=== PATIENT | male | born 1955 | race Caucasian/White ===

== ENCOUNTER 2017-09-08 13:44 | Inpatient (IN) ==
[2017-09-08 15:19] LABS: Basophils % 0.1 %; Eosinophils # 0.1 K/mcL (0.0-0.6); Eosinophils % 0.7 %; Hematocrit 34.6 % (37.5-50.1); Hemoglobin 11.4 g/dL (12.9-16.9); Immature Granulocytes % 0.6 % (0-4); Lymphocytes # 0.9 K/mcL (0.6-4.6); Lymphocytes % 12.8 %; Mean Corpuscular HGB Conc 32.9 g/dL (31.6-35.5); Mean Platelet Volume 9.3 fL (9.4-12.4); Monocytes # 0.5 K/mcL (0.0-1.3); Monocytes % 7.6 %; Neutrophils # 5.3 K/mcL (1.6-8.9); Platelet Count 265 K/mcL (140-400); Red Blood Count 3.68 M/mcL (4.19-5.50); Red Cell Distribution Width 13.5 % (11.5-14.5); Segmented Neutrophils % 78.2 %
[2017-09-08 16:00] LABS: BUN/Creatinine Ratio 12 (6-26); Blood Urea Nitrogen 15 mg/dL (8-23); C-Reactive Protein 68 mg/L (Less than 10); Calcium 8.3 mg/dL (8.6-10.3); Carbon Dioxide 25 mEq/L (23-29); Chloride 105 mEq/L (98-107); Glucose 103 mg/dL (70-105); Osmolality,Calculated 285 (280-300); Potassium 3.5 mEq/L (3.5-5.1); Sodium 137 mEq/L (136-145); eGFR For African Americans > 60 (> 60); eGFR For Non-African Americans 57 (> 60)
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
[2017-09-08] MEDS ORDERED: Piperacillin/Tazobactam 3.375 GM in 0.9 % Sodium Chloride Mini Bag 100 ML IVPB ONE (17:43)
[2017-09-08] MEDS ORDERED: 0.9 % Sodium Chloride 1,000 ML IVC ONE (17:44)
[2017-09-08] MEDS ORDERED: Clindamycin 900 MG/50 ML 900 MG/50 ML IV.SOLN IVPB ONE (20:02)
--- NOTE | 2017-09-08 20:05 | Emergency Department Note ---
Disposition Clinical Impression: Wound of left lower extremity Qualifiers: Encounter type: initial encounter Qualified Code(s): S81.802A - Unspecified open wound, left lower leg, initial encounter Osteomyelitis Qualifiers: Osteomyelitis type: unspecified type Osteomyelitis location: unspecified site Qualified Code(s): M86.9 - Osteomyelitis, unspecified Disposition: Admitted As Inpatient Condition: Fair [facility]errals: [facility] [Primary Care Provider] - Forms: ED Satisfaction Letter Time of Disposition: 20:05 Wound/Laceration HPI - General Chief Complaint: ED Wound/Laceration Stated Complaint: sent from Wound Care Time Seen by Provider: 09/08/17 14:11 Source: patient Limitations: no limitations - Related Data Home Medications Medication Instructions Recorded Confirmed Carvedilol 12.5 mg PO BID 07/03/17 09/08/17 Gabapentin [Neurontin] 900 mg PO TID 07/03/17 09/08/17 Lisinopril [Zestril] 20 mg PO DAILY 07/03/17 09/08/17 Phenytoin Sodium Extended 200 mg PO TID 07/03/17 09/08/17 [Phenytek] Spironolactone [Aldactone] 25 mg PO DAILY 07/03/17 09/08/17 Tamsulosin HCl [Flomax] 0.4 mg PO DAILY 07/03/17 09/08/17 Allergies Allergy/AdvReac Type Severity Reaction Status Date / Time No Known Allergies Allergy Verified 09/08/17 14:09 Constitutional: Reports: fever (Subjective) Cardiovascular: Denies: chest pain Respiratory: Denies: cough Gastrointestinal: Denies: abdominal pain, nausea, vomiting Musculoskeletal: Reports: other (Left leg pain). Denies: back pain Integumentary: Reports: other (Increased swelling and purulent drainage.) Past Medical History - Past Medical History Medical history: Reports: hypertension, kidney stones, seizures, syncope, other Surgical history: Reports: other Psychiatric history: Reports: anxiety, depression - Social History Smoking Status: Former smoker Smokeless Tobacco Status: No Alcohol use: Reports: none Drug use: Reports: none Physical Exam - General Limitations: no limitations General appearance: alert, in no apparent distress Course - Reevaluation(s) Reevaluation #1: I assumed care of the patient from Dr. Almonte at change of shift. Dr. Almonte had already done a full evaluation of the patient and it spoken with podiatry and had already initiated antibiotics in conjunction with consultation with podiatry. He was waiting for labs to come back and then paging the hospitalist. Labs came back and show an elevation of ESR and CRP but the rest of labs look pretty good. Patient has received vancomycin and Zosyn. I went and spoke with the hospitalist who recommended adding clindamycin as well. He is accepted the patient for admission to the hospital. I saw the patient and he is alert and nontoxic appearing and in no distress. He denies any needs at this time. Time: 20:05 - Consultations Consultation #1: Dr. Rosales, hospitalist - I discussed the case with the hospitalist. He accepted the patient for admission. He recommended I order clindamycin IV as well. I ordered 900 mg of IV clindamycin. Time: 20:05 Vital Signs Temperature 97.8 F 09/08/17 14:02 Pulse Rate 90 09/08/17 14:02 Respiratory Rate 18 09/08/17 14:02 Blood Pressure 96/65 09/08/17 14:02 O2 Sat by Pulse Oximetry 96 09/08/17 14:02 Temperature 97.8 F 09/08/17 17:04 Pulse Rate 67 09/08/17 19:05 Respiratory Rate 15 09/08/17 19:05 Blood Pressure 149/101 09/08/17 19:05 O2 Sat by Pulse Oximetry 98 09/08/17 19:05 Oxygen Delivery Oxygen Delivery Room Air Wound/Laceration - Lab Data Lab results reviewed: Yes I reviewed the patient's lab results. Result diagrams: 09/08/17 14:57 09/08/17 14:57 Lab Results 09/08/17 09/08/17 09/08/17 Range/Units 14:57 14:57 14:57 WBC 6.7 (4.3-11.1) K/mcL RBC 3.68 L (4.19-5.50) M/mcL Hgb 11.4 L (12.9-16.9) g/dL Hct 34.6 L (37.5-50.1) % MCV 94.0 (83.0-100.0) fL MCH 31.0 (28.0-33.3) pg MCHC 32.9 (31.6-35.5) g/dL RDW 13.5 (11.5-14.5) % Plt Count 265 (140-400) K/mcL MPV 9.3 L (9.4-12.4) fL Immature Gran % 0.6 (0-4) % Seg Neutrophils % 78.2 % Lymphocytes % 12.8 % Monocytes % 7.6 % Eosinophils % 0.7 % Basophils % 0.1 % Neutrophils # 5.3 (1.6-8.9) K/mcL Lymphocytes # 0.9 (0.6-4.6) K/mcL Monocytes # 0.5 (0.0-1.3) K/mcL Eosinophils # 0.1 (0.0-0.6) K/mcL Basophils # 0.0 (0.0-0.2) K/mcL ESR 50 H (0-10) mm/hr Sodium 137 (136-145) mEq/L Potassium 3.5 (3.5-5.1) mEq/L Chloride 105 (98-107) mEq/L Carbon Dioxide 25 (23-29) mEq/L BUN 15 (8-23) mg/dL Creatinine 1.27 (0.70-1.30) mg/dL Est GFR ( Amer) > 60 (> 60) Est GFR (Non-Af Amer) 57 L (> 60) BUN/Creatinine Ratio 12 (6-26) Glucose 103 (70-105) mg/dL Calculated Osmolality 285 (280-300) Lactic Acid (0.5-2.2) mmol/L Calcium 8.3 L (8.6-10.3) mg/dL C-Reactive Protein 68 H (Less than 10) mg/L 09/08/17 Range/Units 14:57 WBC (4.3-11.1) K/mcL RBC (4.19-5.50) M/mcL Hgb (12.9-16.9) g/dL Hct (37.5-50.1) % MCV (83.0-100.0) fL MCH (28.0-33.3) pg MCHC (31.6-35.5) g/dL RDW (11.5-14.5) % Plt Count (140-400) K/mcL MPV (9.4-12.4) fL Immature Gran % (0-4) % Seg Neutrophils % % Lymphocytes % % Monocytes % % Eosinophils % % Basophils % % Neutrophils # (1.6-8.9) K/mcL Lymphocytes # (0.6-4.6) K/mcL Monocytes # (0.0-1.3) K/mcL Eosinophils # (0.0-0.6) K/mcL Basophils # (0.0-0.2) K/mcL ESR (0-10) mm/hr Sodium (136-145) mEq/L Potassium (3.5-5.1) mEq/L Chloride (98-107) mEq/L Carbon Dioxide (23-29) mEq/L BUN (8-23) mg/dL Creatinine (0.70-1.30) mg/dL Est GFR ( Amer) (> 60) Est GFR (Non-Af Amer) (> 60) BUN/Creatinine Ratio (6-26) Glucose (70-105) mg/dL Calculated Osmolality (280-300) Lactic Acid 0.8 (0.5-2.2) mmol/L Calcium (8.6-10.3) mg/dL C-Reactive Protein (Less than 10) mg/L - Radiology Data Radiology results reviewed: Yes I reviewed the patient's radiology results.
[2017-09-08] MEDS ORDERED: Naloxone 0.4 MG/ML INJ IVP PRN (21:32)
--- NOTE | 2017-09-08 21:43 | Internal Med History&Physical ---
Date of Encounter: 09/08/17 Time of Encounter: 19:00 Internal Medicine - H&P: HPI Chief complaint: Wound infection Admitted From: Home Plans for Post Hospital Care: Home History of present illness: Mr. Dias is a 61 year old male sent to ER by wound care for wound infection. Past medical history is significant for hypertension, seizure. Patient has chronic left ankle and left heel wound and follow with wound clinic. Patient was sent to emergency room by wound clinic today because signs of wound infection. Patient had debridement on July 03 and placed on wound VAC. The skin turns black on both ankle and heel. Patient has subjective fever and night sweating. In the emergency room, x-ray of left foot shows cellulitis and possible fasciitis. Patient was placed on antibiotics and admitted for further management. Podiatry was counseled by ER. Past Med Surg Social Fam HX - Past Medical History Medical history: hypertension, kidney stones, seizures, syncope, other Additional medical history: Left Foot Drop, Polyp, Lumbar deforming dorsopathies , Psychiatric history: anxiety, depression - Past Surgical History Surgical History: other Additional surgical history: Bone Augmentation with pins and screws to left foot - Social History Smoking Status: Former smoker Smokeless Tobacco Status: No Alcohol use: none Drug use: none - Family History Mother Adopted: No Hx Family Cardiac Disorders: Yes Hx Family Respiratory Disorders: No Hx Family Cancer: No Hx Family GI Disorders: No Hx Family Endocrine Disorder: Yes Hx Family Neuromuscular Disorders: No Hx Family Neurologic Disorders: No Hx Family HEENT Disorders: No Hx Family Autoimmune Disorders: No Father Adopted: No Family Member Ethnicity: Non- Living Status: Hx Family Cardiac Disorders: Yes Hx Family Respiratory Disorders: No Hx Family Cancer: No Hx Family GI Disorders: No Hx Family Endocrine Disorder: No Hx Family Neuromuscular Disorders: No Hx Family Neurologic Disorders: No Hx Family HEENT Disorders: No Hx Family Autoimmune Disorders: No Internal Medicine - H&P: Meds Carvedilol 12.5 mg PO BID 07/03/17 [History] Gabapentin [Neurontin] 900 mg PO TID 07/03/17 [History] Lisinopril [Zestril] 20 mg PO DAILY 07/03/17 [History] Phenytoin Sodium Extended [Phenytek] 200 mg PO TID 07/03/17 [History] Spironolactone [Aldactone] 25 mg PO DAILY 07/03/17 [History] Tamsulosin HCl [Flomax] 0.4 mg PO DAILY 07/03/17 [History] 3 Allergy/AdvReac Type Severity Reaction Status Date / Time No Known Allergies Allergy Verified 09/08/17 14:09 All Systems PM: A 10-system review of systems was performed and is negative for pertinent findings except as documented above in the HPI. - Constitutional Vitals: Temp Pulse Resp BP Pulse Ox 97.8 F 71 16 177/104 98 09/08/17 17:04 09/08/17 20:51 09/08/17 20:51 09/08/17 20:51 09/08/17 20:51 General appearance: Present: A&O X 3, no acute distress, answers questions appropriately - Head Head exam: Present: atraumatic, normocephalic - Eye Eye exam: Present: PERRL, conjuntiva pink, sclera anicteric Pupils: Present: PERRL - Neck Neck exam general surgery: Present: supple, trachea midline. Absent: lymphadenopathy - Respiratory Respiratory exam: Present: CTAB. Absent: accessory muscle use, rales, rhonchi, wheezes - Cardiovascular Cardiovascular exam: Present: RRR, +S1, +S2. Absent: diastolic murmur, gallop, rubs, systolic murmur - GI/Abdominal GI/Abdominal exam: Present: normal bowel sounds, soft, no peritoneal signs. Absent: distended, tenderness - Extremities Exam Extremities exam: Present: warm, radial pulses palpable and symmetrical. Absent : calf tenderness, cyanotic, pedal edema Additional comments: Left ankle and heel wound, well dressed. - Neurological Exam Neurological exam: Present: CN II-XII intact, oriented X3, no focal deficits. Absent: pronater drift, facial droop, speech deficit - Skin Skin exam: Present: dry, intact Internal Med - H&P Results - Labs CBC & Chem 7: 09/08/17 14:57 09/08/17 14:57 Labs: Short CBC 09/08/17 Range/Units 14:57 WBC 6.7 (4.3-11.1) K/mcL Hgb 11.4 L (12.9-16.9) g/dL Hct 34.6 L (37.5-50.1) % Plt Count 265 (140-400) K/mcL Neutrophils # 5.3 (1.6-8.9) K/mcL BMP 09/08/17 14:57 Sodium 137 Potassium 3.5 Chloride 105 Carbon Dioxide 25 BUN 15 Creatinine 1.27 Glucose 103 Calcium 8.3 L - Impressions ITS Impressions Foot X-Ray 09/08/17 17:29 IMPRESSION: Recent postsurgical change of arthrodesis in the foot. Worsening soft tissue swelling and edema with suspected ulceration and perhaps subcutaneous gas over the dorsal and medial aspect of the foot. Pattern may represent cellulitis and ulceration. Underlying fasciitis is not excluded. D/ / Kurt Gaming MD / Kurt Gaming MD Interpreting Provider: Kurt Gaming MD - Assessment and plan (1) Hypertension Current Visit: Yes Status: Acute Assessment and plan: Continue home medications. Closely monitor BP. Qualifiers: Hypertension type: essential hypertension Qualified Code(s): I10 - Essential (primary) hypertension (2) Seizure Current Visit: Yes Status: Acute Assessment and plan: Continue home medication phenytoin. Patient reports has seizure activity 2 weeks ago. Will check blood phenytoin level. (3) DVT prophylaxis Current Visit: Yes Status: Acute Assessment and plan: Heparin subcutaneously (4) Wound of left lower extremity Current Visit: Yes Status: Acute Assessment and plan: With signs of infection. Not meet sepsis criteria. X-ray shows possible subcutaneous gas and fasciitis is not Excluded. - Place patient on Vanco, Zosyn, and clindamycin - Consult podiatry - Keep patient nothing by mouth from midnight in case podiatry procedures Qualifiers: Encounter type: initial encounter Qualified Code(s): S81.802A - Unspecified open wound, left lower leg, initial encounter - Time Spent With Patient Total time spent is greater than 50% in coordination of care (as documented) at patient's floor/unit and/or counseling patient: 40 minutes Greater than 35 minutes
[2017-09-08] MEDS: 0.9 % Sodium Chloride 1,000 ML IVC SCH (22:38)
[2017-09-08] MEDS: Gabapentin 300 MG CAPSULE PO SCH (23:43)
[2017-09-09] MEDS: Clindamycin 600 MG/50 ML 600 MG/50 ML IV.SOLN IVPB SCH ×3 (04:44→15:39)
[2017-09-09] MEDS: Piperacillin/Tazobactam 3.375 GM in 0.9 % Sodium Chloride Mini Bag 100 ML IVPB SCH ×2 (04:45→12:08)
[2017-09-09] MEDS: *HR* Heparin 5,000 UNIT/ML VIAL SQ SCH ×2 (05:35→16:43)
[2017-09-09 06:59] LABS: Basophils % 0.2 %; Eosinophils % 0.6 %; Hematocrit 31.6 % (37.5-50.1); Hemoglobin 10.8 g/dL (12.9-16.9); Immature Granulocytes % 0.6 % (0-4); Lymphocytes # 1.2 K/mcL (0.6-4.6); Lymphocytes % 22.4 %; Mean Corpuscular HGB Conc 34.2 g/dL (31.6-35.5); Mean Corpuscular Hemoglobin 32.1 pg (28.0-33.3); Mean Platelet Volume 9.3 fL (9.4-12.4); Monocytes # 0.6 K/mcL (0.0-1.3); Neutrophils # 3.5 K/mcL (1.6-8.9); Platelet Count 194 K/mcL (140-400); Red Blood Count 3.36 M/mcL (4.19-5.50); Red Cell Distribution Width 13.2 % (11.5-14.5); Segmented Neutrophils % 65.2 %
[2017-09-09 07:05] LABS: INR 1.3; Prothrombin Time 14.7 Seconds (9.4-12.1)
[2017-09-09 07:29] LABS: BUN/Creatinine Ratio 15 (6-26); Blood Urea Nitrogen 14 mg/dL (8-23); Carbon Dioxide 24 mEq/L (23-29); Chloride 108 mEq/L (98-107); Glucose 106 mg/dL (70-105); Magnesium 1.6 mg/dL (1.6-2.6); Osmolality,Calculated 283 (280-300); Phenytoin (Dilantin) 3.5 mcg/mL (10.0-20.0); Potassium 3.3 mEq/L (3.5-5.1); Sodium 136 mEq/L (136-145); eGFR For African Americans > 60 (> 60); eGFR For Non-African Americans > 60 (> 60)
[2017-09-09] MEDS ORDERED: Gabapentin 300 MG CAPSULE PO SCH (09:00)
[2017-09-09] MEDS ORDERED: Lisinopril 20 MG TABLET PO SCH (09:00)
[2017-09-09] MEDS ORDERED: Spironolactone 25 MG TABLET PO SCH (09:00)
[2017-09-09] MEDS ORDERED: Lactobacillus 1 EACH CAP.SPRINK PO SCH (09:00)
[2017-09-09] MEDS: Gabapentin 300 MG CAPSULE PO SCH ×2 (09:11→15:39)
[2017-09-09] MEDS: 0.9 % Sodium Chloride 1,000 ML IVC SCH (09:31)
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
--- NOTE | 2017-09-09 15:21 | Internal Med Progress Note ---
Date of Encounter: 09/09/17 Time of Encounter: 14:00 - Assessment and plan (1) Wound of left lower extremity Current Visit: Yes Status: Acute Assessment and plan: Concern for infected L ankle/heel wound with surrounding cellulitis elevated CRP, ESR no SIRS criteria XR ?fasciitis in addition to cellulitis and ulceration IV abx, ID consult for staged debridements by podiatry Qualifiers: Encounter type: initial encounter Qualified Code(s): S81.802A - Unspecified open wound, left lower leg, initial encounter (2) Hypokalemia Current Visit: Yes Status: Acute Assessment and plan: repleted (3) Hypertension Current Visit: Yes Status: Chronic Assessment and plan: continue coreg, lisinopril, aldactone Qualifiers: Hypertension type: essential hypertension Qualified Code(s): I10 - Essential (primary) hypertension (4) Seizure Current Visit: Yes Status: Chronic Assessment and plan: continue phenytoin, level 3.5 but not having seizures (5) DVT prophylaxis Current Visit: Yes Status: Acute Assessment and plan: SQ heparin - Time Spent With Patient Total time spent is greater than 50% in coordination of care (as documented) at patient's floor/unit and/or counseling patient: - Subjective Interval history: Denies fever/chills, worsening pain over L ankle/heel. States that he has been having low grade temp at home for the past few days. - Constitutional Vitals: Temp Pulse Resp BP Pulse Ox 98.2 F 73 15 142/82 97 09/09/17 14:29 09/09/17 14:29 09/09/17 14:29 09/09/17 14:29 09/09/17 14:29 General appearance: Present: A&O X 3, no acute distress, answers questions appropriately Exam: General: Alert and oriented HEENT:EOM, pupils equal, round, and reactive. Cardiovascular:Normal S1 & S2, no murmurs or gallops. No JVD. Pulse regular. Lungs:Normal breath sounds, no wheezes or crackles. Abdomen:Soft, non-tender, no rigidity. Extremities: L ankle/foot wrapped in dressing, dry and clean dressing Neurological:Normal cognition and motor skills. Skin:Normal color, no rash, no lesions. Pulses:Carotid and radial pulses normal +2. Rest of the physical exam is non-contributory Internal Medicine: Result - Labs CBC & Chem 7: 09/09/17 06:05 09/09/17 06:05 Labs: Short CBC 09/09/17 Range/Units 06:05 WBC 5.4 (4.3-11.1) K/mcL Hgb 10.8 L (12.9-16.9) g/dL Hct 31.6 L (37.5-50.1) % Plt Count 194 (140-400) K/mcL Neutrophils # 3.5 (1.6-8.9) K/mcL BMP 09/09/17 06:05 Sodium 136 Potassium 3.3 L Chloride 108 H Carbon Dioxide 24 BUN 14 Creatinine 0.96 Glucose 106 H Calcium 8.0 L - ABG Interpretation ABG results: PT/INR, D-dimer PT 14.7 Seconds (9.4-12.1) H 09/09/17 06:05 Consult Discharge Plan - Plan [facility]errals: [facility] [Primary Care Provider] -
--- NOTE | 2017-09-09 17:31 | Anesthesia Evaluation PreOp ---
Date of Encounter: 09/09/17 Time of Encounter: 17:28 - Past History Planned Operation: L foot excisional debridement, removal hardware Cardiac History: HTN Pulmonary History: Denies Any Significant HX BPM ARCHITECT History: Seizures (no seizure in 3yrs), Other (L foot drop) Other Medical History: Renal (stones) Anesthesia History: No Prior Anesthetic Complications, Past Anesthesia (Fusion L foot to ankle joint, bone graft) Alcohol Use: none Drug use: none Medications and Allergies Gabapentin [Neurontin] 900 mg PO TID 07/03/17 [History] Phenytoin Sodium Extended [Phenytek] 200 mg PO TID 07/03/17 [History] RX: Carvedilol 12.5 mg PO BID 07/03/17 [History] RX: Lisinopril [Zestril] 20 mg PO DAILY 07/03/17 [History] Spironolactone [Aldactone] 25 mg PO DAILY 07/03/17 [History] Tamsulosin HCl [Flomax] 0.4 mg PO DAILY 07/03/17 [History] 3 Allergy/AdvReac Type Severity Reaction Status Date / Time No Known Allergies Allergy Verified 09/08/17 14:09 - Meds/Allergy Pre-op Review Medications Reviewed: Yes Allergies Reviewed: Yes Beta Blockers on Current Med List: Yes If Beta Blockers taken, Date/Time (Last Dose taken): 09/09/17 1644 Anesthesia Results - Labs 09/09/17 06:05 09/09/17 06:05 - Imaging EKG: report reviewed ( Interpretive Statements SINUS BRADYCARDIA Electronically Signed On 08-11-2017 15:33:49 EDT by [address] Wynne) Anesthesia Exam Vital Signs/O2 Sat, Most Current Temp Pulse Resp BP Pulse Ox 98.2 F 73 15 142/82 97 09/09/17 14:29 09/09/17 14:29 09/09/17 14:29 09/09/17 14:29 09/09/17 14:29 Height: 1.88m Weight: 99kg NPO (# of Hours): >8 Pain Scale: 0 Pain Scale Used: Numeric (1 - 10) - HEENT Pupil (Motor): Pupils equal, EOMI Mallampati: III Teeth: Poor dentition Oral Opening: Greater than 3 - BPM ARCHITECT LOC: Oriented BPM ARCHITECT Motor: Normal RUE, Normal LUE, Normal RLE, Normal Face, Deficit LLE (left foot drop) BPM ARCHITECT Sensory: Normal: RUE, LUE, RLE, LLE, Face - Cardiac Rhythm: Regular - Pulmonary Breath Sounds: bilateral Clear Respiratory Effort: Symmetrical Anesthesia Assess/Plan ASA Score: 3 Modified [place] Scale for Level of Consciousness: Cooperative, oriented, and tranquil Anesthetic Plan: General Monitoring Plan: Standard Monitors Recovery Plan: PACU
[2017-09-09] MEDS ORDERED: Vancomycin 1,000 MG VIAL ONE (18:04)
[2017-09-09] MEDS ORDERED: *HR* Propofol 200 MG/20 ML VIAL IVP ONE ×2 (18:37→22:54)
[2017-09-09] MEDS ORDERED: Lidocaine -MPF 2% 2 ML VIAL ONE (18:37)
[2017-09-09] MEDS ORDERED: *HR* FentaNYL (PF) 100 MCG/2 ML VIAL ONE (18:37)
--- NOTE | 2017-09-09 21:02 | Event Note ---
Date of Encounter: 09/09/17 Time of Encounter: 20:45 I came to see the patient to evaluate his left lower extremity. Unfortunately he was being prepared to be taken into surgery this evening by Dr. Pacheco for debridement. I briefly mentioned to the patient and his that we would recommend angiography and possible endovascular intervention. We are tentatively planning on this procedure for the patient on . All questions were answered. Patient was agreeable to proceed if he is medically stable.
[2017-09-09] MEDS ORDERED: Lidocaine 1% 20 ML MDV ONE (23:08)
--- NOTE | 2017-09-10 00:36 | Operative Note ---
Date of procedure: 09/09/17 Pre-op diagnosis: left foot/ankle wound dehiscence, possible infected hardware Post-op diagnosis: same Procedure: Excisional debridement of left foot wounds Anterior ankle, lateral foot, posterior heel. removal of hardware Implants: none Complications: none Anesthesia: MAC Local Anesthetics: 1% Lidocaine HCL SubQ (cc) Surgeon: Naveed Larkin Was there an nursing assistants teacher present: No Estimated blood loss (cc): 50 Specimen: left wound culture, left talus bone culture, pathology bone left talus Condition: stable Disposition: PACU Procedure in Detail: Indications: 61-year-old male with neuropathy with normal pre-operative non- invasive vascular studies underwent a pantalar arthrodesis and subsequently developed left foot/ankle wound dehiscence with measurements on the anterior aspect of the ankle which developed necrosis and demarcated. It measured [id number] and a left lateral foot wound which measured [id number] and a posterior heel wound which measured approximately [id number] with necrosis/ eschar. The patient developed cellulitis and was admitted to the hospital and received IV antibiotics. Nature of the above procedures as well as the patient' s condition were discussed at length with him preoperatively and he was made aware that he is at high risk for limb loss. It was explained he will require multiple operating room debridements, grafts, possible flaps. No guarantees were made as to the outcome of any procedure or that his limb could be salvaged. Vascular had been consulted and discussed patient with them the debridement today and plan for angiogram on . Infectious disease was also consulted. Will perform debridement today and did Informed consent had been signed patient was taken from preoperative holding area and operating room placed on the operating room table in the supine position. The left lower extremity was scrubbed prepped and draped in the usual sterile fashion. 1% lidocaine plain was injected into the patient's left foot and ankle. The following procedures then began. Excisional debridement of left foot/ankle wounds, removal of hardware, washout, application of wound vac. Attention was directed to the patient's left lower extremity where the Pulsavac with normal sterile saline and 3 g of vancomycin was used to cleanse the wounds and aid in debridement of the wounds. The necrotic area of the anterior ankle wound was then more movable and was gently elevated off the wound bed and excised. Care was taken to avoid underlying vascular structures. Tissue under the wound including the anterior ankle tendons appeared glistening white and healthy without degenerative changes and were not desiccated. No underlying purulence was present. There was serous drainage present, mostly in the lateral aspect of the wound. Cultures were taken and sent to microbiology. The underlying tissue did not have necrosis. Through the lateral aspect of the wound there was hardware able to be visualized. The screws that were visualized were removed. The screws that were in the talus from the anterior ankle plate were not felt to be well secured within the talus bone. The screws were removed. Medially one of the screw heads was able to be visualized just beneath the soft tissue and the decision was made to also remove the screw. At this time the decision was made to leave the plate until the vasculature had been further evaluated as to not make any further incision on the skin at this time which would be needed to remove the plate. There was no purulence seen or expressed in the wound or around the plate or screws. The [employer] debridement wand was utilized to debride the posterior heel wound and lateral foot wound until there was a healthy bleeding granular base. Upon debridement of the eschar on the posterior aspect of the heel. The screw was visualized and the decision was made to remove the screw. Pulse lavage irrigation a low setting was utilized to further cleanse all of the wound sites. There was bleeding present on the anterior ankle wound lateral foot wound and posterior heel. Adequate hemostasis was felt to be present at the conclusion of the procedure. The talus bone which is able to be visualized the lateral aspect of the incision, then had a ronjeur used to take a sample of the bone and it was sent to the pathology lab and microbiology lab. Adaptic was placed over the anterior ankle wound and a wound VAC was applied to the anterior ankle and lateral foot wound using a bridge. The posterior wound had Adaptic applied and a dry sterile bandage. The patient was then placed in an adequately padded posterior splint. Patient tolerated the anesthesia and the procedure well and was escorted to recovery room with vital signs stable and will return to the floor where he will continue antibiotics.
--- NOTE | 2017-09-10 01:00 | Anesthesia Evaluation Post Op ---
Date of Encounter: 09/10/17 Time of Encounter: 01:00 - Vital Signs Vital Signs: Last Vital Signs Temp 97.0 F L 09/10/17 00:51 Pulse 59 09/10/17 00:51 Resp 18 09/10/17 00:51 BP 183/100 09/10/17 00:51 Pulse Ox 97 09/10/17 00:51 - Lungs Lungs: Clear Ascult./Percussion - Airway Airway: Non-obstructed - Cardiovascular Regular Rate - Mental Status Mental Status: Alert & Oriented, Answers Appropriately - Pain Pain Scale: 3 - Nausea Vomiting Nausea Vomiting: Not Present - Hydration Hydration: Ice chips - Discharge PostOp Status: Transfer Patient to floor
[2017-09-10] MEDS ORDERED: Naloxone 0.4 MG/ML INJ IVP PRN (01:11)
[2017-09-10] MEDS: Gabapentin 300 MG CAPSULE PO SCH ×4 (01:14→20:26)
[2017-09-10] MEDS: Clindamycin 600 MG/50 ML 600 MG/50 ML IV.SOLN IVPB SCH (01:14)
[2017-09-10] MEDS: Piperacillin/Tazobactam 3.375 GM in 0.9 % Sodium Chloride Mini Bag 100 ML IVPB SCH ×4 (01:14→22:18)
[2017-09-10 03:59] LABS: Adenovirus F 40/41 PCR Not detected (Not detect); Astrovirus PCR Not detected (Not detect); C.difficile Toxin A/B by PCR Not detected (Not detect); Campylobacter by PCR Not detected (Not detect); Cryptosporidium by PCR Not detected (Not detect); Cyclospora cayetanensis PCR Not detected (Not detect); E. coli O157 by PCR Not detected (Not detect); Entamoeba histolytica PCR Not detected (Not detect); Enteroaggregative E.coli(EAEC) Not detected (Not detect); Enteropathogenic E.coli(EPEC) Not detected (Not detect); Enterotoxigenic E.coli (ETEC) Not detected (Not detect); Giardia lamblia PCR Not detected (Not detect); Norovirus GI/GII PCR Not detected (Not detect); Plesiomonas shigelloides PCR Not detected (Not detect); Rotavirus A PCR Not detected (Not detect); Salmonella PCR Not detected (Not detect); Sapovirus PCR Not detected (Not detect); Shig/EnteroinvasiveE coli EIEC Not detected (Not detect); Shigalike tox-prod E coli STEC Not detected (Not detect); Vibrio PCR Not detected (Not detect); Vibrio cholerae PCR Not detected (Not detect); Yersinia enterocolitica PCR Not detected (Not detect)
[2017-09-10] MEDS ORDERED: Piperacillin/Tazobactam 3.375 GM in 0.9 % Sodium Chloride Mini Bag 100 ML IVPB SCH (04:00)
[2017-09-10 06:36] LABS: Basophils % 0.2 %; Eosinophils # 0.1 K/mcL (0.0-0.6); Eosinophils % 1.3 %; Hematocrit 33.1 % (37.5-50.1); Immature Granulocytes % 0.6 % (0-4); Lymphocytes # 1.1 K/mcL (0.6-4.6); Lymphocytes % 19.7 %; Mean Corpuscular HGB Conc 33.2 g/dL (31.6-35.5); Mean Corpuscular Hemoglobin 31.3 pg (28.0-33.3); Mean Platelet Volume 9.6 fL (9.4-12.4); Monocytes # 0.4 K/mcL (0.0-1.3); Monocytes % 7.2 %; Neutrophils # 3.9 K/mcL (1.6-8.9); Platelet Count 204 K/mcL (140-400); Red Blood Count 3.52 M/mcL (4.19-5.50); Red Cell Distribution Width 13.2 % (11.5-14.5)
[2017-09-10] MEDS: *HR* Heparin 5,000 UNIT/ML VIAL SQ SCH ×2 (06:42→17:30)
[2017-09-10 07:01] LABS: BUN/Creatinine Ratio 12 (6-26); Blood Urea Nitrogen 12 mg/dL (8-23); Carbon Dioxide 21 mEq/L (23-29); Chloride 109 mEq/L (98-107); Potassium 3.7 mEq/L (3.5-5.1); Sodium 137 mEq/L (136-145); eGFR For African Americans > 60 (> 60)
[2017-09-10 07:02] LABS: Calcium 8.2 mg/dL (8.6-10.3); Glucose 87 mg/dL (70-105); Magnesium 1.7 mg/dL (1.6-2.6); Osmolality,Calculated 283 (280-300); eGFR For Non-African Americans > 60 (> 60)
[2017-09-10] MEDS ORDERED: Clindamycin 600 MG/50 ML 600 MG/50 ML IV.SOLN IVPB SCH (08:00)
[2017-09-10] MEDS: Lactobacillus 1 EACH CAP.SPRINK PO SCH (08:05)
[2017-09-10] MEDS: Spironolactone 25 MG TABLET PO SCH (08:06)
[2017-09-10] MEDS: Lisinopril 20 MG TABLET PO SCH (08:06)
[2017-09-10] MEDS: amLODIPine 5 MG TABLET PO SCH (09:22)
--- NOTE | 2017-09-10 13:18 | Podiatry Progress Note ---
Date of Encounter: 09/10/17 Time of Encounter: 12:15 - Assessment and Plan (1) Wound of left lower extremity Current Visit: Yes Status: Acute reviewed with patient and family findings during procedure and current treatment plan as well as his culture and lab results at this time. did discuss with them the severity of he wound and the infection present at that he is high risk for losing his leg. he says he knows that. no guarantees were made that his limb could be salvaged and he was told this. he was also made aware again if his limb were able to be salvaged it is going to take multiple OR procedures and debridements as well as wound care. will await angiogram findings potentially planned for . plan to take patient back to OR Friday for washout, possible debridement and possible further removal of hardware. discussed nutrition and wound healing. discussed patient with infectious disease who is following. c/w posterior splint and non-weight bearing on the left lower extremity. c/w wound vac, next change tomorrow. (2) Nonhealing surgical wound Current Visit: No Status: Acute Qualifiers: Encounter type: subsequent encounter Qualified Code(s): T81.89XD - Other complications of procedures, not elsewhere classified, subsequent encounter Subjective Interval history: s/p excisonal debridement of wounds, washout, removal of some hardware and application of wound vac. says he feels okay, no problems overnight. he says he felt cold last night but is fine currently. does not feel like he had a fever. today for the first time he tells me that he has not had a solid bowel movement in over a year and has seen a GI doctor previously but does not have any answers and says javon is doing a work up on him for it. he also says he has lost a significant amount of weight approximately 55 lbs over the last 3 months and this started before the surgery. he says he is not hungry and does not eat. he has tried some supplements but does not like the way they taste so he does not drink them. he said a conservation science teacher came to see him yesterday. in regards to his left foot/ankle, he says his pain is controlled and no more than normal. he says he likes this wound vac better than the one he was using at home. he says the one at home beeped a lot and frequently had blockages they would have to deal with. Objective - Vital Signs Vital Signs: Vital Signs Temp Pulse Resp BP Pulse Ox 09/10/17 10:33 98.2 F 64 16 158/88 98 09/10/17 08:11 97.4 F L 78 16 175/91 100 09/10/17 06:52 165/88 09/10/17 05:09 98.0 F 69 20 182/103 96 09/10/17 03:37 97.6 F 72 18 182/100 97 09/10/17 02:34 98.3 F 68 20 168/104 98 09/10/17 02:00 97.4 F L 83 20 186/106 99 09/10/17 01:34 96 09/10/17 01:31 97.5 F L 65 20 183/103 96 09/10/17 00:51 97.0 F L 59 18 183/100 97 09/10/17 00:41 63 18 131/90 09/10/17 00:31 97.7 F 71 14 128/96 98 09/09/17 14:29 98.2 F 73 15 142/82 97 Intake and Output 09/09/17 09/10/17 09/10/17 23:59 07:59 15:59 Intake Total 100 / 100 170 / 170 Output Total 50 / 50 0 / 0 Balance 100 / 100 -50 / -50 170 / 170 Intake: IV Fluids 100 / 100 50 / 50 Cleocin Premix 600 MG/50 ML 600 50 / 50 mg In 50 ml @ 50 mls/hr IVPB Q8HR MYLES Rx#:[id number] Zosyn 3.375 GM In 0.9 % Sodium 100 / 100 Chloride (Mini-Bag +) 100 ML @ 25 mls/hr IVPB Q8H MYLES Rx#: [id number] Oral 120 / 120 Output: Urine 0 / 0 Estimated Blood Loss 50 / 50 Other: Meal NPO Stool Size Large Stool Color Brown # Voids 1 1 # Bowel Movements 2 0 0 Blood Glucose* 97 94 - Exam Exam: well developed and nourished male in no acute distress wound vac on left lower extremity functioning with no leak. toes are warm to touch. 50cc of bloody drainage in cannister. - Lab Result Diagrams: 09/10/17 05:38 09/10/17 05:38 Labs: Abnormal lab results RBC 3.52 M/mcL (4.19-5.50) L 09/10/17 05:38 Hgb 11.0 g/dL (12.9-16.9) L 09/10/17 05:38 Hct 33.1 % (37.5-50.1) L 09/10/17 05:38 ESR 50 mm/hr (0-10) H 09/08/17 14:57 PT 14.7 Seconds (9.4-12.1) H 09/09/17 06:05 Chloride 109 mEq/L (98-107) H 09/10/17 05:38 Carbon Dioxide 21 mEq/L (23-29) L 09/10/17 05:38 Calcium 8.2 mg/dL (8.6-10.3) L 09/10/17 05:38 C-Reactive Protein 68 mg/L (Less than 10) H 09/08/17 14:57 Vancomycin Trough 20 mcg/mL (5-10) H 09/10/17 08:03 Phenytoin 3.5 mcg/mL (10.0-20.0) L 09/09/17 06:05 - VTE Documentation of Mechanical Device: Venous foot pump, device Consult Discharge Plan - Plan [facility]errals: [facility] [Primary Care Provider] -
--- NOTE | 2017-09-10 13:45 | Internal Med Progress Note ---
Date of Encounter: 09/10/17 Time of Encounter: 09:50 - Assessment and plan (1) Wound of left lower extremity Current Visit: Yes Status: Acute Assessment and plan: Concern for infected L ankle/heel wound with surrounding cellulitis elevated CRP, ESR no SIRS criteria XR ?fasciitis in addition to cellulitis and ulceration underwent excisional debridement of wounds, washout, removal of some hardware and application of wound vac yesterday c/s from 09/08 shows P. aeruginosa and group C Strep, will a/w final intra-op culture result continue currnet abx, follow with ID and podiatry Qualifiers: Encounter type: initial encounter Qualified Code(s): S81.802A - Unspecified open wound, left lower leg, initial encounter (2) Hypertension Current Visit: Yes Status: Chronic Assessment and plan: continue coreg, lisinopril, aldactone Persistently above 180 yesterday, will add norvasc 5mg Qualifiers: Hypertension type: essential hypertension Qualified Code(s): I10 - Essential (primary) hypertension (3) Hypokalemia Current Visit: Yes Status: Acute Assessment and plan: repleted, normal today (4) Seizure Current Visit: Yes Status: Chronic Assessment and plan: continue phenytoin, level 3.5 but not having seizures (5) DVT prophylaxis Current Visit: Yes Status: Acute Assessment and plan: SQ heparin - Time Spent With Patient Total time spent is greater than 50% in coordination of care (as documented) at patient's floor/unit and/or counseling patient: - Subjective Interval history: Feels ok after operation yesterday, no significant pain. Has been having diarrhea for > 1 year. Worse with food intake ?possibly the worst with fatty food. No fever/chills, GI panel negative - Constitutional Vitals: Temp Pulse Resp BP Pulse Ox 98.2 F 64 16 158/88 98 09/10/17 10:33 09/10/17 10:33 09/10/17 10:33 09/10/17 10:33 09/10/17 10:33 General appearance: Present: A&O X 3, no acute distress, answers questions appropriately Exam: General: Alert and oriented HEENT:EOM, pupils equal, round, and reactive. Cardiovascular:Normal S1 & S2, no murmurs or gallops. No JVD. Pulse regular. Lungs:Normal breath sounds, no wheezes or crackles. Abdomen:Soft, non-tender, no rigidity. Extremities: L ankle/foot wrapped in dressing, dry and clean dressing Neurological:Normal cognition and motor skills. Skin:Normal color, no rash, no lesions. Pulses:Carotid and radial pulses normal +2. Rest of the physical exam is non-contributory Internal Medicine: Result - Labs CBC & Chem 7: 09/10/17 05:38 09/10/17 05:38 Labs: Short CBC 09/10/17 Range/Units 05:38 WBC 5.4 (4.3-11.1) K/mcL Hgb 11.0 L (12.9-16.9) g/dL Hct 33.1 L (37.5-50.1) % Plt Count 204 (140-400) K/mcL Neutrophils # 3.9 (1.6-8.9) K/mcL BMP 09/10/17 05:38 Sodium 137 Potassium 3.7 Chloride 109 H Carbon Dioxide 21 L BUN 12 Creatinine 0.97 Glucose 87 Calcium 8.2 L - ABG Interpretation ABG results: PT/INR, D-dimer PT 14.7 Seconds (9.4-12.1) H 09/09/17 06:05 - VTE Documentation of Mechanical Device: Venous foot pump, device Consult Discharge Plan - Plan [facility]errals: [facility] [Primary Care Provider] -
--- NOTE | 2017-09-10 14:16 | Infectious Disease Progress No ---
Date of Encounter: 09/10/17 Time of Encounter: 10:30 - Subjective Interval history: Patient seen and examined. No acute events noted overnight. Status post excisional debridement of the left foot wound anterior ankle, lateral foot, and posterior heel 09/09/[address] Larkin. Patient states overall he is doing okay. Denies fevers, chills, or rigors. Denies chest pain, shortness of breath. Reports a dry cough. Denies nausea, vomiting, or diarrhea. Reports two loose stools this morning. Denies abdominal pain or urinary complaints. States he did not get a breakfast tray, but is not really hungry anyways. Denies pain at the surgical site. Denies oral thrush or skin lesions. Infect Dis PN-Objective Data - Labs CBC & Chem 7: 09/10/17 05:38 09/10/17 05:38 Labs: Laboratory Results - last 24 hr 09/09/17 09/10/17 09/10/17 17:11 02:25 05:38 WBC 5.4 RBC 3.52 L Hgb 11.0 L Hct 33.1 L MCV 94.0 MCH 31.3 MCHC 33.2 RDW 13.2 Plt Count 204 MPV 9.6 Immature Gran % 0.6 Seg Neutrophils % 71.0 Lymphocytes % 19.7 Monocytes % 7.2 Eosinophils % 1.3 Basophils % 0.2 Neutrophils # 3.9 Lymphocytes # 1.1 Monocytes # 0.4 Eosinophils # 0.1 Basophils # 0.0 Sodium Potassium Chloride Carbon Dioxide BUN Creatinine Est GFR ( Amer) Est GFR (Non-Af Amer) BUN/Creatinine Ratio Glucose POC Glucose 97 Calculated Osmolality Calcium Magnesium Stl C. cayetanensis PCR Not detected Stool Rotavirus A PCR Not detected Stl Adenov F 40/41 PCR Not detected Stool Astrovirus (PCR) Not detected Stool Campylobacter PCR Not detected Stl C. diff Tox A/B PCR Not detected Stool Cryptosporidium PCR Not detected Stl Sh Tox Pr E STEC PCR Not detected Stool E coli O157 PCR Not detected Stl Enterotoxigenic E PCR Not detected Stool EPEC (PCR) Not detected Stool EAEC (PCR) Not detected Stl E. histolytica PCR Not detected Stool Giardia Lamblia PCR Not detected Stool Salmonella PCR Not detected Stool Sapovirus (PCR) Not detected Stl P. shigelloides PCR Not detected Stl Shigella/EIEC PCR Not detected St Y.enterocolitica PCR Not detected Stool Vibrio (PCR) Not detected Stl Vibrio cholerae PCR Not detected Stl Norovirus GI/GII PCR Not detected Stl GI Panel (PCR) Com See below Vancomycin Trough 09/10/17 09/10/17 09/10/17 05:38 06:05 08:03 WBC RBC Hgb Hct MCV MCH MCHC RDW Plt Count MPV Immature Gran % Seg Neutrophils % Lymphocytes % Monocytes % Eosinophils % Basophils % Neutrophils # Lymphocytes # Monocytes # Eosinophils # Basophils # Sodium 137 Potassium 3.7 Chloride 109 H Carbon Dioxide 21 L BUN 12 Creatinine 0.97 Est GFR ( Amer) > 60 Est GFR (Non-Af Amer) > 60 BUN/Creatinine Ratio 12 Glucose 87 POC Glucose 94 Calculated Osmolality 283 Calcium 8.2 L Magnesium 1.7 Stl C. cayetanensis PCR Stool Rotavirus A PCR Stl Adenov F 40/ PCR Stool Astrovirus (PCR) Stool Campylobacter PCR Stl C. diff Tox A/B PCR Stool Cryptosporidium PCR Stl Sh Tox Pr E STEC PCR Stool E coli O157 PCR Stl Enterotoxigenic E PCR Stool EPEC (PCR) Stool EAEC (PCR) Stl E. histolytica PCR Stool Giardia Lamblia PCR Stool Salmonella PCR Stool Sapovirus (PCR) Stl P. shigelloides PCR Stl Shigella/EIEC PCR St Y.enterocolitica PCR Stool Vibrio (PCR) Stl Vibrio cholerae PCR Stl Norovirus GI/GII PCR Stl GI Panel (PCR) Com Vancomycin Trough 20 H Cultures: Serology 09/10/17 Range/Units 02:25 Stl C. cayetanensis PCR Not detected (Not detect) Stool Rotavirus A PCR Not detected (Not detect) Stl Adenov F 40/41 PCR Not detected (Not detect) Stool Astrovirus (PCR) Not detected (Not detect) Stool Campylobacter PCR Not detected (Not detect) Stl C. diff Tox A/B PCR Not detected (Not detect) Stool Cryptosporidium PCR Not detected (Not detect) Stl Sh Tox Pr E STEC PCR Not detected (Not detect) Stool E coli O157 PCR Not detected (Not detect) Stl Enterotoxigenic E PCR Not detected (Not detect) Stool EPEC (PCR) Not detected (Not detect) Stool EAEC (PCR) Not detected (Not detect) Stl E. histolytica PCR Not detected (Not detect) Stool Giardia Lamblia PCR Not detected (Not detect) Stool Salmonella PCR Not detected (Not detect) Stool Sapovirus (PCR) Not detected (Not detect) Stl P. shigelloides PCR Not detected (Not detect) Stl Shigella/EIEC PCR Not detected (Not detect) St Y.enterocolitica PCR Not detected (Not detect) Stool Vibrio (PCR) Not detected (Not detect) Stl Vibrio cholerae PCR Not detected (Not detect) Stl Norovirus GI/GII PCR Not detected (Not detect) Stl GI Panel (PCR) Com See below Exam - Constitutional Vitals: Temp Pulse Resp BP Pulse Ox 98.2 F 64 16 158/88 98 09/10/17 10:33 09/10/17 10:33 09/10/17 10:33 09/10/17 10:33 09/10/17 10:33 General appearance: average body habitus, cooperative, no acute distress - Head Head exam: Present: atraumatic, normal inspection, normocephalic - Eye Eye exam: Present: EOMI, normal appearance, PERRL Pupils: Present: normal accommodation - ENT ENT exam: Present: mucous membranes moist - Neck Neck exam: Present: normal inspection - Respiratory Respiratory exam: Present: CTAB. Absent: rales, respiratory distress, rhonchi, wheezes - Cardiovascular Cardiovascular exam: Present: RRR, +S1, +S2 - GI/Abdominal GI/Abdominal exam: Present: normal bowel sounds, soft. Absent: distended, tenderness - Extremities Exam Extremities exam: Absent: joint swelling, pedal edema, tenderness Additional comments: Left foot/LE post-op splint and dressing C/D/I. Wound VAC noted without leak at 125mm Hg continuous suction. - Neurological Exam Neurological exam: Present: alert, oriented X3, no focal deficits - Psychiatric Psychiatric exam: Present: normal affect, normal mood - Skin Skin exam: Present: dry, intact, normal color, warm - VTE Documentation of Mechanical Device: Venous foot pump, device Consult Discharge Plan - Plan [facility]errals: [facility] [Primary Care Provider] - - Attending Attestation I examined this patient and my medical decision-making was reviewed with the Resident Physician. I agree with the documented findings, disposition and treatment plan as described except to the extent set forth below.
--- NOTE | 2017-09-10 20:49 | Vascular/Endovasc Consult Note ---
Date of Encounter: 09/10/17 Time of Encounter: 20:46 Assessment and Plan (1) Wound of left lower extremity Current Visit: Yes Status: Acute Patient has a significant wound of the left foot and ankle area due to the lack of progress despite aggressive care in angiogram is a reasonable investigation. Also because the ankle-brachial index demonstrated significant elevation of the pressures further evaluation the vascular runoff is appropriate. Qualifiers: Encounter type: initial encounter Qualified Code(s): S81.802A - Unspecified open wound, left lower leg, initial encounter (2) Hypertension Current Visit: Yes Status: Chronic Patient has history of chronic hypertension. Qualifiers: Hypertension type: essential hypertension Qualified Code(s): I10 - Essential (primary) hypertension (3) Seizure Current Visit: Yes Status: Chronic History of seizures - History of Present Illness Consult date: 09/10/17 Requesting physician: Naveed Larkin Consult reason: non healing left leg wound Chief complaint: non healing left leg wound History of present illness: Mr. Dias is a 61 year old male Admitted on September 08 because of deterioration of a left foot wound. The patient had a trauma to the leg sometime ago with nerve damage and a drop foot. He went on to have arthrodesis performed but developed a postprocedural wound problem and he has been managed in the wound clinic. The wound has deteriorated despite active and aggressive wound care. He was admitted for further treatment and antibiotics. Prior to his left foot and ankle surgery he had had noninvasive studies performed on May 28. This showed an ankle-brachial index of 1.26 on the right and 1.25 on the left. However the pressures were elevated and the patient thus demonstrates some degree of unreliability due to the rigidity of the vessels. The patient went to the operating room last night for debridement of the wound with Dr. Larkin. The patient presently has the wound wrapped and there is an wound VAC applied. Past Med Surg Social Fam HX - Past Medical History Medical history: hypertension, kidney stones, seizures, syncope, other Additional medical history: Left Foot Drop, Polyp, Lumbar deforming dorsopathies , Psychiatric history: anxiety, depression - Past Surgical History Surgical History: other Additional surgical history: Bone Augmentation with pins and screws to left foot - Social History Smoking Status: Former smoker Smokeless Tobacco Status: No Alcohol use: none Drug use: none - Family History Mother Adopted: No Hx Family Cardiac Disorders: Yes Hx Family Respiratory Disorders: No Hx Family Cancer: No Hx Family GI Disorders: No Hx Family Endocrine Disorder: Yes Hx Family Neuromuscular Disorders: No Hx Family Neurologic Disorders: No Hx Family HEENT Disorders: No Hx Family Autoimmune Disorders: No Father Adopted: No Family Member Ethnicity: Non- Living Status: Hx Family Cardiac Disorders: Yes Hx Family Respiratory Disorders: No Hx Family Cancer: No Hx Family GI Disorders: No Hx Family Endocrine Disorder: No Hx Family Neuromuscular Disorders: No Hx Family Neurologic Disorders: No Hx Family HEENT Disorders: No Hx Family Autoimmune Disorders: No Medications and Allergies Carvedilol 12.5 mg PO BID 07/03/17 [History] Gabapentin [Neurontin] 900 mg PO TID 07/03/17 [History] Lisinopril [Zestril] 20 mg PO DAILY 07/03/17 [History] Phenytoin Sodium Extended [Phenytek] 200 mg PO TID 07/03/17 [History] Spironolactone [Aldactone] 25 mg PO DAILY 07/03/17 [History] Tamsulosin HCl [Flomax] 0.4 mg PO DAILY 07/03/17 [History] 3 Allergy/AdvReac Type Severity Reaction Status Date / Time No Known Allergies Allergy Verified 09/08/17 14:09 All Systems Review: The remainder of the systems were reviewed and are negative Exam Vital Signs, Last 4 Hours Temp Pulse Resp BP Pulse Ox 09/10/17 19:38 98.3 F 61 14 165/98 96 General: Present: Conversant, No Apparent Distress, Well developed, Well nourished HEENT: Present: Atraumatic, Normocephaly Neck: Absent: JVD, Left Carotid bruit, Right Carotid bruit, Midline deformity, Tracheal deviation Cardiac: Present: Reg Rate and Rhythm, Normal S1 and S2 Lungs: Present: Normal Breath Sounds Neuro: Present: Alert and responsive, No focal deficits noted Abdomen: Present: Soft, Non-tender, Masses Vascular: Present: Pulse, normal (In right lower extremity. The left femoral and popliteal pulses are normal. I cannot assess the pulses in the left ankle region due to the wound. The toes and distal forefoot on the left foot for her are warm and pink with excellent capillary refill.) Skin: Present: No rashes noted on visualized skin Consult Discharge Plan - Plan [facility]errals: [facility] [Primary Care Provider] -
[2017-09-11] MEDS: *HR* Heparin 5,000 UNIT/ML VIAL SQ SCH ×2 (04:37→18:41)
[2017-09-11] MEDS: Piperacillin/Tazobactam 3.375 GM in 0.9 % Sodium Chloride Mini Bag 100 ML IVPB SCH ×3 (06:20→22:43)
[2017-09-11] MEDS: Lisinopril 20 MG TABLET PO SCH (09:11)
[2017-09-11] MEDS: Lactobacillus 1 EACH CAP.SPRINK PO SCH (09:11)
[2017-09-11] MEDS: Gabapentin 300 MG CAPSULE PO SCH ×3 (09:11→20:01)
[2017-09-11] MEDS: Spironolactone 25 MG TABLET PO SCH (09:12)
[2017-09-11] MEDS: amLODIPine 5 MG TABLET PO SCH (09:12)
--- NOTE | 2017-09-11 12:57 | Infectious Disease Progress No ---
Date of Encounter: 09/11/17 Time of Encounter: 12:54 - Assessment and Plan (1) Wound of left lower extremity Current Visit: Yes Status: Acute Location: Left lateral ankle. Causative organism unclear. Swab culture growing PSEA and GCS. Intra-op cultures are positive for PSEA and GCS. Secondary to non-healing surgical wound. X-ray of the left foot/ankle and recent postsurgical change of arthrodesis in the foot with worsening soft tissue swelling and edema with suspected ulceration and perhaps subcutaneous gas over the dorsal and medial aspect of the foot. The pattern may represent cellulitis and ulceration, but underlying fasciitis cannot be excluded. Podaitry consulted and following. Status post excisional debridement of the left foot wounds anterior ankle, lateral foot, and posterior heel. Operative note reviewed and case discussed with Dr. Larkin. Large amount of serous drainage noted intra-op. Cultures as above. Pathology are pending. ESR 50, CRP 68. No SIRS criteria. Wound care and activity restrictions per the podiatry team. Discontinue Vancomycin. Discontinue Zosyn. Start Cefepime 2 grams IV Q12H. Duration of treatment depends on the clinical picture, but likely 6 weeks of IV antibiotics. Monitor renal function and dose-adjust antibiotics. account services associate to assist with discharge planning. Okay to consult VAT for IV line placement. Will need weekly CBC, BUN/Cr, ESR, CRP. Will need weekly IV care per protocol. Follow up with ID two weeks post-discharge. 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 Larkin. (3) Hypertension Current Visit: Yes Status: Chronic Qualifiers: Qualified Code(s): I10 - Essential (primary) hypertension (4) Seizure Current Visit: Yes Status: Chronic (5) Diarrhea Current Visit: Yes Status: Acute Patient reports chronic diarrhea for a year. GI panel negative. Continue probiotics. Qualifiers: Qualified Code(s): R19.7 - Diarrhea, unspecified (6) Nonhealing surgical wound Current Visit: Yes Status: Acute Location: Left foot/ankle. Vascular consulted due to abnormal vascular testing. Planning to perform Angiogram to evaluate for PAD/PVD. Qualifiers: Qualified Code(s): T81.89XD - Other complications of procedures, not elsewhere classified, subsequent encounter - Subjective Interval history: Patient seen and examined. No acute events noted overnight. Status post excisional debridement of the left foot wound anterior ankle, lateral foot, and posterior heel 09/09/[address] Larkin. Patient states overall he is doing okay. Denies fevers, chills, or rigors. Denies chest pain, shortness of breath. Reports a dry cough. Denies nausea, vomiting, or diarrhea. Reports two loose stools this morning. Denies abdominal pain or urinary complaints. States he has not had anything to eat for 2 days because he doesn't like the food here. Denies pain at the surgical site. Denies oral thrush or skin lesions. Infect Dis PN-Objective Data - Labs CBC & Chem 7: 09/12/17 08:25 09/12/17 08:25 Labs: Laboratory Results - last 24 hr 09/10/17 09/10/17 09/10/17 15:40 15:40 15:40 POC Glucose Albumin 2.7 L Prealbumin 5.5 L 25-OH Vitamin D Total 17 L 09/11/17 05:14 POC Glucose 96 Albumin Prealbumin 25-OH Vitamin D Total Cultures: Cultures 09/10/17 00:48 Wound Culture - Preliminary Left Foot Pseudomonas aeruginosa Group C Streptococcus Serology 09/10/17 Range/Units 02:25 Stl C. cayetanensis PCR Not detected (Not detect) Stool Rotavirus A PCR Not detected (Not detect) Stl Adenov F 40/41 PCR Not detected (Not detect) Stool Astrovirus (PCR) Not detected (Not detect) Stool Campylobacter PCR Not detected (Not detect) Stl C. diff Tox A/B PCR Not detected (Not detect) Stool Cryptosporidium PCR Not detected (Not detect) Stl Sh Tox Pr E STEC PCR Not detected (Not detect) Stool E coli O157 PCR Not detected (Not detect) Stl Enterotoxigenic E PCR Not detected (Not detect) Stool EPEC (PCR) Not detected (Not detect) Stool EAEC (PCR) Not detected (Not detect) Stl E. histolytica PCR Not detected (Not detect) Stool Giardia Lamblia PCR Not detected (Not detect) Stool Salmonella PCR Not detected (Not detect) Stool Sapovirus (PCR) Not detected (Not detect) Stl P. shigelloides PCR Not detected (Not detect) Stl Shigella/EIEC PCR Not detected (Not detect) St Y.enterocolitica PCR Not detected (Not detect) Stool Vibrio (PCR) Not detected (Not detect) Stl Vibrio cholerae PCR Not detected (Not detect) Stl Norovirus GI/GII PCR Not detected (Not detect) Stl GI Panel (PCR) Com See below Exam - Constitutional Vitals: Temp Pulse Resp BP Pulse Ox 97.4 F L 62 16 159/85 94 09/11/17 10:59 09/11/17 10:59 09/11/17 10:59 09/11/17 10:59 09/11/17 10:59 General appearance: average body habitus, cooperative, no acute distress - Head Head exam: Present: atraumatic, normal inspection, normocephalic - Eye Eye exam: Present: EOMI, normal appearance, PERRL Pupils: Present: normal accommodation - ENT ENT exam: Present: mucous membranes moist - Neck Neck exam: Present: normal inspection - Respiratory Respiratory exam: Present: CTAB. Absent: rales, respiratory distress, rhonchi, wheezes - Cardiovascular Cardiovascular exam: Present: RRR, +S1, +S2 - GI/Abdominal GI/Abdominal exam: Present: normal bowel sounds, soft. Absent: distended, tenderness - Extremities Exam Extremities exam: Absent: joint swelling, pedal edema, tenderness Additional comments: Left LE dressing/splint intact. Wound VAC noted without leak with 125mm Hg continuous suction. - Neurological Exam Neurological exam: Present: alert, oriented X3, no focal deficits - Psychiatric Psychiatric exam: Present: normal affect, normal mood - Skin Skin exam: Present: dry, intact, normal color, warm - VTE Documentation of Mechanical Device: Venous foot pump, device Consult Discharge Plan - Plan [facility]errals: [facility] [Primary Care Provider] - - Attending Attestation I examined this patient and my medical decision-making was reviewed with the Resident Physician. I agree with the documented findings, disposition and treatment plan as described except to the extent set forth below.
--- NOTE | 2017-09-11 15:47 | Internal Med Progress Note ---
Date of Encounter: 09/11/17 Time of Encounter: 13:10 - Assessment and plan (1) Wound of left lower extremity Current Visit: Yes Status: Acute Assessment and plan: concern for infected L ankle/heel wound with surrounding cellulitis a/w elevated CRP, ESR no SIRS criteria underwent excisional debridement of wounds, washout, removal of some hardware and application of wound vac yesterday c/s from 09/08 shows P. aeruginosa and group C Strep, will a/w final intra-op culture result continue current abx, follow with ID and podiatry would get LE angio at some point per vascular Qualifiers: Encounter type: initial encounter Qualified Code(s): S81.802A - Unspecified open wound, left lower leg, initial encounter (2) Hypertension Current Visit: Yes Status: Chronic Assessment and plan: continue coreg, lisinopril, aldactone. Norvasc added yesterday Will also add chlorthalidone Qualifiers: Hypertension type: essential hypertension Qualified Code(s): I10 - Essential (primary) hypertension (3) Seizure Current Visit: Yes Status: Chronic Assessment and plan: continue phenytoin, level 3.5 but not having seizures (4) DVT prophylaxis Current Visit: Yes Status: Acute Assessment and plan: SQ heparin - Time Spent With Patient Total time spent is greater than 50% in coordination of care (as documented) at patient's floor/unit and/or counseling patient: - Subjective Interval history: No significant pain on left foot. Had an episode of elevated BP at night requiring IV medications. Denies headache, SOB, CP, blurring of vision. - Constitutional Vitals: Temp Pulse Resp BP Pulse Ox 97.4 F L 62 16 159/85 94 09/11/17 10:59 09/11/17 10:59 09/11/17 10:59 09/11/17 10:59 09/11/17 10:59 General appearance: Present: A&O X 3, no acute distress, answers questions appropriately Exam: General: Alert and oriented HEENT:EOM, pupils equal, round, and reactive. Cardiovascular:Normal S1 & S2, no murmurs or gallops. No JVD. Pulse regular. Lungs:Normal breath sounds, no wheezes or crackles. Abdomen:Soft, non-tender, no rigidity. Extremities: L ankle/foot wrapped in dressing, dry and clean dressing Rest of the physical exam is non-contributory Internal Medicine: Result - Labs CBC & Chem 7: 09/10/17 05:38 09/10/17 05:38 Labs: Liver Function 09/10/17 Range/Units 15:40 Albumin 2.7 L (3.5-5.7) g/dL - ABG Interpretation ABG results: PT/INR, D-dimer PT 14.7 Seconds (9.4-12.1) H 09/09/17 06:05 - VTE Documentation of Mechanical Device: Venous foot pump, device Consult Discharge Plan - Plan [facility]errals: [facility] [Primary Care Provider] -
--- NOTE | 2017-09-11 19:56 | Podiatry Progress Note ---
Date of Encounter: 09/11/17 Time of Encounter: 06:30 - Assessment and Plan (1) Wound of left lower extremity Current Visit: Yes Status: Acute reviewed with patient his current conditon, labs and cultures currently available. wound vac was changed with adaptic and black foam set on 150mm Hg. no leak. alginate on heel wound. bandage and adequately padded posterior splint applied. all questions answered. patient going for angiogram tomorrow. (2) Nonhealing surgical wound Current Visit: Yes Status: Acute Qualifiers: Encounter type: subsequent encounter Qualified Code(s): T81.89XD - Other complications of procedures, not elsewhere classified, subsequent encounter Subjective Interval history: patient up in bed, in good spirits. no complaints. Objective - Vital Signs Vital Signs: Vital Signs Temp Pulse Resp BP Pulse Ox 09/11/17 19:53 97.0 F L 65 16 165/101 96 09/11/17 18:36 97.5 F L 64 16 171/94 95 09/11/17 10:59 97.4 F L 62 16 159/85 94 09/11/17 10:30 63 142/86 09/11/17 09:09 97.5 F L 63 16 183/100 98 09/11/17 07:07 98.6 F 63 16 198/102 97 09/11/17 06:12 186/99 09/11/17 05:19 98.8 F 61 14 200/127 98 09/10/17 23:33 164/97 Intake and Output 09/11/17 09/11/17 09/11/17 07:59 15:59 23:59 Intake Total 350 / 350 580 / 580 350 / 350 Output Total 450 / 450 0 / 0 Balance -100 / -100 580 / 580 350 / 350 Intake: IV Fluids 350 / 350 100 / 100 350 / 350 Zosyn 3.375 GM In 0.9 % Sodium 100 / 100 100 / 100 100 / 100 Chloride (Mini-Bag +) 100 ML @ 25 mls/hr IVPB Q8H [facility] Rx#: [id number] Vancocin 1,000 MG In 0.9 % 250 / 250 250 / 250 Sodium Chloride 250 ML @ 167 mls/hr IVPB Q12H [facility] Rx#: [id number] Oral 0 / 0 480 / 480 0 / 0 Output: Urine 400 / 400 0 / 0 Wound Drainage 50 / 50 Left Foot 50 / 50 Other: Meal Lunch Refused Dinner Percent of Meal Consumed 10% Weight 100.1 kg Blood Glucose* 96 Patient Weight 09/11/17 23:59 Weight 100.1 kg - Exam Exam: Patient is in no acute distress Wound VAC was removed and margins of wound show some bleeding with evidence of some granulation tissue formation. There remains fibrotic tissue present. The distal most aspect of the plate is visible in the wound. Tendons are also present traversing the ankle joint. The wound today measures [id number]. some exudate. erythema has decreased around the wound and ankle. About 50cc of drainage in the cannister. - Lab Result Diagrams: 09/10/17 05:38 09/10/17 05:38 Labs: Abnormal lab results RBC 3.52 M/mcL (4.19-5.50) L 09/10/17 05:38 Hgb 11.0 g/dL (12.9-16.9) L 09/10/17 05:38 Hct 33.1 % (37.5-50.1) L 09/10/17 05:38 ESR 50 mm/hr (0-10) H 09/08/17 14:57 PT 14.7 Seconds (9.4-12.1) H 09/09/17 06:05 Chloride 109 mEq/L (98-107) H 09/10/17 05:38 Carbon Dioxide 21 mEq/L (23-29) L 09/10/17 05:38 Calcium 8.2 mg/dL (8.6-10.3) L 09/10/17 05:38 C-Reactive Protein 68 mg/L (Less than 10) H 09/08/17 14:57 Albumin 2.7 g/dL (3.5-5.7) L 09/10/17 15:40 Prealbumin 5.5 mg/dL (17.0-34.0) L 09/10/17 15:40 25-OH Vitamin D Total 17 ng/mL (30-80) L 09/10/17 15:40 Vancomycin Trough 20 mcg/mL (5-10) H 09/10/17 08:03 Phenytoin 3.5 mcg/mL (10.0-20.0) L 09/09/17 06:05 Microbiology, Last 48 Hours 09/10/17 00:48 Surgical Biopsy Culture - Preliminary Left Foot 09/10/17 00:48 Wound Culture - Preliminary Left Foot Pseudomonas aeruginosa Group C Streptococcus - VTE Documentation of Mechanical Device: Venous foot pump, device Consult Discharge Plan - Plan [facility]errals: [facility] [Primary Care Provider] -
--- NOTE | 2017-09-11 21:57 | Anesthesia Evaluation PreOp ---
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), anxiety/depression) Other Medical History: Renal (stones) Anesthesia History: No Prior Anesthetic Complications Alcohol Use: none Drug use: none Medications and Allergies Carvedilol 12.5 mg PO BID 07/03/17 [History] Gabapentin [Neurontin] 900 mg PO TID 07/03/17 [History] Lisinopril [Zestril] 20 mg PO DAILY 07/03/17 [History] Phenytoin Sodium Extended [Phenytek] 200 mg PO TID 07/03/17 [History] Spironolactone [Aldactone] 25 mg PO DAILY 07/03/17 [History] Tamsulosin HCl [Flomax] 0.4 mg PO DAILY 07/03/17 [History] Cefepime HCl [Maxipime] 2,000 mg IVPB Q12H 42 Days #84 vial 09/12/17 [Rx] 3 Allergy/AdvReac Type Severity Reaction Status Date / Time No Known Allergies Allergy Verified 09/08/17 14:09 - Meds/Allergy Pre-op Review Medications Reviewed: Yes Allergies Reviewed: Yes Beta Blockers on Current Med List: Yes (coreg) If Beta Blockers taken, Date/Time (Last Dose taken): 09-11-17 coreg 18:40 Anesthesia Results - Labs 09/10/17 05:38 09/10/17 05:38 - Imaging EKG: report reviewed, image reviewed (sinus bradycardia) Anesthesia Exam Last Vital Signs Temp 97.0 F L 09/11/17 19:53 Pulse 65 09/11/17 19:53 Resp 16 09/11/17 19:53 BP 123/73 09/11/17 20:56 Pulse Ox 96 09/11/17 19:53 Weight: 100 kg NPO (# of Hours): > 8 hrs - HEENT Pupil (Motor): Pupils equal, EOMI Mallampati: III Teeth: Poor dentition Oral Opening: Greater than 3 - PAPER BAG [employer]KER LOC: Oriented - Cardiac Rhythm: Regular Murmur: None - Pulmonary Breath Sounds: bilateral Clear Respiratory Effort: Symmetrical Anesthesia Assess/Plan ASA Score: 3 Modified Vickie Scale for Level of Consciousness: Cooperative, oriented, and tranquil Monitoring Plan: Standard Monitors Recovery Plan: PACU <Viri Faria - Last Filed: 09/13/17 08:31> Date of Encounter: 09/13/17 Time of Encounter: 07:45 - Past History Cardiac History: HTN Pulmonary History: Denies Any Significant HX [employer] History: Seizures, Other Other Medical History: Renal Anesthesia History: No Prior Anesthetic Complications, Past Anesthesia (L ankle) Alcohol Use: none Drug use: none - Meds/Allergy Pre-op Review Medications Reviewed: Yes Allergies Reviewed: Yes Beta Blockers on Current Med List: Yes If Beta Blockers taken, Date/Time (Last Dose taken): 17:23 on 09/12/17 Anesthesia Results - Labs 09/12/17 08:25 09/12/17 08:25 - Imaging EKG: report reviewed, image reviewed Anesthesia Exam Vital Signs/O2 Sat, Most Current Temp Pulse Resp BP Pulse Ox 97.4 F L 101 14 179/107 95 09/13/17 04:12 09/13/17 04:12 09/13/17 04:12 09/13/17 04:12 09/13/17 04:12 - HEENT Pupil (Motor): Pupils equal, EOMI Mallampati: III Teeth: Poor dentition Oral Opening: Greater than 3 - PAPER BAG MAKER PAPER BAG MAKER Motor: Normal RUE, Normal LUE, Normal RLE, Normal Face, Deficit LLE (foot drop) [employer]AG [employer]ER Sensory: Normal: RUE, LUE, RLE, LLE, Face - Pulmonary Breath Sounds: bilateral Clear Respiratory Effort: Symmetrical Anesthesia Assess/Plan ASA Score: 3 Modified [place] Scale for Level of Consciousness: Cooperative, oriented, and tranquil Anesthetic Plan: General (plan B), MAC Monitoring Plan: Standard Monitors Recovery Plan: PACU
[2017-09-12] MEDS: *HR* Heparin 5,000 UNIT/ML VIAL SQ SCH ×2 (04:15→17:24)
[2017-09-12] MEDS ORDERED: Vancomycin 1,000 MG, Sodium Chloride IRRigation 1,000 ML IR ONE (06:00)
[2017-09-12] MEDS: Piperacillin/Tazobactam 3.375 GM in 0.9 % Sodium Chloride Mini Bag 100 ML IVPB SCH (06:00)
[2017-09-12] MEDS: Cholecalciferol (D-3) 1,000 UNIT TABLET PO SCH (07:59)
[2017-09-12] MEDS: Lactobacillus 1 EACH CAP.SPRINK PO SCH (08:00)
[2017-09-12] MEDS: Spironolactone 25 MG TABLET PO SCH (08:00)
[2017-09-12] MEDS: Gabapentin 300 MG CAPSULE PO SCH ×3 (08:01→20:00)
[2017-09-12] MEDS: Lisinopril 20 MG TABLET PO SCH (08:01)
[2017-09-12] MEDS: amLODIPine 5 MG TABLET PO SCH (08:01)
[2017-09-12 08:47] LABS: Basophils % 0.2 %; Eosinophils # 0.1 K/mcL (0.0-0.6); Eosinophils % 2.5 %; Hematocrit 31.9 % (37.5-50.1); Hemoglobin 10.7 g/dL (12.9-16.9); Immature Granulocytes % 0.7 % (0-4); Lymphocytes # 1.1 K/mcL (0.6-4.6); Lymphocytes % 25.1 %; Mean Corpuscular HGB Conc 33.5 g/dL (31.6-35.5); Mean Corpuscular Hemoglobin 31.1 pg (28.0-33.3); Mean Corpuscular Volume 92.7 fL (83.0-100.0); Mean Platelet Volume 9.1 fL (9.4-12.4); Monocytes # 0.4 K/mcL (0.0-1.3); Monocytes % 8.9 %; Neutrophils # 2.8 K/mcL (1.6-8.9); Platelet Count 204 K/mcL (140-400); Red Blood Count 3.44 M/mcL (4.19-5.50); Red Cell Distribution Width 13.1 % (11.5-14.5); Segmented Neutrophils % 62.6 %
[2017-09-12] MEDS ORDERED: Cholecalciferol (D-3) 1,000 UNIT TABLET PO SCH (09:00)
[2017-09-12 09:01] LABS: BUN/Creatinine Ratio 6 (6-26); Blood Urea Nitrogen 5 mg/dL (8-23); Calcium 8.2 mg/dL (8.6-10.3); Carbon Dioxide 24 mEq/L (23-29); Chloride 107 mEq/L (98-107); Glucose 92 mg/dL (70-105); Osmolality,Calculated 283 (280-300); Potassium 3.4 mEq/L (3.5-5.1); Sodium 138 mEq/L (136-145); eGFR For African Americans > 60 (> 60); eGFR For Non-African Americans > 60 (> 60)
[2017-09-12] MEDS ORDERED: Lidocaine -MPF 1% 5 ML AMPUL INFILT ONE (09:33)
--- NOTE | 2017-09-12 09:33 | Infectious Disease Progress No ---
Date of Encounter: 09/12/17 Time of Encounter: 09:30 - Assessment and Plan (1) Wound of left lower extremity Current Visit: Yes Status: Acute Location: Left lateral ankle. Causative organism unclear. Swab culture growing PSEA and GCS. Intra-op cultures are positive for PSEA and GCS. Secondary to non-healing surgical wound. X-ray of the left foot/ankle and recent postsurgical change of arthrodesis in the foot with worsening soft tissue swelling and edema with suspected ulceration and perhaps subcutaneous gas over the dorsal and medial aspect of the foot. The pattern may represent cellulitis and ulceration, but underlying fasciitis cannot be excluded. Podaitry consulted and following. Status post excisional debridement of the left foot wounds anterior ankle, lateral foot, and posterior heel. Operative note reviewed and case discussed with Dr. Larkin. Large amount of serous drainage noted intra-op. Cultures as above. Pathology are pending. ESR 50, CRP 68. No SIRS criteria. Wound care and activity restrictions per the podiatry team. Continue Cefepime 2 grams IV Q12H. Duration of treatment depends on the clinical picture, but likely 6 weeks of IV antibiotics. Monitor renal function and dose-adjust antibiotics. director of outpatient services to assist with discharge planning. Okay to consult VAT for IV line placement. Will need weekly CBC, BUN/Cr, ESR, CRP. Will need weekly IV care per protocol. Follow up with ID two weeks post-discharge. 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 Larkin. (3) Hypertension Current Visit: Yes Status: Chronic Qualifiers: Hypertension type: essential hypertension Qualified Code(s): I10 - Essential (primary) hypertension (4) Seizure Current Visit: Yes Status: Chronic (5) Diarrhea Current Visit: Yes Status: Acute Patient reports chronic diarrhea for a year. GI panel negative. Continue probiotics. Qualifiers: Diarrhea type: unspecified type Qualified Code(s): R19.7 - Diarrhea, unspecified (6) Nonhealing surgical wound Current Visit: Yes Status: Acute Location: Left foot/ankle. Vascular consulted due to abnormal vascular testing. Planning to perform Angiogram to evaluate for PAD/PVD. Qualifiers: Encounter type: subsequent encounter Qualified Code(s): T81.89XD - Other complications of procedures, not elsewhere classified, subsequent encounter - Subjective Interval history: Patient seen and examined. No acute events noted overnight. Status post excisional debridement of the left foot wound anterior ankle, lateral foot, and posterior heel 09/09/[address] Larkin. Scheduled for angiogram later today. Patient states overall he is doing okay. Denies fevers, chills, or rigors. Denies chest pain, shortness of breath. Reports a dry cough. Denies nausea, vomiting, or diarrhea. Reports one loose stool this morning. Denies abdominal pain or urinary complaints. Reports poor PO intake because he doesn't like the food here. Infect Dis PN-Objective Data - Labs CBC & Chem 7: 09/12/17 08:25 09/12/17 08:25 Labs: Laboratory Results - last 24 hr 09/10/17 09/12/17 09/12/17 15:40 08:25 08:25 WBC 4.5 RBC 3.44 L Hgb 10.7 L Hct 31.9 L MCV 92.7 MCH 31.1 MCHC 33.5 RDW 13.1 Plt Count 204 MPV 9.1 L Immature Gran % 0.7 Seg Neutrophils % 62.6 Lymphocytes % 25.1 Monocytes % 8.9 Eosinophils % 2.5 Basophils % 0.2 Neutrophils # 2.8 Lymphocytes # 1.1 Monocytes # 0.4 Eosinophils # 0.1 Basophils # 0.0 Sodium 138 Potassium 3.4 L Chloride 107 Carbon Dioxide 24 BUN 5 L Creatinine 0.90 Est GFR ( Amer) > 60 Est GFR (Non-Af Amer) > 60 BUN/Creatinine Ratio 6 Glucose 92 Calculated Osmolality 283 Calcium 8.2 L 25-OH Vitamin D Total 17 L Cultures: Cultures 09/10/17 00:48 Surgical Biopsy Culture - Final Left Foot Pseudomonas aeruginosa Group C Streptococcus 09/10/17 00:48 Wound Culture - Preliminary Left Foot Pseudomonas aeruginosa Group C Streptococcus Serology 09/10/17 Range/Units 02:25 Stl C. cayetanensis PCR Not detected (Not detect) Stool Rotavirus A PCR Not detected (Not detect) Stl Adenov F 40/41 PCR Not detected (Not detect) Stool Astrovirus (PCR) Not detected (Not detect) Stool Campylobacter PCR Not detected (Not detect) Stl C. diff Tox A/B PCR Not detected (Not detect) Stool Cryptosporidium PCR Not detected (Not detect) Stl Sh Tox Pr E STEC PCR Not detected (Not detect) Stool E coli O157 PCR Not detected (Not detect) Stl Enterotoxigenic E PCR Not detected (Not detect) Stool EPEC (PCR) Not detected (Not detect) Stool EAEC (PCR) Not detected (Not detect) Stl E. histolytica PCR Not detected (Not detect) Stool Giardia Lamblia PCR Not detected (Not detect) Stool Salmonella PCR Not detected (Not detect) Stool Sapovirus (PCR) Not detected (Not detect) Stl P. shigelloides PCR Not detected (Not detect) Stl Shigella/EIEC PCR Not detected (Not detect) St Y.enterocolitica PCR Not detected (Not detect) Stool Vibrio (PCR) Not detected (Not detect) Stl Vibrio cholerae PCR Not detected (Not detect) Stl Norovirus GI/GII PCR Not detected (Not detect) Stl GI Panel (PCR) Com See below Exam - Constitutional Vitals: Temp Pulse Resp BP Pulse Ox 97.9 F 65 16 182/89 95 09/12/17 07:22 09/12/17 07:22 09/12/17 07:22 09/12/17 07:22 09/12/17 07:22 General appearance: average body habitus, cooperative, no acute distress - Head Head exam: Present: atraumatic, normal inspection, normocephalic - Eye Eye exam: Present: EOMI, normal appearance, PERRL Pupils: Present: normal accommodation - ENT ENT exam: Present: mucous membranes moist - Neck Neck exam: Present: normal inspection - Respiratory Respiratory exam: Present: CTAB. Absent: rales, respiratory distress, rhonchi, wheezes - Cardiovascular Cardiovascular exam: Present: RRR, +S1, +S2 - GI/Abdominal GI/Abdominal exam: Present: normal bowel sounds, soft. Absent: distended, tenderness - Extremities Exam Extremities exam: Absent: joint swelling, pedal edema, tenderness Additional comments: Left foot/ankle dressing and splint C/D/I. WOund VAC noted without evidence of leak at 125mm Hg continuous suction. - Neurological Exam Neurological exam: Present: alert, oriented X3, no focal deficits - Psychiatric Psychiatric exam: Present: normal affect, normal mood - Skin Skin exam: Present: dry, intact, normal color, warm - VTE Documentation of Mechanical Device: Intermittent pneumatic compression device Consult Discharge Plan - Plan [facility]errals: [facility] [Primary Care Provider] - Prescriptions: Cefepime HCl [Maxipime] 2,000 mg IVPB Q12H 42 Days #84 vial - Attending Attestation I examined this patient and my medical decision-making was reviewed with the Resident Physician. I agree with the documented findings, disposition and treatment plan as described except to the extent set forth below.
[2017-09-12] MEDS ORDERED: Heparin 1,000 UNITS/500 mL 500 ML ONE (11:59)
[2017-09-12] MEDS ORDERED: 0.9 % Sodium Chloride 1,000 ML ONE ×2 (11:59→12:16)
[2017-09-12] MEDS ORDERED: Isovue-300 200 mL Infus..BTL IV ONE (11:59)
[2017-09-12] MEDS ORDERED: *HR* Heparin 10,000 UNIT/10 ML VIAL ONE (11:59)
[2017-09-12] MEDS ORDERED: *HR* FentaNYL (PF) 100 MCG/2 ML VIAL ONE (12:16)
[2017-09-12] MEDS ORDERED: *HR* Midazolam HCl 2 MG/2 ML VIAL ONE (12:16)
--- NOTE | 2017-09-12 12:43 | Internal Med Progress Note ---
Date of Encounter: 09/12/17 Time of Encounter: 10:20 - Assessment and plan (1) Wound of left lower extremity Current Visit: Yes Status: Acute Assessment and plan: infected L ankle/heel wound with surrounding cellulitis a/w elevated CRP, ESR, no SIRS criteria underwent excisional debridement of wounds, washout, removal of some hardware and application of wound vac on 09/10 intraop c/s grew P. aeruginosa and group C Strep, switched to cefepime today by ID for LE angio today followed by washout tomorrow as per RN's report follow with podiatry and vascular Qualifiers: Encounter type: initial encounter Qualified Code(s): S81.802A - Unspecified open wound, left lower leg, initial encounter (2) Hypertension Current Visit: Yes Status: Chronic Assessment and plan: continue coreg, lisinopril, aldactone. Norvasc and chlorthalidone added during his stay monitor Qualifiers: Hypertension type: essential hypertension Qualified Code(s): I10 - Essential (primary) hypertension (3) Seizure Current Visit: Yes Status: Chronic Assessment and plan: continue phenytoin, level 3.5 but not having seizures (4) Hypokalemia Current Visit: Yes Status: Acute Assessment and plan: likely due to chronic diarrhea daily supplement (5) DVT prophylaxis Current Visit: Yes Status: Acute Assessment and plan: SQ heparin - Time Spent With Patient Total time spent is greater than 50% in coordination of care (as documented) at patient's floor/unit and/or counseling patient: - Subjective Interval history: No significant pain on left foot. Denies headache, SOB, CP, blurring of vision. - Constitutional Vitals: Temp Pulse Resp BP Pulse Ox 98.4 F 86 16 109/69 95 09/12/17 11:00 09/12/17 11:00 09/12/17 11:00 09/12/17 11:09/12/17 11:00 General appearance: Present: A&O X 3, no acute distress, answers questions appropriately Exam: General: Alert and oriented HEENT:EOM, pupils equal, round, and reactive. Cardiovascular:Normal S1 & S2, no murmurs or gallops. No JVD. Pulse regular. Lungs:Normal breath sounds, no wheezes or crackles. Abdomen:Soft, non-tender, no rigidity. Extremities: L ankle/foot wrapped in dressing, dry and clean dressing Rest of the physical exam is non-contributory Internal Medicine: Result - Labs CBC & Chem 7: 09/12/17 08:25 09/12/17 08:25 Labs: Short CBC 09/12/17 Range/Units 08:25 WBC 4.5 (4.3-11.1) K/mcL Hgb 10.7 L (12.9-16.9) g/dL Hct 31.9 L (37.5-50.1) % Plt Count 204 (140-400) K/mcL Neutrophils # 2.8 (1.6-8.9) K/mcL BMP 09/12/17 08:25 Sodium 138 Potassium 3.4 L Chloride 107 Carbon Dioxide 24 BUN 5 L Creatinine 0.90 Glucose 92 Calcium 8.2 L - ABG Interpretation ABG results: PT/INR, D-dimer PT 14.7 Seconds (9.4-12.1) H 09/09/17 06:05 - VTE Documentation of Mechanical Device: Intermittent pneumatic compression device Consult Discharge Plan - Plan [facility]: [facility] Care Provider[facility] -
[2017-09-12] MEDS ORDERED: Acetaminophen 325 MG TABLET PO PRN (13:32)
[2017-09-12] MEDS ORDERED: *HR* HYDROcodone/Acet 5/325 mg TABLET PO PRN (13:32)
[2017-09-12] MEDS ORDERED: Ondansetron 4 MG/2 ML VIAL IVP PRN (13:32)
--- NOTE | 2017-09-12 13:32 | Procedure Note ---
Date of procedure: 09/12/17 Pre-op diagnosis: Nonhealing left ankle wound Post-op diagnosis: same Procedure: Abdominal aortogram Aortogram with bilateral lower extremity runoff Selective left lower extremity angiogram Balloon angioplasty of distal left posterior tibial artery Anesthesia: MAC Surgeon: Diego Johnson Was there an printer's assistant present: No Estimated blood loss (cc): 0 Specimen: 0 Condition: stable Disposition: floor
[2017-09-12] MEDS: Potassium Chloride Elixir 20 MEQ/15 ML UDC PO SCH (17:23)
[2017-09-12] MEDS: Cefepime HCl 2,000 MG in Water for inj. (sterile) 20 ML 20 ML IVP SCH (17:23)
[2017-09-13] MEDS: *HR* Heparin 5,000 UNIT/ML VIAL SQ SCH ×2 (03:35→18:00)
[2017-09-13] MEDS: Cefepime HCl 2,000 MG in Water for inj. (sterile) 20 ML 20 ML IVP SCH ×2 (05:40→18:00)
[2017-09-13] MEDS ORDERED: Vancomycin 1,000 MG, 0.9 % Sodium Chloride 1,000 ML IR ONE (06:00)
[2017-09-13] MEDS ORDERED: Lidocaine -MPF 2% 2 ML VIAL ONE (07:13)
[2017-09-13] MEDS ORDERED: *HR* FentaNYL (PF) 100 MCG/2 ML VIAL ONE (07:13)
[2017-09-13] MEDS ORDERED: *HR* Propofol 200 MG/20 ML VIAL IVP ONE (07:14)
[2017-09-13] MEDS ORDERED: *HR* Midazolam HCl 2 MG/2 ML VIAL ONE (07:14)
[2017-09-13] MEDS ORDERED: Propofol 500 MG/50 ML INFUS..BTL ONE (07:18)
[2017-09-13] MEDS ORDERED: Lidocaine 1% 20 ML MDV ONE (07:37)
[2017-09-13] MEDS ORDERED: Bupivacaine-MPF 0.25% 10 ML VIAL ONE (07:37)
--- NOTE | 2017-09-13 09:35 | Operative Note ---
Date of procedure: 09/13/17 Pre-op diagnosis: left ankle/foot wound Post-op diagnosis: same Procedure: removal of hardware excisional debridement of wounds Implants: none Complications: none Anesthesia: MAC Local Anesthetics: 1% Lidocaine HCL SubQ (cc) Surgeon: Naveed Larkin Was there an assistant football coach present: No Estimated blood loss (cc): 75 Specimen: none Condition: stable Disposition: PACU Procedure in Detail: Indications: 61 year old male with neuropathy and left drop foot s/p traumatic accident. Underwent pantalar arthrodesis with wound dehiscence. Subsequenty developed an infection. s/p angiogram with vascular. Anterior left ankle wound is [id number], posterior heel wound is 5cmx4.5cmx0.3cm and lateral foot wound which now measures 2.8cmx2.7cmx0.4cm. Patient being brought to the operating room for excisional debridement and removal of hardware. Nature of the procedure, risks versus benefits potential complications and consequences of surgery were discussed at length. No guarantees were made as to the outcome the his limb could be salvaged. He understood that he could end up with an amputation of the leg. Pathology did not show osteomyelitis. Cultures did grow group C strept and pseudomonas from the soft tissue and bone. The left lower extremity was scrubbed prepped and draped in the usual sterile fashion no tourniquet was applied. Following procedures then began. Removal of hardware. Remaining hardware exposed and the anterior ankle wound was removed using the ulike hardware removal set without incident. There was a plate and 4 screws from the anterior ankle as well as an independent screw going across the talonavicular joint which was removed. There was no hardware exposed through the lateral foot wound and the decision was made to leave this hardware alone that was located laterally and not exposed. The deicison was also made to leave an independent screw alone and not disrupt soft tissue and potential cause another wound by removal. Excisional debridement of left foot and ankle wounds. Attention was directed to the anterior aspect of the patient's right ankle where the pulse lavage was used to irrigate the wound and had been mixed with vancomycin. The lateral foot wound was also irrigated as was the posterior heel wound. The Misonex debridement tool was utilized to remove fibrotic and devitalized tissue from the anterior ankle wound as well as the lateral foot wound and posterior heel wound. This debridement was performed into the deep fascia and down to the level of the exposed tendon. Fibrotic tissue was removed. Wound margins appeared healthy and did have some granulation tissue. Following debridement application of a wound VAC with white and black foam was utilized over the anterior wound with black foam bridged to the lateral foot wound. Adaptic was applied to the posterior heel wound. The patient tolerated the anesthesia and the procedure well and was escorted to the recovery room with vital signs stable and adequate hemostasis to the left lower extremity.
--- NOTE | 2017-09-13 09:43 | Anesthesia Evaluation Post Op ---
Date of Encounter: 09/13/17 Time of Encounter: 09:41 - Vital Signs Vital Signs: see nursing notes - Lungs Lungs: Clear Ascult./Percussion - Airway Airway: Non-obstructed - Cardiovascular Regular Rate - Mental Status Mental Status: Alert & Oriented, Answers Appropriately - Pain Pain Scale: 0 Pain Scale used: Numeric (1 - 10) - Nausea Vomiting Nausea Vomiting: Present - Hydration Hydration: Tolerates oral liquids, Ice chips - Discharge PostOp Status: Transfer Patient to floor Attestation: I have assessed this patient and find they meet discharge criteria.
[2017-09-13] MEDS ORDERED: *HR* HYDROcodone/Acet 5/325 mg TABLET PO PRN (09:55)
[2017-09-13] MEDS ORDERED: Ondansetron 4 MG/2 ML VIAL IVP PRN (09:55)
[2017-09-13] MEDS ORDERED: Naloxone 0.4 MG/ML INJ IVP PRN (09:55)
[2017-09-13] MEDS ORDERED: Potassium Chloride Elixir 20 MEQ/15 ML UDC PO SCH (10:00)
[2017-09-13] MEDS: Gabapentin 300 MG CAPSULE PO SCH ×4 (10:34→20:57)
[2017-09-13] MEDS: Lactobacillus 1 EACH CAP.SPRINK PO SCH ×2 (10:35→10:39)
[2017-09-13] MEDS: Acetaminophen 325 MG TABLET PO PRN (10:35)
[2017-09-13] MEDS: Lisinopril 20 MG TABLET PO SCH ×2 (10:35→10:40)
[2017-09-13] MEDS: Cholecalciferol (D-3) 1,000 UNIT TABLET PO SCH ×2 (10:35→10:40)
[2017-09-13] MEDS: amLODIPine 5 MG TABLET PO SCH ×2 (10:36→10:40)
[2017-09-13] MEDS: Potassium Chloride Elixir 20 MEQ/15 ML UDC PO SCH (10:40)
--- NOTE | 2017-09-13 12:17 | Event Note ---
Date of Encounter: 09/13/17 Time of Encounter: 10:45 Patient was not in his room as he is having hardware removed from the left ankle by Dr. Larkin today.
--- NOTE | 2017-09-13 12:41 | Internal Med Progress Note ---
Date of Encounter: 09/13/17 Time of Encounter: 11:30 - Assessment and plan (1) Wound of left lower extremity Current Visit: Yes Status: Acute Assessment and plan: infected L ankle/heel wound with surrounding cellulitis a/w elevated CRP, ESR, no SIRS criteria underwent excisional debridement of wounds, washout, removal of some hardware and application of wound vac on 09/10 -> underwent another debridement with removal of hardware today intraop c/s grew P. aeruginosa and group C Strep, switched to cefepime by ID LLE angioplasty to EX ASSISTANT/PROGRAM DIRECTOR yesterday wound care per podiatry, placement on Friday Qualifiers: Encounter type: initial encounter Qualified Code(s): S81.802A - Unspecified open wound, left lower leg, initial encounter (2) Hypertension Current Visit: Yes Status: Chronic Assessment and plan: continue coreg, lisinopril. Norvasc and aldactone switched to chlorthalidone monitor Qualifiers: Hypertension type: essential hypertension Qualified Code(s): I10 - Essential (primary) hypertension (3) Seizure Current Visit: Yes Status: Chronic Assessment and plan: continue phenytoin, level 3.5 but not having seizures (4) Hypokalemia Current Visit: Yes Status: Acute Assessment and plan: likely due to chronic diarrhea daily supplement, check tomorrow (5) DVT prophylaxis Current Visit: Yes Status: Acute Assessment and plan: SQ heparin - Time Spent With Patient Total time spent is greater than 50% in coordination of care (as documented) at patient's floor/unit and/or counseling patient: - Subjective Interval history: No significant pain on left foot. Denies headache, SOB, CP, blurring of vision. - Constitutional Vitals: Temp Pulse Resp BP Pulse Ox 97.7 F 59 16 101/62 98 09/13/17 11:55 09/13/17 11:55 09/13/17 11:55 09/13/17 12:21 09/13/17 11:55 General appearance: Present: A&O X 3, no acute distress, answers questions appropriately Internal Medicine: Result - Labs CBC & Chem 7: 09/12/17 08:25 09/12/17 08:25 - ABG Interpretation ABG results: PT/INR, D-dimer PT 14.7 Seconds (9.4-12.1) H 09/09/17 06:05 - Impressions Impressions Fluoroscopy 09/13/17 00:00 IMPRESSION: Intraprocedural fluoroscopic spot images as above. See separate procedure report for more information. D/ / Kurt Grant MD / Kurt Grant MD Interpreting Provider: Kurt Grant MD - VTE Documentation of Mechanical Device: Venous foot pump, device Consult Discharge Plan - Plan [facility]errals: [facility] [Primary Care Provider[facility] - Prescriptions: Cefepime HCl [Maxipime] 2,000 mg IVPB Q12H 42 Days #84 vial
[2017-09-13] MEDS ORDERED: Ipratropium/Albuterol Neb 3 ML IH PRN (16:20)
[2017-09-14 04:46] LABS: Basophils % 0.2 %; Eosinophils # 0.1 K/mcL (0.0-0.6); Eosinophils % 1.5 %; Hematocrit 29.9 % (37.5-50.1); Immature Granulocytes % 0.6 % (0-4); Lymphocytes # 1.4 K/mcL (0.6-4.6); Lymphocytes % 30.5 %; Mean Corpuscular HGB Conc 33.4 g/dL (31.6-35.5); Mean Corpuscular Hemoglobin 30.5 pg (28.0-33.3); Mean Corpuscular Volume 91.2 fL (83.0-100.0); Mean Platelet Volume 9.2 fL (9.4-12.4); Monocytes # 0.5 K/mcL (0.0-1.3); Monocytes % 10.5 %; Neutrophils # 2.6 K/mcL (1.6-8.9); Platelet Count 196 K/mcL (140-400); Red Blood Count 3.28 M/mcL (4.19-5.50); Red Cell Distribution Width 13.2 % (11.5-14.5); Segmented Neutrophils % 56.7 %
[2017-09-14 05:03] LABS: BUN/Creatinine Ratio 7 (6-26); Blood Urea Nitrogen 7 mg/dL (8-23); Calcium 8.4 mg/dL (8.6-10.3); Carbon Dioxide 24 mEq/L (23-29); Chloride 106 mEq/L (98-107); Glucose 95 mg/dL (70-105); Magnesium 1.9 mg/dL (1.6-2.6); Osmolality,Calculated 284 (280-300); Potassium 3.2 mEq/L (3.5-5.1); Sodium 138 mEq/L (136-145); eGFR For African Americans > 60 (> 60); eGFR For Non-African Americans > 60 (> 60)
[2017-09-14] MEDS: *HR* Heparin 5,000 UNIT/ML VIAL SQ SCH ×2 (05:26→17:28)
[2017-09-14] MEDS: Cefepime HCl 2,000 MG in Water for inj. (sterile) 20 ML 20 ML IVP SCH ×2 (05:26→17:28)
[2017-09-14] MEDS ORDERED: Potassium Chloride Elixir 20 MEQ/15 ML UDC PO ONE (07:58)
[2017-09-14] MEDS: Cholecalciferol (D-3) 1,000 UNIT TABLET PO SCH (09:02)
[2017-09-14] MEDS: Gabapentin 300 MG CAPSULE PO SCH ×3 (09:02→21:50)
[2017-09-14] MEDS: Lactobacillus 1 EACH CAP.SPRINK PO SCH (09:02)
[2017-09-14] MEDS: amLODIPine 5 MG TABLET PO SCH (09:03)
[2017-09-14] MEDS: Lisinopril 20 MG TABLET PO SCH (09:03)
[2017-09-14] MEDS: Potassium Chloride Elixir 20 MEQ/15 ML UDC PO SCH ×2 (09:03→09:11)
--- NOTE | 2017-09-14 13:14 | Internal Med Progress Note ---
Date of Encounter: 09/14/17 Time of Encounter: 12:05 - Assessment and plan (1) Wound of left lower extremity Current Visit: Yes Status: Acute Assessment and plan: infected L ankle/heel wound with surrounding cellulitis a/w elevated CRP, ESR, no SIRS criteria underwent excisional debridement of wounds, washout, removal of some hardware and application of wound vac on 09/10 -> underwent another debridement with removal of hardware yesterday LLE angioplasty to BUMPER AND PAINTER yesterday intraop c/s grew P. aeruginosa and group C Strep, switched to cefepime by ID wound care per podiatry placement on Friday after PT/OT Qualifiers: Encounter type: initial encounter Qualified Code(s): S81.802A - Unspecified open wound, left lower leg, initial encounter (2) Hypertension Current Visit: Yes Status: Chronic Assessment and plan: continue coreg, lisinopril. Norvasc and aldactone switched to chlorthalidone monitor Qualifiers: Hypertension type: essential hypertension Qualified Code(s): I10 - Essential (primary) hypertension (3) Hypokalemia Current Visit: Yes Status: Acute Assessment and plan: likely due to chronic diarrhea didn't like the elixir type, will switch to pill form check tomorrow (4) Seizure Current Visit: Yes Status: Chronic Assessment and plan: continue phenytoin, level 3.5 but not having seizures (5) DVT prophylaxis Current Visit: Yes Status: Acute Assessment and plan: SQ heparin - Time Spent With Patient Total time spent is greater than 50% in coordination of care (as documented) at patient's floor/unit and/or counseling patient: - Subjective Interval history: No significant pain on left foot. Denies headache, CP, blurring of vision. - Constitutional Vitals: Temp Pulse Resp BP Pulse Ox 97.7 F 66 14 148/93 96 09/14/17 11:21 09/14/17 11:21 09/14/17 11:21 09/14/17 11:21 09/14/17 11:21 General appearance: Present: A&O X 3, no acute distress, answers questions appropriately Exam: General: Alert and oriented HEENT:EOM, pupils equal, round, and reactive. Cardiovascular:Normal S1 & S2, no murmurs or gallops. No JVD. Pulse regular. Lungs:Normal breath sounds, no wheezes or crackles. Abdomen:Soft, non-tender, no rigidity. Extremities: L ankle/foot wrapped in dressing, dry and clean dressing Rest of the physical exam is non-contributory Internal Medicine: Result - Labs CBC & Chem 7: 09/14/17 04:14 09/14/17 04:14 Labs: Short CBC 09/14/17 Range/Units 04:14 WBC 4.7 (4.3-11.1) K/mcL Hgb 10.0 L (12.9-16.9) g/dL Hct 29.9 L (37.5-50.1) % Plt Count 196 (140-400) K/mcL Neutrophils # 2.6 (1.6-8.9) K/mcL BMP 09/14/17 04:14 Sodium 138 Potassium 3.2 L Chloride 106 Carbon Dioxide 24 BUN 7 L Creatinine 0.96 Glucose 95 Calcium 8.4 L - ABG Interpretation ABG results: PT/INR, D-dimer PT 14.7 Seconds (9.4-12.1) H 09/09/17 06:05 - VTE Documentation of Mechanical Device: Venous foot pump, device Consult Discharge Plan - Plan [facility]errals: [facility] [Primary Care Provider] - Prescriptions: Cefepime HCl [Maxipime] 2,000 mg IVPB Q12H 42 Days #84 vial
[2017-09-15] MEDS: Cefepime HCl 2,000 MG in Water for inj. (sterile) 20 ML 20 ML IVP SCH ×2 (05:49→17:09)
[2017-09-15] MEDS: *HR* Heparin 5,000 UNIT/ML VIAL SQ SCH ×2 (05:50→17:16)
[2017-09-15] MEDS: Lactobacillus 1 EACH CAP.SPRINK PO SCH (09:34)
[2017-09-15] MEDS: Gabapentin 300 MG CAPSULE PO SCH ×3 (09:35→20:04)
[2017-09-15] MEDS: amLODIPine 5 MG TABLET PO SCH (09:35)
[2017-09-15] MEDS: Lisinopril 20 MG TABLET PO SCH (09:36)
[2017-09-15] MEDS: Cholecalciferol (D-3) 1,000 UNIT TABLET PO SCH (09:36)
--- NOTE | 2017-09-15 09:37 | Infectious Disease Progress No ---
Date of Encounter: 09/15/17 Time of Encounter: 09:35 - Assessment and Plan (1) Wound of left lower extremity Current Visit: Yes Status: Acute Location: Left lateral ankle. Causative organism unclear. Swab culture growing PSEA and GCS. Intra-op cultures are positive for PSEA and GCS. Secondary to non-healing surgical wound. X-ray of the left foot/ankle and recent postsurgical change of arthrodesis in the foot with worsening soft tissue swelling and edema with suspected ulceration and perhaps subcutaneous gas over the dorsal and medial aspect of the foot. The pattern may represent cellulitis and ulceration, but underlying fasciitis cannot be excluded. Podaitry consulted and following. Status post excisional debridement of the left foot wounds anterior ankle, lateral foot, and posterior heel. Operative note reviewed and case discussed with Dr. Larkin. Large amount of serous drainage noted intra-op. Cultures as above. Pathology negative for OM. Status post repeat washout and removal of hardware 09/13/[address] Larkin. No additional cultures were sent. Wound care and activity restrictions per the podiatry team. Continue Cefepime 2 grams IV Q12H. Duration of treatment depends on the clinical picture, but likely 6 weeks of IV antibiotics. Monitor renal function and dose-adjust antibiotics. radiology services manager to assist with discharge planning. Okay to consult VAT for IV line placement. Will need weekly CBC, BUN/Cr, ESR, CRP. Will need weekly IV care per protocol. Follow up with ID 09/30/17 at 0920. 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 Larkin. (3) Hypertension Current Visit: Yes Status: Chronic Qualifiers: Hypertension type: essential hypertension Qualified Code(s): I10 - Essential (primary) hypertension (4) Seizure Current Visit: Yes Status: Chronic (5) Diarrhea Current Visit: Yes Status: Acute Patient reports chronic diarrhea for a year. GI panel negative. Continue probiotics. Qualifiers: Diarrhea type: unspecified type Qualified Code(s): R19.7 - Diarrhea, unspecified (6) Nonhealing surgical wound Current Visit: Yes Status: Acute Location: Left foot/ankle. Vascular consulted due to abnormal vascular testing. Status post angiogram with balloon angioplasty of the left distal GAS PLANT REPAIRER 09/12/[address] Johnson. Qualifiers: Encounter type: subsequent encounter Qualified Code(s): T81.89XD - Other complications of procedures, not elsewhere classified, subsequent encounter (7) Cough Current Visit: Yes Status: Acute Etiology unclear. Patient reports cough with shortness of breath. Lung sounds clear. Get CXR. - Subjective Interval history: Patient seen and examined. No acute events noted overnight. Status post excisional debridement of the left foot wound anterior ankle, lateral foot, and posterior heel 09/09/[address] Larkin. Status post angiogram 09/12/17 with balloon angioplasty GAS PLANT REPAIRER. Status post repeat washout and removal of hardware 09/[address] Larkin. Patient states overall he is doing okay. Denies fevers, chills, or rigors. Denies chest pain. Reports a dry cough and some shortness of breath this morning. Denies nausea, vomiting, or constipation. States chronic diarrhea is at baseline. Denies abdominal pain or urinary complaints. Reports poor PO intake because he doesn't like the food here. Infect Dis PN-Objective Data - Labs CBC & Chem 7: 09/14/17 04:14 09/14/17 04:14 Cultures: Cultures 09/10/17 00:48 Anaerobic Culture - Preliminary Left Foot At this time, no anaerobic growth is present. The culture will be finalized after 5 days of incubation. 09/10/17 00:48 Wound Culture - Final Left Foot Pseudomonas aeruginosa Group C Streptococcus 09/10/17 00:48 Surgical Biopsy Culture - Final Left Foot Pseudomonas aeruginosa Group C Streptococcus Serology 09/10/17 Range/Units 02:25 Stl C. cayetanensis PCR Not detected (Not detect) Stool Rotavirus A PCR Not detected (Not detect) Stl Adenov F 40/41 PCR Not detected (Not detect) Stool Astrovirus (PCR) Not detected (Not detect) Stool Campylobacter PCR Not detected (Not detect) Stl C. diff Tox A/B PCR Not detected (Not detect) Stool Cryptosporidium PCR Not detected (Not detect) Stl Sh Tox Pr E STEC PCR Not detected (Not detect) Stool E coli O157 PCR Not detected (Not detect) Stl Enterotoxigenic E PCR Not detected (Not detect) Stool EPEC (PCR) Not detected (Not detect) Stool EAEC (PCR) Not detected (Not detect) Stl E. histolytica PCR Not detected (Not detect) Stool Giardia Lamblia PCR Not detected (Not detect) Stool Salmonella PCR Not detected (Not detect) Stool Sapovirus (PCR) Not detected (Not detect) Stl P. shigelloides PCR Not detected (Not detect) Stl Shigella/EIEC PCR Not detected (Not detect) St Y.enterocolitica PCR Not detected (Not detect) Stool Vibrio (PCR) Not detected (Not detect) Stl Vibrio cholerae PCR Not detected (Not detect) Stl Norovirus GI/GII PCR Not detected (Not detect) Stl GI Panel (PCR) Com See below Exam - Constitutional Vitals: Temp Pulse Resp BP Pulse Ox 98.2 F 69 16 151/82 95 09/15/17 06:34 09/15/17 06:34 09/15/17 06:34 09/15/17 06:34 09/15/17 06:34 General appearance: average body habitus, cooperative, no acute distress - Head Head exam: Present: atraumatic, normal inspection, normocephalic - Eye Eye exam: Present: EOMI, normal appearance, PERRL Pupils: Present: normal accommodation - ENT ENT exam: Present: mucous membranes moist - Neck Neck exam: Present: normal inspection - Respiratory Respiratory exam: Present: CTAB. Absent: rales, respiratory distress, rhonchi, wheezes - Cardiovascular Cardiovascular exam: Present: RRR, +S1, +S2 - GI/Abdominal GI/Abdominal exam: Present: normal bowel sounds, soft. Absent: distended, tenderness - Extremities Exam Extremities exam: Absent: joint swelling, pedal edema, tenderness Additional comments: LLE dressing and splint C/D/I. Wound VAC in place without leak at 125mm Hg continuous suction. Small amount of serosanguinous drainage noted in the wound VAC canister. - Neurological Exam Neurological exam: Present: alert, oriented X3, no focal deficits - Psychiatric Psychiatric exam: Present: normal affect, normal mood - Skin Skin exam: Present: dry, intact, normal color, warm - VTE Documentation of Mechanical Device: Venous foot pump, device Consult Discharge Plan - Plan [facility]errals: [facility]Primary Care Provider[facility] - Yisel Stevens, COSMETIC DENTIST [Advanced Practice Nurse] - 09/30/17 9:20 am Prescriptions: Cefepime HCl [Maxipime] 2,000 mg IVPB Q12H 42 Days #84 vial - Attending Attestation I examined this patient and my medical decision-making was reviewed with the Resident Physician. I agree with the documented findings, disposition and treatment plan as described except to the extent set forth below. continue cefepime duration of treatment 6 weeks weekly labs including cbc, bmp, esr, crp patient having non productive cough with some dyspnea wihtout chest pain check CXR
--- NOTE | 2017-09-15 12:27 | Podiatry Progress Note ---
Date of Encounter: 09/15/17 Time of Encounter: 08:30 - Assessment and Plan (1) Nonhealing surgical wound Current Visit: Yes Status: Acute s/p removal of hardware and excisional debridement of wounds by Dr. Larkin on . 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 Johnson. WBC: 4.7 Microbiology 09/08/17 17:32 Left Ankle Anaerobic Culture - Final No anaerobes were recovered. 09/08/17 14:57 Peripheral Venipuncture Blood Culture - Final No growth. Final report. 09/08/17 14:57 Peripheral Venipuncture Blood Culture - Final No growth. Final report. 09/10/17 00:48 Left Foot Wound Culture - Final Pseudomonas aeruginosa Group C Streptococcus 09/10/17 00:48 Left Foot Surgical Biopsy Culture - Final Pseudomonas aeruginosa Group C Streptococcus 09/08/17 17:32 Left Ankle Wound Culture - Final Pseudomonas aeruginosa Group C Streptococcus Plan: Remain non weight bearing to the LLE. Will plan to change wound vac of LLE tomorrow 09/16/17, patient has home wound vac at bedside. Antibiotic therapy per Infectious Disease. Follow up with Dr. Larkin in wound care on 09/18/17. 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 Larkin on 09/13/17. 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 Johnson. Patient is lying in bed with dressing dry and intact to the LLE. Wound vac connected to LLE. Patient rates left foot pain at a 3 out of 10 and describes it as a nerve pain. Patient denies any fever, chills, cp, sob or flu like symptoms. Patient states he wants to go home. Objective - Vital Signs Vital Signs: Vital Signs Temp Pulse Resp BP Pulse Ox 09/15/17 10:11 98.4 F 62 16 171/109 96 09/15/17 06:34 98.2 F 69 16 151/82 95 09/15/17 04:19 98.2 F 71 16 143/83 97 09/14/17 19:35 97.5 F L 83 18 119/77 96 09/14/17 15:10 97.5 F L 71 15 151/87 97 Intake and Output 09/14/17 09/15/17 09/15/17 23:59 07:59 15:59 Intake Total 140 / 140 20 / 20 0 / 0 Output Total 0 / 0 0 / 0 Balance 140 / 140 20 / 20 0 / 0 Intake: IV Fluids 20 / 20 Maxipime 2,000 MG In Water for inj. (sterile) 20 ML @ 300 mls/ hr IVP Q12HR [facility] Rx#:[id number] Oral 120 / 120 0 / 0 0 / 0 Output: Urine 0 / 0 0 / 0 Other: Meal Dinner Breakfast Percent of Meal Consumed 0% 0% Stool Size Moderate Stool Consistency loose liquid Stool Color Brown # Voids 1 1 1 # Bowel Movements 0 1 - Exam Exam: General appearance: alert awake oriented X 3. Calm and pleasant, no acute distress.. Vascular: , Skin Tempature warm, No calf pain with manual compression. capillary refill time is immediate to digits. Neurologic: Sensation intact with light touch to digits. Postop Exam: S/P Posterior splint intact to the left lower extremity with a wound VAC connected to 150 mmhg, 10 mls of serosanguineous drainage observed to canister. No erythema, no odor, no strike through drainage. - Lab Result Diagrams: 09/14/17 04:14 09/14/17 04:14 Labs: Abnormal lab results RBC 3.28 M/mcL (4.19-5.50) L 09/14/17 04:14 Hgb 10.0 g/dL (12.9-16.9) L 09/14/17 04:14 Hct 29.9 % (37.5-50.1) L 09/14/17 04:14 MPV 9.2 fL (9.4-12.4) L 09/14/17 04:14 ESR 50 mm/hr (0-10) H 09/08/17 14:57 PT 14.7 Seconds (9.4-12.1) H 09/09/17 06:05 Potassium 3.2 mEq/L (3.5-5.1) L 09/14/17 04:14 BUN 7 mg/dL (8-23) L 09/14/17 04:14 Calcium 8.4 mg/dL (8.6-10.3) L 09/14/17 04:14 C-Reactive Protein 68 mg/L (Less than 10) H 09/08/17 14:57 Albumin 2.7 g/dL (3.5-5.7) L 09/10/17 15:40 Prealbumin 5.5 mg/dL (17.0-34.0) L 09/10/17 15:40 25-OH Vitamin D Total 17 ng/mL (30-80) L 09/10/17 15:40 Vancomycin Trough 20 mcg/mL (5-10) H 09/10/17 08:03 Phenytoin 3.5 mcg/mL (10.0-20.0) L 09/09/17 06:05 Microbiology, Last 48 Hours 09/10/17 00:48 Anaerobic Culture - Preliminary Left Foot At this time, no anaerobic growth is present. The culture will be finalized after 5 days of incubation. - VTE Documentation of Mechanical Device: Venous foot pump, device Consult Discharge Plan - Plan Referrals: Yisel Stevens CNP [Advanced Practice Nurse] - 09/30/17 9:20 am [facility] [Primary Care Provider] - Prescriptions: Cefepime HCl [Maxipime] 2,000 mg IVPB Q12H 42 Days #84 vial
--- NOTE | 2017-09-15 13:51 | Event Note ---
Date of Encounter: 09/15/17 Time of Encounter: 13:50 Spoke with the patient today at his bedside. I asked him to return to my office clinic in 3 weeks for a recheck of his vascular status. From a vascular surgery standpoint he may be discharged at any time.
--- NOTE | 2017-09-15 14:36 | Internal Med Progress Note ---
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 aeruginosa and group C Strep, switched to cefepime by ID wound care per podiatry He declined to proceed with ECF and will now be discharged home with HH. VAC dressing is to be changed tomorrow and he can be discharged afterward. Qualifiers: Encounter type: initial encounter Qualified Code(s): S81.802A - Unspecified open wound, left lower leg, initial encounter (2) Hypertension Current Visit: Yes Status: Chronic Assessment and plan: continue coreg, lisinopril. Norvasc and aldactone switched to chlorthalidone monitor Qualifiers: Hypertension type: essential hypertension Qualified Code(s): I10 - Essential (primary) hypertension (3) Hypokalemia Current Visit: Yes Status: Acute Assessment and plan: likely due to chronic diarrhea, on PO supplements (4) Seizure Current Visit: Yes Status: Chronic Assessment and plan: continue phenytoin, level 3.5 but not having seizures (5) DVT prophylaxis Current Visit: Yes Status: Acute Assessment and plan: SQ heparin - Time Spent With Patient Total time spent is greater than 50% in coordination of care (as documented) at patient's floor/unit and/or counseling patient: - Subjective Interval history: No significant pain on left foot. Remains NWB on that limb. Denies headache, CP , blurring of vision. - Constitutional Vitals: Temp Pulse Resp BP Pulse Ox 98.4 F 62 16 171/109 96 09/15/17 10:11 09/15/17 10:11 09/15/17 10:11 09/15/17 10:11 09/15/17 10:11 General appearance: Present: A&O X 3, no acute distress, answers questions appropriately Exam: General: Alert and oriented HEENT:EOM, pupils equal, round, and reactive. Cardiovascular:Normal S1 & S2, no murmurs or gallops. No JVD. Pulse regular. Lungs:Normal breath sounds, no wheezes or crackles. Abdomen:Soft, non-tender, no rigidity. Extremities: L ankle/foot wrapped in dressing, dry and clean dressing Rest of the physical exam is non-contributory Internal Medicine: Result - Labs CBC & Chem 7: 09/14/17 04:14 09/14/17 04:14 - ABG Interpretation ABG results: PT/INR, D-dimer PT 14.7 Seconds (9.4-12.1) H 09/09/17 06:05 - VTE Documentation of Mechanical Device: Venous foot pump, device Consult Discharge Plan - Plan Referrals: Yisel Stevens CNP [Advanced Practice Nurse] - 09/30/17 9:20 am [facility] [Primary Care Provider] - Prescriptions: Cefepime HCl [Maxipime] 2,000 mg IVPB Q12H 42 Days #84 vial
[2017-09-16] MEDS: *HR* Heparin 5,000 UNIT/ML VIAL SQ SCH ×2 (05:39→17:21)
[2017-09-16] MEDS: Cefepime HCl 2,000 MG in Water for inj. (sterile) 20 ML 20 ML IVP SCH ×2 (05:39→17:21)
[2017-09-16] MEDS: Acetaminophen 325 MG TABLET PO PRN (06:15)
[2017-09-16 06:28] LABS: Basophils % 0.4 %; Eosinophils # 0.2 K/mcL (0.0-0.6); Hematocrit 33.3 % (37.5-50.1); Hemoglobin 11.3 g/dL (12.9-16.9); Immature Granulocytes % 1.2 % (0-4); Lymphocytes # 1.2 K/mcL (0.6-4.6); Lymphocytes % 23.1 %; Mean Corpuscular HGB Conc 33.9 g/dL (31.6-35.5); Mean Corpuscular Hemoglobin 31.3 pg (28.0-33.3); Mean Corpuscular Volume 92.2 fL (83.0-100.0); Mean Platelet Volume 9.7 fL (9.4-12.4); Monocytes # 0.5 K/mcL (0.0-1.3); Monocytes % 9.9 %; Neutrophils # 3.1 K/mcL (1.6-8.9); Platelet Count 217 K/mcL (140-400); Red Blood Count 3.61 M/mcL (4.19-5.50); Red Cell Distribution Width 13.2 % (11.5-14.5); Segmented Neutrophils % 61.4 %
[2017-09-16 06:43] LABS: BUN/Creatinine Ratio 9 (6-26); Blood Urea Nitrogen 9 mg/dL (8-23); Calcium 8.9 mg/dL (8.6-10.3); Carbon Dioxide 26 mEq/L (23-29); Chloride 104 mEq/L (98-107); Glucose 105 mg/dL (70-105); Osmolality,Calculated 283 (280-300); Potassium 3.3 mEq/L (3.5-5.1); Sodium 137 mEq/L (136-145); eGFR For African Americans > 60 (> 60); eGFR For Non-African Americans > 60 (> 60)
[2017-09-16] MEDS: Lactobacillus 1 EACH CAP.SPRINK PO SCH (08:45)
[2017-09-16] MEDS: amLODIPine 5 MG TABLET PO SCH (08:47)
[2017-09-16] MEDS: Cholecalciferol (D-3) 1,000 UNIT TABLET PO SCH (08:47)
[2017-09-16] MEDS: Lisinopril 20 MG TABLET PO SCH (08:47)
[2017-09-16] MEDS: Gabapentin 300 MG CAPSULE PO SCH ×3 (08:48→21:55)
--- NOTE | 2017-09-16 12:05 | Infectious Disease Progress No ---
Date of Encounter: 09/16/17 Time of Encounter: 09:40 - Assessment and Plan (1) Wound of left lower extremity Current Visit: Yes Status: Acute Location: Left lateral ankle. Causative organism unclear. Swab culture growing PSEA and GCS. Intra-op cultures are positive for PSEA and GCS. Secondary to non-healing surgical wound. X-ray of the left foot/ankle and recent postsurgical change of arthrodesis in the foot with worsening soft tissue swelling and edema with suspected ulceration and perhaps subcutaneous gas over the dorsal and medial aspect of the foot. The pattern may represent cellulitis and ulceration, but underlying fasciitis cannot be excluded. Podaitry consulted and following. Status post excisional debridement of the left foot wounds anterior ankle, lateral foot, and posterior heel. Operative note reviewed and case discussed with Dr. Larkin. Large amount of serous drainage noted intra-op. Cultures as above. Pathology negative for OM. Status post repeat washout and removal of hardware 09/13/[address] Larkin. No additional cultures were sent. Wound care and activity restrictions per the podiatry team. Continue Cefepime 2 grams IV Q12H. Duration of treatment depends on the clinical picture, but likely 6 weeks of IV antibiotics. Monitor renal function and dose-adjust antibiotics. vice president consulting services to assist with discharge planning. Okay to consult VAT for IV line placement. Will need weekly CBC, BUN/Cr, ESR, CRP. Will need weekly IV care per protocol. Follow up with ID 09/30/17 at 0920. 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 Larkin. (3) Hypertension Current Visit: Yes Status: Chronic Qualifiers: Hypertension type: essential hypertension Qualified Code(s): I10 - Essential (primary) hypertension (4) Seizure Current Visit: Yes Status: Chronic (5) Diarrhea Current Visit: Yes Status: Acute Patient reports chronic diarrhea for a year. GI panel negative. Continue probiotics. Qualifiers: Diarrhea type: unspecified type Qualified Code(s): R19.7 - Diarrhea, unspecified (6) Nonhealing surgical wound Current Visit: Yes Status: Acute Location: Left foot/ankle. Vascular consulted due to abnormal vascular testing. 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 Johnson. Qualifiers: Encounter type: subsequent encounter Qualified Code(s): T81.89XD - Other complications of procedures, not elsewhere classified, subsequent encounter (7) Cough Current Visit: Yes Status: Acute Etiology unclear. Patient reports cough with shortness of breath. Lung sounds clear. CXR showed a 1cm pulmonary nodule in the right lower posterior lobe, but pneumonia. Recommend referral to pulmonology as an outpatient.. - Subjective Interval history: Patient seen and examined. No acute events noted overnight. Status post excisional debridement of the left foot wound anterior ankle, lateral foot, and posterior heel 09/09/[address] Larkin. 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 Status post repeat washout and removal of hardware 09/[address] Larkin. Patient states overall he is doing okay. Denies fevers, chills, or rigors. Denies chest pain. Reports a dry cough and some shortness of breath this morning. Denies nausea, vomiting, or constipation. States chronic diarrhea is at baseline. Denies abdominal pain or urinary complaints. Reports poor PO intake because he doesn't like the food here. Infect Dis PN-Objective Data - Labs CBC & Chem 7: 09/16/17 04:00 09/16/17 04:00 Labs: Laboratory Results - last 24 hr 09/16/17 09/16/17 04:00 04:00 WBC 5.0 RBC 3.61 L Hgb 11.3 L Hct 33.3 L MCV 92.2 MCH 31.3 MCHC 33.9 RDW 13.2 Plt Count 217 MPV 9.7 Immature Gran % 1.2 Seg Neutrophils % 61.4 Lymphocytes % 23.1 Monocytes % 9.9 Eosinophils % 4.0 Basophils % 0.4 Neutrophils # 3.1 Lymphocytes # 1.2 Monocytes # 0.5 Eosinophils # 0.2 Basophils # 0.0 Sodium 137 Potassium 3.3 L Chloride 104 Carbon Dioxide 26 BUN 9 Creatinine 0.99 Est GFR ( Amer) > 60 Est GFR (Non-Af Amer) > 60 BUN/Creatinine Ratio 9 Glucose 105 Calculated Osmolality 283 Calcium 8.9 Cultures: Cultures 09/10/17 00:48 Anaerobic Culture - Final Left Foot No anaerobes were recovered. 09/10/17 00:48 Wound Culture - Final Left Foot Pseudomonas aeruginosa Group C Streptococcus 09/10/17 00:48 Surgical Biopsy Culture - Final Left Foot Pseudomonas aeruginosa Group C Streptococcus Serology 09/10/17 Range/Units 02:25 Stl C. cayetanensis PCR Not detected (Not detect) Stool Rotavirus A PCR Not detected (Not detect) Stl Adenov F 40/41 PCR Not detected (Not detect) Stool Astrovirus (PCR) Not detected (Not detect) Stool Campylobacter PCR Not detected (Not detect) Stl C. diff Tox A/B PCR Not detected (Not detect) Stool Cryptosporidium PCR Not detected (Not detect) Stl Sh Tox Pr E STEC PCR Not detected (Not detect) Stool E coli O157 PCR Not detected (Not detect) Stl Enterotoxigenic E PCR Not detected (Not detect) Stool EPEC (PCR) Not detected (Not detect) Stool EAEC (PCR) Not detected (Not detect) Stl E. histolytica PCR Not detected (Not detect) Stool Giardia Lamblia PCR Not detected (Not detect) Stool Salmonella PCR Not detected (Not detect) Stool Sapovirus (PCR) Not detected (Not detect) Stl P. shigelloides PCR Not detected (Not detect) Stl Shigella/EIEC PCR Not detected (Not detect) St Y.enterocolitica PCR Not detected (Not detect) Stool Vibrio (PCR) Not detected (Not detect) Stl Vibrio cholerae PCR Not detected (Not detect) Stl Norovirus GI/GII PCR Not detected (Not detect) Stl GI Panel (PCR) Com See below - Impressions Impressions Chest X-Ray 09/15/17 11:52 IMPRESSION: 1.0 cm nodule in the posterior right lower lobe, for which dedicated cross-sectional imaging is recommended on a nonemergent basis. D/ / Rishi Crowe MD / Rishi Crowe MD Interpreting Provider: Rishi Crowe MD Exam - Constitutional Vitals: Temp Pulse Resp BP Pulse Ox 97.7 F 63 16 156/93 98 09/16/17 07:12 09/16/17 07:12 09/16/17 07:12 09/16/17 07:12 09/16/17 07:12 General appearance: average body habitus, cooperative, no acute distress - Head Head exam: Present: atraumatic, normal inspection, normocephalic - Eye Eye exam: Present: EOMI, normal appearance, PERRL Pupils: Present: normal accommodation - ENT ENT exam: Present: mucous membranes moist - Neck Neck exam: Present: normal inspection - Respiratory Respiratory exam: Present: CTAB. Absent: rales, respiratory distress, rhonchi, wheezes - Cardiovascular Cardiovascular exam: Present: RRR, +S1, +S2 - GI/Abdominal GI/Abdominal exam: Present: normal bowel sounds, soft. Absent: distended, tenderness - Extremities Exam Extremities exam: Present: normal inspection. Absent: joint swelling, pedal edema, tenderness Additional comments: Left foot/ankle dressing and splint C/D/I with wound VAC noted. Scant serosanguinous drainage noted in the canister. No leak. Continuous suction at 125mg Hg. - Neurological Exam Neurological exam: Present: alert, oriented X3, no focal deficits - Psychiatric Psychiatric exam: Present: normal affect, normal mood - Skin Skin exam: Present: dry, intact, normal color, warm - VTE Documentation of Mechanical Device: Venous foot pump, device Consult Discharge Plan - Plan Referrals: Yisel Stevens FACTORY ENGINEER [Advanced Practice Nurse] - 09/30/17 9:20 am [facility] [Primary Care Provider] - Prescriptions: Cefepime HCl [Maxipime] 2,000 mg IVPB Q12H 42 Days #84 vial - Attending Attestation I examined this patient and my medical decision-making was reviewed with the Resident Physician. I agree with the documented findings, disposition and treatment plan as described except to the extent set forth below.
[2017-09-16] MEDS: Cholestyramine 4 GM POWD.PACK PO SCH (17:19)
--- NOTE | 2017-09-16 17:26 | Podiatry Progress Note ---
Date of Encounter: 09/16/17 Time of Encounter: 17:00 - Assessment and Plan (1) Nonhealing surgical wound Status: Acute s/p removal of hardware and excisional debridement of wounds by Dr. Larkin on . Status post angiogram with balloon angioplasty of the left distal BAG BUNDLER by Dr. Johnson. WBC: 4.7 Microbiology 09/08/17 17:32 Left Ankle Anaerobic Culture - Final No anaerobes were recovered. 09/08/17 14:57 Peripheral Venipuncture Blood Culture - Final No growth. Final report. 09/08/17 14:57 Peripheral Venipuncture Blood Culture - Final No growth. Final report. 09/10/17 00:48 Left Foot Wound Culture - Final Pseudomonas aeruginosa Group C Streptococcus 09/10/17 00:48 Left Foot Surgical Biopsy Culture - Final Pseudomonas aeruginosa Group C Streptococcus 09/08/17 17:32 Left Ankle Wound Culture - Final Pseudomonas aeruginosa Group C Streptococcus Plan: Wound vac removed and changed at bedside- Cleansed wound and foot with saline, pat dry White sponge placed to wound to dorsal aspect of foot- large black simplace sponge cut thin (0.5 thickness) and placed on top of white, bridged to wound to lateral aspect of heel. Circular black sponge placed to heel and bridged to dorsal foot. Disk applied to medial ankle area away from all wounds. Suction applied. Seal good. Placed on home wound vac. Functioning well. Cast padding, posterior splint and BIJAL applied Patient may be discharged at any time Antibiotics per ID Remain non weight bearing to the LLE. Follow up with Dr. Larkin in wound care on 09/18/17. Nurse to make appointment Qualifiers: Encounter type: subsequent encounter Qualified Code(s): T81.89XD - Other complications of procedures, not elsewhere classified, subsequent encounter (2) Wound of left lower extremity Status: Acute Qualifiers: Encounter type: initial encounter Qualified Code(s): S81.802A - Unspecified open wound, left lower leg, initial encounter Subjective Interval history: Patient is s/p removal of hardware and excisional debridement of wounds by Dr. Larkin on 09/13/17. Status post angiogram with balloon angioplasty of the left distal BAG BUNDLER 09/12/[address] Johnson. Patient is lying in bed with dressing dry and intact to the LLE. Wound vac connected to LLE. Patient rates left foot pain at a 3 out of 10 and describes it as a nerve pain. Patient denies any fever, chills, cp, sob or flu like symptoms. Patient states he wants to go home. Resting comfortably with wound vac and dressing intact. Running without issue. Objective - Vital Signs Vital Signs: Vital Signs Temp Pulse Resp BP Pulse Ox 09/16/17 15:48 97.5 F L 66 18 153/96 98 09/16/17 12:29 97.5 F L 78 18 101/60 99 09/16/17 07:12 97.7 F 63 16 156/93 98 09/16/17 03:10 97.8 F 67 15 135/62 96 09/15/17 20:00 96 09/15/17 19:26 98.1 F 63 15 131/77 96 Intake and Output 09/16/17 09/16/17 09/16/17 07:59 15:59 23:59 Intake Total 300 / 300 Output Total 0 / 0 Balance 285 / 285 0 / 0 Intake: Oral 300 / 300 Output: Urine 0 / 0 0 / 0 Wound Drainage Left Foot Other: # Voids 1 Weight 98.4 kg Patient Weight 09/16/17 23:59 Weight 98.4 kg - Exam Exam: General Examination: CONSTITUTIONAL: Alert, oriented, in no acute distress, non-toxic. EXTREMITIES: CFT 3 seconds all toes. Edema +1 and pedal pulses faint SKIN: Skin with decreased turgor, decreased subcutaneous tissue, skin thin and shiny with trophic changes associated with comorbidities as described in history.. NEUROLOGIC:Minimal sensation to light/moderate touch Post Op: Open surgical wound to dorsal left ankle/foot, entire surface area of dorsal ankle extending to mid foot- healthy granulation tissue noted 80%, 20% yellow fibrous tissue noted- tendons exposed however connected and in good condition. minimal drainage. open surgical wound of the lateral ankle, [id number], serous drainage noted. 50 % healthy granulation/50 % healthy fibrous tissue noted Wound to posterior heel - 3cmx2.5cmx0.3cm- no healthy granulation tissue noted- 100% yellow fibrous tissue- moderate amount of serosang drainage noted. No surrounding erythema or warmth noted to wounds- no appearance of infection- no purulent drainage- no ascending cellulitis - Lab Result Diagrams: 09/17/17 06:22 09/17/17 06:22 Labs: Abnormal lab results RBC 3.61 M/mcL (4.19-5.50) L 09/16/17 04:00 Hgb 11.3 g/dL (12.9-16.9) L 09/16/17 04:00 Hct 33.3 % (37.5-50.1) L 09/16/17 04:00 ESR 50 mm/hr (0-10) H 09/08/17 14:57 PT 14.7 Seconds (9.4-12.1) H 09/09/17 06:05 Potassium 3.3 mEq/L (3.5-5.1) L 09/16/17 04:00 C-Reactive Protein 68 mg/L (Less than 10) H 09/08/17 14:57 Albumin 2.7 g/dL (3.5-5.7) L 09/10/17 15:40 Prealbumin 5.5 mg/dL (17.0-34.0) L 09/10/17 15:40 25-OH Vitamin D Total 17 ng/mL (30-80) L 09/10/17 15:40 Vancomycin Trough 20 mcg/mL (5-10) H 09/10/17 08:03 Phenytoin 3.5 mcg/mL (10.0-20.0) L 09/09/17 06:05 Microbiology, Last 48 Hours 09/10/17 00:48 Anaerobic Culture - Final Left Foot No anaerobes were recovered. - VTE Documentation of Mechanical Device: Venous foot pump, device Consult Discharge Plan - Plan Additional Instructions: Follow up with Dr. Larkin in wound care on 09/18/17. Referrals: WoundCare,Clinic [Other] - 09/18/17 8:30 am Yisel Stevens CNP [Advanced Practice Nurse] - 09/30/17 9:20 am [facility] [Primary Care Provider] - (Office to call us back with appt. Patient is seen at the [facility]. Thank you) Diego Johnson MD [Partnered Physician] - 10/08/17 9:45 am Prescriptions: amLODIPine [Norvasc] 5 mg PO DAILY #30 tablet Cefepime HCl [Maxipime] 2,000 mg IVPB Q12H 42 Days #84 vial Chlorthalidone 25 mg PO DAILY #30 tablet Cholestyramine 4 gm PO BIDAC #60 powd.pack Clopidogrel [Plavix] 75 mg PO DAILY #30 tablet HYDROcodone/Acet 5/325 mg [Jackson 5-325 mg] 1 tab PO Q4HR PRN 5 Days #20 tablet PRN Reason: Moderate Pain Potassium Chloride 20 meq PO BID #60 tab.er.prt
--- NOTE | 2017-09-16 20:50 | Internal Med Progress Note ---
Date of Encounter: 09/16/17 Time of Encounter: 20:50 - Assessment and plan (1) Wound of left lower extremity Current Visit: Yes Status: Acute Qualifiers: Encounter type: initial encounter Qualified Code(s): S81.802A - Unspecified open wound, left lower leg, initial encounter (2) Osteomyelitis Current Visit: Yes Status: Acute Qualifiers: Osteomyelitis type: unspecified type Osteomyelitis location: unspecified site Qualified Code(s): M86.9 - Osteomyelitis, unspecified (3) Acute hypokalemia Current Visit: Yes Status: Acute (4) Hypertension Current Visit: Yes Status: Chronic Qualifiers: Hypertension type: essential hypertension Qualified Code(s): I10 - Essential (primary) hypertension (5) Seizure Current Visit: Yes Status: Chronic - Time Spent With Patient Total time spent is greater than 50% in coordination of care (as documented) at patient's floor/unit and/or counseling patient: 25 - 35 minutes - Subjective Interval history: .. The patient was admitted with chronic left ankle and left heel wound; resulting from an injury he sustained in the past. Podiatry did surgery. They removed the hardware. He did debridement. Osteomyelitis has been found. Infectious diseases is consulted. His wound VAC was changed today. The left foot/ankle pain is under control. Denies chest pain. Denies difficulty breathing, coughing and wheezing. OBJECTIVE: .. Skin: Free of rash and discoloration. ENMT: Oral/pharyngeal mucosa is normal in appearance. Eyes: Sclera is white. There is no discharge from eyes. Respiratory: Normal breath sounds; no crackles or wheezes. CV: Heart is regular; no gallop or murmur. GI: Abdomen is soft and not tender. There is no palpable mass or visceromegaly. Neuro: There is no focal deficits. ASSESSMENT AND PLAN: .. Chronic wound of left lower extremity with osteomyelitis. Her abdomen was removed by podiatry. They did debridement. He is on IV cefepime, as recommended by infectious diseases. [facility] as soon as a bed is available. Acute hypokalemia. We will treat him with supplemental oral potassium chloride. Hypertension. Under control. Will continue Coreg, Zestril and Norvasc. Seizure. Under control. We will continue Dilantin ER. Disposition: I anticipate his discharge [facility] tomorrow morning. - Constitutional Vitals: Temp Pulse Resp BP Pulse Ox 98.2 F 70 15 127/86 98 09/16/17 19:35 09/16/17 19:35 09/16/17 19:35 09/16/17 19:35 09/16/17 19:35 General appearance: Present: A&O X 3, no acute distress, answers questions appropriately Internal Medicine: Result - Labs CBC & Chem 7: 09/16/17 04:00 09/16/17 04:00 Labs: Short CBC 09/16/17 Range/Units 04:00 WBC 5.0 (4.3-11.1) K/mcL Hgb 11.3 L (12.9-16.9) g/dL Hct 33.3 L (37.5-50.1) % Plt Count 217 (140-400) K/mcL Neutrophils # 3.1 (1.6-8.9) K/mcL BMP 09/16/17 04:00 Sodium 137 Potassium 3.3 L Chloride 104 Carbon Dioxide 26 BUN 9 Creatinine 0.99 Glucose 105 Calcium 8.9 - ABG Interpretation ABG results: PT/INR, D-dimer PT 14.7 Seconds (9.4-12.1) H 09/09/17 06:05 - VTE Documentation of Mechanical Device: Venous foot pump, device Consult Discharge Plan - Plan Referrals: WoundCare,Clinic [Other] - 09/18/17 8:30 am Yisel Stevens CNP [Advanced Practice Nurse] - 09/30/17 9:20 am [facility] [Primary Care Provider] - (Office to call us back with appt. Patient is seen at the [facility]. Thank you) Diego Johnson MD [Partnered Physician] - 10/08/17 9:45 am Prescriptions: Cefepime HCl [Maxipime] 2,000 mg IVPB Q12H 42 Days #84 vial
[2017-09-17] MEDS: Acetaminophen 325 MG TABLET PO PRN (06:10)
[2017-09-17] MEDS: Cefepime HCl 2,000 MG in Water for inj. (sterile) 20 ML 20 ML IVP SCH (06:11)
[2017-09-17] MEDS: *HR* Heparin 5,000 UNIT/ML VIAL SQ SCH (06:12)
[2017-09-17 06:42] LABS: Basophils % 0.4 %; Eosinophils # 0.2 K/mcL (0.0-0.6); Hematocrit 33.5 % (37.5-50.1); Hemoglobin 11.3 g/dL (12.9-16.9); Immature Granulocytes % 1.2 % (0-4); Lymphocytes # 1.1 K/mcL (0.6-4.6); Lymphocytes % 20.1 %; Mean Corpuscular HGB Conc 33.7 g/dL (31.6-35.5); Mean Corpuscular Hemoglobin 31.6 pg (28.0-33.3); Mean Corpuscular Volume 93.6 fL (83.0-100.0); Mean Platelet Volume 9.6 fL (9.4-12.4); Monocytes # 0.4 K/mcL (0.0-1.3); Monocytes % 6.8 %; Neutrophils # 3.8 K/mcL (1.6-8.9); Platelet Count 212 K/mcL (140-400); Red Blood Count 3.58 M/mcL (4.19-5.50); Red Cell Distribution Width 13.2 % (11.5-14.5); Segmented Neutrophils % 68.5 %
[2017-09-17 06:55] LABS: BUN/Creatinine Ratio 12 (6-26); Blood Urea Nitrogen 12 mg/dL (8-23); Calcium 8.9 mg/dL (8.6-10.3); Carbon Dioxide 24 mEq/L (23-29); Chloride 104 mEq/L (98-107); Glucose 97 mg/dL (70-105); Osmolality,Calculated 278 (280-300); Potassium 3.7 mEq/L (3.5-5.1); Sodium 134 mEq/L (136-145); eGFR For African Americans > 60 (> 60); eGFR For Non-African Americans > 60 (> 60)
[2017-09-17] MEDS: amLODIPine 5 MG TABLET PO SCH (08:15)
[2017-09-17] MEDS: Gabapentin 300 MG CAPSULE PO SCH (08:15)
[2017-09-17] MEDS: Lactobacillus 1 EACH CAP.SPRINK PO SCH (08:15)
[2017-09-17] MEDS: Cholestyramine 4 GM POWD.PACK PO SCH (08:15)
[2017-09-17] MEDS: Cholecalciferol (D-3) 1,000 UNIT TABLET PO SCH (08:16)
[2017-09-17] MEDS: Lisinopril 20 MG TABLET PO SCH (08:16)
--- NOTE | 2017-09-17 11:33 | Discharge Summary ---
Orders not resulted at time of discharge: Pending orders 09/13/17 XR foot 2V LT [XR] Routine Date of Encounter: 09/17/17 Time of Encounter: 11:31 - Discharge Diagnosis (1) Wound of left lower extremity Priority: Primary Status: Acute Qualifiers: Encounter type: initial encounter Qualified Code(s): S81.802A - Unspecified open wound, left lower leg, initial encounter (2) Osteomyelitis Priority: Primary Status: Acute Qualifiers: Osteomyelitis type: unspecified type Osteomyelitis location: unspecified site Qualified Code(s): M86.9 - Osteomyelitis, unspecified (3) Acute hypokalemia Status: Acute (4) Hypertension Status: Chronic Qualifiers: Hypertension type: essential hypertension Qualified Code(s): I10 - Essential (primary) hypertension (5) Seizure Status: Chronic Hospital course: Mr. Dias is a 61 year old male. Discharge discussed with: patient, family, nurse, social work - Time Spent with Patient Total time spent providing and/or coordinating discharge services: Greater than 30 minutes (45 minutes) - Discharge Medications Prescriptions: HYDROcodone/Acet 5/325 mg [[place] 5-325 mg] 1 tab PO Q4HR PRN 5 Days #20 tablet PRN Reason: Moderate Pain amLODIPine [Norvasc] 5 mg PO DAILY #30 tablet Cefepime HCl [Maxipime] 2,000 mg IVPB Q12H 42 Days #84 vial Chlorthalidone 25 mg PO DAILY #30 tablet Cholestyramine 4 gm PO BIDAC #60 powd.pack Clopidogrel [Plavix] 75 mg PO DAILY #30 tablet Potassium Chloride 20 meq PO BID #60 tab.er.prt Home Medications: Carvedilol 12.5 mg PO BID 07/03/17 [History] Gabapentin [Neurontin] 900 mg PO TID 07/03/17 [History] Lisinopril [Zestril] 20 mg PO DAILY 07/03/17 [History] Phenytoin Sodium Extended [Phenytek] 200 mg PO TID 07/03/17 [History] Spironolactone [Aldactone] 25 mg PO DAILY 07/03/17 [History] Tamsulosin HCl [Flomax] 0.4 mg PO DAILY 07/03/17 [History] Cefepime HCl [Maxipime] 2,000 mg IVPB Q12H 42 Days #84 vial 09/12/17 [Rx] Acetaminophen [Tylenol] 650 mg PO Q6HR PRN tablet 09/17/17 [Rx] Chlorthalidone 25 mg PO DAILY #30 tablet 09/17/17 [Rx] Cholestyramine 4 gm PO BIDAC #60 powd.pack 09/17/17 [Rx] Clopidogrel [Plavix] 75 mg PO DAILY #30 tablet 09/17/17 [Rx] HYDROcodone/Acet 5/325 mg [[place] 5-325 mg] 1 tab PO Q4HR PRN 5 Days #20 tablet 09/17/17 [Rx] Potassium Chloride 20 meq PO BID #60 tab.er.prt 09/17/17 [Rx] amLODIPine [Norvasc] 5 mg PO DAILY #30 tablet 09/17/17 [Rx] Allergies/Adverse Reactions: 3 Allergy/AdvReac Type Severity Reaction Status Date / Time No Known Allergies Allergy Verified 09/08/17 14:09 Date of admission: 09/09/17 00:35 Primary care physician: [facility]CP [facility] Consults: 09/09/17 02:27 Consult to Nutrition [CONS] Routine Comment: Consulting Provider: NUTRITION Reason for Dietary Consult: MST Score 09/09/17 13:25 Consult to Infectious Diseases [CONS] Routine Consulting Provider: Infectious Disease Donna Reason for Consult: left ankle wound. Time Notified: 13:00 Call Completed: Yes 09/12/17 09:33 Consult to Invasive Line Access Team [CONS] Routine Reason for Consult: IV Cefepime x 6 weeks. Line Type: Midline PICC line indications: shelter Med/Antibiotic Time Notified: 09:33 Call Completed: Yes 09/12/17 10:15 Consult to Stopper Setter [CONS] Routine Reason for SW Consult: discharge planning 09/15/17 07:11 Consult to Occupational Therapy [CONS] Routine Comment: Evaluate, develop and implement POC Reason for Consult: prolonged hospital stay for infected left ankle wound, need for rehab placement Does patient have active BEDREST order?: No Is patient medically & hemodynamically stable?: Yes Consult to Physical Therapy [CONS] Routine Comment: Evaluate, develop and implement POC Reason for Consult: prolonged hospital stay for infected left ankle wound, need for rehab placement Does patient have active BEDREST order?: No Is patient medically & hemodynamically stable?: Yes PODIATRY. Discharging clinician: Bharat Lopez date of discharge: 09/17/17 - Constitutional Vitals: Temp Pulse Resp BP Pulse Ox 98.4 F 81 16 116/84 100 09/17/17 08:13 09/17/17 08:13 09/17/17 08:13 09/17/17 08:13 09/17/17 08:13 General appearance: Present: A&O X 3, no acute distress, answers questions appropriately - Respiratory Respiratory exam: Present: CTAB. Absent: accessory muscle use, rales, rhonchi, wheezes - Cardiovascular Cardiovascular exam: Present: RRR, +S1, +S2. Absent: diastolic murmur, gallop, rubs, systolic murmur - GI/Abdominal GI/Abdominal exam: Present: normal bowel sounds, soft, no peritoneal signs. Absent: distended, tenderness - Other Additional findings: For the status of the left foot wound see podiatry notes. - Patient Status Disposition: Home Health Service Condition: Fair Functional capacity at discharge: uses cane/walker - Discharge Instructions Follow Up With: WoundCare,Clinic [Other] - 09/18/17 8:30 am Yisel Stevens BODY SHOP ESTIMATOR [Advanced Practice Nurse] - 09/30/17 9:20 am [facility] [Primary Care Provider] - (Office to call us back with appt. Patient is seen at the [facility]. Thank you) Diego Johnson MD [Partnered Physician] - 10/08/17 9:45 am Additional Instructions: Follow up with Dr. Larkin in wound care on 09/18/17. - Diet and Activity Activity: resume usual activities as tolerated - VTE Documentation of Mechanical Device: Venous foot pump, device Deep Vein Thrombosis/Pulmonary Embolism Present on Admission: No
--- NOTE | 2017-09-17 11:54 | Physician Discharge Referral ---
Home Health/Hosp Referral Info Transfer to: Home Health Attending Provider: [facility] Provider in Charge Post Discharge: PCP - Diagnosis (1) Wound of left lower extremity Priority: Primary Status: Acute (2) Osteomyelitis Priority: Primary Status: Acute (3) Acute hypokalemia Priority: Secondary Status: Acute (4) Hypertension Status: Chronic (5) Seizure Status: Chronic - Respiratory Orders None Smoking Cessation: Smoking cessation has been advised. For more information, call the [employer] Quit Line at 6-042-RCJO-NOW. - Dressing/Wound Care Site: Left foot wound - as per podiatry. - Diet/Nutrition Diet/Nutrition Orders: Regular - Activity Activity Orders: Up ad kiersten - Services Needed Following services are medically necessary services: Nursing, Physical Therapy - Transfer Medications Prescriptions: HYDROcodone/Acet 5/325 mg [[place] 5-325 mg] 1 tab PO Q4HR PRN 5 Days #20 tablet PRN Reason: Moderate Pain amLODIPine [Norvasc] 5 mg PO DAILY #30 tablet Cefepime HCl [Maxipime] 2,000 mg IVPB Q12H 42 Days #84 vial Chlorthalidone 25 mg PO DAILY #30 tablet Cholestyramine 4 gm PO BIDAC #60 powd.pack Clopidogrel [Plavix] 75 mg PO DAILY #30 tablet Potassium Chloride 20 meq PO BID #60 tab.er.prt Home Medications: Carvedilol 12.5 mg PO BID 07/03/17 [History] Gabapentin [Neurontin] 900 mg PO TID 07/03/17 [History] Lisinopril [Zestril] 20 mg PO DAILY 07/03/17 [History] Phenytoin Sodium Extended [Phenytek] 200 mg PO TID 07/03/17 [History] Spironolactone [Aldactone] 25 mg PO DAILY 07/03/17 [History] Tamsulosin HCl [Flomax] 0.4 mg PO DAILY 07/03/17 [History] Cefepime HCl [Maxipime] 2,000 mg IVPB Q12H 42 Days #84 vial 09/12/17 [Rx] Acetaminophen [Tylenol] 650 mg PO Q6HR PRN tablet 09/17/17 [Rx] Chlorthalidone 25 mg PO DAILY #30 tablet 09/17/17 [Rx] Cholestyramine 4 gm PO BIDAC #60 powd.pack 09/17/17 [Rx] Clopidogrel [Plavix] 75 mg PO DAILY #30 tablet 09/17/17 [Rx] HYDROcodone/Acet 5/325 mg [[place] 5-325 mg] 1 tab PO Q4HR PRN 5 Days #20 tablet 09/17/17 [Rx] Potassium Chloride 20 meq PO BID #60 tab.er.prt 09/17/17 [Rx] amLODIPine [Norvasc] 5 mg PO DAILY #30 tablet 09/17/17 [Rx] Allergies/Adverse Reactions: 3 Allergy/AdvReac Type Severity Reaction Status Date / Time No Known Allergies Allergy Verified 09/08/17 14:09 Certification: Further, I certify that my clinical findings support that this patient is homebound (i.e. absences from home require considerable and taxing effort and are for medical reasons or religion services or infrequently or short duration when for other reasons) because: Homebound Reason: Patient requires assistance of a person or device to safely leave home Attestation: My signature below is to certify that this patient is under my care and that I, or nurse practitioner, or a physician's assistant professor of radiology working with me, has a face-to -face encounter with this patient.
[2017-09-17 12:02] VITALS: BP 132/84
== END 2017-09-17 12:46 | disposition home health service (06) | DRG 902 ==
LOC: 3ANU 13:44 → EMEROO 13:44 → SUATTDRO 09-09 00:35 → 3ANU 09-09 01:23
PROVIDERS: ADMIT Internal Medicine; ATTEND Internal Medicine

== ENCOUNTER 2017-10-02 11:45 | Inpatient (IN) ==
[2017-10-02] MEDS ORDERED: 0.9 % Sodium Chloride 1,000 ML IVC ONE ×2 (12:03→13:14)
[2017-10-02 12:23] LABS: Basophils % 0.4 %; Eosinophils # 0.2 K/mcL (0.0-0.6); Eosinophils % 2.4 %; Hemoglobin 10.9 g/dL (12.9-16.9); Immature Granulocytes % 0.6 % (0-4); Lymphocytes # 1.2 K/mcL (0.6-4.6); Lymphocytes % 14.4 %; Mean Corpuscular Hemoglobin 31.2 pg (28.0-33.3); Mean Corpuscular Volume 94.6 fL (83.0-100.0); Mean Platelet Volume 10.5 fL (9.4-12.4); Monocytes # 0.6 K/mcL (0.0-1.3); Monocytes % 7.2 %; Neutrophils # 6.3 K/mcL (1.6-8.9); Platelet Count 157 K/mcL (140-400); Red Blood Count 3.49 M/mcL (4.19-5.50); Red Cell Distribution Width 15.1 % (11.5-14.5)
[2017-10-02 12:29] LABS: INR 1.4; Prothrombin Time 15.9 Seconds (9.4-12.1)
[2017-10-02 12:31] LABS: Activated Partial Thrombo Time 27.7 Seconds (26.0-36.0)
[2017-10-02 12:47] LABS: Troponin I 0.03 ng/mL (< 0.04)
--- NOTE | 2017-10-02 13:01 | Emergency Department Note ---
Disposition Clinical Impression: Acute kidney injury, Dehydration Syncope Qualifiers: Syncope type: unspecified Qualified Code(s): R55 - Syncope and collapse Disposition: Admitted As Inpatient Condition: Good [facility]errals: [facility] [Primary Care Provider] - Forms: ED Satisfaction Letter General Adult HPI - General Chief complaint: ED Syncope Stated complaint: syncopal episode Time Seen by Provider: 10/02/17 11:47 Source: patient Limitations: physical limitation Nursing Notes Reviewed: Yes Vital Signs Reviewed: Yes - History of Present Illness HPI Narrative: Patient presents today as a medical alert from the wound center. Patient became altered and diaphoretic. Patient had syncopal episode. Was brought to us in a wheelchair and was slumped over. He was moved to the [facility] where a blood glucose was found to be 127. Heart rate was mildly bradycardic at 55. Blood pressure was within normal limits. At this time the patient did significantly improve her symptoms and is now able to talk and answer most questions. He is irritable and not significantly pleasant. He states that his left leg had surgery and is in a wound VAC. He is unsure exactly what surgery or Y. He has bleeding to the second and third toes and is unsure why. He has no other complaints at this time. He has no chest pain or shortness of breath or abdominal pain. With his syncopal events he does have vomiting. He states that he has had these in the past. Unsure about previous workup we will investigate his medical records. Pain Scale: 0 - Related Data Home Medications Medication Instructions Recorded Confirmed Carvedilol 12.5 mg PO BID 07/03/17 09/25/17 Gabapentin [Neurontin] 900 mg PO TID 07/03/17 09/25/17 Phenytoin Sodium Extended 200 mg PO TID 07/03/17 09/25/17 [Phenytek] Tamsulosin HCl [Flomax] 0.4 mg PO DAILY 07/03/17 09/25/17 Cefepime HCl/Dextrose, Iso-Osm 2 gm IV Q12H 10/02/17 10/02/17 [Cefepime 2 gm Injection] Chlorthalidone 25 mg PO DAILY 10/02/17 10/02/17 Clopidogrel [Plavix] 75 mg PO DAILY 10/02/17 10/02/17 Lisinopril [Zestril] 10 mg PO DAILY 10/02/17 10/02/17 Potassium Chloride [K-Tab ER] 20 meq PO BID 10/02/17 10/02/17 amLODIPine [Norvasc] 5 mg PO DAILY 10/02/17 10/02/17 Previous Rx's Medication Instructions Recorded Cholestyramine 4 gm PO BIDAC #60 powd.pack 09/17/17 Allergies Allergy/AdvReac Type Severity Reaction Status Date / Time No Known Allergies Allergy Verified 09/08/17 14:09 Review of Systems: As Per HPI Constitutional: Reports: weakness (Generalized). Denies: fever, chills Cardiovascular: Denies: chest pain, palpitations Respiratory: Denies: cough, dyspnea Gastrointestinal: Reports: nausea. Denies: abdominal pain, vomiting Genitourinary: Denies: urgency, dysuria Musculoskeletal: Denies: back pain Integumentary: Reports: abrasion (Left toes), other (Wound VAC in place left foot) Neurological: Denies: headache Endocrine: Reports: fatigue Past Medical History - Past Medical History Medical history: Reports: hypertension, kidney stones, seizures, syncope, other Surgical history: Reports: other Psychiatric history: Reports: anxiety, depression - Social History Smoking Status: Former smoker Smokeless Tobacco Status: No Alcohol use: Reports: none Drug use: Reports: none Physical Exam General: Well appearing, nontoxic, no acute distress Head: Normocephalic Atraumatic Eyes: PERRL, EOMI ENT: Airway patent, no stridor Neck: supple Chest: Lungs clear to auscultation bilateral Cardiac: Regular rhythm Abdomen: soft, nontender, nondistended; no guarding, rebound, or tenderness to percussion Musculoskeletal: Calves symmetric, nontender, no palpable cord Skin: Left second and third toes with abrasions and unknown injury. Wound VAC is intact without any surrounding erythema. Denies worsening drainage. Neuro: Alert and Oriented to person, place, and time; No focal deficit, - General Limitations: physical limitation General appearance: alert, in no apparent distress Course - Reevaluation(s) Reevaluation #1: Patient with acute kidney injury. Does not like to drink fluids. Patient's symptoms recurred when he was went from lying to sitting so possibly secondary to dehydration. Patient will be brought in for further evaluation. - Consultations Consultation #1: Discussed with hospitalist. Patient except for admission. Vital Signs Temperature 97.6 F 08/02/18 11:47 Pulse Rate 57 10/02/17 11:47 Respiratory Rate 16 10/02/17 11:47 Blood Pressure 142/91 10/02/17 11:47 O2 Sat by Pulse Oximetry 97 10/02/17 11:47 Temperature 97.7 F 10/02/17 18:46 Pulse Rate 96 10/02/17 18:46 Respiratory Rate 15 10/02/17 18:46 Blood Pressure 139/86 10/02/17 18:46 O2 Sat by Pulse Oximetry 90 10/02/17 18:46 Oxygen Delivery Oxygen Delivery Room Air Medical Decision Making - Medical Records Medical records reviewed: Yes I reviewed the patient's medical records. - Lab Data Lab results reviewed: Yes I reviewed the patient's lab results. Result diagrams: 10/02/17 12:12 10/02/17 12:12 Lab Results 10/02/17 10/02/17 10/02/17 Range/Units 12:12 12:12 12:12 WBC 8.4 (4.3-11.1) K/mcL RBC 3.49 L (4.19-5.50) M/mcL Hgb 10.9 L (12.9-16.9) g/dL Hct 33.0 L (37.5-50.1) % MCV 94.6 (83.0-100.0) fL MCH 31.2 (28.0-33.3) pg MCHC 33.0 (31.6-35.5) g/dL RDW 15.1 H (11.5-14.5) % Plt Count 157 (140-400) K/mcL MPV 10.5 (9.4-12.4) fL Immature Gran % 0.6 (0-4) % Seg Neutrophils % 75.0 % Lymphocytes % 14.4 % Monocytes % 7.2 % Eosinophils % 2.4 % Basophils % 0.4 % Neutrophils # 6.3 (1.6-8.9) K/mcL Lymphocytes # 1.2 (0.6-4.6) K/mcL Monocytes # 0.6 (0.0-1.3) K/mcL Eosinophils # 0.2 (0.0-0.6) K/mcL Basophils # 0.0 (0.0-0.2) K/mcL ESR (0-10) mm/hr PT 15.9 H (9.4-12.1) Seconds INR 1.4 APTT 27.7 (26.0-36.0) Seconds Sodium 141 (136-145) mEq/L Potassium 4.0 (3.5-5.1) mEq/L Chloride 116 H (98-107) mEq/L Carbon Dioxide 15 L (23-29) mEq/L BUN 69 H (8-23) mg/dL Creatinine 4.17 H (0.70-1.30) mg/dL Est GFR ( Amer) 18 L (> 60) Est GFR (Non-Af Amer) 15 L (> 60) BUN/Creatinine Ratio 17 (6-26) Glucose 173 H (70-105) mg/dL Calculated Osmolality 316 H (280-300) Calcium 9.0 (8.6-10.3) mg/dL Troponin I 0.03 (< 0.04) ng/mL C-Reactive Protein (Less than 10) mg/L 10/02/17 10/02/17 Range/Units 12:12 12:12 WBC (4.3-11.1) K/mcL RBC (4.19-5.50) M/mcL Hgb (12.9-16.9) g/dL Hct (37.5-50.1) % MCV (83.0-100.0) fL MCH (28.0-33.3) pg MCHC (31.6-35.5) g/dL RDW (11.5-14.5) % Plt Count (140-400) K/mcL MPV (9.4-12.4) fL Immature Gran % (0-4) % Seg Neutrophils % % Lymphocytes % % Monocytes % % Eosinophils % % Basophils % % Neutrophils # (1.6-8.9) K/mcL Lymphocytes # (0.6-4.6) K/mcL Monocytes # (0.0-1.3) K/mcL Eosinophils # (0.0-0.6) K/mcL Basophils # (0.0-0.2) K/mcL ESR 57 H (0-10) mm/hr PT (9.4-12.1) Seconds INR APTT (26.0-36.0) Seconds Sodium (136-145) mEq/L Potassium (3.5-5.1) mEq/L Chloride (98-107) mEq/L Carbon Dioxide (23-29) mEq/L BUN (8-23) mg/dL Creatinine (0.70-1.30) mg/dL Est GFR ( Amer) (> 60) Est GFR (Non-Af Amer) (> 60) BUN/Creatinine Ratio (6-26) Glucose (70-105) mg/dL Calculated Osmolality (280-300) Calcium (8.6-10.3) mg/dL Troponin I (< 0.04) ng/mL C-Reactive Protein < 5 (Less than 10) mg/L - Radiology Data Radiology results reviewed: Yes I reviewed the patient's radiology results. - EKG Data EKG #1 EKG attestation: Yes I reviewed and interpreted this EKG. EKG results narrative: EKG shows sinus bradycardia with ventricular rate 58. NC interval 156. QRS 109. QTC 474. Patient has no significant ST elevations or depressions.
[2017-10-02] MEDS ORDERED: 0.9 % Sodium Chloride 1,000 ML ONE (18:31)
[2017-10-02] MEDS: 0.9 % Sodium Chloride 1,000 ML IVC SCH (18:47)
--- NOTE | 2017-10-02 19:41 | Internal Med History&Physical ---
Date of Encounter: 10/02/17 Time of Encounter: 15:00 Internal Medicine - H&P: HPI Chief complaint: Syncopal episode Admitted From: Home Plans for Post Hospital Care: Home History of present illness: Patient is a 61-year-old male with past medical history significant for hypertension, seizures and mood disorder who presents to the ER on 10/02/17 due to near syncopal episode. Per family who is at bedside patient on 2 occasion slumped down and was consult due to patient having a syncopal episodes. She reports of having prior episodes in the past and was told he had syncope but no etiology was found. She was brought to the ER for further evaluation. In the ER, patient was found to have a creatinine of 4.17 with a GFR of 15. Patient also found to have elevated BUN of 69. CT of the head was ordered which showed no acute abnormalities. Patient will be admitted to the medical surgical floor for syncopal episode with dehydration and acute renal failure. Past Med Surg Social Fam HX - Past Medical History Medical history: hypertension, kidney stones, seizures, syncope, other Additional medical history: Left Foot Drop, Polyp, Lumbar deforming dorsopathies , Psychiatric history: anxiety, depression - Past Surgical History Surgical History: other Additional surgical history: left foot surgery - Social History Smoking Status: Former smoker Smokeless Tobacco Status: No Alcohol use: none Drug use: none - Family History Mother Adopted: No Hx Family Cardiac Disorders: Yes (Enlarged heart) Hx Family Respiratory Disorders: No Hx Family Cancer: No Hx Family GI Disorders: No Hx Family Endocrine Disorder: Yes (Dm) Hx Family Neuromuscular Disorders: No Hx Family Neurologic Disorders: No Hx Family HEENT Disorders: No Hx Family Autoimmune Disorders: No Father Adopted: No Family Member Ethnicity: Non- Living Status: Hx Family Cardiac Disorders: Yes Hx Family Respiratory Disorders: No Hx Family Cancer: No Hx Family GI Disorders: No Hx Family Endocrine Disorder: No Hx Family Neuromuscular Disorders: No Hx Family Neurologic Disorders: No Hx Family HEENT Disorders: No Hx Family Autoimmune Disorders: No Internal Medicine - H&P: Meds Carvedilol 12.5 mg PO BID 07/03/17 [History] Gabapentin [Neurontin] 900 mg PO QID 07/03/17 [History] Phenytoin Sodium Extended [Phenytek] 200 mg PO TID 07/03/17 [History] Tamsulosin HCl [Flomax] 0.4 mg PO DAILY 07/03/17 [History] Cholestyramine 4 gm PO BIDAC #60 powd.pack 09/17/17 [Rx] Cefepime HCl/Dextrose, Iso-Osm [Cefepime 2 gm Injection] 2 gm IV Q12H 10/02/17 [ History] Chlorthalidone 25 mg PO DAILY 10/02/17 [History] Clopidogrel [Plavix] 75 mg PO DAILY 10/02/17 [History] Lisinopril [Zestril] 10 mg PO DAILY 10/02/17 [History] Potassium Chloride [K-Tab ER] 20 meq PO BID 10/02/17 [History] amLODIPine [Norvasc] 5 mg PO DAILY 10/02/17 [History] 3 Allergy/AdvReac Type Severity Reaction Status Date / Time No Known Allergies Allergy Verified 09/08/17 14:09 All Systems PM: A 10-system review of systems was performed and is negative for pertinent findings except as documented above in the HPI. - Constitutional Vitals: Temp Pulse Resp BP Pulse Ox 97.7 F 96 15 139/86 90 10/02/17 18:46 10/02/17 18:46 10/02/17 18:46 10/02/17 18:46 10/02/17 18:46 General appearance: Present: A&O X 3, no acute distress - Eye Eye exam: Present: normal appearance - ENT ENT exam: Present: mucous membranes dry - Respiratory Respiratory exam: Present: CTAB. Absent: accessory muscle use, rales, rhonchi, wheezes - Cardiovascular Cardiovascular exam: Present: RRR, +S1, +S2. Absent: diastolic murmur, gallop, rubs, systolic murmur - GI/Abdominal GI/Abdominal exam: Present: normal bowel sounds, soft, no peritoneal signs. Absent: distended, tenderness - Extremities Exam Extremities exam: Absent: pedal edema - Neurological Exam Neurological exam: Present: CN II-XII intact, oriented X3, no focal deficits - Psychiatric Psychiatric exam: Present: normal mood Internal Med - H&P Results - Labs CBC & Chem 7: 10/02/17 12:12 10/02/17 12:12 - Impressions ITS Impressions Head CT 10/02/17 16:03 IMPRESSION: No acute intracranial abnormality. D/ / Juan Carlos Holly MD / Juan Carlos Holly MD Interpreting Provider: Juan Carlos Holly MD - Assessment and plan (1) Acute renal failure Current Visit: Yes Status: Acute Assessment and plan: In the ER, patient was found to have a creatinine of 4.17 with a GFR of 15. Patient also found to have elevated BUN of 69. Suspect secondary to dehydration and patient had been on oral diuretic Will start patient on IV fluids Consult nephrology and appreciate recommendations Qualifiers: Acute renal failure type: unspecified Qualified Code(s): N17.9 - Acute kidney failure, unspecified (2) Dehydration Current Visit: Yes Status: Acute Assessment and plan: Patient admits to decreased by mouth intake and evidence dehydration on labs with elevated BUN to creatinine ratio. Patient has been started on IV fluids. (3) Syncope Current Visit: Yes Status: Acute Assessment and plan: Suspect secondary to orthostatic hypotension due to dehydration above IV fluids started as above Qualifiers: Syncope type: unspecified Qualified Code(s): R55 - Syncope and collapse (4) Wound of left lower extremity Current Visit: No Status: Acute Assessment and plan: Wound care consulted Qualifiers: Encounter type: initial encounter Qualified Code(s): S81.802A - Unspecified open wound, left lower leg, initial encounter (5) Hypertension Current Visit: No Status: Chronic Assessment and plan: Continue home medications Qualifiers: Hypertension type: unspecified Qualified Code(s): I10 - Essential (primary ) hypertension (6) Seizure Current Visit: No Status: Chronic Assessment and plan: Continued home medications (7) DVT prophylaxis Current Visit: No Status: Acute Assessment and plan: Subcutaneous heparin - Time Spent With Patient Total time spent is greater than 50% in coordination of care (as documented) at patient's floor/unit and/or counseling patient:
[2017-10-02] MEDS ORDERED: Naloxone 0.4 MG/ML INJ IVP PRN (19:48)
[2017-10-02] MEDS ORDERED: NON-FORMULARY MEDICATION 1 EACH EACH (Cefepime Hcl/Dextrose, Iso-Osm [Cefepime 2 Gm Inject IV SCH (20:00)
--- NOTE | 2017-10-02 20:47 | Podiatry Consult Note ---
Date of Encounter: 10/02/17 Time of Encounter: 18:30 Assessment and Plan (1) Osteomyelitis Current visit: No Status: Acute on IV antibiotics managed by ID. wound vac changed today and donated graft placed on the patients left foot/ankle under the wound vac after having the nature of the produced, risks vs benefits of graft placement discussed. no guarantees made that this graft would help his wound heal. next wound vac change Friday. Patient has own home wound vac. Qualifiers: Osteomyelitis type: unspecified type Osteomyelitis location: unspecified site Qualified Code(s): M86.9 - Osteomyelitis, unspecified History of Present Illness HPI: Mr. Dias is a 61 year old male admitted today on his way to wound care when he says he lost consciousness. He says he does not remember anything except being in the ER. He says he felt weird about 5am this morning and has not been himself for a day or two prior to that. He says he does not know how he cut his left 2nd toe but says it was bleeding. Podiatry consulted for wound management. Past Med Surg Social Fam HX - Past Medical History Medical history: hypertension, kidney stones, seizures, syncope, other Additional medical history: Left Foot Drop, Polyp, Lumbar deforming dorsopathies , Psychiatric history: anxiety, depression - Past Surgical History Surgical History: other Additional surgical history: left foot surgery - Social History Smoking Status: Former smoker Smokeless Tobacco Status: No Alcohol use: none Drug use: none - Family History Mother Adopted: No Hx Family Cardiac Disorders: Yes (Enlarged heart) Hx Family Respiratory Disorders: No Hx Family Cancer: No Hx Family GI Disorders: No Hx Family Endocrine Disorder: Yes (Dm) Hx Family Neuromuscular Disorders: No Hx Family Neurologic Disorders: No Hx Family HEENT Disorders: No Hx Family Autoimmune Disorders: No Father Adopted: No Family Member Ethnicity: Non- Living Status: Hx Family Cardiac Disorders: Yes Hx Family Respiratory Disorders: No Hx Family Cancer: No Hx Family GI Disorders: No Hx Family Endocrine Disorder: No Hx Family Neuromuscular Disorders: No Hx Family Neurologic Disorders: No Hx Family HEENT Disorders: No Hx Family Autoimmune Disorders: No Medications and Allergies Carvedilol 12.5 mg PO BID 07/03/17 [History] Gabapentin [Neurontin] 900 mg PO QID 07/03/17 [History] Phenytoin Sodium Extended [Phenytek] 200 mg PO TID 07/03/17 [History] Tamsulosin HCl [Flomax] 0.4 mg PO DAILY 07/03/17 [History] Cholestyramine 4 gm PO BIDAC #60 powd.pack 09/17/17 [Rx] Cefepime HCl/Dextrose, Iso-Osm [Cefepime 2 gm Injection] 2 gm IV Q12H 10/02/17 [ History] Chlorthalidone 25 mg PO DAILY 10/02/17 [History] Clopidogrel [Plavix] 75 mg PO DAILY 10/02/17 [History] Lisinopril [Zestril] 10 mg PO DAILY 10/02/17 [History] Potassium Chloride [K-Tab ER] 20 meq PO BID 10/02/17 [History] amLODIPine [Norvasc] 5 mg PO DAILY 10/02/17 [History] 3 Allergy/AdvReac Type Severity Reaction Status Date / Time No Known Allergies Allergy Verified 09/08/17 14:09 All Systems Reviewed: The remainder of the systems were reviewed and are negative - Constitutional Constitutional: no fever(s) - Cardiovascular Cardiovascular: no chest pain, no dyspnea - Respiratory Respiratory: no dyspnea - Musculoskeletal Musculoskeletal: numbness Physical Exam - Constitutional Vitals: Temp Pulse Resp BP Pulse Ox 97.7 F 96 15 139/86 90 10/02/17 18:46 10/02/17 18:46 10/02/17 18:46 10/02/17 18:46 10/02/17 18:46 Exam: well developed male in no acute distress wound is granular around the wound margins. there is no purulence. there is no erythema of the surrounding skin. wound measures 8.7cmx8.6cmx0.4cm. lateral foot wound 3gtn5lvc3.9cm, posterior heel wound 2wlo8qrp2.3cm. absent sensation to touch. Results - Labs Result Diagrams: 10/02/17 12:12 10/02/17 12:12 Labs: Abnormal lab results RBC 3.49 M/mcL (4.19-5.50) L 10/02/17 12:12 Hgb 10.9 g/dL (12.9-16.9) L 10/02/17 12:12 Hct 33.0 % (37.5-50.1) L 08/02/18 12:12 RDW 15.1 % (11.5-14.5) H 10/02/17 12:12 ESR 57 mm/hr (0-10) H 10/02/17 12:12 PT 15.9 Seconds (9.4-12.1) H 10/02/17 12:12 Chloride 116 mEq/L (98-107) H 10/02/17 12:12 Carbon Dioxide 15 mEq/L (23-29) L 10/02/17 12:12 BUN 69 mg/dL (8-23) H 10/02/17 12:12 Creatinine 4.17 mg/dL (0.70-1.30) H 10/02/17 12:12 Est GFR ( Amer) 18 (> 60) L 10/02/17 12:12 Est GFR (Non-Af Amer) 15 (> 60) L 10/02/17 12:12 Glucose 173 mg/dL (70-105) H 10/02/17 12:12 Calculated Osmolality 316 (280-300) H 10/02/17 12:12 All other labs normal. Consult Discharge Plan - Plan [facility] Care Provider[facility] -
--- NOTE | 2017-10-02 21:17 | Event Note ---
Date of Encounter: 10/02/17 Time of Encounter: 20:24 Alerted by patient's nurse GAL Flores that patient was beginning to have jerky movements of the left upper and left lower extremity as well as having hard time finding words. Went to assess patient who said symptoms have been present for several months before becoming progressively worse. Patient admitted for syncope today. CT of the head ordered earlier showed no intracranial abnormality. MRI ordered and discussed with electrocardiogram technician due to patient's stimulator in left buttock. Patient's to bring card in a.m. prior to MRI being performed. Neurology consult ordered and discussed with Dr. Copeland and I appreciate the consult and recommendations as always. Recommendation for MRI after clearance due to stimulator as well as EEG. Patient to be monitored overnight.
[2017-10-03] MEDS: *HR* Heparin 5,000 UNIT/ML VIAL SQ SCH ×2 (05:31→18:39)
--- NOTE | 2017-10-03 06:00 | Electrocardiograph Report ---
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
[2017-10-03 07:13] LABS: Basophils % 0.4 %; Eosinophils # 0.2 K/mcL (0.0-0.6); Eosinophils % 2.4 %; Hematocrit 32.7 % (37.5-50.1); Hemoglobin 10.8 g/dL (12.9-16.9); Immature Granulocytes % 0.4 % (0-4); Lymphocytes # 1.3 K/mcL (0.6-4.6); Lymphocytes % 14.3 %; Mean Corpuscular Hemoglobin 31.6 pg (28.0-33.3); Mean Corpuscular Volume 95.6 fL (83.0-100.0); Mean Platelet Volume 11.6 fL (9.4-12.4); Monocytes # 0.8 K/mcL (0.0-1.3); Monocytes % 8.4 %; Neutrophils # 6.7 K/mcL (1.6-8.9); Platelet Count 113 K/mcL (140-400); Red Blood Count 3.42 M/mcL (4.19-5.50); Red Cell Distribution Width 15.2 % (11.5-14.5); Segmented Neutrophils % 74.1 %
[2017-10-03 07:27] LABS: Calcium 8.4 mg/dL (8.6-10.3); Potassium 3.4 mEq/L (3.5-5.1)
[2017-10-03] MEDS: Cholestyramine 4 GM POWD.PACK PO SCH ×2 (07:45→18:39)
[2017-10-03 09:10] LABS: Phenytoin (Dilantin) 1.9 mcg/mL (10.0-20.0)
--- NOTE | 2017-10-03 10:15 | Neurology - Consult Note ---
<Perry Murphy Stacey - Last Filed: 10/03/17 10:18> Date of Encounter: 10/03/17 Time of Encounter: 09:55 History of Present Illness Chief complaint: Syncope and L arm jerking HPI: Mr. Dias is a 61 year old male with a PMH significant for HTN, remote questionable seizure hx, and mood disorder he denies, neurology consulted for jerking movements and syncope. He says he has been "blacking out" for ~8-9 years but getting more frequent the last few weeks. The events occur every 3-4 days and they last for a few min before coming back to baseline. No memory of event after. He denies any preceding symptoms of blurry vision, diplopia, loss of peripheral vision, dizziness, chest pain, palpitations, paresthesias, or muscle weakness. He did indicate he does get lightheaded sometimes that is worst when going from sitting to standing. He admits to barely eating or drinking any fluids. He has a remote hx of questionable seizure activity that started around the same time as the syncopal events. He says he had a workup at the [facility] that returned all normal and was placed on dilantin and never reevaluated again. He has been having what he calls jerking movements for many years but the last few months they have been getting progressively more frequent. He says they occur in both upper and lower extremities with his L arm being most severe. He indicates it happens suddenly will drop his arm for a second at times with normal muscle tone after and at other times it is more tremor like. He is unable to hold plates and glasses at home and frequently drops them. He says it is worse if he tries to reach for something and sometimes knows it is going to occur. Past Med Surg Social Fam HX - Past Medical History Medical history: hypertension, kidney stones, seizures, syncope, other Additional medical history: Left Foot Drop, Polyp, Lumbar deforming dorsopathies , Psychiatric history: anxiety, depression - Past Surgical History Surgical History: other Additional surgical history: left foot surgery - Social History Smoking Status: Former smoker Smokeless Tobacco Status: No Alcohol use: none Drug use: none - Family History Mother Adopted: No Hx Family Cardiac Disorders: Yes (Enlarged heart) Hx Family Respiratory Disorders: No Hx Family Cancer: No Hx Family GI Disorders: No Hx Family Endocrine Disorder: Yes (Dm) Hx Family Neuromuscular Disorders: No Hx Family Neurologic Disorders: No Hx Family HEENT Disorders: No Hx Family Autoimmune Disorders: No Father Adopted: No Family Member Ethnicity: Non- Living Status: Hx Family Cardiac Disorders: Yes Hx Family Respiratory Disorders: No Hx Family Cancer: No Hx Family GI Disorders: No Hx Family Endocrine Disorder: No Hx Family Neuromuscular Disorders: No Hx Family Neurologic Disorders: No Hx Family HEENT Disorders: No Hx Family Autoimmune Disorders: No Medications and Allergies Carvedilol 12.5 mg PO BID 07/03/17 [History] Gabapentin [Neurontin] 900 mg PO QID 07/03/17 [History] Phenytoin Sodium Extended [Phenytek] 200 mg PO TID 07/03/17 [History] Tamsulosin HCl [Flomax] 0.4 mg PO DAILY 07/03/17 [History] Cholestyramine 4 gm PO BIDAC #60 powd.pack 09/17/17 [Rx] Cefepime HCl/Dextrose, Iso-Osm [Cefepime 2 gm Injection] 2 gm IV Q12H 10/02/17 [ History] Chlorthalidone 25 mg PO DAILY 10/02/17 [History] Clopidogrel [Plavix] 75 mg PO DAILY 10/02/17 [History] Lisinopril [Zestril] 10 mg PO DAILY 10/02/17 [History] Potassium Chloride [K-Tab ER] 20 meq PO BID 10/02/17 [History] amLODIPine [Norvasc] 5 mg PO DAILY 10/02/17 [History] 3 Allergy/AdvReac Type Severity Reaction Status Date / Time No Known Allergies Allergy Verified 09/08/17 14:09 All Systems: The remainder of the systems were reviewed and are negative Physical Examination - Vital Signs Vital Signs: Initial Vital Signs Temp Pulse Resp BP Pulse Ox 97.6 F 57 16 142/91 97 10/02/17 11:47 10/02/17 11:47 10/02/17 11:47 10/02/17 11:47 10/02/17 11:47 - Constitutional General appearance: comfortable - Neurologic Sensorimotor examination: intact, other (During exam when asked to hold arms straight out in front of him he said "oh it's about to happen" started shaking arms and dropped them to his side with immeadiate ability to raise his arms back out in front of him. ) Motor examination - right side: 5/5: deltoids, biceps, triceps, wrist flexion, wrist extension, weeder, hip flexors, tibialis Anterior, quadriceps, toe extension (EHL), plantarflexion Motor examination - left side: 07/05: deltoids, biceps, triceps, wrist flexion, wrist extension, hip flexors, weeder, quadriceps, tibialis Anterior, toe extension (EHL), plantarflexion Detailed sensory examination: intact Mental Status Examination: awake, alert, oriented to person, oriented to place, oriented to time, follows simple commands, inattentive, rambling, impaired cognition, not reliable historian ( at bedside helps him answer ) Cranial nerve examination: PERRL, EOMI, visual simpson intact, sensory to face intact, no facial asymmetry is present, no dysarthria, hearing is intact symmetrically, soft palate elevates bilaterally upon phonation, flexes SCM and trapezius muscles symmetrically with full power, tongue protrudes midline, no atrophy or facial fasiculations present Cerebellar examination: no dysmetria Ataxia: left upper extremity (During extension) Results - Laboratory Findings CBC and BMP: 10/03/17 06:07 10/03/17 06:07 Abnormal lab findings: Abnormal lab results RBC 3.42 M/mcL (4.19-5.50) L 10/03/17 06:07 Hgb 10.8 g/dL (12.9-16.9) L 10/03/17 06:07 Hct 32.7 % (37.5-50.1) L 10/03/17 06:07 RDW 15.2 % (11.5-14.5) H 10/03/17 06:07 Plt Count 113 K/mcL (140-400) L 10/03/17 06:07 ESR 57 mm/hr (0-10) H 10/02/17 12:12 PT 15.9 Seconds (9.4-12.1) H 10/02/17 12:12 Potassium 3.4 mEq/L (3.5-5.1) L 10/03/17 06:07 Chloride 119 mEq/L (98-107) H 10/03/17 06:07 Carbon Dioxide 15 mEq/L (23-29) L 10/03/17 06:07 BUN 70 mg/dL (8-23) H 08/03/18 06:07 Creatinine 4.32 mg/dL (0.70-1.30) H 10/03/17 06:07 Est GFR ( Amer) 17 (> 60) L 10/03/17 06:07 Est GFR (Non-Af Amer) 14 (> 60) L 10/03/17 06:07 Glucose 128 mg/dL (70-105) H 10/03/17 06:07 Calculated Osmolality 316 (280-300) H 10/03/17 06:07 Calcium 8.4 mg/dL (8.6-10.3) L 10/03/17 06:07 Phenytoin 1.9 mcg/mL (10.0-20.0) L 10/03/17 06:07 Consult Discharge Plan - Plan Referrals: [facility] [Outside] <Rm Chin - Last Filed: 10/03/17 17:50> Date of Encounter: 10/03/17 Time of Encounter: 17:37 Assessment and Plan (1) Syncope Current Visit: Yes Status: Acute I suspect that the syncopal episodes associated with this admission are likely due to orthostasis. However with regard to the jerking tremors of believe this is consistent with asterixis. However I find no evidence of a central nervous system process at this time. I believe the acute confusion is due to the ARSH. I would question whether not he truly has epilepsy. He was started on phenytoin some time ago and never had a follow-up assessment. I did repeat an EEG today which was normal. It did reveal an increase in beta frequencies would sometimes go along with various medication effects as well as anxiety. I did not see any evidence of epileptiform activity. CT brain reveals mild atrophy. I would like to see him in my office after discharge at which time I might consider tapering him off the phenytoin. I will reevaluate your request. Qualifiers: Syncope type: unspecified Qualified Code(s): R55 - Syncope and collapse History of Present Illness HPI: The chart was reviewed, the patient was seen and examined independently and along with Dr. Murphy. I agree with his assessment as stated above. Patient does have significant variability in blood pressure readings from time to time. He also had a significant drop in systolic blood pressure with orthostatic blood pressure readings. All Systems: The remainder of the systems were reviewed and are negative Review of Systems: The balance of the systems review is negative. Physical Examination - Vital Signs Vital Signs: Initial Vital Signs Temp Pulse Resp BP Pulse Ox 97.6 F 57 16 142/91 97 10/02/17 11:47 10/02/17 11:47 10/02/17 11:47 10/02/17 11:47 10/02/17 11:47 - Neurologic Detailed motor examination: other (Patient has a flapping type tremor with prolonged dorsiflexion of the wrists with his arms outstretched, a similar phenomenon is reproduced with dorsiflexion of the foot at the ankle. Consistent with asterixis.) Results - Laboratory Findings CBC and BMP: 10/03/17 06:07 10/03/17 06:07 Abnormal lab findings: Abnormal lab results RBC 3.42 M/mcL (4.19-5.50) L 10/03/17 06:07 Hgb 10.8 g/dL (12.9-16.9) L 10/03/17 06:07 Hct 32.7 % (37.5-50.1) L 10/03/17 06:07 RDW 15.2 % (11.5-14.5) H 10/03/17 06:07 Plt Count 113 K/mcL (140-400) L 10/03/17 06:07 ESR 57 mm/hr (0-10) H 10/02/17 12:12 PT 15.9 Seconds (9.4-12.1) H 10/02/17 12:12 Potassium 3.4 mEq/L (3.5-5.1) L 10/03/17 06:07 Chloride 119 mEq/L (98-107) H 10/03/17 06:07 Carbon Dioxide 15 mEq/L (23-29) L 10/03/17 06:07 BUN 70 mg/dL (8-23) H 10/03/17 06:07 Creatinine 4.32 mg/dL (0.70-1.30) H 10/03/17 06:07 Est GFR ( Amer) 17 (> 60) L 10/03/17 06:07 Est GFR (Non-Af Amer) 14 (> 60) L 10/03/17 06:07 Glucose 128 mg/dL (70-105) H 10/03/17 06:07 Calculated Osmolality 316 (280-300) H 10/03/17 06:07 Calcium 8.4 mg/dL (8.6-10.3) L 10/03/17 06:07 Phenytoin 1.9 mcg/mL (10.0-20.0) L 10/03/17 06:07
[2017-10-03] MEDS: Cefepime HCl 2,000 MG in Water for inj. (sterile) 20 ML 20 ML IVP SCH (11:27)
[2017-10-03] MEDS: amLODIPine 5 MG TABLET PO SCH (11:30)
[2017-10-03] MEDS: 0.9 % Sodium Chloride 1,000 ML IVC SCH (11:31)
--- NOTE | 2017-10-03 14:05 | Nephrology Consult Note ---
Date of Encounter: 10/03/17 Time of Encounter: 14:02 Assessment and Plan (1) Acute kidney injury Current Visit: Yes Status: Acute Patient with acute kidney injury that seems to be secondary to volume depletion. I agree with the intravenous fluids. We will check a renal ultrasound and urine sodium. I recommend avoiding nephrotoxic agents and adjusting medications for renal function. At this point I do not think he needs dialysis nor do I think he needs a renal biopsy. We will continue to monitor his renal function. (2) Syncope Current Visit: Yes Status: Acute This seems to be secondary to volume. His blood pressure is better now. Hold any antihypertensive medications. Agree with ruling out cardiac causes. Qualifiers: Syncope type: unspecified Qualified Code(s): R55 - Syncope and collapse (3) Acute hypokalemia Current Visit: No Status: Acute Caution with replacement until his renal function stabilizes. (4) Diarrhea Current Visit: No Status: Acute Per primary team. Qualifiers: Diarrhea type: unspecified type Qualified Code(s): R19.7 - Diarrhea, unspecified (5) Hypertension Current Visit: No Status: Chronic Patient had high voltage and upon admission, but blood pressure is increasing. May be able to slowly add back his antihypertensive regimen. Qualifiers: Hypertension type: unspecified Qualified Code(s): I10 - Essential (primary ) hypertension History of Present Illness - Reason for Consult Consult date: 10/03/17 Acute Kidney Injury - Chief Complaint ARSH - History of Present Illness Mr. Dias is a 61 yo man with a history of diabetes who presents after a syncopal episode. He was found to have acute kidney injury. [place] [facility] was consulted for evaluation of his acute kidney injury. Obtaining a history from the patient was very difficult as he did not focus on the questions presented to him. Per review of the admission H&P it appears the patient had a syncopal episode patient reports that he has had decreased oral intake for several weeks and that he recalls being slightly lightheaded the day that he passed out. When he was brought to the emergency room and found to have a greatly elevated creatinine that was twice what it was about 2 weeks ago. He denies chest pain, shortness of breath, nausea or vomiting. He reports chronic diarrhea for about a year that he thinks may have been slightly worse. Past Med Surg Social Fam HX - Past Medical History Medical history: hypertension, kidney stones, seizures, syncope, other Additional medical history: Left Foot Drop, Polyp, Lumbar deforming dorsopathies , Psychiatric history: anxiety, depression - Past Surgical History Surgical History: other Additional surgical history: left foot surgery - Social History Smoking Status: Former smoker Smokeless Tobacco Status: No Alcohol use: none Drug use: none - Family History Mother Adopted: No Hx Family Cardiac Disorders: Yes (Enlarged heart) Hx Family Respiratory Disorders: No Hx Family Cancer: No Hx Family GI Disorders: No Hx Family Endocrine Disorder: Yes (Dm) Hx Family Neuromuscular Disorders: No Hx Family Neurologic Disorders: No Hx Family HEENT Disorders: No Hx Family Autoimmune Disorders: No Father Adopted: No Family Member Ethnicity: Non- Living Status: Hx Family Cardiac Disorders: Yes Hx Family Respiratory Disorders: No Hx Family Cancer: No Hx Family GI Disorders: No Hx Family Endocrine Disorder: No Hx Family Neuromuscular Disorders: No Hx Family Neurologic Disorders: No Hx Family HEENT Disorders: No Hx Family Autoimmune Disorders: No Medications and Allergies Carvedilol 12.5 mg PO BID 07/03/17 [History] Gabapentin [Neurontin] 900 mg PO QID 07/03/17 [History] Phenytoin Sodium Extended [Phenytek] 200 mg PO TID 07/03/17 [History] Tamsulosin HCl [Flomax] 0.4 mg PO DAILY 07/03/17 [History] Cholestyramine 4 gm PO BIDAC #60 powd.pack 09/17/17 [Rx] Cefepime HCl/Dextrose, Iso-Osm [Cefepime 2 gm Injection] 2 gm IV Q12H 10/02/17 [ History] Chlorthalidone 25 mg PO DAILY 10/02/17 [History] Clopidogrel [Plavix] 75 mg PO DAILY 10/02/17 [History] Lisinopril [Zestril] 10 mg PO DAILY 10/02/17 [History] Potassium Chloride [K-Tab ER] 20 meq PO BID 10/02/17 [History] amLODIPine [Norvasc] 5 mg PO DAILY 10/02/17 [History] 3 Allergy/AdvReac Type Severity Reaction Status Date / Time No Known Allergies Allergy Verified 09/08/17 14:09 Review of Systems All Systems: reviewed and no additional remarkable complaints except as stated ( As documented in history of present illness.) Exam - Vital Signs Vital signs: Initial Vital Signs Temp Pulse Resp BP Pulse Ox 97.6 F 57 16 142/91 97 10/02/17 11:47 10/02/17 11:47 10/02/17 11:47 10/02/17 11:47 10/02/17 11:47 Vital Signs - Last 8 Hours Temp Pulse Resp BP Pulse Ox 10/03/17 10:41 98.0 F 96 16 182/105 94 10/03/17 06:28 98.3 F 59 16 172/90 98 Intake and Output 10/02/17 10/03/17 10/03/17 23:59 07:59 15:59 Intake Total 300 / 1300 0 / 0 1095 / 1095 Output Total 100 / 100 0 / 0 Balance 300 / 1300 -100 / -100 1095 / 1095 Intake: IV Fluids 1020 / 1020 0.9 % Sodium Chloride 1,000 ML 1000 / 1000 @ 75 mls/hr IVC .[id number] [facility] Rx #:[id number] Maxipime 2,000 MG In Water for 20 / 20 inj. (sterile) 20 ML @ 300 mls/ hr IVP Q24H [facility] Rx#:[id number] Oral 300 / 300 0 / 0 75 / 75 Output: Urine 100 / 100 0 / 0 Other: Meal Lunch Percent of Meal Consumed 0% # Bowel Movements 0 0 - General Appearance General appearance: well-developed, well-nourished EENT: ATNC Neck: supple Respiratory: clear Cardiology: no edema, regular rate, regular rhythm Gastrointestinal: no tenderness Integumentary: warm and dry Neurologic: alert and oriented x3 Musculoskeletal: no cyanosis Psychiatric: mood/affect appropriate Results - Lab Results 10/03/17 06:07 10/03/17 06:07 Most recent lab results Calcium 8.4 mg/dL (8.6-10.3) L 10/03/17 06:07 Consult Discharge Plan - Plan Referrals: [facility] [Outside]
[2017-10-03] MEDS ORDERED: Sodium Bicarbonate 75 MEQ in 0.45 % Sodium Chloride 1,000 ML IVC SCH (14:15)
--- NOTE | 2017-10-03 14:52 | EEG/EMG/Oth Biometrics Report ---
EEG Procedure Report Date of procedure: 10/03/17 EEG Procedure: Routine EEG Procedure Note: This is a report of a 21 channel bipolar and referential montage EEG. The posterior dominant rhythm consists primarily of beta frequencies in the occipital region bilaterally. This rhythm is not reactive to eye opening. Superimposed myogenic artifact is identified bifrontally throughout much of the recording. Hyperventilation is not performed in recording. Periods of drowsiness and stage II sleep identified as reference by dropout of posterior dominant rhythm and emergence of vertex activity K complexes and sleep spindles. Photic stimulation is performed and does not produce a driving response. The EKG rhythm strip reveals normal sinus rhythm at 60 bpm. Impressions: This EEG recording is within normal limits. There is no evidence of epileptiform activity identified during the study. Please correlate clinically. Comment: A normal EEG does not preclude a diagnosis of seizure or epilepsy. If the clinical suspicion for seizure activity is high, serial EEGs or perhaps a prolonged recording may increase the yield. His correlate clinically.
[2017-10-03] MEDS: Sodium Bicarbonate 75 MEQ in 0.45 % Sodium Chloride 1,000 ML IVC SCH (15:46)
--- NOTE | 2017-10-03 15:46 | Internal Med Progress Note ---
Hospitalist Progress Note - Encounter Date of Encounter: 10/03/17 Time of Encounter: 11:00 - Subjective Interval History: Mr. Dias is a 61 year old male with a PMH significant for HTN, remote questionable seizure hx, and mood disorder was admitted for a near syncopal episode. while in the ED it was found that his Cr has increased to 4.17. Ct head was ordered which showed no acute abnormalities. nephrology, Neurology were consulted. today he reports that he is feeling better, he has lost his appetite and reports significant weight loss 40lbs. as per chart review his weighht was 115 Kg in july 2017 but it is documented as 92.76 on this admission. he reports that in addition to his appetite loss he has lost taste for food. which is why he does not want to eat or drink anything. he also reports jerking movements for many years but the last few months they have been getting progressively more frequent. He says they occur in both upper and lower extremities with his L arm being most severe. He indicates it happens suddenly will drop his arm for a second at times with normal muscle tone after and at other times it is more tremor like. He is unable to hold plates and glasses at home and frequently drops them. He says it is worse if he tries to reach for something and sometimes knows it is going to occur. - Exam Vitals: Temp Pulse Resp BP Pulse Ox 98.0 F 96 16 182/105 94 10/03/17 10:41 10/03/17 10:41 10/03/17 10:41 10/03/17 10:41 10/03/17 10:41 Exam: General: Patient is alert, oriented, no acute distress, Head: atraumatic, normocephalic, Eye: normal appearance, PERRL, no scleral icterus, no conjunctival injection ENT: mucous membranes moist, normal external ear exam Neck: normal inspection, trachea midline, full ROM, no carotid bruits Chest: normal inspection, symmetric chest rise Respiratory: Good respiratory effort. Bilateral breath sounds are clear without wheezing, crackles, or rhonchi. Cardiovascular: Regular rate and rhythm. s1 and s2 No clicks, rubs, gallops, or murmors. Abdomen: Bowel sounds present normoactive x-4 quadrants. Abdomen is soft, nondistended. Epigastric tenderness. No guarding or rebound. No organomegaly noted, obese musculoskeletal: Spontaneously moving all extremities. no edema, no calf tenderness Skin: warm, dry, intact. Neuro: Alert and oriented x4. Sensation light touch intact in all extremities . finger to nose intact, 5/5 strength in all extremities Psych: Patient's affect is normal - Assessment and Plan (1) Syncope Current Visit: Yes Status: Acute Assessment and Plan: most likely secondary to dehydration ( vasovagal) will rule out arrhythmia will continue IVF TTE done 10/03/17- LVEF 55-60%. Mild left ventricular diastolic dysfunction. Normal right ventricular structure and function. Mild aortic regurgitation. Mild tricuspid regurgitation. Mild pulmonary hypertension by TR gradient. IVC not well visualized. EKG SINUS BRADYCARDIA PROLONGED QT INTERVAL 474 TSH, Utox (2) Dehydration Current Visit: Yes Status: Acute Assessment and Plan: Patient admits to decreased by mouth intake and evidence dehydration on labs with elevated BUN to creatinine ratio. Patient has been started on IV fluids. (3) Wound of left lower extremity Current Visit: No Status: Acute Assessment and Plan: podiatry on board wound care consult on IV cefepime as of last admission (4) Hypertension Current Visit: No Status: Chronic Assessment and Plan: Continue home medications (5) Seizure Current Visit: No Status: Chronic Assessment and Plan: neurology consulted dilantin level is sub therapeutic EEG on 10/03 impressions: This EEG recording is within normal limits. There is no evidence of epileptiform activity identified during the study. Please correlate clinically ct head 10/02/17- no acute intracraial abnormalities. (6) Acute renal failure Current Visit: Yes Status: Acute Assessment and Plan: elevated BUn: CR - strict I/O continue IVF nephrology was consulted will follow recommendations hold nephrotoxic drugs renal US ordered will follow (7) DVT prophylaxis Current Visit: No Status: Acute Assessment and Plan: Subcutaneous heparin DVT Prophylaxis: as per above - Time Spent with Patient Total time spent is greater than 50% in coordination of care (as documented) at patient's floor/unit and/or counseling patient: Plan of Care Discussed with: patient Internal Medicine: Result - Labs CBC & Chem 7: 10/03/17 06:07 10/03/17 06:07 Labs: Short CBC 10/03/17 Range/Units 06:07 WBC 9.0 (4.3-11.1) K/mcL Hgb 10.8 L (12.9-16.9) g/dL Hct 32.7 L (37.5-50.1) % Plt Count 113 L (140-400) K/mcL Neutrophils # 6.7 (1.6-8.9) K/mcL BMP 10/03/17 06:07 Sodium 142 Potassium 3.4 L Chloride 119 H Carbon Dioxide 15 L BUN 70 H Creatinine 4.32 H Glucose 128 H Calcium 8.4 L - ABG Interpretation ABG results: PT/INR, D-dimer PT 15.9 Seconds (9.4-12.1) H 10/02/17 12:12 - Impressions Impressions Echocardiogram 10/03/17 08:00 Impressions: LVEF 55-60%. Mild left ventricular diastolic dysfunction. Normal right ventricular structure and function. Mild aortic regurgitation. Mild tricuspid regurgitation. Mild pulmonary hypertension by TR gradient. IVC not well visualized. Left Ventricular Wall Motion: Rest Echo Findings All wall segments showed normal motion. Findings: Study Quality * Technically adequate exam. ECG Findings * Normal sinus rhythm. Left Ventricle * LVEF 55-60%. * Normal LV chamber size, wall thickness and function. * Mild left ventricular diastolic dysfunction. * No LVOTO. Right Ventricle * Normal right ventricular structure and function. Left Atrium * Normal left atrial size. Right Atrium * Normal right atrial size. Aortic Valve * Aortic valve not well visualized. * No aortic stenosis. * Mild aortic regurgitation. Mitral Valve * No mitral regurgitation. * Normal mitral valve structure. * No mitral stenosis. Tricuspid Valve * Normal tricuspid valve structure. * Mild tricuspid regurgitation. Pulmonic Valve * Pulmonic valve is not well visualized. * No pulmonic stenosis. * No pulmonic regurgitation. Pulmonary Artery * Pulmonary artery not well visualized. Aorta * Normally sized aortic root. Pericardium * There is no pericardial effusion present. Interatrial Septum * No evidence of PFO by color Doppler. IVC * The IVC is not well evaluated. Consult Discharge Plan - Plan Referrals: [facility] [Outside] (1) Syncope Qualifiers: Syncope type: unspecified Qualified Code(s): R55 - Syncope and collapse (3) Wound of left lower extremity Qualifiers: Encounter type: initial encounter Qualified Code(s): S81.802A - Unspecified open wound, left lower leg, initial encounter (4) Hypertension Qualifiers: Hypertension type: unspecified Qualified Code(s): I10 - Essential (primary) hypertension (6) Acute renal failure Qualifiers: Acute renal failure type: unspecified Qualified Code(s): N17.9 - Acute kidney failure, unspecified
[2017-10-04] MEDS: Sodium Bicarbonate 75 MEQ in 0.45 % Sodium Chloride 1,000 ML IVC SCH ×3 (05:10→19:01)
[2017-10-04] MEDS: *HR* Heparin 5,000 UNIT/ML VIAL SQ SCH (05:11)
[2017-10-04 05:49] LABS: Hematocrit 28.8 % (37.5-50.1)
[2017-10-04 05:50] LABS: Basophils % 0.3 %; Eosinophils # 0.3 K/mcL (0.0-0.6); Eosinophils % 4.9 %; Hemoglobin 9.5 g/dL (12.9-16.9); Immature Granulocytes % 0.5 % (0-4); Immature Platelets 3.9 % (1.1-6.1); Lymphocytes # 1.2 K/mcL (0.6-4.6); Lymphocytes % 18.3 %; Mean Corpuscular Hemoglobin 30.9 pg (28.0-33.3); Mean Corpuscular Volume 93.8 fL (83.0-100.0); Mean Platelet Volume 11.4 fL (9.4-12.4); Monocytes # 0.5 K/mcL (0.0-1.3); Monocytes % 7.1 %; Neutrophils # 4.4 K/mcL (1.6-8.9); Red Blood Count 3.07 M/mcL (4.19-5.50); Red Cell Distribution Width 14.9 % (11.5-14.5); Segmented Neutrophils % 68.9 %
[2017-10-04 06:03] LABS: Potassium 3.5 mEq/L (3.5-5.1)
[2017-10-04 06:29] LABS: Platelet Count 87 K/mcL (140-400)
[2017-10-04 06:31] LABS: Platelet Estimate Decreased (Normal)
--- NOTE | 2017-10-04 08:48 | Nephrology Progress Note ---
Date of Encounter: 10/04/17 Time of Encounter: 08:47 - Assessment and Plan (1) Acute kidney injury Current Visit: Yes Status: Acute Patient with multifactorial acute kidney injury. His urine output is increasing , however his creatinine continues to rise slightly. I will increase his maintenance IV for another 3 L. Continue to monitor for renal improvement. Avoid nephrotoxic agents and adjust medications for renal function. (2) Syncope Current Visit: Yes Status: Acute Qualifiers: Syncope type: unspecified Qualified Code(s): R55 - Syncope and collapse (3) Acute hypokalemia Current Visit: No Status: Acute Replace potassium as needed. (4) Diarrhea Current Visit: No Status: Acute Qualifiers: Diarrhea type: unspecified type Qualified Code(s): R19.7 - Diarrhea, unspecified (5) Hypertension Current Visit: No Status: Chronic Titrate medications as needed. Qualifiers: Hypertension type: unspecified Qualified Code(s): I10 - Essential (primary ) hypertension Subjective Principal diagnosis: ARSH Objective - Vital Signs Vital signs: Vital Signs Temp Pulse Resp BP Pulse Ox 10/04/17 06:45 98.3 F 75 15 146/88 91 10/04/17 03:51 98.2 F 61 15 129/79 98 10/03/17 23:37 97.7 F 77 16 167/81 93 10/03/17 18:57 98.1 F 59 16 164/93 99 10/03/17 14:51 97.9 F 63 16 129/85 95 10/03/17 10:41 98.0 F 96 16 182/105 94 Intake and Output 10/03/17 10/04/17 10/04/17 23:59 07:59 15:59 Intake Total 1000 / 1000 Output Total 750 / 750 400 / 400 250 / 250 Balance -750 / -750 600 / 600 -250 / -250 Intake: IV Fluids 1000 / 1000 Sodium Bicarbonate 75 MEQ In 0. 1000 / 1000 45% Sodium Chloride 1000 Ml 1000 Ml 1,000 ML @ 100 mls/hr IVC .[id number] [facility] Rx#:[id number] Oral 0 / 0 Output: Urine 750 / 750 400 / 400 250 / 250 - General Appearance General appearance: Present: well-developed, well-nourished EENT: Present: ATNC Neck: Present: supple Cardiology: Present: regular rate Integumentary: Present: warm and dry Neurologic: Present: alert and oriented x3 Psychiatric: Present: mood/affect appropriate - Lab 10/04/17 05:09 10/04/17 05:09 Most recent lab results Calcium 8.0 mg/dL (8.6-10.3) L 10/04/17 05:09 Consult Discharge Plan - Plan Referrals: [facility] [Outside]
[2017-10-04 09:05] LABS: Bilirubin,Urine Negative (Negative); Blood,Urine Large (Negative); Color,Urine Yellow (Yellow); Hyaline Casts,Urine None Seen per lpf (None-Few); Leukocyte Esterase,Urine Small (Negative); Nitrite,Urine Negative (Negative); PH,Urine 5.5 pH Units (5.0-8.0); Protein,Urine 100 mg/dL (Neg-Trace); Urobilinogen,Urine Normal (Normal)
[2017-10-04 09:06] LABS: Clarity,Urine Clear (Clear); Glucose,Urine (UA) Normal (Normal); Ketones,Urine Trace mg/dL (Negative)
[2017-10-04 09:20] LABS: Bacteria,Urine Moderate per hpf (None-Few); RBC,Urine 0-3 per hpf (0-3); Squamous Epithelial Cell,Urine Few per lpf (None-Few)
[2017-10-04] MEDS: amLODIPine 5 MG TABLET PO SCH (09:21)
[2017-10-04] MEDS: Cefepime HCl 2,000 MG in Water for inj. (sterile) 20 ML 20 ML IVP SCH (09:22)
[2017-10-04] MEDS: Cholestyramine 4 GM POWD.PACK PO SCH ×2 (11:39→15:56)
--- NOTE | 2017-10-04 14:13 | Internal Med Progress Note ---
Hospitalist Progress Note - Encounter Date of Encounter: 10/04/17 Time of Encounter: 09:00 - Subjective Interval History: this morning he has no complaints. denies N/v/D denies hematuria, melena, hematochezia, fever, chills has no headache or vision loss. he still reports poor appetite. has not ate much of the food that was brought to him because it has no taste and " i hate hospital food" - Exam Vitals: Temp Pulse Resp BP Pulse Ox 98.6 F 66 15 139/82 100 10/04/17 10:41 10/04/17 10:41 10/04/17 10:41 10/04/17 10:41 10/04/17 10:41 Exam: General: Patient is alert, oriented, no acute distress, Head: atraumatic, normocephalic, Eye: normal appearance, PERRL, no scleral icterus, no conjunctival injection ENT: mucous membranes moist, normal external ear exam Neck: normal inspection, trachea midline, full ROM, no carotid bruits Chest: normal inspection, symmetric chest rise Respiratory: Good respiratory effort. Bilateral breath sounds are clear without wheezing, crackles, or rhonchi. Cardiovascular: Regular rate and rhythm. s1 and s2 No clicks, rubs, gallops, or murmors. Abdomen: Bowel sounds present normoactive x-4 quadrants. Abdomen is soft, nondistended. Epigastric tenderness. No guarding or rebound. No organomegaly noted, obese musculoskeletal: Spontaneously moving all extremities. no edema, no calf tenderness Skin: warm, dry, intact. Neuro: Alert and oriented x4. Sensation light touch intact in all extremities . finger to nose intact, 5/5 strength in all extremities Psych: Patient's affect is normal - Assessment and Plan (1) Syncope Current Visit: Yes Status: Acute Assessment and Plan: most likely secondary to dehydration ( vasovagal) will rule out arrhythmia will continue IVF TTE done 10/03/17- LVEF 55-60%. Mild left ventricular diastolic dysfunction. Normal right ventricular structure and function. Mild aortic regurgitation. Mild tricuspid regurgitation. Mild pulmonary hypertension by TR gradient. IVC not well visualized. 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 will follow up levels and discuss with hematology again will hold plavix ( is on PVD) for now (3) Dehydration Current Visit: Yes Status: Acute Assessment and Plan: Patient admits to decreased by mouth intake and evidence dehydration on labs with elevated BUN to creatinine ratio. Patient has been started on IV fluids. (4) Wound of left lower extremity Current Visit: No Status: Acute Assessment and Plan: podiatry on board wound care consult on IV cefepime as of last admission (5) Hypertension Current Visit: No Status: Chronic Assessment and Plan: Continue home medications (6) Seizure Current Visit: No Status: Chronic Assessment and Plan: neurology consulted dilantin level is sub therapeutic EEG on 10/03 impressions: This EEG recording is within normal limits. There is no evidence of epileptiform activity identified during the study. Please correlate clinically ct head 10/02/17- no acute intracraial abnormalities. to follow up with neurology as OP and taper dilantin as per neurology recs (7) Acute renal failure Current Visit: Yes Status: Acute Assessment and Plan: elevated BUn: CR - strict I/O continue IVF nephrology was consulted will follow recommendations hold nephrotoxic drugs renal US ordered will follow UA shows hematuria but no RBC, CPK is WNL most likely hemoglobinuria in setting of anemia (8) DVT prophylaxis Current Visit: No Status: Acute Assessment and Plan: Scds DVT Prophylaxis: as per above - Time Spent with Patient Total time spent is greater than 50% in coordination of care (as documented) at patient's floor/unit and/or counseling patient: Internal Medicine: Result - Labs CBC & Chem 7: 10/04/17 05:09 10/04/17 05:09 Labs: Short CBC 10/04/17 Range/Units 05:09 WBC 6.4 (4.3-11.1) K/mcL Hgb 9.5 L (12.9-16.9) g/dL Hct 28.8 L (37.5-50.1) % Plt Count 87 L (140-400) K/mcL Neutrophils # 4.4 (1.6-8.9) K/mcL BMP 10/04/17 05:09 Sodium 138 Potassium 3.5 Chloride 115 H Carbon Dioxide 14 L BUN 72 H Creatinine 4.63 H Glucose 94 Calcium 8.0 L Urine 10/04/17 Range/Units 08:21 Urine Color Yellow (Yellow) Urine Clarity Clear (Clear) Urine pH 5.5 (5.0-8.0) pH Units Ur Specific Delta 1.020 (1.010-1.025) Urine Protein 100 H (Neg-Trace) mg/dL Urine Glucose (UA) Normal (Normal) mg/dL - ABG Interpretation ABG results: PT/INR, D-dimer PT 15.9 Seconds (9.4-12.1) H 10/02/17 12:12 - Impressions Impressions Retroperitoneum Ultrasound 10/03/17 17:30 IMPRESSION: Suspected nonobstructing bilateral renal calculi. D/ / 10/03/2017 22:02:43 Armando Johnson MD / alexa Interpreting Provider: Armando Johnson MD Consult Discharge Plan - Plan Referrals: [facility] [Outside] (1) Syncope Qualifiers: Syncope type: unspecified Qualified Code(s): R55 - Syncope and collapse (4) Wound of left lower extremity Qualifiers: Encounter type: initial encounter Qualified Code(s): S81.802A - Unspecified open wound, left lower leg, initial encounter (5) Hypertension Qualifiers: Hypertension type: unspecified Qualified Code(s): I10 - Essential (primary) hypertension (7) Acute renal failure Qualifiers: Acute renal failure type: unspecified Qualified Code(s): N17.9 - Acute kidney failure, unspecified
[2017-10-04 15:24] LABS: Albumin 2.7 g/dL (3.5-5.7); Albumin/Globulin Ratio 0.8 (1.1-2.2); Bilirubin,Direct 0.1 mg/dL (0.0-0.2); Bilirubin,Indirect 0.2 mg/dL (0.0-1.2); Bilirubin,Total 0.3 mg/dL (0.3-1.0); Calcium 8.2 mg/dL (8.6-10.3); Globulin 3.5 g/dL (2.4-3.5); Potassium 3.6 mEq/L (3.5-5.1); Total Protein 6.2 g/dL (6.4-8.9)
[2017-10-04] MEDS ORDERED: Levofloxacin 750 MG/150 ML 750 MG/150 ML BAG IVPB SCH (17:00)
[2017-10-04] MEDS: *HR* Promethazine 25 MG/ML VIAL IVP PRN (22:04)
[2017-10-05] MEDS: Sodium Bicarbonate 75 MEQ in 0.45 % Sodium Chloride 1,000 ML IVC SCH ×2 (00:13→07:46)
[2017-10-05 04:41] LABS: Red Cell Distribution Width 14.9 % (11.5-14.5)
[2017-10-05 04:43] LABS: Basophils % 0.2 %; Eosinophils # 0.2 K/mcL (0.0-0.6); Eosinophils % 4.5 %; Hematocrit 23.6 % (37.5-50.1); Immature Granulocytes % 0.4 % (0-4); Immature Platelets 4.6 % (1.1-6.1); Lymphocytes # 1.1 K/mcL (0.6-4.6); Lymphocytes % 21.7 %; Mean Corpuscular HGB Conc 33.9 g/dL (31.6-35.5); Mean Corpuscular Hemoglobin 30.8 pg (28.0-33.3); Mean Corpuscular Volume 90.8 fL (83.0-100.0); Monocytes # 0.4 K/mcL (0.0-1.3); Monocytes % 7.9 %; Neutrophils # 3.4 K/mcL (1.6-8.9); Segmented Neutrophils % 65.3 %
[2017-10-05 04:44] LABS: Platelet Count 85 K/mcL (140-400)
[2017-10-05 04:57] LABS: Calcium 7.7 mg/dL (8.6-10.3); Potassium 3.3 mEq/L (3.5-5.1)
[2017-10-05] MEDS: amLODIPine 5 MG TABLET PO SCH (07:42)
[2017-10-05] MEDS: Cholestyramine 4 GM POWD.PACK PO SCH ×2 (07:48→16:39)
--- NOTE | 2017-10-05 10:28 | Internal Med Progress Note ---
Hospitalist Progress Note - Encounter Date of Encounter: 10/05/17 Time of Encounter: 10:39 - Subjective Interval History: this morning he has no complaints. denies N/v/D denies hematuria, melena, hematochezia, fever, chills has no headache or vision loss. he still reports poor appetite. has not ate much of the food that was delicia to him however he did have half aof a cup cake and peanut butter cracker yesterday. - Exam Vitals: Temp Pulse Resp BP Pulse Ox 97.6 F 103 14 92/60 98 10/05/17 07:04 10/05/17 07:04 10/05/17 07:04 10/05/17 07:04 10/05/17 07:04 Exam: General: Patient is alert, oriented, no acute distress, Head: atraumatic, normocephalic, Eye: normal appearance, PERRL, no scleral icterus, no conjunctival injection ENT: mucous membranes moist, normal external ear exam Neck: normal inspection, trachea midline, full ROM, no carotid bruits Chest: normal inspection, symmetric chest rise Respiratory: Good respiratory effort. Bilateral breath sounds are clear without wheezing, crackles, or rhonchi. Cardiovascular: Regular rate and rhythm. s1 and s2 No clicks, rubs, gallops, or murmors. Abdomen: Bowel sounds present normoactive x-4 quadrants. Abdomen is soft, nondistended. Epigastric tenderness. No guarding or rebound. No organomegaly noted, obese musculoskeletal: Spontaneously moving all extremities. no edema, no calf tenderness Skin: warm, dry, intact. Neuro: Alert and oriented x4. Sensation light touch intact in all extremities . finger to nose intact, 5/5 strength in all extremities Psych: Patient's affect is normal - Assessment and Plan (1) Syncope Current Visit: Yes Status: Acute Assessment and Plan: most likely secondary to dehydration ( vasovagal) will rule out arrhythmia will continue IVF TTE done 10/03/17- LVEF 55-60%. Mild left ventricular diastolic dysfunction. Normal right ventricular structure and function. Mild aortic regurgitation. Mild tricuspid regurgitation. Mild pulmonary hypertension by TR gradient. IVC not well visualized. EKG SINUS BRADYCARDIA PROLONGED QT INTERVAL 474 TSH, Utox cardiology consulted (2) Bicytopenia Current Visit: Yes Status: Acute Assessment and Plan: H/H trending down platelets trending down - ? secondary to cefepime has weight loss has ARSH and hemoglobinuria TTP adn HUS ruled out as LDH is WNL, bilirubin WNL hematology on board will hold plavix ( has PVD) for now SCds avoid NSAIDS, antiplatelets and anticoagulation for now Abx changed as per ID guaiac and iron studies, b12 sent (3) Wound of left lower extremity Current Visit: No Status: Acute Assessment and Plan: podiatry on board wound care consult ID on board Abx switched to levaquin Q48Hrs as per ID recommendations (4) Weight loss, non-intentional Current Visit: Yes Status: Acute Assessment and Plan: will send lead level as renal studies shows possible RTA also has peripheral neuropathy and loss of appetitie and sensation to taste zinc and copper was sent will follow results (5) Acute renal failure Current Visit: Yes Status: Acute Assessment and Plan: elevated BUn: CR - strict I/O continue IVF nephrology was consulted will follow recommendations ?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 secondary to RTA ( hypokalemic, NAGMA and hyperchloremia) lead level, vitamin D urine sodium, Cl-, k and osmolality on half ns and bicarb as per nephrology will follow labs (7) Seizure Current Visit: No Status: Chronic Assessment and Plan: neurology consulted dilantin level is sub therapeutic EEG on 10/03 impressions: This EEG recording is within normal limits. There is no evidence of epileptiform activity identified during the study. Please correlate clinically ct head 10/02/17- no acute intracraial abnormalities. to follow up with neurology as OP and taper dilantin as per neurology recs (8) Dehydration Current Visit: Yes Status: Acute Assessment and Plan: improving on IV fluids (9) Hypertension Current Visit: No Status: Chronic (10) DVT prophylaxis Current Visit: No Status: Acute - Time Spent with Patient Total time spent is greater than 50% in coordination of care (as documented) at patient's floor/unit and/or counseling patient: Internal Medicine: Result - Labs CBC & Chem 7: 10/05/17 03:56 10/05/17 03:56 Labs: Short CBC 10/05/17 Range/Units 03:56 WBC 5.2 (4.3-11.1) K/mcL Hgb 8.0 L D (12.9-16.9) g/dL Hct 23.6 L (37.5-50.1) % Plt Count 85 L (140-400) K/mcL Neutrophils # 3.4 (1.6-8.9) K/mcL BMP 10/04/17 10/05/17 14:54 03:56 Sodium 137 138 Potassium 3.6 3.3 L Chloride 113 H 112 H Carbon Dioxide 16 L 17 L BUN 71 H 72 H Creatinine 4.67 H 4.48 H Glucose 103 87 Calcium 8.2 L 7.7 L Liver Function 10/04/17 Range/Units 14:54 Total Bilirubin 0.3 (0.3-1.0) mg/dL Direct Bilirubin 0.1 (0.0-0.2) mg/dL AST 20 (13-39) Units/L ALT 10 (7-52) Units/L Alkaline Phosphatase 70 (34-104) Units/L Albumin 2.7 L (3.5-5.7) g/dL - ABG Interpretation ABG results: PT/INR, D-dimer PT 15.9 Seconds (9.4-12.1) H 10/02/17 12:12 - Impressions Impressions Abdomen CT 10/04/17 20:38 IMPRESSION: 1. No acute abnormality identified in the visualized GI tract. 2. Cholelithiasis without scan evidence for acute cholecystitis. 3. Bilateral nonobstructing renal calculi. D/ / Palmer Lomeli MD / Palmer Lomeli MD Interpreting Provider: Palmer Lomeli MD Consult Discharge Plan - Plan Referrals: [facility] [Outside] (1) Syncope Qualifiers: Syncope type: unspecified Qualified Code(s): R55 - Syncope and collapse (3) Wound of left lower extremity Qualifiers: Encounter type: initial encounter Qualified Code(s): S81.802A - Unspecified open wound, left lower leg, initial encounter (5) Acute renal failure Qualifiers: Acute renal failure type: unspecified Qualified Code(s): N17.9 - Acute kidney failure, unspecified (9) Hypertension Qualifiers: Hypertension type: unspecified Qualified Code(s): I10 - Essential (primary) hypertension
[2017-10-05 11:21] LABS: Thyroid Stimulating Hormone 0.631 mcIU/mL (0.340-5.600)
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
[2017-10-05 14:19] LABS: Potassium,Urine 13.7 mEq/L; Sodium, Urine 76.4 mEq/L
[2017-10-06 04:12] LABS: Hemoglobin 8.9 g/dL (12.9-16.9)
[2017-10-06 04:14] LABS: Basophils % 0.2 %; Eosinophils # 0.3 K/mcL (0.0-0.6); Eosinophils % 5.6 %; Hematocrit 25.9 % (37.5-50.1); Immature Granulocytes % 0.6 % (0-4); Immature Platelets 4.5 % (1.1-6.1); Lymphocytes % 17.9 %; Mean Corpuscular HGB Conc 34.4 g/dL (31.6-35.5); Mean Corpuscular Hemoglobin 31.7 pg (28.0-33.3); Mean Corpuscular Volume 92.2 fL (83.0-100.0); Mean Platelet Volume 11.7 fL (9.4-12.4); Monocytes # 0.4 K/mcL (0.0-1.3); Monocytes % 7.5 %; Neutrophils # 3.7 K/mcL (1.6-8.9); Nucleated Red Blood Cells 0.6 /100 WBC (0); Red Blood Count 2.81 M/mcL (4.19-5.50); Red Cell Distribution Width 14.7 % (11.5-14.5); Segmented Neutrophils % 68.2 %
[2017-10-06 04:19] LABS: Platelet Count 83 K/mcL (140-400)
[2017-10-06 04:36] LABS: Calcium 7.9 mg/dL (8.6-10.3); Potassium 3.6 mEq/L (3.5-5.1)
[2017-10-06] MEDS: amLODIPine 5 MG TABLET PO SCH (08:15)
[2017-10-06] MEDS: Cyanocobalamin (B-12) 1,000 MCG TABLET PO SCH (08:15)
[2017-10-06] MEDS: Cholestyramine 4 GM POWD.PACK PO SCH ×2 (08:15→16:33)
--- NOTE | 2017-10-06 08:36 | Internal Med Progress Note ---
Hospitalist Progress Note - Encounter Date of Encounter: 10/06/17 Time of Encounter: 08:00 - Subjective Interval History: this morning he has no complaints. denies v/D denies hematuria, melena, hematochezia, fever, chills has no headache or vision loss. reports that since he has not ate much food during the weekend he could provide only a small stool sample for analysis. he did have an episode of nausea when he woke up but it was self resolved. all questions answered - Exam Vitals: Temp Pulse Resp BP Pulse Ox 97.5 F L 69 14 151/84 99 10/06/17 07:27 10/06/17 07:27 10/06/17 07:27 10/06/17 07:27 10/06/17 07:27 Exam: General: Patient is alert, oriented, no acute distress, Head: atraumatic, normocephalic, Eye: normal appearance, PERRL, no scleral icterus, no conjunctival injection ENT: mucous membranes moist, normal external ear exam Neck: normal inspection, trachea midline, full ROM, no carotid bruits Chest: normal inspection, symmetric chest rise Respiratory: Good respiratory effort. Bilateral breath sounds are clear without wheezing, crackles, or rhonchi. Cardiovascular: Regular rate and rhythm. s1 and s2 No clicks, rubs, gallops, or murmors. Abdomen: Bowel sounds present normoactive x-4 quadrants. Abdomen is soft, nondistended. Epigastric tenderness. No guarding or rebound. No organomegaly noted, obese musculoskeletal: Spontaneously moving all extremities. no edema, no calf tenderness, left leg is wrapped in clean dressing Skin: warm, dry, intact. Neuro: Alert and oriented x4. Sensation light touch intact in all extremities . finger to nose intact, 5/5 strength in all extremities Psych: Patient's affect is normal - Assessment and Plan (1) Syncope Current Visit: Yes Status: Acute Assessment and Plan: most likely secondary to dehydration ( vasovagal) ruled out arrhythmia will continue IVF - vitals stable no significant events noted on tele cardiology recommendations appreciated TTE done 10/03/17- LVEF 55-60%. Mild left ventricular diastolic dysfunction. Normal right ventricular structure and function. Mild aortic regurgitation. Mild tricuspid regurgitation. Mild pulmonary hypertension by TR gradient. IVC not well visualized. EKG SINUS BRADYCARDIA PROLONGED QT INTERVAL 474 (2) Bicytopenia Current Visit: Yes Status: Acute Assessment and Plan: H/H trending down since admission but 8.9 on 10/06/17 platelets trending down - ? secondary to cefepime has weight loss has ARSH and hemoglobinuria TTP and HUS ruled out as LDH is WNL, bilirubin WNL hematology on board will hold plavix ( has PVD) for now SCds avoid NSAIDS, antiplatelets and anticoagulation for now Abx changed as per ID guaiac oordered Iron studies noted B12 is in the 200s will replace (3) Wound of left lower extremity Current Visit: No Status: Acute Assessment and Plan: podiatry on board wound care consult ID on board Abx switched to levaquin Q48Hrs as per ID recommendations (4) Weight loss, non-intentional Current Visit: Yes Status: Acute Assessment and Plan: will send lead level as renal studies shows possible RTA also has peripheral neuropathy and loss of appetite and sensation to taste zinc and copper was sent will follow results nutrition on board (5) Acute renal failure Current Visit: Yes Status: Acute Assessment and Plan: elevated BUn: CR - ?AIN Vs glomerulonephritis vs RTA in addition non- anion gap metabolic acidosis, hypokalemia, urine PH 5.5 ?RTA strict I/O continue IVF as per nephrology nephrology on board ?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 secondary to RTA ( hypokalemic, NAGMA and hyperchloremia) lead level, vitamin D urine anion gap is >2 on half ns and bicarb as per nephrology will follow labs (7) Seizure Current Visit: No Status: Chronic Assessment and Plan: neurology consulted dilantin level is sub therapeutic EEG on 10/03 impressions: This EEG recording is within normal limits. There is no evidence of epileptiform activity identified during the study. Please correlate clinically ct head 10/02/17- no acute intracraial abnormalities. to follow up with neurology as OP and taper dilantin as per neurology recs (8) Dehydration Current Visit: Yes Status: Acute Assessment and Plan: improving on IV fluids (9) Hypertension Current Visit: No Status: Chronic Assessment and Plan: Continue home medications (10) DVT prophylaxis Current Visit: No Status: Acute Assessment and Plan: Scds DVT Prophylaxis: as per above - Time Spent with Patient Total time spent is greater than 50% in coordination of care (as documented) at patient's floor/unit and/or counseling patient: Greater than 35 minutes Plan of Care Discussed with: patient Internal Medicine: Result - Labs CBC & Chem 7: 10/06/17 03:57 10/06/17 03:57 Labs: Short CBC 10/06/17 Range/Units 03:57 WBC 5.4 (4.3-11.1) K/mcL Hgb 8.9 L (12.9-16.9) g/dL Hct 25.9 L (37.5-50.1) % Plt Count 83 L (140-400) K/mcL Neutrophils # 3.7 (1.6-8.9) K/mcL BMP 10/05/17 10/06/17 03:56 03:57 Sodium 138 139 Potassium 3.3 L 3.6 Chloride 112 H 111 H Carbon Dioxide 17 L 18 L BUN 72 H 69 H Creatinine 4.48 H 4.55 H Glucose 87 91 Calcium 7.7 L 7.9 L - ABG Interpretation ABG results: PT/INR, D-dimer PT 15.9 Seconds (9.4-12.1) H 10/02/17 12:12 - VTE Documentation of Mechanical Device: Intermittent pneumatic compression device Consult Discharge Plan - Plan Referrals: [facility] [Outside] (1) Syncope Qualifiers: Syncope type: unspecified Qualified Code(s): R55 - Syncope and collapse (3) Wound of left lower extremity Qualifiers: Encounter type: initial encounter Qualified Code(s): S81.802A - Unspecified open wound, left lower leg, initial encounter (5) Acute renal failure Qualifiers: Acute renal failure type: unspecified Qualified Code(s): N17.9 - Acute kidney failure, unspecified (9) Hypertension Qualifiers: Hypertension type: unspecified Qualified Code(s): I10 - Essential (primary) hypertension
--- NOTE | 2017-10-06 09:09 | Electrocardiograph Report ---
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
[2017-10-06] MEDS: Sodium Bicarbonate 50 MEQ in 0.45 % Sodium Chloride 1,000 ML IVC SCH ×2 (10:25→21:33)
--- NOTE | 2017-10-06 11:12 | Oncology Inp Consult Note ---
<Bob Drake - Last Filed: 10/06/17 17:06> Date of Encounter: 10/06/17 Time of Encounter: 11:06 Assessment and Plan (1) Thrombocytopenia Status: Acute Assessment and plan: Patient's normal platelets are around 200 presented with platelet of 157K which has decreased to 83K, platelet count stable for last 72 hours. He denies bleeding gums, easy bruising, on exam there is no sign of DVT. Patients INR is 1.4, AST ALT WNL, LDH WNL peripheral smear pending results hgb stable with decrease since admission likely dilution CT scan of abdomen without contrast is negative for liver chirrosis, spleonmegaly, ascites he also presented with acute ARSH that has not improved with nephrology considering dialysis as an option of treatment patient is on phenytoin for seizures previous admission on 09/09-09/17 this year for left foot osteomyelitis where he was given heparin SQ for DVT prophylaxsis no heparin given druing this admission since admission he is + [id number] TTP less likely with normal LDH and no evidence of hemolytic anemia. 4Tscore is 3: low probability of HIT. unlikely DIC Likey 2nd to his on going medical conditions will repeat pt/inr and order fibrinogen - Data of Consult Patient: new to practice Consult date: 10/06/17 Requesting Physician: Joyce Whitley MD [facility] Care Provider[facility] - Consult Narrative Reason for consult: thrombocytopenia History of present illness: Mr. Dias is a 62 year old male presented with chief complaint of syncopal episodes 2. Interval episode of occurred when he was getting out of his vehicle onto his wheelchair and he passed out this was witnessed by his spouse. Another episode occurred while he was standing up and walking towards his front porch. Patient denied any head injuries, open wounds. He was found to have orthostatic hypotension is likely causing his syncopal episodes by the primary team and cardiology. Oncology was consulted for thrombocytopenia with concern of TTP. Patient denies any bleeding gums, blood in bowel movements, easy bruising, rash. He denies any history of hematological disorders. He denies any family history of hematological disorders. Patient was recently admitted to [place] for left foot osteomyelitis 2 weeks ago and treated with IV antibiotics were he did receive subcutaneous heparin. He denies any lower extremity and upper extremity swelling, new aching pain. Patient denies headache, blurry vision, sore throat, neck pain, ear pain, cough, sputum production, shortness of breath, chest pain, palpitations, abdominal pain, nausea, vomiting, diarrhea, weight loss, hematochezia, melena, intolerance to hot or cold, confusion, weakness, numbness, tingling. Past Med Surg Social Fam HX - Past Medical History Medical history: hypertension, kidney stones, seizures, syncope, other Additional medical history: Left Foot Drop, Polyp, Lumbar deforming dorsopathies , Psychiatric history: anxiety, depression - Past Surgical History Surgical History: other Additional surgical history: left foot surgery - Social History Smoking Status: Former smoker Smokeless Tobacco Status: No Alcohol use: none Drug use: none - Family History Mother Adopted: No Hx Family Cardiac Disorders: Yes (Enlarged heart) Hx Family Respiratory Disorders: No Hx Family Cancer: No Hx Family GI Disorders: No Hx Family Endocrine Disorder: Yes (Dm) Hx Family Neuromuscular Disorders: No Hx Family Neurologic Disorders: No Hx Family HEENT Disorders: No Hx Family Autoimmune Disorders: No Father Adopted: No Family Member Ethnicity: Non- Living Status: Hx Family Cardiac Disorders: Yes Hx Family Respiratory Disorders: No Hx Family Cancer: No Hx Family GI Disorders: No Hx Family Endocrine Disorder: No Hx Family Neuromuscular Disorders: No Hx Family Neurologic Disorders: No Hx Family HEENT Disorders: No Hx Family Autoimmune Disorders: No Medications and Allergies Carvedilol 12.5 mg PO BID 07/03/17 [History] Gabapentin [Neurontin] 900 mg PO QID 07/03/17 [History] Phenytoin Sodium Extended [Phenytek] 200 mg PO TID 07/03/17 [History] Tamsulosin HCl [Flomax] 0.4 mg PO DAILY 07/03/17 [History] Cholestyramine 4 gm PO BIDAC #60 powd.pack 09/17/17 [Rx] Cefepime HCl/Dextrose, Iso-Osm [Cefepime 2 gm Injection] 2 gm IV Q12H 10/02/17 [ History] Chlorthalidone 25 mg PO DAILY 10/02/17 [History] Clopidogrel [Plavix] 75 mg PO DAILY 10/02/17 [History] Lisinopril [Zestril] 10 mg PO DAILY 10/02/17 [History] Potassium Chloride [K-Tab ER] 20 meq PO BID 10/02/17 [History] amLODIPine [Norvasc] 5 mg PO DAILY 10/02/17 [History] 3 Allergy/AdvReac Type Severity Reaction Status Date / Time No Known Allergies Allergy Verified 09/08/17 14:09 Oncology - Exam - Constitutional Vitals: Temp Pulse Resp BP Pulse Ox 97.9 F 68 15 124/81 99 10/06/17 10:32 10/06/17 10:32 10/06/17 10:32 10/06/17 10:32 10/06/17 10:32 - Additional findings Additional findings: General: Pleasant without distress HEENT: Head atraumatic, normocephalic, EOMI, PERRL, neck nontender to palpation , absent lymphadenopathy, Moist Mucous Membranes, no evidence of bleeding gums poor dental hygiene Heart: Regular rate and rhythm with no murmur Lungs: Clear to auscultation bilaterally Abdomen: Soft nontender, nondistended positive bowel sounds Skin: warm and dry, absent rash Extremities: Absent pedal edema, Neuro: Alert oriented 3 Vascular: Pedal and radial pulses 2 out of 4 Oncology - Results Labs: 3 10/06/17 10/06/17 10/05/17 03:57 03:57 12:57 WBC 5.4 RBC 2.81 L Hgb 8.9 L Hct 25.9 L MCV 92.2 MCH 31.7 MCHC 34.4 RDW 14.7 H Plt Count 83 L MPV 11.7 Immature Gran % 0.6 Seg Neutrophils % 68.2 Lymphocytes % 17.9 Monocytes % 7.5 Eosinophils % 5.6 Basophils % 0.2 Neutrophils # 3.7 Lymphocytes # 1.0 Monocytes # 0.4 Eosinophils # 0.3 Basophils # 0.0 Nucleated RBCs/100 WBC 0.6 H Platelet Estimate Immature Plt Fraction 4.5 Smear [address] Review Sodium 139 Potassium 3.6 Chloride 111 H Carbon Dioxide 18 L BUN 69 H Creatinine 4.55 H Est GFR ( Amer) 16 L Est GFR (Non-Af Amer) 13 L BUN/Creatinine Ratio 15 Glucose 91 Calculated Osmolality 308 H Calcium 7.9 L Iron % Saturation Transferrin Ferritin 204 Total Bilirubin Direct Bilirubin Indirect Bilirubin AST ALT Alkaline Phosphatase Lactate Dehydrogenase Creatine Kinase Serum Total Protein Albumin Globulin Albumin/Globulin Ratio Vitamin B12 TSH Urine Color Urine Clarity Urine pH Ur Specific Mcf[place] Urine Protein Urine Glucose (UA) Urine Ketones Urine Blood Urine Nitrite Urine Bilirubin Urine Urobilinogen Ur Leukocyte Esterase Urine Microscopic RBC Urine Microscopic WBC Ur Eosinophil Smear Ur Squamous Epith Cells Urine Bacteria Hyaline Casts Urine Osmolality 300 Urine Sodium Urine Potassium Urine Chloride Urine Opiates Screen Ur Barbiturates Screen Phenytoin Ur Phencyclidine Scrn Ur Amphetamines Screen U Benzodiazepines Scrn Urine Cocaine Screen U Marijuana (THC) Screen Ur Drug Screen Interp Specimen Rejected 3 10/05/17 10/05/17 10/05/17 12:57 11:15 06:30 WBC RBC Hgb Hct MCV MCH MCHC RDW Plt Count MPV Immature Gran % Seg Neutrophils % Lymphocytes % Monocytes % Eosinophils % Basophils % Neutrophils # Lymphocytes # Monocytes # Eosinophils # Basophils # Nucleated RBCs/100 WBC Platelet Estimate Immature Plt Fraction Smear Path Review Sodium Potassium Chloride Carbon Dioxide BUN Creatinine Est GFR ( Amer) Est GFR (Non-Af Amer) BUN/Creatinine Ratio Glucose Calculated Osmolality Calcium Iron % Saturation Transferrin Ferritin Total Bilirubin Direct Bilirubin Indirect Bilirubin AST ALT Alkaline Phosphatase Lactate Dehydrogenase Creatine Kinase Serum Total Protein Albumin Globulin Albumin/Globulin Ratio Vitamin B12 243 L TSH Urine Color Urine Clarity Urine pH Ur Specific Mc[place] Urine Protein Urine Glucose (UA) Urine Ketones Urine Blood Urine Nitrite Urine Bilirubin Urine Urobilinogen Ur Leukocyte Esterase Urine Microscopic RBC Urine Microscopic WBC Ur Eosinophil Smear 0 Ur Squamous Epith Cells Urine Bacteria Hyaline Casts Urine Osmolality Urine Sodium 76.4 Urine Potassium 13.7 Urine Chloride 88 Urine Opiates Screen Ur Barbiturates Screen Phenytoin Ur Phencyclidine Scrn Ur Amphetamines Screen U Benzodiazepines Scrn Urine Cocaine Screen U Marijuana (THC) Screen Ur Drug Screen Interp Specimen Rejected 3 10/05/17 10/05/17 10/04/17 03:56 03:56 14:54 WBC 5.2 RBC 2.60 L Hgb 8.0 L D Hct 23.6 L MCV 90.8 MCH 30.8 MCHC 33.9 RDW 14.9 H Plt Count 85 L MPV 12.0 Immature Gran % 0.4 Seg Neutrophils % 65.3 Lymphocytes % 21.7 Monocytes % 7.9 Eosinophils % 4.5 Basophils % 0.2 Neutrophils # 3.4 Lymphocytes # 1.1 Monocytes # 0.4 Eosinophils # 0.2 Basophils # 0.0 Nucleated RBCs/100 WBC Platelet Estimate Immature Plt Fraction 4.6 Smear Path Review Sodium 138 137 Potassium 3.3 L 3.6 Chloride 112 H 113 H Carbon Dioxide 17 L 16 L BUN 72 H 71 H Creatinine 4.48 H 4.67 H Est GFR ( Amer) 16 L 15 L Est GFR (Non-Af Amer) 13 L 13 L BUN/Creatinine Ratio 16 15 Glucose 87 103 Calculated Osmolality 307 H 305 H Calcium 7.7 L 8.2 L Iron 99 % Saturation 63 H Transferrin 113 L Ferritin Total Bilirubin 0.3 Direct Bilirubin 0.1 Indirect Bilirubin 0.2 AST 20 ALT 10 Alkaline Phosphatase 70 Lactate Dehydrogenase 145 Creatine Kinase Serum Total Protein 6.2 L Albumin 2.7 L Globulin 3.5 Albumin/Globulin Ratio 0.8 L Vitamin B12 TSH 0.631 Urine Color Urine Clarity Urine pH Ur Specific [place] Urine Protein Urine Glucose (UA) Urine Ketones Urine Blood Urine Nitrite Urine Bilirubin Urine Urobilinogen Ur Leukocyte Esterase Urine Microscopic RBC Urine Microscopic WBC Ur Eosinophil Smear Ur Squamous Epith Cells Urine Bacteria Hyaline Casts Urine Osmolality Urine Sodium Urine Potassium Urine Chloride Urine Opiates Screen Ur Barbiturates Screen Phenytoin Ur Phencyclidine Scrn Ur Amphetamines Screen U Benzodiazepines Scrn Urine Cocaine Screen U Marijuana (THC) Screen Ur Drug Screen Interp Specimen Rejected 3 10/04/17 10/04/17 10/04/17 14:54 08:21 05:09 WBC RBC Hgb Hct MCV MCH MCHC RDW Plt Count MPV Immature Gran % Seg Neutrophils % Lymphocytes % Monocytes % Eosinophils % Basophils % Neutrophils # Lymphocytes # Monocytes # Eosinophils # Basophils # Nucleated RBCs/100 WBC Platelet Estimate Immature Plt Fraction Smear Path Review See Below Sodium 138 Potassium 3.5 Chloride 115 H Carbon Dioxide 14 L BUN 72 H Creatinine 4.63 H Est GFR ( Amer) 16 L Est GFR (Non-Af Amer) 13 L BUN/Creatinine Ratio 16 Glucose 94 Calculated Osmolality 307 H Calcium 8.0 L Iron % Saturation Transferrin Ferritin Total Bilirubin Direct Bilirubin Indirect Bilirubin AST ALT Alkaline Phosphatase Lactate Dehydrogenase Creatine Kinase 120 Serum Total Protein Albumin Globulin Albumin/Globulin Ratio Vitamin B12 TSH Urine Color Yellow Urine Clarity Clear Urine pH 5.5 Ur Specific [place] 1.020 Urine Protein 100 H Urine Glucose (UA) Normal Urine Ketones Trace H Urine Blood Large H Urine Nitrite Negative Urine Bilirubin Negative Urine Urobilinogen Normal Ur Leukocyte Esterase Small H Urine Microscopic RBC 0-3 Urine Microscopic WBC 5-15 H Ur Eosinophil Smear Ur Squamous Epith Cells Few Urine Bacteria Moderate H Hyaline Casts None Seen Urine Osmolality Urine Sodium Urine Potassium Urine Chloride Urine Opiates Screen Ur Barbiturates Screen Phenytoin Ur Phencyclidine Scrn Ur Amphetamines Screen U Benzodiazepines Scrn Urine Cocaine Screen U Marijuana (THC) Screen Ur Drug Screen Interp Specimen Rejected 3 10/04/17 10/03/17 10/03/17 05:09 16:32 16:32 WBC 6.4 RBC 3.07 L Hgb 9.5 L Hct 28.8 L MCV 93.8 MCH 30.9 MCHC 33.0 RDW 14.9 H Plt Count 87 L MPV 11.4 Immature Gran % 0.5 Seg Neutrophils % 68.9 Lymphocytes % 18.3 Monocytes % 7.1 Eosinophils % 4.9 Basophils % 0.3 Neutrophils # 4.4 Lymphocytes # 1.2 Monocytes # 0.5 Eosinophils # 0.3 Basophils # 0.0 Nucleated RBCs/100 WBC Platelet Estimate Decreased L Immature Plt Fraction 3.[address] Review Sodium Potassium Chloride Carbon Dioxide BUN Creatinine Est GFR ( Amer) Est GFR (Non-Af Amer) BUN/Creatinine Ratio Glucose Calculated Osmolality Calcium Iron % Saturation Transferrin Ferritin Total Bilirubin Direct Bilirubin Indirect Bilirubin AST ALT Alkaline Phosphatase Lactate Dehydrogenase Creatine Kinase Serum Total Protein Albumin Globulin Albumin/Globulin Ratio Vitamin B12 TSH Urine Color Urine Clarity Urine pH Ur Specific [place] Urine Protein Urine Glucose (UA) Urine Ketones Urine Blood Urine Nitrite Urine Bilirubin Urine Urobilinogen Ur Leukocyte Esterase Urine Microscopic RBC Urine Microscopic WBC Ur Eosinophil Smear Ur Squamous Epith Cells Urine Bacteria Hyaline Casts Urine Osmolality Urine Sodium Urine Potassium Urine Chloride Urine Opiates Screen TNP Ur Barbiturates Screen TNP Phenytoin Ur Phencyclidine Scrn TNP Ur Amphetamines Screen TNP U Benzodiazepines Scrn TNP Urine Cocaine Screen TNP U Marijuana (THC) Screen TNP Ur Drug Screen Interp TNP Specimen Rejected Container 3 10/03/17 10/03/17 06:07 06:07 WBC 9.0 RBC 3.42 L Hgb 10.8 L Hct 32.7 L MCV 95.6 MCH 31.6 MCHC 33.0 RDW 15.2 H Plt Count 113 L MPV 11.6 Immature Gran % 0.4 Seg Neutrophils % 74.1 Lymphocytes % 14.3 Monocytes % 8.4 Eosinophils % 2.4 Basophils % 0.4 Neutrophils # 6.7 Lymphocytes # 1.3 Monocytes # 0.8 Eosinophils # 0.2 Basophils # 0.0 Nucleated RBCs/100 WBC Platelet Estimate Immature Plt Fraction Smear Path Review Sodium 142 Potassium 3.4 L Chloride 119 H Carbon Dioxide 15 L BUN 70 H Creatinine 4.32 H Est GFR ( Amer) 17 L Est GFR (Non-Af Amer) 14 L BUN/Creatinine Ratio 16 Glucose 128 H Calculated Osmolality 316 H Calcium 8.4 L Iron % Saturation Transferrin Ferritin Total Bilirubin Direct Bilirubin Indirect Bilirubin AST ALT Alkaline Phosphatase Lactate Dehydrogenase Creatine Kinase 107 Serum Total Protein Albumin Globulin Albumin/Globulin Ratio Vitamin B12 TSH Urine Color Urine Clarity Urine pH Ur Specific [place] Urine Protein Urine Glucose (UA) Urine Ketones Urine Blood Urine Nitrite Urine Bilirubin Urine Urobilinogen Ur Leukocyte Esterase Urine Microscopic RBC Urine Microscopic WBC Ur Eosinophil Smear Ur Squamous Epith Cells Urine Bacteria Hyaline Casts Urine Osmolality Urine Sodium Urine Potassium Urine Chloride Urine Opiates Screen Ur Barbiturates Screen Phenytoin 1.9 L Ur Phencyclidine Scrn Ur Amphetamines Screen U Benzodiazepines Scrn Urine Cocaine Screen U Marijuana (THC) Screen Ur Drug Screen Interp Specimen Rejected Consult Discharge Plan - Plan Referrals: [facility] [Outside] <Tyler Pride S - Last Filed: 10/06/17 21:31> Date of Encounter: 10/06/17 - Data of Consult Requesting Physician: Joyce Whitley MD [facility] Care Provider[facility] - Consult Narrative History of present illness: Mr. Dias is a 62 year old male Oncology - Exam - Constitutional Vitals: Temp Pulse Resp BP Pulse Ox 97.9 F 75 15 135/94 99 10/06/17 18:00 10/06/17 18:00 10/06/17 18:00 10/06/17 18:00 10/06/17 18:00 Oncology - Results Labs: 3 10/06/17 10/06/17 10/06/17 16:00 16:00 16:00 WBC RBC Hgb Hct MCV MCH MCHC RDW Plt Count MPV Immature Gran % Seg Neutrophils % Lymphocytes % Monocytes % Eosinophils % Basophils % Neutrophils # Lymphocytes # Monocytes # Eosinophils # Basophils # Nucleated RBCs/100 WBC Platelet Estimate Immature Plt Fraction Smear Path Review Sodium Potassium Chloride Carbon Dioxide BUN Creatinine Est GFR ( Amer) Est GFR (Non-Af Amer) BUN/Creatinine Ratio Glucose Calculated Osmolality Calcium Iron % Saturation Transferrin Ferritin Total Bilirubin Direct Bilirubin Indirect Bilirubin AST ALT Alkaline Phosphatase Lactate Dehydrogenase Creatine Kinase Serum Total Protein Albumin Globulin Albumin/Globulin Ratio Vitamin B12 TSH Random Cortisol Urine Color Yellow Urine Clarity Cloudy A Urine pH 6.0 Ur Specific [place] 1.023 Urine Protein 100 H Urine Glucose (UA) Normal Urine Ketones 15 H Urine Blood Large H Urine Nitrite Negative Urine Bilirubin Negative Urine Urobilinogen Normal Ur Leukocyte Esterase Trace H Urine Microscopic RBC TNTC H Urine Microscopic WBC 5-15 H Ur Eosinophil Smear 1 H Ur Squamous Epith Cells Many H Urine Bacteria None Seen Hyaline Casts None Seen Ur Culture Indicated? NO. A Urine Osmolality Urine Creatinine 80 Protein/Creatinin Ratio 2.00 H Urine Sodium Urine Potassium Urine Chloride Urine Total Protein 160 H Stool Occult Blood Urine Opiates Screen Ur Barbiturates Screen Phenytoin Ur Phencyclidine Scrn Ur Amphetamines Screen U Benzodiazepines Scrn Urine Cocaine Screen U Marijuana (THC) Screen Ur Drug Screen Interp Hepatitis A IgM Ab Hep Bs Antigen Hep B Core IgM Ab Hepatitis C Ab Screen Specimen Rejected 3 10/06/17 10/06/17 10/06/17 13:42 13:42 08:10 WBC RBC Hgb Hct MCV MCH MCHC RDW Plt Count MPV Immature Gran % Seg Neutrophils % Lymphocytes % Monocytes % Eosinophils % Basophils % Neutrophils # Lymphocytes # Monocytes # Eosinophils # Basophils # Nucleated RBCs/100 WBC Platelet Estimate Immature Plt Fraction Smear Path Review Sodium Potassium Chloride Carbon Dioxide BUN Creatinine Est GFR ( Amer) Est GFR (Non-Af Amer) BUN/Creatinine Ratio Glucose Calculated Osmolality Calcium Iron % Saturation Transferrin Ferritin Total Bilirubin Direct Bilirubin Indirect Bilirubin AST ALT Alkaline Phosphatase Lactate Dehydrogenase Creatine Kinase Serum Total Protein Albumin Globulin Albumin/Globulin Ratio Vitamin B12 TSH Random Cortisol 15.2 Urine Color Urine Clarity Urine pH Ur Specific [place] Urine Protein Urine Glucose (UA) Urine Ketones Urine Blood Urine Nitrite Urine Bilirubin Urine Urobilinogen Ur Leukocyte Esterase Urine Microscopic RBC Urine Microscopic WBC Ur Eosinophil Smear Ur Squamous Epith Cells Urine Bacteria Hyaline Casts Ur Culture Indicated? Urine Osmolality Urine Creatinine Protein/Creatinin Ratio Urine Sodium Urine Potassium Urine Chloride Urine Total Protein Stool Occult Blood Negative Urine Opiates Screen Ur Barbiturates Screen Phenytoin Ur Phencyclidine Scrn Ur Amphetamines Screen U Benzodiazepines Scrn Urine Cocaine Screen U Marijuana (THC) Screen Ur Drug Screen Interp Hepatitis A IgM Ab Nonreactive Hep Bs Antigen Nonreactive Hep B Core IgM Ab Nonreactive Hepatitis C Ab Screen Nonreactive Specimen Rejected 3 10/06/17 10/06/17 10/05/17 03:57 03:57 12:57 WBC 5.4 RBC 2.81 L Hgb 8.9 L Hct 25.9 L MCV 92.2 MCH 31.7 MCHC 34.4 RDW 14.7 H Plt Count 83 L MPV 11.7 Immature Gran % 0.6 Seg Neutrophils % 68.2 Lymphocytes % 17.9 Monocytes % 7.5 Eosinophils % 5.6 Basophils % 0.2 Neutrophils # 3.7 Lymphocytes # 1.0 Monocytes # 0.4 Eosinophils # 0.3 Basophils # 0.0 Nucleated RBCs/100 WBC 0.6 H Platelet Estimate Immature Plt Fraction 4.[address] Smear [address] Review Sodium 139 Potassium 3.6 Chloride 111 H Carbon Dioxide 18 L BUN 69 H Creatinine 4.55 H Est GFR ( Amer) 16 L Est GFR (Non-Af Amer) 13 L BUN/Creatinine Ratio 15 Glucose 91 Calculated Osmolality 308 H Calcium 7.9 L Iron % Saturation Transferrin Ferritin 204 Total Bilirubin Direct Bilirubin Indirect Bilirubin AST ALT Alkaline Phosphatase Lactate Dehydrogenase Creatine Kinase Serum Total Protein Albumin Globulin Albumin/Globulin Ratio Vitamin B12 TSH Random Cortisol Urine Color Urine Clarity Urine pH Ur Specific [place] Urine Protein Urine Glucose (UA) Urine Ketones Urine Blood Urine Nitrite Urine Bilirubin Urine Urobilinogen Ur Leukocyte Esterase Urine Microscopic RBC Urine Microscopic WBC Ur Eosinophil Smear Ur Squamous Epith Cells Urine Bacteria Hyaline Casts Ur Culture Indicated? Urine Osmolality 300 Urine Creatinine Protein/Creatinin Ratio Urine Sodium Urine Potassium Urine Chloride Urine Total Protein Stool Occult Blood Urine Opiates Screen Ur Barbiturates Screen Phenytoin Ur Phencyclidine Scrn Ur Amphetamines Screen U Benzodiazepines Scrn Urine Cocaine Screen U Marijuana (THC) Screen Ur Drug Screen Interp Hepatitis A IgM Ab Hep Bs Antigen Hep B Core IgM Ab Hepatitis C Ab Screen Specimen Rejected 3 10/05/17 10/05/17 10/05/17 12:57 11:15 06:30 WBC RBC Hgb Hct MCV MCH MCHC RDW Plt Count MPV Immature Gran % Seg Neutrophils % Lymphocytes % Monocytes % Eosinophils % Basophils % Neutrophils # Lymphocytes # Monocytes # Eosinophils # Basophils # Nucleated RBCs/100 WBC Platelet Estimate Immature Plt Fraction Smear Path Review Sodium Potassium Chloride Carbon Dioxide BUN Creatinine Est GFR ( Amer) Est GFR (Non-Af Amer) BUN/Creatinine Ratio Glucose Calculated Osmolality Calcium Iron % Saturation Transferrin Ferritin Total Bilirubin Direct Bilirubin Indirect Bilirubin AST ALT Alkaline Phosphatase Lactate Dehydrogenase Creatine Kinase Serum Total Protein Albumin Globulin Albumin/Globulin Ratio Vitamin B12 243 L TSH Random Cortisol Urine Color Urine Clarity Urine pH Ur Specific [place] Urine Protein Urine Glucose (UA) Urine Ketones Urine Blood Urine Nitrite Urine Bilirubin Urine Urobilinogen Ur Leukocyte Esterase Urine Microscopic RBC Urine Microscopic WBC Ur Eosinophil Smear 0 Ur Squamous Epith Cells Urine Bacteria Hyaline Casts Ur Culture Indicated? Urine Osmolality Urine Creatinine Protein/Creatinin Ratio Urine Sodium 76.4 Urine Potassium 13.7 Urine Chloride 88 Urine Total Protein Stool Occult Blood Urine Opiates Screen Ur Barbiturates Screen Phenytoin Ur Phencyclidine Scrn Ur Amphetamines Screen U Benzodiazepines Scrn Urine Cocaine Screen U Marijuana (THC) Screen Ur Drug Screen Interp Hepatitis A IgM Ab Hep Bs Antigen Hep B Core IgM Ab Hepatitis C Ab Screen Specimen Rejected 3 10/05/17 10/05/17 10/04/17 03:56 03:56 14:54 WBC 5.2 RBC 2.60 L Hgb 8.0 L D Hct 23.6 L MCV 90.8 MCH 30.8 MCHC 33.9 RDW 14.9 H Plt Count 85 L MPV 12.0 Immature Gran % 0.4 Seg Neutrophils % 65.3 Lymphocytes % 21.7 Monocytes % 7.9 Eosinophils % 4.5 Basophils % 0.2 Neutrophils # 3.4 Lymphocytes # 1.1 Monocytes # 0.4 Eosinophils # 0.2 Basophils # 0.0 Nucleated RBCs/100 WBC Platelet Estimate Immature Plt Fraction 4.6 Smear Path Review Sodium 138 137 Potassium 3.3 L 3.6 Chloride 112 H 113 H Carbon Dioxide 17 L 16 L BUN 72 H 71 H Creatinine 4.48 H 4.67 H Est GFR ( Amer) 16 L 15 L Est GFR (Non-Af Amer) 13 L 13 L BUN/Creatinine Ratio 16 15 Glucose 87 103 Calculated Osmolality 307 H 305 H Calcium 7.7 L 8.2 L Iron 99 % Saturation 63 H Transferrin 113 L Ferritin Total Bilirubin 0.3 Direct Bilirubin 0.1 Indirect Bilirubin 0.2 AST 20 ALT 10 Alkaline Phosphatase 70 Lactate Dehydrogenase 145 Creatine Kinase Serum Total Protein 6.2 L Albumin 2.7 L Globulin 3.5 Albumin/Globulin Ratio 0.8 L Vitamin B12 TSH 0.631 Random Cortisol Urine Color Urine Clarity Urine pH Ur Specific [place] Urine Protein Urine Glucose (UA) Urine Ketones Urine Blood Urine Nitrite Urine Bilirubin Urine Urobilinogen Ur Leukocyte Esterase Urine Microscopic RBC Urine Microscopic WBC Ur Eosinophil Smear Ur Squamous Epith Cells Urine Bacteria Hyaline Casts Ur Culture Indicated? Urine Osmolality Urine Creatinine Protein/Creatinin Ratio Urine Sodium Urine Potassium Urine Chloride Urine Total Protein Stool Occult Blood Urine Opiates Screen Ur Barbiturates Screen Phenytoin Ur Phencyclidine Scrn Ur Amphetamines Screen U Benzodiazepines Scrn Urine Cocaine Screen U Marijuana (THC) Screen Ur Drug Screen Interp Hepatitis A IgM Ab Hep Bs Antigen Hep B Core IgM Ab Hepatitis C Ab Screen Specimen Rejected 3 10/04/17 10/04/17 10/04/17 14:54 08:21 05:09 WBC RBC Hgb Hct MCV MCH MCHC RDW Plt Count MPV Immature Gran % Seg Neutrophils % Lymphocytes % Monocytes % Eosinophils % Basophils % Neutrophils # Lymphocytes # Monocytes # Eosinophils # Basophils # Nucleated RBCs/100 WBC Platelet Estimate Immature Plt Fraction Smear Path Review See Below Sodium 138 Potassium 3.5 Chloride 115 H Carbon Dioxide 14 L BUN 72 H Creatinine 4.63 H Est GFR ( Amer) 16 L Est GFR (Non-Af Amer) 13 L BUN/Creatinine Ratio 16 Glucose 94 Calculated Osmolality 307 H Calcium 8.0 L Iron % Saturation Transferrin Ferritin Total Bilirubin Direct Bilirubin Indirect Bilirubin AST ALT Alkaline Phosphatase Lactate Dehydrogenase Creatine Kinase 120 Serum Total Protein Albumin Globulin Albumin/Globulin Ratio Vitamin B12 TSH Random Cortisol Urine Color Yellow Urine Clarity Clear Urine pH 5.5 Ur Specific [place] 1.020 Urine Protein 100 H Urine Glucose (UA) Normal Urine Ketones Trace H Urine Blood Large H Urine Nitrite Negative Urine Bilirubin Negative Urine Urobilinogen Normal Ur Leukocyte Esterase Small H Urine Microscopic RBC 0-3 Urine Microscopic WBC 5-15 H Ur Eosinophil Smear Ur Squamous Epith Cells Few Urine Bacteria Moderate H Hyaline Casts None Seen Ur Culture Indicated? Urine Osmolality Urine Creatinine Protein/Creatinin Ratio Urine Sodium Urine Potassium Urine Chloride Urine Total Protein Stool Occult Blood Urine Opiates Screen Ur Barbiturates Screen Phenytoin Ur Phencyclidine Scrn Ur Amphetamines Screen U Benzodiazepines Scrn Urine Cocaine Screen U Marijuana (THC) Screen Ur Drug Screen Interp Hepatitis A IgM Ab Hep Bs Antigen Hep B Core IgM Ab Hepatitis C Ab Screen Specimen Rejected 3 10/04/17 10/03/17 10/03/17 05:09 16:32 16:32 WBC 6.4 RBC 3.07 L Hgb 9.5 L Hct 28.8 L MCV 93.8 MCH 30.9 MCHC 33.0 RDW 14.9 H Plt Count 87 L MPV 11.4 Immature Gran % 0.5 Seg Neutrophils % 68.9 Lymphocytes % 18.3 Monocytes % 7.1 Eosinophils % 4.9 Basophils % 0.3 Neutrophils # 4.4 Lymphocytes # 1.2 Monocytes # 0.5 Eosinophils # 0.3 Basophils # 0.0 Nucleated RBCs/100 WBC Platelet Estimate Decreased L Immature Plt Fraction 3.9 Smear Path Review Sodium Potassium Chloride Carbon Dioxide BUN Creatinine Est GFR ( Amer) Est GFR (Non-Af Amer) BUN/Creatinine Ratio Glucose Calculated Osmolality Calcium Iron % Saturation Transferrin Ferritin Total Bilirubin Direct Bilirubin Indirect Bilirubin AST ALT Alkaline Phosphatase Lactate Dehydrogenase Creatine Kinase Serum Total Protein Albumin Globulin Albumin/Globulin Ratio Vitamin B12 TSH Random Cortisol Urine Color Urine Clarity Urine pH Ur Specific [place] Urine Protein Urine Glucose (UA) Urine Ketones Urine Blood Urine Nitrite Urine Bilirubin Urine Urobilinogen Ur Leukocyte Esterase Urine Microscopic RBC Urine Microscopic WBC Ur Eosinophil Smear Ur Squamous Epith Cells Urine Bacteria Hyaline Casts Ur Culture Indicated? Urine Osmolality Urine Creatinine Protein/Creatinin Ratio Urine Sodium Urine Potassium Urine Chloride Urine Total Protein Stool Occult Blood Urine Opiates Screen TNP Ur Barbiturates Screen TNP Phenytoin Ur Phencyclidine Scrn TNP Ur Amphetamines Screen TNP U Benzodiazepines Scrn TNP Urine Cocaine Screen TNP U Marijuana (THC) Screen TNP Ur Drug Screen Interp TNP Hepatitis A IgM Ab Hep Bs Antigen Hep B Core IgM Ab Hepatitis C Ab Screen Specimen Rejected Container 3 10/03/17 10/03/17 06:07 06:07 WBC 9.0 RBC 3.42 L Hgb 10.8 L Hct 32.7 L MCV 95.6 MCH 31.6 MCHC 33.0 RDW 15.2 H Plt Count 113 L MPV 11.6 Immature Gran % 0.4 Seg Neutrophils % 74.1 Lymphocytes % 14.3 Monocytes % 8.4 Eosinophils % 2.4 Basophils % 0.4 Neutrophils # 6.7 Lymphocytes # 1.3 Monocytes # 0.8 Eosinophils # 0.2 Basophils # 0.0 Nucleated RBCs/100 WBC Platelet Estimate Immature Plt Fraction Smear Path Review Sodium 142 Potassium 3.4 L Chloride 119 H Carbon Dioxide 15 L BUN 70 H Creatinine 4.32 H Est GFR ( Amer) 17 L Est GFR (Non-Af Amer) 14 L BUN/Creatinine Ratio 16 Glucose 128 H Calculated Osmolality 316 H Calcium 8.4 L Iron % Saturation Transferrin Ferritin Total Bilirubin Direct Bilirubin Indirect Bilirubin AST ALT Alkaline Phosphatase Lactate Dehydrogenase Creatine Kinase 107 Serum Total Protein Albumin Globulin Albumin/Globulin Ratio Vitamin B12 TSH Random Cortisol Urine Color Urine Clarity Urine pH Ur Specific [place] Urine Protein Urine Glucose (UA) Urine Ketones Urine Blood Urine Nitrite Urine Bilirubin Urine Urobilinogen Ur Leukocyte Esterase Urine Microscopic RBC Urine Microscopic WBC Ur Eosinophil Smear Ur Squamous Epith Cells Urine Bacteria Hyaline Casts Ur Culture Indicated? Urine Osmolality Urine Creatinine Protein/Creatinin Ratio Urine Sodium Urine Potassium Urine Chloride Urine Total Protein Stool Occult Blood Urine Opiates Screen Ur Barbiturates Screen Phenytoin 1.9 L Ur Phencyclidine Scrn Ur Amphetamines Screen U Benzodiazepines Scrn Urine Cocaine Screen U Marijuana (THC) Screen Ur Drug Screen Interp Hepatitis A IgM Ab Hep Bs Antigen Hep B Core IgM Ab Hepatitis C Ab Screen Specimen Rejected - Attending Attestation I have seen and examined Mr. Dias and agree with the resident's assessment. Patient has acute onset mild thrombocytopenia. This occurred in the setting of acute kidney injury. Peripheral smear is bland without schistocytes or immature cellular forms. Although I cannot be certain of the cause of the thrombocytopenia, it is likely related to underlying infection or medication. This is clinically not consistent with a microangiopathic hemolytic anemia such as TTP. In addition, this is not consistent with heparin-induced thrombocytopenia. His 4T score calculates to 3, low. We would continued observation herespecific intervention is warranted at this juncture for thromboytopenia. No evidence of DIC> He is B-12 deficient. I will start B12 injections daily 5. This can be transitioned to monthly as outpatient.
--- NOTE | 2017-10-06 11:22 | Nephrology Progress Note ---
Date of Encounter: 10/06/17 Time of Encounter: 10:00 - Assessment and Plan (1) Metabolic acidosis, normal anion gap (NAG) Current Visit: Yes Status: Acute Anion gap = 10, with chloride 111. Likely hyperchlorimic normal anion gap metabolic acidosis secondary to diarrhea vs hypoalimentation vs uremia. Patient kidney function continues to worsen despite IVFs. Will consider temporary HD for 4-5 weeks if kidney function does not improve tomorrow. Screen for adrenal insufficiency with fasting cortisol levels as AI can present with hyperchlorimic acidosis with hyponatremia and hyperkalemia (2) Acute renal failure Current Visit: Yes Status: Acute ARSH secondary to ATN, unresponsive to IVFs. We will continue IVFs due to labile blood pressure. Will consider temporary HD for 4-5 weeks if kidney function does not improve tomorrow. UA demonstrates protenuria, trace ketones, large amount of blood. Will repeat UA today, spot urine for protein/creatine ratio. Check urine eosinophils as patient has chronic left foot wound and required antibiotics; cephalosporins and PPIs can cause increase urine eosinophils. Abdominal CT without contrast demonstrated nonobstructing renal calculi, but renal cysts cannot be ruled out due to lack of contrast. Bladder scan to r/o urine retention. We will also obtain glomerulonephritis work-up: -Pending C3/C4, ANCA, FLORINDA, serum light chain analysis, hepatitis screen, UPEP/ SPEP, spot urine for protein/creatinine ratio, urine eosinophils Qualifiers: Acute renal failure type: unspecified Qualified Code(s): N17.9 - Acute kidney failure, unspecified (3) Wound of left lower extremity Current Visit: No Status: Acute Continue with wound care. Treat per primary team. Currently on levaquin per ID. Patient follows with Dr. Rosen. Pending urine eosinophils for possible AIN. Qualifiers: Encounter type: initial encounter Qualified Code(s): S81.802A - Unspecified open wound, left lower leg, initial encounter (4) Seizure Current Visit: No Status: Chronic Continue with home medication phenytoin. Treat per primary team (5) Bicytopenia Current Visit: Yes Status: Acute (6) Hypokalemia Current Visit: Yes Status: Acute Check Mg in the morning secondary to history of hypoKalemia, currently at 3.6 (7) DVT prophylaxis Current Visit: No Status: Acute SCDs (8) Weight loss, non-intentional Current Visit: Yes Status: Acute Subjective Principal diagnosis: ARSH Interval history: Patient continues to have decrease in appetite and nausea. Denies vomiting, admits to chronic diarrhea. Refused dinner last night due to worsening appetite. Denies previous renal issues. Does admit to history of nephrolithiasis , non-obstructing. Has been on spinorolactone in the past, d/c for 5 weeks due to electrolyte abnormalities. +BM today. Denies difficulty voiding today. No further complaints. Objective - Vital Signs Vital signs: Vital Signs Temp Pulse Resp BP Pulse Ox 10/06/17 10:32 97.9 F 68 15 124/81 99 10/06/17 07:27 97.5 F L 69 14 151/84 99 10/06/17 04:30 97.5 F L 74 16 140/88 98 10/06/17 00:11 98.0 F 65 16 175/98 98 10/05/17 14:22 142/90 10/05/17 14:21 97.7 F 75 15 168/102 92 Intake and Output 10/05/17 10/06/17 10/06/17 23:59 07:59 15:59 Intake Total 240 / 240 0 / 0 Output Total 500 / 500 0 / 0 Balance -260 / -260 0 / 0 Intake: Oral 240 / 240 0 / 0 Output: Urine 500 / 500 0 / 0 Other: Meal Breakfast Percent of Meal Consumed 0% Stool Size Small Stool Consistency liquid Stool Color Black # Bowel Movements 1 - General Appearance General appearance: Present: well-developed, well-nourished, appears started age Exam: Poor historian due to chronic tracheostomy/ nonverbal EENT: Present: PERRL Additional Comments: chronic tracheostomy. Non-verbal. Able to nod and shake head to answer. Neck: Present: no JVD, no thyromegaly, no carotid bruit, supple Respiratory: Present: clear Cardiology: Present: no murmurs, no rub, no gallops, no edema, regular rate, regular rhythm, normal S1, normal S2 Additional Comments: Left AV fistula noted. Not in use, unknown reason. Gastrointestinal: Present: normoactive bowel sounds, no tenderness, no guarding , no organomegaly, no masses Integumentary: Present: no rash, warm and dry, ecchymotic (bilateral upper extremities) Neurologic: Present: no focal deficit, no asterixis, alert and oriented x3, reflexes 2+ and symmetric, strength 5/5, CN 3-12 intact Musculoskeletal: Present: no deformities, no erythema, no cyanosis, no clubbing Psychiatric: Present: mood/affect appropriate, cooperative - Lab 10/06/17 03:57 10/06/17 03:57 Most recent lab results Calcium 7.9 mg/dL (8.6-10.3) L 10/06/17 03:57 Urine Sodium 76.4 mEq/L 10/05/17 12:57 - Imaging Kidney/bladder ultrasound: report reviewed - VTE Documentation of Mechanical Device: Intermittent pneumatic compression device Consult Discharge Plan - Plan Referrals: [facility] [Outside]
[2017-10-06 14:45] LABS: Hepatitis A Antibody IgM Nonreactive (Nonreactive); Hepatitis B Core IgM Nonreactive (Nonreactive); Hepatitis B Surface Antigen Nonreactive (Nonreactive); Hepatitis C Virus Antibody Nonreactive (Nonreactive)
--- NOTE | 2017-10-06 15:48 | Podiatry Progress Note ---
Date of Encounter: 10/06/17 Time of Encounter: 12:45 - Assessment and Plan (1) Nonhealing surgical wound Current Visit: No Status: Acute s/p excisional debridement of wounds through deep fascia/tendon, application of PRP, left lower extremity by Dr. Larkin on 09/25/17. S/p application of graft on 10/02/[address] Larkin. WBC: 5.4 Platelets: 85 Surgical biopsy from left foot on 09/10/17 isolated Pseudomonas Aeruginosa, Group C Strep. Plan: Wound vac changed today. Next wound vac changed due on Friday. Patient has own home wound vac. IV antibiotic management per Infectious Disease. Patient was last seen by ID on 09/16/17 and recommended Cefepime 2gm IV Q12 hours, most likely 6 weeks based on clinical picture. Will continue to follow patient closely. 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 Larkin on 09/25/17. S/p placement of graft by Dr. Larkin on 10/02/17. Patient has a wound vac intact to the left ankle and foot. Patient is sitting up in bed with spouse at bedside. Patient just completed PT and states he had nausea when he stood up. Patient was evaluated by Oncology for thrombocytopenia. Patient denies any pain, fever, chills, cp, sob. Objective - Vital Signs Vital Signs: Vital Signs Temp Pulse Resp BP Pulse Ox 10/06/17 15:12 97.8 F 77 15 154/88 99 10/06/17 10:32 97.9 F 68 15 124/81 99 10/06/17 07:27 97.5 F L 69 14 151/84 99 10/06/17 04:30 97.5 F L 74 16 140/88 98 10/06/17 00:11 98.0 F 65 16 175/98 98 Intake and Output 10/05/17 10/06/17 10/06/17 23:59 07:59 15:59 Intake Total 240 / 240 0 / 0 Output Total 500 / 500 0 / 0 Balance -260 / -260 0 / 0 Intake: Oral 240 / 240 0 / 0 Output: Urine 500 / 500 0 / 0 Other: Meal Breakfast Percent of Meal Consumed 0% Stool Size Small Stool Consistency liquid Stool Color Black # Bowel Movements 1 - Exam Exam: General appearance: alert awake oriented X 3. Calm and pleasant, no acute distress.. Vascular: No evidence of cyanosis, pallor or rubor, Edema graded at 1+/4, Skin Tempature warm, No calf pain with manual compression. capillary refill time is immediate to digits. Neurologic: Sensation intact with light touch to foot. . Postop Exam: S/P Surgical wound #1: anterior left ankle measuring 9 cm in length x 10 cm in width x 1 cm in depth, base of wound with fascia and tendon exposed, yellow brown fibrous tissue with red granulation tissue to wound bed, no pus, no odor, light periwound, no streaking, no fluctuance. Surgical wound #2: lateral aspect of left foot measuring 2 cm in length x 2 cm in width x 1 cm in depth, base of wound 90% red granulation tissue and 10 % yellow fibrous tissue, no pus, no odor, no periwound erythema, no streaking, no cellulitis, no flucutuance. Surgical wound #3: left posterior heel measuring 4.5 cm in length x 3.5 cm in width x 0.2 cm in depth, base of wound 80 % red granulation tissue and 20% yellow slough. no periwound erythema, no odor, no pus, fluctuance. - Lab Result Diagrams: 10/06/17 03:57 10/06/17 03:57 Labs: Abnormal lab results RBC 2.81 M/mcL (4.19-5.50) L 10/06/17 03:57 Hgb 8.9 g/dL (12.9-16.9) L 10/06/17 03:57 Hct 25.9 % (37.5-50.1) L 10/06/17 03:57 RDW 14.7 % (11.5-14.5) H 10/06/17 03:57 Plt Count 83 K/mcL (140-400) L 10/06/17 03:57 Nucleated RBCs/100 WBC 0.6 /100 WBC (0) H 10/06/17 03:57 Platelet Estimate Decreased (Normal) L 10/04/17 05:09 ESR 57 mm/hr (0-10) H 10/02/17 12:12 PT 15.9 Seconds (9.4-12.1) H 10/02/17 12:12 Chloride 111 mEq/L (98-107) H 10/06/17 03:57 Carbon Dioxide 18 mEq/L (23-29) L 10/06/17 03:57 BUN 69 mg/dL (8-23) H 10/06/17 03:57 Creatinine 4.55 mg/dL (0.70-1.30) H 10/06/17 03:57 Est GFR ( Amer) 16 (> 60) L 10/06/17 03:57 Est GFR (Non-Af Amer) 13 (> 60) L 10/06/17 03:57 Calculated Osmolality 308 (280-300) H 10/06/17 03:57 Calcium 7.9 mg/dL (8.6-10.3) L 10/06/17 03:57 % Saturation 63 % (20-55) H 10/05/17 03:56 Transferrin 113 mg/dL (203-362) L 10/05/17 03:56 Serum Total Protein 6.2 g/dL (6.4-8.9) L 10/04/17 14:54 Albumin 2.7 g/dL (3.5-5.7) L 10/04/17 14:54 Albumin/Globulin Ratio 0.8 (1.1-2.2) L 10/04/17 14:54 Vitamin B12 243 pg/mL (250-1100) L 10/05/17 11:15 Urine Protein 100 mg/dL (Neg-Trace) H 10/04/17 08:21 Urine Ketones Trace mg/dL (Negative) H 10/04/17 08:21 Urine Blood Large (Negative) H 10/04/17 08:21 Ur Leukocyte Esterase Small (Negative) H 10/04/17 08:21 Urine Microscopic WBC 5-15 per hpf (0-3) H 10/04/17 08:21 Urine Bacteria Moderate per hpf (None-Few) H 10/04/17 08:21 Phenytoin 1.9 mcg/mL (10.0-20.0) L 10/03/17 06:07 - VTE Documentation of Mechanical Device: Intermittent pneumatic compression device Consult Discharge Plan - Plan Referrals: [facility] [Outside]
[2017-10-06] MEDS: Levofloxacin 500 MG/100 ML 500 MG/100 ML BAG IVPB SCH (16:33)
[2017-10-06 16:53] LABS: Bilirubin,Urine Negative (Negative); Blood,Urine Large (Negative); Clarity,Urine Cloudy (Clear); Color,Urine Yellow (Yellow); Glucose,Urine (UA) Normal (Normal); Ketones,Urine 15 mg/dL (Negative); Leukocyte Esterase,Urine Trace (Negative); Nitrite,Urine Negative (Negative); Protein,Urine 100 mg/dL (Neg-Trace); Specific Gravity,Urine 1.023 (1.010-1.025); Urobilinogen,Urine Normal (Normal)
[2017-10-06 16:57] LABS: Bacteria,Urine None Seen per hpf (None-Few); Hyaline Casts,Urine None Seen per lpf (None-Few); RBC,Urine TNTC per hpf (0-3); Squamous Epithelial Cell,Urine Many per lpf (None-Few)
[2017-10-07 08:13] LABS: Basophils % 0.3 %; Eosinophils # 0.3 K/mcL (0.0-0.6); Eosinophils % 3.7 %; Hematocrit 27.6 % (37.5-50.1); Hemoglobin 9.4 g/dL (12.9-16.9); Immature Granulocytes % 0.7 % (0-4); Lymphocytes % 15.2 %; Mean Corpuscular HGB Conc 34.1 g/dL (31.6-35.5); Mean Corpuscular Hemoglobin 31.8 pg (28.0-33.3); Mean Corpuscular Volume 93.2 fL (83.0-100.0); Mean Platelet Volume 11.4 fL (9.4-12.4); Monocytes # 0.4 K/mcL (0.0-1.3); Monocytes % 6.2 %; Platelet Count 100 K/mcL (140-400); Red Blood Count 2.96 M/mcL (4.19-5.50); Segmented Neutrophils % 73.9 %
--- NOTE | 2017-10-07 08:24 | Oncology Inp Progress Note ---
<Bob Drake - Last Filed: 10/07/17 13:01> Date of Encounter: 10/07/17 Time of Encounter: 08:54 (1) Thrombocytopenia Current Visit: Yes Status: Acute Assessment and plan: improved now 100K normal fibrinogen INR 1.6 peripheral blood smear normocytic normochromic anemia with thrombocytopenia without platelet clumping. unlikely TTP, DIC, HIT as stated previously Likey 2nd to his on going medical conditions Oncology: Subj Interval history: no acute events overnight. Patient reports this morning he had episode of vomiting "black stuff." He denies headache, cp, sob, abdominal pain. - Constitutional Vitals: Vital Signs Temp Pulse Resp BP Pulse Ox 10/07/17 06:39 98.0 F 73 15 160/91 98 10/07/17 03:30 98.3 F 74 15 134/71 97 10/06/17 18:00 97.9 F 75 15 135/94 99 10/06/17 15:12 97.8 F 77 15 154/88 99 10/06/17 10:32 97.9 F 68 15 124/81 99 Intake and Output 10/06/17 10/07/17 10/07/17 23:59 07:59 15:59 Intake Total 1150 / 1150 0 / 0 Output Total 1125 / 1125 400 / 400 Balance 25 / 25 -400 / -400 Intake: IV Fluids 1150 / 1150 Sodium Bicarbonate 50 MEQ In 0. 1050 / 1050 45% Sodium Chloride 1000 Ml 1000 Ml 1,000 ML @ 100 mls/hr IVC .[id number] [facility] Rx#:[id number] Levaquin Premix 500mg/100mL 500 100 / 100 mg In 100 ml @ 100 mls/hr IVPB Q48H [facility] Rx#:[id number] Oral 0 / 0 0 / 0 Output: Urine 1125 / 1125 400 / 400 Other: Meal Patient refused Dinner Weight 93.4 kg - Additional findings Additional findings: General: Pleasant without distress Heart: Regular rate and rhythm with no murmur Lungs: Clear to auscultation bilaterally Abdomen: Soft nontender, nondistended positive bowel sounds Skin: warm and dry, absent rash Extremities: Absent pedal edema, left foot bandaged Neuro: Alert oriented 3 Vascular: Pedal and radial pulses 2 out of 4 Oncology: Obj Data - Labs CBC & Chem 7: 10/07/17 07:51 10/07/17 07:51 Labs: Laboratory Results - last 24 hr 10/06/17 10/06/17 10/06/17 08:10 13:42 13:42 WBC RBC Hgb Hct MCV MCH MCHC RDW Plt Count MPV Immature Gran % Seg Neutrophils % Lymphocytes % Monocytes % Eosinophils % Basophils % Neutrophils # Lymphocytes # Monocytes # Eosinophils # Basophils # Random Cortisol 15.2 Urine Color Urine Clarity Urine pH Ur Specific [place] Urine Protein Urine Glucose (UA) Urine Ketones Urine Blood Urine Nitrite Urine Bilirubin Urine Urobilinogen Ur Leukocyte Esterase Urine Microscopic RBC Urine Microscopic WBC Ur Eosinophil Smear Ur Squamous Epith Cells Urine Bacteria Hyaline Casts Ur Culture Indicated? Urine Creatinine Protein/Creatinin Ratio Urine Total Protein Stool Occult Blood Negative Hepatitis A IgM Ab Nonreactive Hep Bs Antigen Nonreactive Hep B Core IgM Ab Nonreactive Hepatitis C Ab Screen Nonreactive 10/06/17 10/06/17 10/06/17 16:00 16:00 16:00 WBC RBC Hgb Hct MCV MCH MCHC RDW Plt Count MPV Immature Gran % Seg Neutrophils % Lymphocytes % Monocytes % Eosinophils % Basophils % Neutrophils # Lymphocytes # Monocytes # Eosinophils # Basophils # Random Cortisol Urine Color Yellow Urine Clarity Cloudy A Urine pH 6.0 Ur Specific [place] 1.023 Urine Protein 100 H Urine Glucose (UA) Normal Urine Ketones 15 H Urine Blood Large H Urine Nitrite Negative Urine Bilirubin Negative Urine Urobilinogen Normal Ur Leukocyte Esterase Trace H Urine Microscopic RBC TNTC H Urine Microscopic WBC 5-15 H Ur Eosinophil Smear 1 H Ur Squamous Epith Cells Many H Urine Bacteria None Seen Hyaline Casts None Seen Ur Culture Indicated? NO. A Urine Creatinine 80 Protein/Creatinin Ratio 2.00 H Urine Total Protein 160 H Stool Occult Blood Hepatitis A IgM Ab Hep Bs Antigen Hep B Core IgM Ab Hepatitis C Ab Screen 10/07/17 07:51 WBC 6.8 RBC 2.96 L Hgb 9.4 L Hct 27.6 L MCV 93.2 MCH 31.8 MCHC 34.1 RDW 15.0 H Plt Count 100 L MPV 11.4 Immature Gran % 0.7 Seg Neutrophils % 73.9 Lymphocytes % 15.2 Monocytes % 6.2 Eosinophils % 3.7 Basophils % 0.3 Neutrophils # 5.0 Lymphocytes # 1.0 Monocytes # 0.4 Eosinophils # 0.3 Basophils # 0.0 Random Cortisol Urine Color Urine Clarity Urine pH Ur Specific [place] Urine Protein Urine Glucose (UA) Urine Ketones Urine Blood Urine Nitrite Urine Bilirubin Urine Urobilinogen Ur Leukocyte Esterase Urine Microscopic RBC Urine Microscopic WBC Ur Eosinophil Smear Ur Squamous Epith Cells Urine Bacteria Hyaline Casts Ur Culture Indicated? Urine Creatinine Protein/Creatinin Ratio Urine Total Protein Stool Occult Blood Hepatitis A IgM Ab Hep Bs Antigen Hep B Core IgM Ab Hepatitis C Ab Screen - ABG Interpretation ABG results: PT/INR, D-dimer PT 15.9 Seconds (9.4-12.1) H 10/02/17 12:12 Consult Discharge Plan - Plan Referrals: [facility] [Outside] <Tyler Pride S - Last Filed: 10/08/17 07:57> Date of Encounter: 10/07/17 - Constitutional Vitals: Vital Signs Temp Pulse Resp BP Pulse Ox 10/08/17 07:03 98.7 F 67 16 159/85 97 10/08/17 04:25 98.1 F 64 18 150/85 94 10/07/17 23:30 98.0 F 73 16 152/76 97 10/07/17 19:17 98.0 F 68 16 149/93 98 10/07/17 15:01 97.6 F 68 14 170/97 99 10/07/17 10:55 98.2 F 68 18 138/75 94 Intake and Output 10/07/17 10/08/17 10/08/17 16:59 00:59 08:59 Intake Total 0 / 0 1050 / 1050 1200 / 1200 Output Total 50 / 50 400 / 400 100 / 100 Balance -50 / -50 650 / 650 1100 / 1100 Intake: IV Fluids 1050 / 1050 1000 / 1000 Sodium Bicarbonate 50 MEQ In 0. 1050 / 1050 1000 / 1000 45% Sodium Chloride 1000 Ml 1000 Ml 1,000 ML @ 100 mls/hr IVC .[id number] [facility] Rx#:[id number] Oral 0 / 0 0 / 0 200 / 200 Output: Urine 0 / 0 400 / 400 100 / 100 Emesis 50 / 50 Other: Meal Lunch Dinner Percent of Meal Consumed 0% 0% Stool Size Small Stool Consistency liquid Stool Color Black # Voids 1 # Bowel Movements 1 Weight 93 kg Patient Weight 10/09/17 00:59 Weight 93 kg Oncology: Obj Data - Labs CBC & Chem 7: 10/08/17 06:26 10/08/17 06:26 Labs: Laboratory Results - last 24 hr 10/06/17 10/06/17 10/07/17 13:42 13:42 07:51 WBC RBC Hgb Hct MCV MCH MCHC RDW Plt Count MPV Immature Gran % Seg Neutrophils % Lymphocytes % Monocytes % Eosinophils % Basophils % Neutrophils # Lymphocytes # Monocytes # Eosinophils # Basophils # Immature Plt Fraction PT INR Fibrinogen Sodium Potassium Chloride Carbon Dioxide BUN Creatinine Est GFR ( Amer) Est GFR (Non-Af Amer) BUN/Creatinine Ratio Glucose Calculated Osmolality Calcium Phosphorus Magnesium 1.9 Random Cortisol Complement C3 80 L Complement C4 14 Hep Bs Antibody 2.37 10/07/17 10/07/17 10/07/17 07:51 07:51 07:51 WBC 6.8 RBC 2.96 L Hgb 9.4 L Hct 27.6 L MCV 93.2 MCH 31.8 MCHC 34.1 RDW 15.0 H Plt Count 100 L MPV 11.4 Immature Gran % 0.7 Seg Neutrophils % 73.9 Lymphocytes % 15.2 Monocytes % 6.2 Eosinophils % 3.7 Basophils % 0.3 Neutrophils # 5.0 Lymphocytes # 1.0 Monocytes # 0.4 Eosinophils # 0.3 Basophils # 0.0 Immature Plt Fraction PT 17.6 H INR 1.6 Fibrinogen 222 Sodium 140 Potassium 3.6 Chloride 109 H Carbon Dioxide 16 L BUN 68 H Creatinine 4.68 H Est GFR ( Amer) 15 L Est GFR (Non-Af Amer) 13 L BUN/Creatinine Ratio 15 Glucose 96 Calculated Osmolality 310 H Calcium 8.1 L Phosphorus Magnesium Random Cortisol Complement C3 Complement C4 Hep Bs Antibody 10/07/17 10/07/17 10/08/17 07:51 07:51 06:26 WBC 5.7 RBC 2.66 L Hgb 8.3 L Hct 24.5 L MCV 92.1 MCH 31.2 MCHC 33.9 RDW 14.8 H Plt Count 86 L MPV 11.8 Immature Gran % 0.4 Seg Neutrophils % 74.2 Lymphocytes % 13.8 Monocytes % 7.2 Eosinophils % 4.0 Basophils % 0.4 Neutrophils # 4.2 Lymphocytes # 0.8 Monocytes # 0.4 Eosinophils # 0.2 Basophils # 0.0 Immature Plt Fraction 5.5 PT INR Fibrinogen Sodium Potassium Chloride Carbon Dioxide BUN Creatinine Est GFR ( Amer) Est GFR (Non-Af Amer) BUN/Creatinine Ratio Glucose Calculated Osmolality Calcium Phosphorus 3.4 Magnesium Random Cortisol 27.8 Complement C3 Complement C4 Hep Bs Antibody 10/08/17 06:26 WBC RBC Hgb Hct MCV MCH MCHC RDW Plt Count MPV Immature Gran % Seg Neutrophils % Lymphocytes % Monocytes % Eosinophils % Basophils % Neutrophils # Lymphocytes # Monocytes # Eosinophils # Basophils # Immature Plt Fraction PT INR Fibrinogen Sodium 140 Potassium 3.3 L Chloride 108 H Carbon Dioxide 20 L BUN 67 H Creatinine 4.40 H Est GFR ( Amer) 17 L Est GFR (Non-Af Amer) 14 L BUN/Creatinine Ratio 15 Glucose 97 Calculated Osmolality 309 H Calcium 7.7 L Phosphorus Magnesium Random Cortisol Complement C3 Complement C4 Hep Bs Antibody - ABG Interpretation ABG results: PT/INR, D-dimer PT 17.6 Seconds (9.4-12.1) H 10/07/17 07:51 - Attending Attestation I examined this patient and my medical decision-making was reviewed with the resident. I agree with the documented findings, disposition and treatment plan as described except to the extent set forth below. His platelet count remains stable. There appears to be no microangiopathic hemolytic process. There is no evidence of DIC. This is likely related to either medication or infection. He is without bleeding. Dialysis is currently being planned. He also was noted to have anemia. This is again likely related to underlying kidney dysfunction and infection. There is no need for transfusion. As he remains stable and there is no evidence of underlying bone marrow disorder, we will sign off. Please do not hesitate to call with concerns or questions
[2017-10-07 08:29] LABS: INR 1.6; Prothrombin Time 17.6 Seconds (9.4-12.1)
[2017-10-07 08:39] LABS: Potassium 3.6 mEq/L (3.5-5.1)
[2017-10-07] MEDS: Cyanocobalamin (B-12) 1,000 MCG TABLET PO SCH (08:39)
[2017-10-07 08:40] LABS: Calcium 8.1 mg/dL (8.6-10.3)
[2017-10-07] MEDS: Cholestyramine 4 GM POWD.PACK PO SCH ×2 (08:45→16:14)
[2017-10-07] MEDS: Sodium Bicarbonate 50 MEQ in 0.45 % Sodium Chloride 1,000 ML IVC SCH ×2 (08:48→20:17)
[2017-10-07] MEDS: *HR* Promethazine 25 MG/ML VIAL IVP PRN ×2 (08:50→16:15)
[2017-10-07] MEDS: amLODIPine 5 MG TABLET PO SCH (08:50)
[2017-10-07] MEDS: Cyanocobalamin (B-12) 1,000 MCG/ML VIAL IM SCH (08:50)
[2017-10-07] MEDS ORDERED: 0.9 % Sodium Chloride 250 ML IVC PRN (10:56)
--- NOTE | 2017-10-07 10:56 | Nephrology Progress Note ---
Date of Encounter: 10/07/17 Time of Encounter: 10:40 - Assessment and Plan (1) Acute kidney injury Current Visit: Yes Status: Acute His BMP was pending all morning, and I called the floor RN to help process the BMP. I see that his labs have posted and given his ongoing N/V (which may be uremic induced), I recommend initiation of HD. Will consult IR to request a temporary HD catheter. I had reviewed the R/B/I and SE profiles for HD and dialysis catheter. (2) Hypertension Current Visit: Yes Status: Chronic Qualifiers: Hypertension type: unspecified Qualified Code(s): I10 - Essential (primary ) hypertension (3) Diarrhea Current Visit: No Status: Acute Recent N/V/D and these may be part of uremia. He reported abd pain, though nontender and nondistended on exam. Passing Gas: suspect constipation while laying in bed. Rec starting with a KUB and then would defer further w/u and mgt as per primary. Qualifiers: Diarrhea type: unspecified type Qualified Code(s): R19.7 - Diarrhea, unspecified (4) Acute hypokalemia Current Visit: No Status: Acute Corrected. Likely from the outpt thizide diuretic and diarrhea. Subjective Principal diagnosis: ARSH Interval history: Pt was s/e earlier today, and he along with his reported that he's developing more and more fatigue with difficulty concentrating along with persistent N/V. Some mild mid abd pain. No recent BMP and overall not eating d/ t diminished appetite. Objective - Vital Signs Vital signs: Vital Signs Temp Pulse Resp BP Pulse Ox 10/07/17 06:39 98.0 F 73 15 160/91 98 10/07/17 03:30 98.3 F 74 15 134/71 97 10/06/17 18:00 97.9 F 75 15 135/94 99 10/06/17 15:12 97.8 F 77 15 154/88 99 Intake and Output 10/06/17 10/07/17 10/07/17 23:59 07:59 15:59 Intake Total 1150 / 1150 0 / 0 1050 / 1050 Output Total 1125 / 1125 400 / 400 50 / 50 Balance 25 / 25 -400 / -400 1000 / 1000 Intake: IV Fluids 1150 / 1150 1050 / 1050 Sodium Bicarbonate 50 MEQ In 0. 1050 / 1050 1050 / 1050 45% Sodium Chloride 1000 Ml 1000 Ml 1,000 ML @ 100 mls/hr IVC .[id number] [facility] Rx#:[id number] Levaquin Premix 500mg/100mL 500 100 / 100 mg In 100 ml @ 100 mls/hr IVPB Q48H [facility] Rx#:[id number] Oral 0 / 0 0 / 0 Output: Urine 1125 / 1125 400 / 400 Emesis 50 / 50 Other: Meal Patient refused Dinner Weight 93.4 kg - General Appearance General appearance: Present: cachectic, fatigue, frail EENT: Present: ATNC, PERRL, mucous membranes dry Neck: Present: supple Respiratory: Present: clear Cardiology: Present: no murmurs, no edema, regular rate, regular rhythm, normal S1, normal S2 Gastrointestinal: Present: normoactive bowel sounds, no tenderness, no guarding Integumentary: Present: warm and dry Neurologic: Present: no focal deficit, no asterixis, alert and oriented x3 Musculoskeletal: Present: no erythema, no cyanosis Psychiatric: Present: mood/affect appropriate, cooperative - Lab 10/07/17 07:51 10/07/17 07:51 Most recent lab results Calcium 8.1 mg/dL (8.6-10.3) L 10/07/17 07:51 Phosphorus 3.4 mg/dL (2.7-4.5) 10/07/17 07:51 Magnesium 1.9 mg/dL (1.6-2.6) 10/07/17 07:51 Urine Creatinine 80 mg/dL 10/06/17 16:00 Urine Sodium 76.4 mEq/L 10/05/17 12:57 Urine Total Protein 160 mg/dL (1-14) H 10/06/17 16:00 - Imaging Kidney/bladder ultrasound: report reviewed (no hydronephrosis) - VTE Documentation of Mechanical Device: Intermittent pneumatic compression device Consult Discharge Plan - Plan Referrals: [facility] [Outside]
--- NOTE | 2017-10-07 14:02 | Internal Med Progress Note ---
Hospitalist Progress Note - Encounter Date of Encounter: 10/07/17 Time of Encounter: 09:20 - Subjective Interval History: Patient is lying in bed. Comfortable. Complains of nausea. He does continue to have poor appetite. He gets nauseated immediately when he smells food. Does have good urine output. Denies any hematuria or dysuria - Exam Vitals: Temp Pulse Resp BP Pulse Ox 98.2 F 68 18 138/75 94 10/07/17 10:55 10/07/17 10:55 10/07/17 10:55 10/07/17 10:55 10/07/17 10:55 - Assessment and Plan (1) Acute renal failure Current Visit: Yes Status: Acute Assessment and Plan: Persistent renal failure. All the patient is having urine output, BUN and creatinine remain elevated. I agree with nephrology plan to initiate hemodialysis. IR to place temporary dialysis catheter and patient will be dialyzed after. This should help with his persistent nausea and lack of appetite. (2) Syncope Current Visit: Yes Status: Acute Assessment and Plan: Likely due to dehydration. No new episodes of syncope. Other workup has been negative so far. (3) Wound of left lower extremity Current Visit: Yes Status: Acute Assessment and Plan: Continue Levaquin. We will monitor daily intervals closely. Infectious disease following. (4) Hypertension Current Visit: Yes Status: Chronic Assessment and Plan: Blood pressure remains uncontrolled. Continue amlodipine and carvedilol (5) Seizure Current Visit: No Status: Chronic Assessment and Plan: Continue Dilantin. Follow-up outpatient with neurology for further management (6) Dehydration Current Visit: Yes Status: Acute Assessment and Plan: With acute kidney injury. Treated with IV hydration. (7) Bicytopenia Current Visit: Yes Status: Acute Assessment and Plan: Stable. Hemoglobin is 9.4 and platelets 100 (8) Metabolic acidosis Current Visit: Yes Status: Acute Assessment and Plan: Due to acute renal failure. Nephrology following. On sodium bicarbonate. (9) Weight loss, non-intentional Current Visit: Yes Status: Acute Assessment and Plan: Due to chronic diarrhea, poor appetite and uremia. Nutrition following. Recommended appetite stimulant. Placed patient on Megace. Poor appetite also likely related to uremia. Once patient is started on dialysis and uremia improves, expect at least slight improvement in appetite. (10) Severe protein-calorie malnutrition Current Visit: Yes Status: Acute Assessment and Plan: Patient has had an intentional weight loss and poor nutrition related to chronic diarrhea and persistent nausea and lack of appetite. GI followup as outpatient. - Time Spent with Patient Total time spent is greater than 50% in coordination of care (as documented) at patient's floor/unit and/or counseling patient: Plan of Care Discussed with: patient Internal Medicine: Result - Labs CBC & Chem 7: 10/07/17 07:51 10/07/17 07:51 Labs: Short CBC 10/07/17 Range/Units 07:51 WBC 6.8 (4.3-11.1) K/mcL Hgb 9.4 L (12.9-16.9) g/dL Hct 27.6 L (37.5-50.1) % Plt Count 100 L (140-400) K/mcL Neutrophils # 5.0 (1.6-8.9) K/mcL BMP 10/07/17 07:51 Sodium 140 Potassium 3.6 Chloride 109 H Carbon Dioxide 16 L BUN 68 H Creatinine 4.68 H Glucose 96 Calcium 8.1 L Urine 10/06/17 Range/Units 16:00 Urine Color Yellow (Yellow) Urine Clarity Cloudy A (Clear) Urine pH 6.0 (5.0-8.0) pH Units Ur Specific [place] 1.023 (1.010-1.025) Urine Protein 100 H (Neg-Trace) mg/dL Urine Glucose (UA) Normal (Normal) mg/dL - ABG Interpretation ABG results: PT/INR, D-dimer PT 17.6 Seconds (9.4-12.1) H 10/07/17 07:51 - VTE Documentation of Mechanical Device: Intermittent pneumatic compression device Consult Discharge Plan - Plan Referrals: [facility] [Outside] (1) Acute renal failure Qualifiers: Acute renal failure type: unspecified Qualified Code(s): N17.9 - Acute kidney failure, unspecified (2) Syncope Qualifiers: Syncope type: unspecified Qualified Code(s): R55 - Syncope and collapse (3) Wound of left lower extremity Qualifiers: Encounter type: initial encounter Qualified Code(s): S81.802A - Unspecified open wound, left lower leg, initial encounter (4) Hypertension Qualifiers: Hypertension type: unspecified Qualified Code(s): I10 - Essential (primary) hypertension
[2017-10-07 14:57] LABS: Complement Component 3 80 mg/dL (88-201); Complement Component 4 14 mg/dL (10-40)
--- NOTE | 2017-10-07 17:43 | Event Note ---
Date of Encounter: 10/07/17 Time of Encounter: 17:39 Nephrology Update This afternoon his BMP resulted late but demonstrated ongoing decline of renal function plus his persistent N/V reported still yet again today suggests uremic symptoms; so this afternoon I recommended HD. However the pt decline HD catheter placement when IR came to see him. So this evening I returned to his room and spoke with him, his and his adult daughter for a family meeting. I thoroughly and politely answered questions, talked about the typical natural history of ATN, timelines, possible renal recovery in weeks or if not then would need a Permacath and outpt HD. He may need a renal biopsy as well if the pending serologies return worrisome for definitive diagnosis. Currently I suspect ATN, I told them. After about 25 min the pt voiced that he does agree to proceed in the AM with placement of a temporary HD catheter and with dialysis. He and his family thanked me for the extra time
[2017-10-07] MEDS: Gabapentin 300 MG CAPSULE PO SCH (20:18)
[2017-10-07] MEDS: Acetaminophen 325 MG TABLET PO PRN (20:18)
[2017-10-08] MEDS: Sodium Bicarbonate 50 MEQ in 0.45 % Sodium Chloride 1,000 ML IVC SCH ×2 (06:39→16:49)
[2017-10-08] MEDS ORDERED: 0.9 % Sodium Chloride 250 ML IVC PRN (07:23)
[2017-10-08 07:24] LABS: Calcium 7.7 mg/dL (8.6-10.3); Hemoglobin 8.3 g/dL (12.9-16.9); Potassium 3.3 mEq/L (3.5-5.1)
[2017-10-08 07:26] LABS: Basophils % 0.4 %; Eosinophils # 0.2 K/mcL (0.0-0.6); Hematocrit 24.5 % (37.5-50.1); Immature Granulocytes % 0.4 % (0-4); Immature Platelets 5.5 % (1.1-6.1); Lymphocytes # 0.8 K/mcL (0.6-4.6); Lymphocytes % 13.8 %; Mean Corpuscular HGB Conc 33.9 g/dL (31.6-35.5); Mean Corpuscular Hemoglobin 31.2 pg (28.0-33.3); Mean Corpuscular Volume 92.1 fL (83.0-100.0); Mean Platelet Volume 11.8 fL (9.4-12.4); Monocytes # 0.4 K/mcL (0.0-1.3); Monocytes % 7.2 %; Neutrophils # 4.2 K/mcL (1.6-8.9); Red Blood Count 2.66 M/mcL (4.19-5.50); Red Cell Distribution Width 14.8 % (11.5-14.5); Segmented Neutrophils % 74.2 %
[2017-10-08 07:27] LABS: Platelet Count 86 K/mcL (140-400)
[2017-10-08] MEDS ORDERED: 0.9 % Sodium Chloride 1,000 ML ONE (07:45)
[2017-10-08] MEDS: Cholestyramine 4 GM POWD.PACK PO SCH ×2 (07:53→16:09)
[2017-10-08] MEDS: Gabapentin 300 MG CAPSULE PO SCH ×2 (07:56→19:29)
[2017-10-08 08:26] LABS: Myeloperoxidase Ab 0 AU/mL (0-19); Serine Protease-3 Antibody 3 AU/mL (0-19)
[2017-10-08] MEDS: Cyanocobalamin (B-12) 1,000 MCG/ML VIAL IM SCH (08:30)
[2017-10-08] MEDS: amLODIPine 5 MG TABLET PO SCH (08:30)
[2017-10-08] MEDS ORDERED: Megestrol Acetate 400 MG/10 ML UDC PO SCH (09:00)
[2017-10-08] MEDS: *HR* Promethazine 25 MG/ML VIAL IVP PRN ×2 (09:08→16:58)
[2017-10-08] MEDS ORDERED: Heparin 1,000 UNITS/500 mL 500 ML ONE (10:57)
--- NOTE | 2017-10-08 10:57 | Internal Med Progress Note ---
Hospitalist Progress Note - Encounter Date of Encounter: 10/08/17 Time of Encounter: 10:57 - Subjective Interval History: Evaluated patient earlier this morning. Continues to have nausea and had an episode of clear emesis this morning. Awaiting placement of temporary dialysis catheter. Continues to have poor appetite. No fever or chills reported overnight. Had only 850 mL urine output yesterday - Exam Vitals: Temp Pulse Resp BP Pulse Ox 98.7 F 67 16 159/85 97 10/08/17 07:03 10/08/17 07:03 10/08/17 07:03 10/08/17 07:03 10/08/17 08:31 Exam: General: Patient is alert, mild distress, oriented x 3 Head: atraumatic, normocephalic, Eye: normal appearance, PERRL, no scleral icterus, no conjunctival injection ENT: mucous membranes moist, normal external ear exam Neck: normal inspection, trachea midline, full ROM, no carotid bruits Chest: normal inspection, symmetric chest rise Respiratory: Good respiratory effort. Normal breath sounds. No wheezing or crackles.. Cardiovascular: Regular rate and rhythm. s1 and s2 No clicks, rubs, gallops, or murmurs. No pedal edema Abdomen: Abdomen is soft, nontender. Bowel sounds are present Musculoskeletal: Spontaneously moving all extremities. Left foot bandaged and wound VAC in place Skin: warm, dry, intact. Neuro: Alert oriented x 3 normal cranial nerves, no focal deficits Psych: Patient's affect is flat - Assessment and Plan (1) Acute renal failure Current Visit: Yes Status: Acute Assessment and Plan: Most likely due to ATN. No significant improvement in renal function. Continues to have decreased urine output. Plan for placement of temporary dialysis catheter and initiation of hemodialysis today. Nephrology following. (2) Syncope Current Visit: Yes Status: Acute Assessment and Plan: Likely due to dehydration. No new episodes (3) Wound of left lower extremity Current Visit: Yes Status: Acute Assessment and Plan: With infection being treated with IV antibiotics long-term. With wound VAC in place. Continue Levaquin. Will monitor QT interval (4) Hypertension Current Visit: Yes Status: Chronic Assessment and Plan: Blood pressure is elevated today. We will continue to monitor. Expect decrease in blood pressure once patient is started on hemodialysis. We will monitor closely and add antihypertensive regimen accordingly. (5) Seizure Current Visit: No Status: Chronic Assessment and Plan: Chronic. Follow up outpatient with neurology. Continue Dilantin for now. (6) Dehydration Current Visit: Yes Status: Acute Assessment and Plan: Patient has been receiving IV fluids per nephrology recommendations. (7) Bicytopenia Current Visit: Yes Status: Chronic Assessment and Plan: Hemoglobin 8.3 today.. Platelets 86. We will continue to monitor. Avoid medical anticoagulation for DVT prophylaxis. (8) Metabolic acidosis Current Visit: Yes Status: Acute Assessment and Plan: On sodium bicarbonate per nephrology recommendations (9) Weight loss, non-intentional Current Visit: Yes Status: Acute Assessment and Plan: Nutrition following. Poor appetite most likely related to uremia. If symptoms do not improve even after patient was started on hemodialysis) patient continues to lose weight, will consider placement of NG tube/PEG tube. (10) Severe protein-calorie malnutrition Current Visit: Yes Status: Acute Assessment and Plan: Nutrition following. Encourage supplemental diet. DVT Prophylaxis: With SCDs. Avoid medical anticoagulation due to anemia and thrombocytopenia. - Time Spent with Patient Total time spent is greater than 50% in coordination of care (as documented) at patient's floor/unit and/or counseling patient: Plan of Care Discussed with: patient Internal Medicine: Result - Labs CBC & Chem 7: 10/08/17 06:26 10/08/17 06:26 Labs: Short CBC 10/08/17 Range/Units 06:26 WBC 5.7 (4.3-11.1) K/mcL Hgb 8.3 L (12.9-16.9) g/dL Hct 24.5 L (37.5-50.1) % Plt Count 86 L (140-400) K/mcL Neutrophils # 4.2 (1.6-8.9) K/mcL BMP 10/08/17 06:26 Sodium 140 Potassium 3.3 L Chloride 108 H Carbon Dioxide 20 L BUN 67 H Creatinine 4.40 H Glucose 97 Calcium 7.7 L - ABG Interpretation ABG results: PT/INR, D-dimer PT 17.6 Seconds (9.4-12.1) H 10/07/17 07:51 - Impressions Impressions KUB X-Ray 10/08/17 07:23 IMPRESSION: 1. Left lower pole calculi as described. The smaller bilateral renal stones are not well seen radiographically. 2. Unremarkable bowel gas pattern. D/ / 10/08/2017 08:45:19 Sneha Coombs MD / dash Interpreting Provider: Sneha Coombs MD - VTE Documentation of Mechanical Device: Intermittent pneumatic compression device Consult Discharge Plan - Plan Referrals: [facility] [Outside] (1) Acute renal failure Qualifiers: Acute renal failure type: with acute tubular necrosis Qualified Code(s): N17.0 - Acute kidney failure with tubular necrosis (2) Syncope Qualifiers: Syncope type: unspecified Qualified Code(s): R55 - Syncope and collapse (3) Wound of left lower extremity Qualifiers: Encounter type: initial encounter Qualified Code(s): S81.802A - Unspecified open wound, left lower leg, initial encounter (4) Hypertension Qualifiers: Hypertension type: unspecified Qualified Code(s): I10 - Essential (primary) hypertension
[2017-10-08] MEDS ORDERED: *HR* Heparin 5,000 UNIT/ML VIAL ONE (11:19)
--- NOTE | 2017-10-08 11:25 | IR Procedure Note ---
Date of procedure: 10/08/17 Consent Obtained: Verbal consent, Written consent Timeout: Correct patient and procedure verified, Correct site verified, Time out performed, Skin prep completed Local anesthetic: Lidocaine 1% Indications: ARSH Procedure Performed: right IJ temp HD cath Was there an bacteriology research assistant present: Yes Electric Screw Driver Operator: Verona Heath Site/Technique: right IJ Results/Findings: as above Estimated blood loss (cc): 0 Complications: None; Tolerated procedure well Post Procedure Treatment Plan: catheter ok to use Specimen: NA
--- NOTE | 2017-10-08 15:10 | Nephrology Progress Note ---
Date of Encounter: 10/08/17 Time of Encounter: 09:20 - Assessment and Plan (1) Acute kidney injury Current Visit: Yes Status: Acute Current Visit: Yes Status: Acute BMP continues to demonstrates signs of acute kidney injury, etiology still unknown, suspected ATN. All work-up so far has been unremarkable. His ongoing N/ V likely uremic induced and patient will be starting temporary HD today. IR has been consulted. Will follow-up kidney function with AM Labs. (2) Hypertension Current Visit: Yes Status: Chronic Blood pressure continues to be above baseline. This could be due to numerous etiologies, kidney pathology being one of them. Patient is to continue his home medications and he is treated for his left foot wound, dehydration, and calorie malnutrition. Expect BP to return to baseline when patient recovers from current medication conditions. Renal biopsy outpatient is still a possibility in the future. Qualifiers: Hypertension type: unspecified Qualified Code(s): I10 - Essential (primary ) hypertension (3) Diarrhea Current Visit: No Status: Acute Recent N/V/D and these may be part of uremia. He reported abd pain, though nontender and nondistended on exam. Passing Gas: suspect constipation while laying in bed. KUB is unremarkable. Primary team aware. Qualifiers: Diarrhea type: unspecified type Qualified Code(s): R19.7 - Diarrhea, unspecified Subjective Principal diagnosis: ARSH Interval history: Patient continues to have decrease in appetite and nausea. He is constantly coughing and has had several episodes of vomiting. Has no difficulty voiding. He denies fever, chills, chest pain, shortness of breath, diarrhea. We spoke again in regards to temporary hemodialysis and patient is agreeable to plan. Objective - Vital Signs Vital signs: Vital Signs Temp Pulse Resp BP Pulse Ox 10/08/17 11:54 97.7 F 65 16 156/83 98 10/08/17 08:31 97 10/08/17 07:03 98.7 F 67 16 159/85 97 10/08/17 04:25 98.1 F 64 18 150/85 94 10/07/17 23:30 98.0 F 73 16 152/76 97 10/07/17 19:17 98.0 F 68 16 149/93 98 Intake and Output 10/07/17 10/08/17 10/08/17 23:59 07:59 15:59 Intake Total 1050 / 1050 1200 / 1200 140 / 140 Output Total 400 / 400 100 / 100 10 / 10 Balance 650 / 650 1100 / 1100 130 / 130 Intake: IV Fluids 1050 / 1050 1000 / 1000 140 / 140 Sodium Bicarbonate 50 MEQ In 0. 1050 / 1050 1000 / 1000 140 / 140 45% Sodium Chloride 1000 Ml 1000 Ml 1,000 ML @ 100 mls/hr IVC .[id number] [facility] Rx#:[id number] Oral 0 / 0 200 / 200 Output: Urine 400 / 400 100 / 100 Wound Drainage Left Foot Other: Meal Dinner Percent of Meal Consumed 0% Weight 93 kg Patient Weight 10/08/17 23:59 Weight 93 kg - General Appearance General appearance: Present: well-developed, well-nourished, appears started age Neck: Present: no JVD, no thyromegaly, no carotid bruit, supple Respiratory: Present: no kyphosis, no scoliosis Cardiology: Present: no rub, no gallops, no edema, regular rate, regular rhythm , normal S1, normal S2 Gastrointestinal: Present: normoactive bowel sounds, no tenderness Integumentary: Present: no rash, warm and dry Neurologic: Present: no focal deficit, no asterixis, alert and oriented x3, reflexes 2+ and symmetric, gait normal, strength 5/5 Musculoskeletal: Present: no deformities, no erythema, no cyanosis, no clubbing Psychiatric: Present: mood/affect appropriate, cooperative - Lab 10/08/17 06:26 10/08/17 06:26 Most recent lab results Calcium 7.7 mg/dL (8.6-10.3) L 10/08/17 06:26 Phosphorus 3.4 mg/dL (2.7-4.5) 10/07/17 07:51 Magnesium 1.9 mg/dL (1.6-2.6) 10/07/17 07:51 Urine Creatinine 80 mg/dL 10/06/17 16:00 Urine Sodium 76.4 mEq/L 10/05/17 12:57 Urine Total Protein 160 mg/dL (1-14) H 10/06/17 16:00 - VTE Documentation of Mechanical Device: Intermittent pneumatic compression device Consult Discharge Plan - Plan Referrals: [facility] [Outside]
[2017-10-08 15:18] LABS: Zinc 87 ug/dL (60-120)
[2017-10-08] MEDS: Levofloxacin 500 MG/100 ML 500 MG/100 ML BAG IVPB SCH (16:04)
--- NOTE | 2017-10-08 16:46 | Electrocardiograph Report ---
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
[2017-10-08] MEDS: Mirtazapine 15 MG TABLET PO SCH (19:29)
[2017-10-08] MEDS: Acetaminophen 325 MG TABLET PO PRN (19:29)
[2017-10-08 21:18] LABS: Kappa Qnt Free Light Chains 20.9 mg/dL (0.33-1.94); Lambda Qnt Free Light Chains 13.9 mg/dL (0.57-2.63)
[2017-10-09] MEDS: Sodium Bicarbonate 50 MEQ in 0.45 % Sodium Chloride 1,000 ML IVC SCH (01:51)
[2017-10-09 03:27] LABS: Alpha 2 Globulin (PEP) 0.57 g/dL (0.48-1.05)
[2017-10-09 06:30] LABS: Basophils % 0.4 %; Immature Granulocytes % 0.6 % (0-4); Segmented Neutrophils % 72.1 %
[2017-10-09 06:32] LABS: Eosinophils # 0.2 K/mcL (0.0-0.6); Eosinophils % 3.8 %; Hematocrit 24.9 % (37.5-50.1); Hemoglobin 8.5 g/dL (12.9-16.9); Immature Platelets 3.7 % (1.1-6.1); Lymphocytes # 0.7 K/mcL (0.6-4.6); Lymphocytes % 13.3 %; Mean Corpuscular HGB Conc 34.1 g/dL (31.6-35.5); Mean Corpuscular Hemoglobin 31.7 pg (28.0-33.3); Mean Corpuscular Volume 92.9 fL (83.0-100.0); Mean Platelet Volume 10.7 fL (9.4-12.4); Monocytes # 0.5 K/mcL (0.0-1.3); Monocytes % 9.8 %; Neutrophils # 3.8 K/mcL (1.6-8.9); Red Blood Count 2.68 M/mcL (4.19-5.50); Red Cell Distribution Width 14.9 % (11.5-14.5)
[2017-10-09 06:45] LABS: Platelet Count 86 K/mcL (140-400)
[2017-10-09 06:52] LABS: Calcium 7.6 mg/dL (8.6-10.3)
[2017-10-09] MEDS: Cholestyramine 4 GM POWD.PACK PO SCH ×2 (07:30→16:30)
[2017-10-09] MEDS: *HR* Promethazine 25 MG/ML VIAL IVP PRN ×2 (07:34→16:50)
[2017-10-09] MEDS: Gabapentin 300 MG CAPSULE PO SCH ×2 (07:36→19:40)
[2017-10-09] MEDS: amLODIPine 5 MG TABLET PO SCH (07:36)
[2017-10-09] MEDS: Cyanocobalamin (B-12) 1,000 MCG/ML VIAL IM SCH (07:37)
[2017-10-09] MEDS ORDERED: 0.9 % Sodium Chloride 250 ML IVC PRN (07:37)
[2017-10-09] MEDS ORDERED: 0.9 % Sodium Chloride 1,000 ML ONE (07:58)
[2017-10-09 07:59] LABS: IFE Reflexed IFE Done; Immunoglobulin A 314 mg/dL (68-408); Immunoglobulin G 1720 mg/dL (768-1632); Immunoglobulin M 167 mg/dL (35-263)
--- NOTE | 2017-10-09 12:43 | Nephrology Progress Note ---
<Dante Richmond - Last Filed: 10/09/17 12:39> Date of Encounter: 10/09/17 Time of Encounter: 09:35 - Assessment and Plan (1) Acute kidney injury Current Visit: Yes Status: Acute kidney function has improved in the setting of temporary HD. BUN = 40, creatinine = 3.03. etiology still unknown, suspected ATN. All work-up so far has been unremarkable. His ongoing N/V likely uremic induced and patient will continue temporary HD today. Will follow-up kidney function with AM Labs. (2) Hypertension Current Visit: Yes Status: Chronic Blood pressure improved but continues to be above baseline. This could be due to numerous etiologies, kidney pathology being one of them. Patient is to continue his home medications and he is treated for his left foot wound, dehydration, and calorie malnutrition. Expect BP to return to baseline when patient recovers from current medication conditions. Renal biopsy outpatient is still a possibility in the future. Qualifiers: Hypertension type: unspecified Qualified Code(s): I10 - Essential (primary ) hypertension (3) Diarrhea Current Visit: No Status: Acute Recent N/V/D and these may be part of uremia. He reported abd pain, though nontender and nondistended on exam. Passing Gas: suspect constipation while laying in bed. KUB is unremarkable. Primary team aware. Qualifiers: Diarrhea type: unspecified type Qualified Code(s): R19.7 - Diarrhea, unspecified Subjective Principal diagnosis: ARSH Interval history: Patient is not at bedside, currently receiving hemodialysis. Per nurse, no acute overnight events. Objective - Vital Signs Vital signs: Vital Signs Temp Pulse Resp BP Pulse Ox 10/09/17 11:22 97.2 F L 18 153/85 10/09/17 11:00 155/84 10/09/17 10:45 150/81 10/09/17 10:30 143/87 10/09/17 10:15 149/91 10/09/17 10:00 136/86 10/09/17 09:45 145/84 10/09/17 09:30 140/88 10/09/17 09:15 140/81 10/09/17 09:00 130/87 10/09/17 08:45 144/88 10/09/17 08:30 97.7 F 18 155/91 10/09/17 06:37 98.5 F 64 14 166/83 97 10/09/17 03:48 98.2 F 68 14 167/92 98 10/08/17 23:22 97.9 F 71 16 157/98 95 10/08/17 19:14 98.4 F 69 14 177/98 97 10/08/17 16:14 97.6 F 18 162/88 10/08/17 15:50 167/95 10/08/17 15:35 172/95 10/08/17 15:20 169/94 10/08/17 15:05 163/91 10/08/17 14:50 154/99 10/08/17 14:35 164/96 10/08/17 14:20 169/92 10/08/17 14:05 164/93 10/08/17 13:50 97.7 F 18 163/96 Intake and Output 10/08/17 10/09/17 10/09/17 23:59 07:59 15:59 Intake Total 200 / 200 1360 / 1360 600 / 600 Output Total 720 / 720 500 / 500 610 / 610 Balance -520 / -520 860 / 860 -10 / -10 Intake: IV Fluids 200 / 200 1360 / 1360 Sodium Bicarbonate 50 MEQ In 0. 100 / 100 1360 / 1360 45% Sodium Chloride 1000 Ml 1000 Ml 1,000 ML @ 100 mls/hr IVC .[id number] [facility] Rx#:[id number] Levaquin Premix 500mg/100mL 500 100 / 100 mg In 100 ml @ 100 mls/hr IVPB Q48H [facility] Rx#:[id number] Oral 0 / 0 0 / 0 Intake, Rinseback and Flushes 600 / 600 Output: Urine 0 / 0 500 / 500 0 / 0 Total Dialysis (HD) Output 600 / 600 600 / 600 Wound Drainage 120 / 120 10 / 10 Left Foot 120 / 120 10 / 10 Other: Meal REFUSED BREAKFAST Weight 91.1 kg Hemodialysis Net Fluid Removed 0 0 (mL) Patient Weight 10/09/17 23:59 Weight 91.1 kg - General Appearance Exam: Unable to perform due to patient not at bedside. - Lab 10/09/17 06:13 10/09/17 06:13 Most recent lab results Calcium 7.6 mg/dL (8.6-10.3) L 10/09/17 06:13 Phosphorus 3.4 mg/dL (2.7-4.5) 10/07/17 07:51 Magnesium 1.9 mg/dL (1.6-2.6) 10/07/17 07:51 Urine Creatinine 80 mg/dL 10/06/17 16:00 Urine Sodium 76.4 mEq/L 10/05/17 12:57 Urine Total Protein 160 mg/dL (1-14) H 10/06/17 16:00 - VTE Documentation of Mechanical Device: Intermittent pneumatic compression device Consult Discharge Plan - Plan Referrals: [facility] [Outside] - 10/22/17 8:30 am <Brandon Mathews - Last Filed: 10/09/17 16:45> Date of Encounter: 10/09/17 - Assessment and Plan (1) Acute kidney injury Current Visit: Yes Status: Acute (2) Hypertension Current Visit: Yes Status: Chronic Qualifiers: Hypertension type: unspecified Qualified Code(s): I10 - Essential (primary ) hypertension (3) Diarrhea Current Visit: No Status: Acute Qualifiers: Diarrhea type: unspecified type Qualified Code(s): R19.7 - Diarrhea, unspecified (4) Acute hypokalemia Current Visit: No Status: Acute Objective - Vital Signs Vital signs: Vital Signs Temp Pulse Resp BP Pulse Ox 10/09/17 14:21 98.6 F 70 14 168/102 95 10/09/17 11:22 97.2 F L 18 153/85 10/09/17 11:00 155/84 10/09/17 10:45 150/81 10/09/17 10:30 143/87 10/09/17 10:15 149/91 10/09/17 10:00 136/86 10/09/17 09:45 145/84 10/09/17 09:30 140/88 10/09/17 09:15 140/81 10/09/17 09:00 130/87 10/09/17 08:45 144/88 10/09/17 08:30 97.7 F 18 155/91 10/09/17 06:37 98.5 F 64 14 166/83 97 10/09/17 03:48 98.2 F 68 14 167/92 98 10/08/17 23:22 97.9 F 71 16 157/98 95 10/08/17 19:14 98.4 F 69 14 177/98 97 Intake and Output 10/09/17 10/09/17 10/09/17 07:59 15:59 23:59 Intake Total 1360 / 1360 600 / 600 Output Total 500 / 500 615 / 615 0 / 0 Balance 860 / 860 -15 / -15 0 / 0 Intake: IV Fluids 1360 / 1360 Sodium Bicarbonate 50 MEQ In 0. 1360 / 1360 45% Sodium Chloride 1000 Ml 1000 Ml 1,000 ML @ 100 mls/hr IVC .[id number] [facility] Rx#:[id number] Oral 0 / 0 0 / 0 Intake, Rinseback and Flushes 600 / 600 Output: Urine 500 / 500 0 / 0 Total Dialysis (HD) Output 600 / 600 Wound Drainage 15 0 / 0 Left Foot 15 0 / 0 Other: Meal REFUSED BREAKFAST Weight 91.1 kg Hemodialysis Net Fluid Removed 0 (mL) Patient Weight 10/09/17 23:59 Weight 91.1 kg - General Appearance General appearance: Present: well-developed, fatigue, frail EENT: Present: ATNC, mucous membranes dry Neck: Present: supple Respiratory: Present: clear Cardiology: Present: no edema, regular rate, regular rhythm, normal S1, normal S2 Dialysis Vascular Access: Venous Catheter (RIJ temporary HD catheter with mild ozzing noted at the exit site, no erythema, no exudates, no TTP) Integumentary: Present: warm and dry Neurologic: Present: no focal deficit, no asterixis, alert and oriented x3 Musculoskeletal: Present: no erythema, no cyanosis Psychiatric: Present: mood/affect appropriate, cooperative - Lab 10/09/17 06:13 10/09/17 06:13 Most recent lab results Calcium 7.6 mg/dL (8.6-10.3) L 10/09/17 06:13 Phosphorus 3.4 mg/dL (2.7-4.5) 10/07/17 07:51 Magnesium 1.9 mg/dL (1.6-2.6) 10/07/17 07:51 Urine Creatinine 80 mg/dL 10/06/17 16:00 Urine Sodium 76.4 mEq/L 10/05/17 12:57 Urine Total Protein 160 mg/dL (1-14) H 10/06/17 16:00
--- NOTE | 2017-10-09 12:46 | Internal Med Progress Note ---
Hospitalist Progress Note - Encounter Date of Encounter: 10/09/17 Time of Encounter: 11:00 - Subjective Interval History: Patient seen during dialysis today. He feels less nauseated today. Did not have any episodes of emesis this morning. Still lacks appetite. However he is willing to try and eat more today. No fever reported overnight. No chest pain , palpitations or shortness of breath - Exam Vitals: Temp Pulse Resp BP Pulse Ox 97.2 F L 64 18 153/85 97 10/09/17 11:22 10/09/17 06:37 10/09/17 11:22 10/09/17 11:22 10/09/17 06:37 - Assessment and Plan (1) Acute renal failure Current Visit: Yes Status: Acute Assessment and Plan: BUN and creatinine have improved after patient was started on hemodialysis. Continue dialysis per nephrology recommendations. Replace electrolytes with dialysis. (2) Syncope Current Visit: Yes Status: Acute Assessment and Plan: From dehydration and EKG I. Now resolved (3) Wound of left lower extremity Current Visit: Yes Status: Acute Assessment and Plan: Continue Levaquin. Monitoring QT interval with EKG. (4) Hypertension Current Visit: Yes Status: Chronic Assessment and Plan: Blood pressure remains elevated. We will increase amlodipine dosage to 10 mg daily (5) Seizure Current Visit: No Status: Chronic Assessment and Plan: Continue Dilantin. Follow-up outpatient with neurology (6) Dehydration Current Visit: Yes Status: Acute (7) Bicytopenia Current Visit: Yes Status: Chronic Assessment and Plan: Remains stable. Hemoglobin 8.5, platelets 86. Avoiding medical anticoagulants (8) Metabolic acidosis Current Visit: Yes Status: Acute Assessment and Plan: Managed through hemodialysis (9) Weight loss, non-intentional Current Visit: Yes Status: Acute (10) Severe protein-calorie malnutrition Current Visit: Yes Status: Acute Assessment and Plan: Encouraged oral diet. Patient on Remeron to stimulate appetite. Nutrition following. We will remove any dietary restrictions at this time DVT Prophylaxis: EPCD - Time Spent with Patient Total time spent is greater than 50% in coordination of care (as documented) at patient's floor/unit and/or counseling patient: Plan of Care Discussed with: patient Internal Medicine: Result - Labs CBC & Chem 7: 10/09/17 06:13 10/09/17 06:13 Labs: Short CBC 10/09/17 Range/Units 06:13 WBC 5.3 (4.3-11.1) K/mcL Hgb 8.5 L (12.9-16.9) g/dL Hct 24.9 L (37.5-50.1) % Plt Count 86 L (140-400) K/mcL Neutrophils # 3.8 (1.6-8.9) K/mcL BMP 10/09/17 06:13 Sodium 140 Potassium 3.0 L Chloride 106 Carbon Dioxide 22 L BUN 40 H Creatinine 3.03 H Glucose 95 Calcium 7.6 L - ABG Interpretation ABG results: PT/INR, D-dimer PT 17.6 Seconds (9.4-12.1) H 10/07/17 07:51 - Impressions Impressions Guidance Ultrasound 10/08/17 07:00 IMPRESSION: Successful ultrasound and fluoroscopy guided non-tunneled 20 cm long 15.5 F hemodialysis catheter placement. D/ / Randy Kulkarni / Randy Kulkarni Interpreting Provider: Randy Kulkarni Insertion Non-Tunneled Catheter 10/08/17 07:00 IMPRESSION: Successful ultrasound and fluoroscopy guided non-tunneled 20 cm long 15.5 F hemodialysis catheter placement. D/ / Randy Kulkarni / Randy Kulkarni Interpreting Provider: Randy Kulkarni X-Ray 10/08/17 07:23 IMPRESSION: 1. Left lower pole calculi as described. The smaller bilateral renal stones are not well seen radiographically. 2. Unremarkable bowel gas pattern. D/ / 10/08/2017 08:45:19 Sneha Coombs MD / dash Interpreting Provider: Sneha Coombs MD - VTE Documentation of Mechanical Device: Intermittent pneumatic compression device Consult Discharge Plan - Plan Referrals: [facility] [Outside] (1) Acute renal failure Qualifiers: Qualified Code(s): N17.0 - Acute kidney failure with tubular necrosis (2) Syncope Qualifiers: Qualified Code(s): R55 - Syncope and collapse (3) Wound of left lower extremity Qualifiers: Qualified Code(s): S81.802A - Unspecified open wound, left lower leg, initial encounter (4) Hypertension Qualifiers: Qualified Code(s): I10 - Essential (primary) hypertension
[2017-10-09] MEDS: Multivit/Ca/Min/Fe/FA 1 TAB TABLET PO SCH (13:28)
[2017-10-09] MEDS ORDERED: amLODIPine 5 MG TABLET PO STA (14:49)
[2017-10-09] MEDS: Acetaminophen 325 MG TABLET PO PRN (19:37)
[2017-10-09] MEDS: Mirtazapine 15 MG TABLET PO SCH (19:40)
[2017-10-09] MEDS ORDERED: *HR* HYDROcodone/Acet 5/325 mg TABLET PO ONE (19:59)
--- NOTE | 2017-10-09 21:45 | Podiatry Progress Note ---
Date of Encounter: 10/12/17 Time of Encounter: 15:30 - Assessment and Plan (1) Osteomyelitis Current Visit: No Status: Acute admitted after syncopal episode, was being treated for left ankle wound consult infectious disease for abx recommendations. wound vac changed today, next change would be Friday non-wb left lower extremity discussed condition of his left foot/ankle, understands he is still at risk for limb loss all questions answered Qualifiers: Osteomyelitis type: unspecified type Osteomyelitis location: unspecified site Qualified Code(s): M86.9 - Osteomyelitis, unspecified Subjective Principal diagnosis: ARSH Interval history: patient says he is feeling better than he was a few days ago. says he had dialysis twice. says his upper body is not jerking like it was when he was admitted. Objective - Vital Signs Vital Signs: Vital Signs Temp Pulse Resp BP Pulse Ox 10/09/17 19:36 99.9 F H 74 18 130/73 96 10/09/17 14:21 98.6 F 70 14 168/102 95 10/09/17 11:22 97.2 F L 18 153/85 10/09/17 11:00 155/84 10/09/17 10:45 150/81 10/09/17 10:30 143/87 10/09/17 10:15 149/91 10/09/17 10:00 136/86 10/09/17 09:45 145/84 10/09/17 09:30 140/88 10/09/17 09:15 140/81 10/09/17 09:00 130/87 10/09/17 08:45 144/88 10/09/17 08:30 97.7 F 18 155/91 10/09/17 06:37 98.5 F 64 14 166/83 97 10/09/17 03:48 98.2 F 68 14 167/92 98 10/08/17 23:22 97.9 F 71 16 157/98 95 Intake and Output 10/09/17 10/09/17 10/09/17 07:59 15:59 23:59 Intake Total 1360 / 1360 600 / 600 0 / 0 Output Total 500 / 500 615 / 615 300 / 300 Balance 860 / 860 -15 / -15 -300 / -300 Intake: IV Fluids 1360 / 1360 Sodium Bicarbonate 50 MEQ In 0. 1360 / 1360 45% Sodium Chloride 1000 Ml 1000 Ml 1,000 ML @ 100 mls/hr IVC .[id number] [facility] Rx#:[id number] Oral 0 / 0 0 / 0 0 / 0 Intake, Rinseback and Flushes 600 / 600 Output: Urine 500 / 500 0 / 0 300 / 300 Total Dialysis (HD) Output 600 / 600 Wound Drainage 15 / 15 0 / 0 Left Foot 15 / 15 0 / 0 Other: Meal REFUSED BREAKFAST Dinner Percent of Meal Consumed 0% Stool Size Moderate Stool Consistency loose liquid Stool Color Green # Voids 2 # Bowel Movements 1 Weight 91.1 kg Hemodialysis Net Fluid Removed 0 (mL) Patient Weight 10/09/17 23:59 Weight 91.1 kg - Exam Exam: left ankle posterior heel wound 3.4ztu9je-e.3cm fibrogranular base, lateral foot wound 1.2siv3lvm8.4cm, anterior ankle8.7cmx8.3cmx0.3cm tendon exposed anterior ankle, no purulence. no drainage expressed, increased granulation tissue in the margins, margins appear viable not necrotic. foot is warm to touch. - Lab Result Diagrams: 10/12/17 00:29 10/12/17 00:29 Labs: Abnormal lab results RBC 2.68 M/mcL (4.19-5.50) L 10/09/17 06:13 Hgb 8.5 g/dL (12.9-16.9) L 10/09/17 06:13 Hct 24.9 % (37.5-50.1) L 10/09/17 06:13 RDW 14.9 % (11.5-14.5) H 10/09/17 06:13 Plt Count 86 K/mcL (140-400) L 10/09/17 06:13 Nucleated RBCs/100 WBC 0.6 /100 WBC (0) H 10/06/17 03:57 Platelet Estimate Decreased (Normal) L 10/04/17 05:09 ESR 57 mm/hr (0-10) H 10/02/17 12:12 PT 17.6 Seconds (9.4-12.1) H 10/07/17 07:51 Potassium 3.0 mEq/L (3.5-5.1) L 10/09/17 06:13 Carbon Dioxide 22 mEq/L (23-29) L 10/09/17 06:13 BUN 40 mg/dL (8-23) H 10/09/17 06:13 Creatinine 3.03 mg/dL (0.70-1.30) H 10/09/17 06:13 Est GFR ( Amer) 25 (> 60) L 10/09/17 06:13 Est GFR (Non-Af Amer) 21 (> 60) L 10/09/17 06:13 Calcium 7.6 mg/dL (8.6-10.3) L 10/09/17 06:13 % Saturation 63 % (20-55) H 10/05/17 03:56 Transferrin 113 mg/dL (203-362) L 10/05/17 03:56 Serum Total Protein 6.2 g/dL (6.4-8.9) L 10/04/17 14:54 Albumin 2.7 g/dL (3.5-5.7) L 10/04/17 14:54 Albumin (PEP) 2.77 g/dL (3.75-5.01) L 10/06/17 13:42 Albumin/Globulin Ratio 0.8 (1.1-2.2) L 10/04/17 14:54 Gamma Globulins 1.76 g/dL (0.62-1.51) H 10/06/17 13:42 Vitamin B12 243 pg/mL (250-1100) L 10/05/17 11:15 Urine Clarity Cloudy (Clear) A 10/06/17 16:00 Urine Protein 100 mg/dL (Neg-Trace) H 10/06/17 16:00 Urine Ketones 15 mg/dL (Negative) H 10/06/17 16:00 Urine Blood Large (Negative) H 10/06/17 16:00 Ur Leukocyte Esterase Trace (Negative) H 10/06/17 16:00 Urine Microscopic RBC TNTC per hpf (0-3) H 10/06/17 16:00 Urine Microscopic WBC 5-15 per hpf (0-3) H 10/06/17 16:00 Ur Eosinophil Smear 1 % (None Seen) H 10/06/17 16:00 Ur Squamous Epith Cells Many per lpf (None-Few) H 10/06/17 16:00 Ur Culture Indicated? NO. (NO) A 10/06/17 16:00 Protein/Creatinin Ratio 2.00 mg/mg (0.00-0.20) H 10/06/17 16:00 Urine Total Protein 160 mg/dL (1-14) H 10/06/17 16:00 Phenytoin 1.9 mcg/mL (10.0-20.0) L 10/03/17 06:07 Copper 65 ug/dL (70-140) L 10/05/17 11:15 IgG 1720 mg/dL (768-1632) H 10/06/17 13:42 Complement C3 80 mg/dL (88-201) L 10/06/17 13:42 Free [place] LC, Quant 20.90 mg/dL (0.33-1.94) H 10/06/17 13:42 Free Lambda LC, Quant 13.90 mg/dL (0.57-2.63) H 10/06/17 13:42 - VTE Documentation of Mechanical Device: Intermittent pneumatic compression device Consult Discharge Plan - Plan Referrals: [facility] [Outside] - 10/22/17 8:30 am
[2017-10-10 06:46] LABS: Basophils % 0.5 %; Eosinophils # 0.2 K/mcL (0.0-0.6); Eosinophils % 3.7 %; Hematocrit 24.9 % (37.5-50.1); Hemoglobin 8.5 g/dL (12.9-16.9); Immature Granulocytes % 0.2 % (0-4); Immature Platelets 4.2 % (1.1-6.1); Lymphocytes % 22.1 %; Mean Corpuscular HGB Conc 34.1 g/dL (31.6-35.5); Mean Corpuscular Hemoglobin 32.1 pg (28.0-33.3); Mean Platelet Volume 10.9 fL (9.4-12.4); Monocytes # 0.5 K/mcL (0.0-1.3); Neutrophils # 2.8 K/mcL (1.6-8.9); Red Blood Count 2.65 M/mcL (4.19-5.50); Segmented Neutrophils % 62.5 %
[2017-10-10 06:47] LABS: Platelet Count 94 K/mcL (140-400)
[2017-10-10 06:57] LABS: Albumin 2.6 g/dL (3.5-5.7); Albumin/Globulin Ratio 0.8 (1.1-2.2); Bilirubin,Total 0.3 mg/dL (0.3-1.0); Calcium 7.8 mg/dL (8.6-10.3); Globulin 3.2 g/dL (2.4-3.5); Potassium 3.3 mEq/L (3.5-5.1); Total Protein 5.8 g/dL (6.4-8.9)
[2017-10-10] MEDS ORDERED: 0.9 % Sodium Chloride 1,000 ML ONE (07:09)
[2017-10-10] MEDS: Cholestyramine 4 GM POWD.PACK PO SCH ×2 (08:11→16:01)
[2017-10-10] MEDS: Cyanocobalamin (B-12) 1,000 MCG/ML VIAL IM SCH (08:12)
[2017-10-10] MEDS: Gabapentin 300 MG CAPSULE PO SCH ×2 (08:12→22:08)
[2017-10-10] MEDS: Multivit/Ca/Min/Fe/FA 1 TAB TABLET PO SCH (08:12)
[2017-10-10] MEDS: amLODIPine 5 MG TABLET PO SCH (08:12)
[2017-10-10 08:38] LABS: Urine Collection Duration RANDOM hr; Urine Collection Volume RANDOM mL
--- NOTE | 2017-10-10 10:02 | Electrocardiograph Report ---
[place] [address] Test Date: 2017-10-09 Pat Name: Ryan Dias Department: 115 Room: 3A25 Gender: Office Helper: : [id number] Requested By: Nella Pino Order Number: [id number] Reading MD: Av Wynne Measurements Intervals [place] Rate: 73 P: -39 MI: 296 QRS: 18 QRSD: 105 T: 50 QT: 409 QTc: 435 Interpretive Statements SINUS RHYTHM W PACS BASELINE ARTIFACT Electronically Signed On 10-10-2017 10:01:37 EDT by Av Wynne
--- NOTE | 2017-10-10 15:19 | Internal Med Progress Note ---
Hospitalist Progress Note - Encounter Date of Encounter: 10/10/17 Time of Encounter: 09:45 - Subjective Interval History: Patient is awake and alert. Overall he feels much better. No longer has nausea. He feels less tired. No longer having cramps or shakes. He however continues to have poor appetite. He says that nothing tastes good. Underwent dialysis yesterday without any issues. - Exam Vitals: Temp Pulse Resp BP Pulse Ox 98.0 F 79 18 119/76 96 10/10/17 10:38 10/10/17 10:38 10/10/17 10:38 10/10/17 10:38 10/10/17 10:38 Exam: General: Patient is alert, no acute distress, oriented x 3 Head: atraumatic, normocephalic, Eye: normal appearance, PERRL, no scleral icterus, no conjunctival injection Neck: normal inspection, trachea midline, full ROM, no carotid bruits Chest: normal inspection, symmetric chest rise Respiratory: Good respiratory effort. Normal breath sounds. No wheezing or crackles.. Cardiovascular: Regular rate and rhythm. s1 and s2 No clicks, rubs, gallops, or murmurs. No pedal edema Abdomen: Abdomen is soft, nontender. Bowel sounds are present Musculoskeletal: Left foot wound VAC in place Skin: warm, dry, intact. Neuro: Alert oriented x 3 normal cranial nerves, no focal deficits Psych: Patient's affect is normal - Assessment and Plan (1) Acute renal failure Current Visit: Yes Status: Acute Assessment and Plan: Suspected ATN. Nephrology following. Patient receiving hemodialysis per nephrology recommendations. Nephrology considering renal biopsy. We will await recommendations. He did have good urine output so far today. Creatinine is improving. (2) Syncope Current Visit: Yes Status: Resolved Assessment and Plan: From dehydration along with ATN. No new episodes. (3) Wound of left lower extremity Current Visit: Yes Status: Acute Assessment and Plan: With wound VAC in place. Continue Levaquin. QT interval being monitored. Was 435 yesterday. Per discussion with infectious disease, antibiotics switched from cefepime to Levaquin per the previous attending. (4) Hypertension Current Visit: Yes Status: Chronic Assessment and Plan: Blood pressure remains intermittently elevated. Started on amlodipine. (5) Seizure Current Visit: Yes Status: Chronic Assessment and Plan: No longer having any cramping or muscle jerks. Recommend outpatient follow-up with neurology after discharge. For now continue Dilantin (6) Dehydration Current Visit: Yes Status: Resolved (7) Bicytopenia Current Visit: Yes Status: Chronic Assessment and Plan: Hemoglobin stable at 8.5. Platelets 94. (8) Metabolic acidosis Current Visit: Yes Status: Acute Assessment and Plan: Improved with hemodialysis (9) Weight loss, non-intentional Current Visit: Yes Status: Acute Assessment and Plan: Weight decreased over the past couple of days due to hemodialysis. (10) Severe protein-calorie malnutrition Current Visit: Yes Status: Acute Assessment and Plan: Continues to have poor appetite. Does have Her deficiency. Placed on multivitamins. Albumin levels remained stable. Nutrition following. Continue to encourage diet. On Remeron to stimulate appetite. Will add Marinol. DVT Prophylaxis: SCDs only due to anemia and thrombocytopenia. - Time Spent with Patient Total time spent is greater than 50% in coordination of care (as documented) at patient's floor/unit and/or counseling patient: Plan of Care Discussed with: patient Internal Medicine: Result - Labs CBC & Chem 7: 10/10/17 06:12 10/10/17 06:12 Labs: Short CBC 10/10/17 Range/Units 06:12 WBC 4.4 (4.3-11.1) K/mcL Hgb 8.5 L (12.9-16.9) g/dL Hct 24.9 L (37.5-50.1) % Plt Count 94 L (140-400) K/mcL Neutrophils # 2.8 (1.6-8.9) K/mcL BMP 10/10/17 06:12 Sodium 142 Potassium 3.3 L Chloride 108 H Carbon Dioxide 24 BUN 24 H Creatinine 2.87 H Glucose 87 Calcium 7.8 L Liver Function 10/10/17 Range/Units 06:12 Total Bilirubin 0.3 (0.3-1.0) mg/dL AST 53 H (13-39) Units/L ALT 19 (7-52) Units/L Alkaline Phosphatase 63 (34-104) Units/L Albumin 2.6 L (3.5-5.7) g/dL - ABG Interpretation ABG results: PT/INR, D-dimer PT 17.6 Seconds (9.4-12.1) H 10/07/17 07:51 - VTE Documentation of Mechanical Device: Intermittent pneumatic compression device Consult Discharge Plan - Plan Referrals: [facility] [Outside] - 10/22/17 8:30 am (1) Acute renal failure Qualifiers: Acute renal failure type: with acute tubular necrosis Qualified Code(s): N17.0 - Acute kidney failure with tubular necrosis (2) Syncope Qualifiers: Syncope type: unspecified Qualified Code(s): R55 - Syncope and collapse (3) Wound of left lower extremity Qualifiers: Encounter type: initial encounter Qualified Code(s): S81.802A - Unspecified open wound, left lower leg, initial encounter (4) Hypertension Qualifiers: Hypertension type: unspecified Qualified Code(s): I10 - Essential (primary) hypertension
[2017-10-10] MEDS: Levofloxacin 750 MG/150 ML 750 MG/150 ML BAG IVPB SCH (16:02)
--- NOTE | 2017-10-10 16:15 | Nephrology Progress Note ---
Date of Encounter: 10/10/17 Time of Encounter: 09:30 - Assessment and Plan (1) Acute kidney injury Current Visit: Yes Status: Acute kidney function continues to improve with Day #2 of temporary HD. BUN = 24, creatinine = 2.87. He is still not back to baseline creatinine of 1.0. However, we will hold HD today and recheck his kidney function tomorrow morning. Expected worsening creatinine tomorrow morning. Will consider HD again and renal biopsy on Friday if kidney function continues to worsen. Patient also has low complement 3 levels. I still suspect ARSH is most likely 2/ 2 ATN from recent vancomycin use for his osteomyelitis but SLE, Antiphospholipid syndrome, Vasculitis, autoimmune etiology all remain in differential. Renal biopsy would be the next step. Will follow-up kidney function with AM Labs. (2) Hypertension Current Visit: Yes Status: Chronic Blood pressure improved but continues to be above baseline. This could be due to numerous etiologies, kidney pathology being one of them. Patient is to continue his home medications and he is treated for his left foot wound, dehydration, and calorie malnutrition. Expect BP to return to baseline when patient recovers from current medication conditions. Renal biopsy outpatient is still a possibility in the future. Qualifiers: Hypertension type: unspecified Qualified Code(s): I10 - Essential (primary ) hypertension (3) Diarrhea Current Visit: No Status: Acute Recent N/V/D and these may be part of uremia. He reported abd pain, though nontender and nondistended on exam. Passing Gas: suspect constipation while laying in bed. KUB is unremarkable. Primary team aware. Qualifiers: Diarrhea type: unspecified type Qualified Code(s): R19.7 - Diarrhea, unspecified Subjective Principal diagnosis: ARSH Interval history: Patient is day #2 of temporary HD. He reports improvement of n/v. Denies CP, SOB. He is able to tolerate some PO intake and voiding without difficulty. Does not have any acute concerns at this time. Objective - Vital Signs Vital signs: Vital Signs Temp Pulse Resp BP Pulse Ox 10/10/17 15:21 98.8 F 75 16 149/84 98 10/10/17 10:38 98.0 F 79 18 119/76 96 10/10/17 05:32 98.0 F 74 16 148/84 97 10/09/17 23:02 97.9 F 71 16 168/100 95 10/09/17 19:36 99.9 F H 74 18 130/73 96 Intake and Output 10/10/17 10/10/17 10/10/17 07:59 15:59 23:59 Intake Total 0 / 0 200 / 200 Output Total 425 / 425 0 / 0 Balance -425 / -425 200 / 200 Intake: Oral 0 / 0 0 / 0 Free Water 200 / 200 Output: Urine 425 / 425 0 / 0 Other: Meal Lunch Percent of Meal Consumed 0% # Bowel Movements 0 0 Weight 91 kg Patient Weight 10/10/17 23:59 Weight 91 kg - General Appearance Exam: General appearance: Present: well-developed, fatigue, frail EENT: Present: ATNC, mucous membranes dry Neck: Present: supple Respiratory: Present: clear Cardiology: Present: no edema, regular rate, regular rhythm, normal S1, normal S2 Dialysis Vascular Access: Venous Catheter (RIJ temporary HD catheter with mild ozzing noted at the exit site, no erythema, no exudates, no TTP) Integumentary: Present: warm and dry Neurologic: Present: no focal deficit, no asterixis, alert and oriented x3 Musculoskeletal: Present: no erythema, no cyanosis Psychiatric: Present: mood/affect appropriate, cooperative - Lab 10/10/17 06:12 10/10/17 06:12 Most recent lab results Calcium 7.8 mg/dL (8.6-10.3) L 10/10/17 06:12 Phosphorus 3.4 mg/dL (2.7-4.5) 10/07/17 07:51 Magnesium 1.9 mg/dL (1.6-2.6) 10/07/17 07:51 Urine Creatinine 80 mg/dL 10/06/17 16:00 Urine Sodium 76.4 mEq/L 10/05/17 12:57 Urine Total Protein SEE NOTE mg/d (10-140) 10/07/17 19:24 - VTE Documentation of Mechanical Device: Intermittent pneumatic compression device Consult Discharge Plan - Plan Referrals: [facility] [Outside] - 10/22/17 8:30 am
[2017-10-10] MEDS: Mirtazapine 15 MG TABLET PO SCH (22:08)
[2017-10-11 06:29] LABS: Basophils % 0.2 %; Lymphocytes % 20.7 %
[2017-10-11 06:31] LABS: Eosinophils # 0.2 K/mcL (0.0-0.6); Hematocrit 26.6 % (37.5-50.1); Hemoglobin 8.9 g/dL (12.9-16.9); Immature Granulocytes % 0.5 % (0-4); Immature Platelets 4.6 % (1.1-6.1); Lymphocytes # 0.9 K/mcL (0.6-4.6); Mean Corpuscular HGB Conc 33.5 g/dL (31.6-35.5); Mean Corpuscular Hemoglobin 31.2 pg (28.0-33.3); Mean Corpuscular Volume 93.3 fL (83.0-100.0); Monocytes # 0.5 K/mcL (0.0-1.3); Monocytes % 10.2 %; Neutrophils # 2.8 K/mcL (1.6-8.9); Red Blood Count 2.85 M/mcL (4.19-5.50); Segmented Neutrophils % 63.4 %
[2017-10-11 06:34] LABS: Platelet Count 90 K/mcL (140-400)
[2017-10-11 06:48] LABS: Calcium 7.9 mg/dL (8.6-10.3); Potassium 3.4 mEq/L (3.5-5.1)
[2017-10-11] MEDS ORDERED: 0.9 % Sodium Chloride 250 ML IVC PRN (08:43)
[2017-10-11] MEDS: Cyanocobalamin (B-12) 1,000 MCG/ML VIAL IM SCH (08:49)
[2017-10-11] MEDS: amLODIPine 5 MG TABLET PO SCH (08:49)
[2017-10-11] MEDS: Gabapentin 300 MG CAPSULE PO SCH ×2 (08:50→20:54)
[2017-10-11] MEDS: Multivit/Ca/Min/Fe/FA 1 TAB TABLET PO SCH (08:50)
[2017-10-11] MEDS: Cholestyramine 4 GM POWD.PACK PO SCH ×2 (08:51→17:21)
[2017-10-11] MEDS ORDERED: 0.9 % Sodium Chloride 1,000 ML ONE (09:01)
[2017-10-11] MEDS ORDERED: *HR* Heparin 10,000 UNIT/10 ML VIAL IV PRN (09:57)
--- NOTE | 2017-10-11 10:11 | Nephrology Progress Note ---
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 His SCr immediately started rising again after hold HD yesterday). With the hypocomplementemia and ARSH, I recommend renal biopsy on Friday. INR goal is <1.3, Hgb goal is 9 or higher and SBP goal is <150-160 for renal biopsy. NPO at [place] on Friday night. (2) Hypertension Current Visit: Yes Status: Chronic Titrate medications as needed. Qualifiers: Hypertension type: essential hypertension Qualified Code(s): I10 - Essential (primary) hypertension (3) Hypocomplementemia Current Visit: Yes Status: Acute See above (4) FLORINDA positive Current Visit: Yes Status: Acute The FLORINDA results have finally returned and is very elevated. Hypocomplementemia is often seen with lupus nephritis, but sometimes false positive can be seen. See above regarding renal biopsy, which I recommend for Friday. I would not start immunosuppresion therapy until renal biopsy results return. (5) Acute hypokalemia Current Visit: No Status: Acute I've added KCl 20mEq po bid plus with the iHD will use a higher K+ bath. Subjective Principal diagnosis: ARSH Interval history: Pt was s/e earlier today, and he affirmed that he's not eating well but that his nausea is not quite so severe. He did not affirm F/C, CP. Objective - Vital Signs Vital signs: Vital Signs Temp Pulse Resp BP Pulse Ox 10/11/17 06:28 98.3 F 72 16 153/97 97 10/11/17 04:32 98.2 F 77 16 146/96 96 10/10/17 22:09 169/94 10/10/17 19:37 98.3 F 73 16 134/97 95 10/10/17 15:21 98.8 F 75 16 149/84 98 10/10/17 10:38 98.0 F 79 18 119/76 96 Intake and Output 10/10/17 10/11/17 10/11/17 23:59 07:59 15:59 Intake Total 250 / 250 100 / 100 0 / 0 Output Total 750 / 750 75 / 75 Balance -500 / -500 25 / 25 0 / 0 Intake: IV Fluids 150 / 150 Levaquin Premix 750mg/150 mL 150 / 150 750 mg In 150 ml @ 100 mls/hr IVPB Q48H [facility] Rx#:[id number] Oral 100 / 100 100 / 100 0 / 0 Output: Urine 500 / 500 0 / 0 Wound Drainage 250 / 250 75 / 75 Left Foot 125 / 125 75 / 75 Left Lower Foot 125 / 125 Other: Meal Dinner Breakfast Percent of Meal Consumed 0% 0% # Bowel Movements 0 Weight 91.3 kg Patient Weight 10/11/17 23:59 Weight 91.3 kg - General Appearance Exam: General appearance: Present: well-developed, fatigue, frail EENT: Present: ATNC, mucous membranes dry Neck: Present: supple Respiratory: Present: clear Cardiology: Present: no edema, regular rate, regular rhythm, normal S1, normal S2 Dialysis Vascular Access: Venous Catheter (RIJ temporary HD catheter dressing C/ D/I) Integumentary: Present: warm and dry Neurologic: Present: no focal deficit, no asterixis, alert and oriented x3 Musculoskeletal: Present: no erythema, no cyanosis Psychiatric: Present: mood/affect appropriate, cooperative - Lab 10/11/17 05:43 10/11/17 05:43 Most recent lab results Calcium 7.9 mg/dL (8.6-10.3) L 10/11/17 05:43 Phosphorus 3.4 mg/dL (2.7-4.5) 10/07/17 07:51 Magnesium 1.7 mg/dL (1.6-2.6) 10/11/17 05:43 Urine Creatinine 80 mg/dL 10/06/17 16:00 Urine Sodium 76.4 mEq/L 10/05/17 12:57 Urine Total Protein SEE NOTE mg/d (10-140) 10/07/17 19:24 - VTE Documentation of Mechanical Device: Intermittent pneumatic compression device Consult Discharge Plan - Plan Referrals: [facility] [Outside] - 10/22/17 8:30 am
--- NOTE | 2017-10-11 11:02 | Internal Med Progress Note ---
Hospitalist Progress Note - Encounter Date of Encounter: 10/11/17 Time of Encounter: 11:00 - Subjective Interval History: Patient seen and reviewed today. Was just waking up from sleep. Continues to have poor appetite and taste. Not having nausea and pneumonia episodes of emesis. No abdominal pain. - Exam Vitals: Temp Pulse Resp BP Pulse Ox 98.3 F 72 16 153/97 97 10/11/17 06:28 10/11/17 06:28 10/11/17 06:28 10/11/17 06:28 10/11/17 06:28 Exam: General: Patient is alert, no acute distress, oriented x 3 Head: atraumatic, normocephalic, Eye: normal appearance, PERRL, no scleral icterus, no conjunctival injection Neck: normal inspection, trachea midline, full ROM, no carotid bruits Chest: normal inspection, symmetric chest rise Respiratory: Good respiratory effort. Normal breath sounds. No wheezing or crackles. Cardiovascular: Regular rate and rhythm. s1 and s2 No clicks, rubs, gallops, or murmurs. No pedal edema Abdomen: Abdomen is soft, nontender. Bowel sounds are present Musculoskeletal: Left foot wound VAC in place Skin: warm, dry, intact. Neuro: Alert oriented x 3 normal cranial nerves, no focal deficits Psych: Patient's affect is flat - Assessment and Plan (1) Acute renal failure Current Visit: Yes Status: Acute Assessment and Plan: Renal function worsened today after patient did not receive dialysis yesterday. Nephrology recommends hemodialysis again today. They also recommend renal biopsy on Friday for further evaluation. Moderate risk for complications. (2) Wound of left lower extremity Current Visit: Yes Status: Acute Assessment and Plan: Continue local wound care. Podiatry change wound VAC 2 days back. On Levaquin. Monitoring QT interval. (3) Syncope Current Visit: Yes Status: Resolved (4) Hypertension Current Visit: Yes Status: Chronic Assessment and Plan: Blood pressure remains persistently elevated despite adding amlodipine. We will increase carvedilol dose. (5) Seizure Current Visit: Yes Status: Chronic Assessment and Plan: On Dilantin. No longer having jerking movements. Outpatient follow-up with neurology (6) Dehydration Current Visit: Yes Status: Resolved (7) Bicytopenia Current Visit: Yes Status: Chronic Assessment and Plan: Remains stable. (8) Metabolic acidosis Current Visit: Yes Status: Acute (9) Weight loss, non-intentional Current Visit: Yes Status: Acute (10) Severe protein-calorie malnutrition Current Visit: Yes Status: Acute Assessment and Plan: Continue to encourage diet. Started Marinol yesterday. Patient continues to have poor appetite. Likely due to multi-vitamin/mineral deficiency/ Uremia. Started on supplemental multivitamins. DVT Prophylaxis: SCDs - Time Spent with Patient Total time spent is greater than 50% in coordination of care (as documented) at patient's floor/unit and/or counseling patient: Internal Medicine: Result - Labs CBC & Chem 7: 10/11/17 05:43 10/11/17 05:43 Labs: Short CBC 10/11/17 Range/Units 05:43 WBC 4.4 (4.3-11.1) K/mcL Hgb 8.9 L (12.9-16.9) g/dL Hct 26.6 L (37.5-50.1) % Plt Count 90 L (140-400) K/mcL Neutrophils # 2.8 (1.6-8.9) K/mcL BMP 10/11/17 05:43 Sodium 143 Potassium 3.4 L Chloride 105 Carbon Dioxide 24 BUN 28 H Creatinine 3.14 H Glucose 83 Calcium 7.9 L - ABG Interpretation ABG results: PT/INR, D-dimer PT 17.6 Seconds (9.4-12.1) H 10/07/17 07:51 - VTE Documentation of Mechanical Device: Intermittent pneumatic compression device Consult Discharge Plan - Plan Referrals: [facility] [Outside] - 10/22/17 8:30 am (1) Acute renal failure Qualifiers: Acute renal failure type: with acute tubular necrosis Qualified Code(s): N17.0 - Acute kidney failure with tubular necrosis (2) Wound of left lower extremity Qualifiers: Encounter type: initial encounter Qualified Code(s): S81.802A - Unspecified open wound, left lower leg, initial encounter (3) Syncope Qualifiers: Syncope type: unspecified Qualified Code(s): R55 - Syncope and collapse (4) Hypertension Qualifiers: Hypertension type: essential hypertension Qualified Code(s): I10 - Essential (primary) hypertension
[2017-10-11] MEDS: Mirtazapine 15 MG TABLET PO SCH (20:54)
[2017-10-12 00:57] LABS: Mean Corpuscular HGB Conc 33.3 g/dL (31.6-35.5); Mean Corpuscular Hemoglobin 31.6 pg (28.0-33.3); Mean Corpuscular Volume 94.7 fL (83.0-100.0); Mean Platelet Volume 10.8 fL (9.4-12.4); Platelet Count 101 K/mcL (140-400); Red Blood Count 2.85 M/mcL (4.19-5.50); Red Cell Distribution Width 14.7 % (11.5-14.5)
[2017-10-12 01:03] LABS: INR 1.6; Prothrombin Time 17.5 Seconds (9.4-12.1)
[2017-10-12 01:17] LABS: Potassium 3.9 mEq/L (3.5-5.1)
[2017-10-12] MEDS: Cholestyramine 4 GM POWD.PACK PO SCH ×2 (07:33→16:06)
[2017-10-12] MEDS: Acetaminophen 325 MG TABLET PO PRN (08:40)
[2017-10-12] MEDS: Multivit/Ca/Min/Fe/FA 1 TAB TABLET PO SCH (08:41)
[2017-10-12] MEDS: amLODIPine 5 MG TABLET PO SCH (08:41)
[2017-10-12] MEDS: Gabapentin 300 MG CAPSULE PO SCH ×2 (08:41→20:40)
[2017-10-12] MEDS: Cyanocobalamin (B-12) 1,000 MCG TABLET PO SCH (08:41)
[2017-10-12] MEDS ORDERED: *HR* Phytonadione 5 MG TABLET PO ONE (09:03)
--- NOTE | 2017-10-12 09:03 | Nephrology Progress Note ---
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 I still recommend renal biopsy on Friday, and if time the HD but since he did have HD on Friday , it may be an easier today for the pt to have the renal biopsy on Friday and HD on Friday. If he does not show renal recovery soon, then I'd need an outpt HD chair arranged plus a Permacath. With the hypocomplementemia and ARSH, I recommend renal biopsy on Friday. INR goal is <1.3, Hgb goal is 9 or higher and SBP goal is <150-160 for renal biopsy. NPO at [place] on Friday night. Though his home Rx includes Plavix, he has not been receiving for the last several days while hospitalized. Of note, I see that his INR today was intrinsically elevated. I suspect that since he has had such a prolonged dec'd appetite, that he may be vitamin K deficient, and so I have added a one-time dose of vitamin K today (Friday) and will need to repeat an INR for Friday AM. My colleague Dr. Carter will be on-call for the [facility] and rounding starting tomorrow. Thank you. (2) Hypertension Current Visit: Yes Status: Chronic Titrate medications as needed. Qualifiers: Hypertension type: essential hypertension Qualified Code(s): I10 - Essential (primary) hypertension (3) Hypocomplementemia Current Visit: Yes Status: Acute See above (4) FLORINDA positive Current Visit: Yes Status: Acute The FLORINDA results have finally returned and is very elevated. Hypocomplementemia is often seen with lupus nephritis, but sometimes false positive can be seen. See above regarding renal biopsy, which I recommend for Friday. I would not start immunosuppresion therapy until renal biopsy results return. (5) Acute hypokalemia Current Visit: No Status: Acute Continue KCl 20mEq po bid plus with the iHD will use a higher K+ bath for HD on Friday Subjective Principal diagnosis: ARSH Interval history: Pt was s/e with his at bedside. His hospitalist was also in the room at the time. The pt provided verbal consent to proceed with renal biopsy. He voiced that he continues to feel tired, fatigued, diminished appetite, but that his N/V has started to improve. He did not affirm flank or abd pain. Objective - Vital Signs Vital signs: Vital Signs Temp Pulse Resp BP Pulse Ox 10/12/17 07:35 97.8 F 72 15 123/77 95 10/12/17 05:56 98.3 F 70 16 150/91 98 10/11/17 20:42 97 10/11/17 19:18 98.2 F 73 16 147/86 97 10/11/17 13:55 98.4 F 77 15 151/89 96 10/11/17 13:40 98.0 F 15 146/76 10/11/17 13:30 128/78 10/11/17 13:15 147/76 10/11/17 13:00 138/77 10/11/17 12:45 127/89 10/11/17 12:30 138/91 10/11/17 12:15 128/85 10/11/17 12:00 118/75 10/11/17 11:45 120/87 10/11/17 11:30 126/88 10/11/17 11:15 135/92 10/11/17 11:00 133/86 10/11/17 10:45 136/92 10/11/17 10:30 98.0 F 15 143/93 Intake and Output 10/11/17 10/12/17 10/12/17 23:59 07:59 15:59 Intake Total 200 / 200 Output Total 20 / 20 470 / 470 Balance 180 / 180 -470 / -470 Intake: Oral 200 / 200 Output: Urine 0 / 0 450 / 450 Wound Drainage 20 / 20 20 / 20 Left Foot 20 / 20 20 / 20 Other: Meal Dinner Percent of Meal Consumed 0% Stool Size Moderate Stool Consistency loose Stool Characteristics Tarry Stool Color Black # Bowel Movements 0 1 Weight 92.4 kg - General Appearance Exam: General appearance: Present: well-developed, fatigue, frail EENT: Present: ATNC, mucous membranes dry Neck: Present: supple Respiratory: Present: clear Cardiology: Present: no edema, regular rate, regular rhythm, normal S1, normal S2 Dialysis Vascular Access: Venous Catheter (RI temporary HD catheter dressing C/ D/I) Integumentary: Present: warm and dry with the left foot wound dressing C/D/I. Neurologic: Present: no focal deficit, no asterixis, alert and oriented x3 Musculoskeletal: Present: no erythema, no cyanosis Psychiatric: Present: mood/affect appropriate, cooperative - Lab 10/12/17 00:29 10/12/17 00:29 Most recent lab results Calcium 8.0 mg/dL (8.6-10.3) L 10/12/17 00:29 Phosphorus 3.4 mg/dL (2.7-4.5) 10/07/17 07:51 Magnesium 1.7 mg/dL (1.6-2.6) 10/11/17 05:43 Urine Creatinine 80 mg/dL 10/06/17 16:00 Urine Sodium 76.4 mEq/L 10/05/17 12:57 Urine Total Protein SEE NOTE mg/d (10-140) 10/07/17 19:24 - VTE Documentation of Mechanical Device: Intermittent pneumatic compression device Consult Discharge Plan - Plan Referrals: [facility] [Outside] - 10/22/17 8:30 am
--- NOTE | 2017-10-12 10:57 | Internal Med Progress Note ---
Hospitalist Progress Note - Encounter Date of Encounter: 10/12/17 Time of Encounter: 10:53 - Subjective Interval History: Patient is currently asleep but easily awakes. He reports increasing pain and burning in his toes. Still not feeling like eating anything. He is scheduled for a renal biopsy tomorrow - Exam Vitals: Temp Pulse Resp BP Pulse Ox 97.8 F 72 15 123/77 95 10/12/17 07:35 10/12/17 07:35 10/12/17 07:35 10/12/17 07:35 10/12/17 07:35 Exam: General: Patient is alert, no acute distress, oriented x 3 Head: atraumatic, normocephalic, Eye: normal appearance, PERRL, no scleral icterus, no conjunctival injection Neck: normal inspection, trachea midline, full ROM, no carotid bruits Chest: normal inspection, symmetric chest rise Respiratory: Good respiratory effort. Normal breath sounds. No wheezing or crackles. Cardiovascular: Regular rate and rhythm. s1 and s2 No clicks, rubs, gallops, or murmurs. No pedal edema Abdomen: Abdomen is soft, nontender. Bowel sounds are present Musculoskeletal: Left foot bandaged, wound VAC in place Skin: warm, dry, intact. Neuro: Alert oriented x 3 normal cranial nerves, no focal deficits Psych: Patient's affect is normal - Assessment and Plan (1) Acute renal failure Current Visit: Yes Status: Acute Assessment and Plan: Possibly ATN. He does have positive FLORINDA and features suggestive of autoimmune causes. Nephrology following. Recommend renal biopsy tomorrow. INR is 1.6. Vitamin K ordered. Moderate risk for complications (2) Wound of left lower extremity Current Visit: Yes Status: Acute Assessment and Plan: On Levaquin. Continue local wound care with wound VAC. Podiatry following. (3) Hypertension Current Visit: Yes Status: Chronic Assessment and Plan: Blood pressure elevated earlier today likely related due to pain. It has improved since then. Continue carvedilol at 25 mg twice daily, amlodipine. (4) Syncope Current Visit: Yes Status: Resolved (5) Seizure Current Visit: Yes Status: Chronic Assessment and Plan: No longer having any jerking movements. Continue Dilantin. Follow up with neurology as outpatient (6) Dehydration Current Visit: Yes Status: Resolved (7) Bicytopenia Current Visit: Yes Status: Chronic Assessment and Plan: Hemoglobin 9 and platelets 101 today. (8) Metabolic acidosis Current Visit: Yes Status: Acute (9) Weight loss, non-intentional Current Visit: Yes Status: Acute (10) Severe protein-calorie malnutrition Current Visit: Yes Status: Acute Assessment and Plan: Continues to have poor appetite. Started on Marinol 2 days back. Encouraged to eat. No dietary restrictions at this time. - Time Spent with Patient Total time spent is greater than 50% in coordination of care (as documented) at patient's floor/unit and/or counseling patient: Plan of Care Discussed with: patient Internal Medicine: Result - Labs CBC & Chem 7: 10/12/17 00:29 10/12/17 00:29 Labs: Short CBC 10/12/17 Range/Units 00:29 WBC 4.6 (4.3-11.1) K/mcL Hgb 9.0 L (12.9-16.9) g/dL Hct 27.0 L (37.5-50.1) % Plt Count 101 L (140-400) K/mcL BMP 10/12/17 00:29 Sodium 139 Potassium 3.9 Chloride 102 Carbon Dioxide 28 BUN 13 Creatinine 2.16 H Glucose 81 Calcium 8.0 L - ABG Interpretation ABG results: PT/INR, D-dimer PT 17.5 Seconds (9.4-12.1) H 10/12/17 00:29 - VTE Documentation of Mechanical Device: Intermittent pneumatic compression device Consult Discharge Plan - Plan Referrals: [facility] [Outside] - 10/22/17 8:30 am (1) Acute renal failure Qualifiers: Acute renal failure type: with acute tubular necrosis Qualified Code(s): N17.0 - Acute kidney failure with tubular necrosis (2) Wound of left lower extremity Qualifiers: Encounter type: initial encounter Qualified Code(s): S81.802A - Unspecified open wound, left lower leg, initial encounter (3) Hypertension Qualifiers: Hypertension type: essential hypertension Qualified Code(s): I10 - Essential (primary) hypertension (4) Syncope Qualifiers: Syncope type: unspecified Qualified Code(s): R55 - Syncope and collapse
[2017-10-12] MEDS ORDERED: *HR* OxyCODONE/APAP 5/325 TABLET PO PRN (11:21)
--- NOTE | 2017-10-12 14:10 | Podiatry Progress Note ---
Date of Encounter: 10/12/17 Time of Encounter: 13:45 - Assessment and Plan (1) Osteomyelitis Current Visit: No Status: Acute admitted after syncopal episode consult infectious disease for abx recommendations. wound vac next change Friday non-wb left lower extremity discussed condition of his left foot/ankle, understands he is still at risk for limb loss. all questions answered. Qualifiers: Osteomyelitis type: unspecified type Osteomyelitis location: unspecified site Qualified Code(s): M86.9 - Osteomyelitis, unspecified Subjective Principal diagnosis: ARSH Interval history: patient says he feels rough today. says they are taking a biopsy of his kidney. he says he may have lupus. says his strength is better. patient says he wants to go home. Objective - Vital Signs Vital Signs: Vital Signs Temp Pulse Resp BP Pulse Ox 10/12/17 11:15 98.2 F 56 16 125/80 96 10/12/17 07:35 97.8 F 72 15 123/77 95 10/12/17 05:56 98.3 F 70 16 150/91 98 10/11/17 20:42 97 10/11/17 19:18 98.2 F 73 16 147/86 97 Intake and Output 10/11/17 10/12/17 10/12/17 23:59 07:59 15:59 Intake Total 200 / 200 Output Total 20 / 20 470 / 470 Balance 180 / 180 -470 / -470 Intake: Oral 200 / 200 Output: Urine 0 / 0 450 / 450 Wound Drainage 20 / 20 20 / 20 Left Foot 20 / 20 20 / 20 Other: Meal Dinner Percent of Meal Consumed 0% Stool Size Moderate Stool Consistency loose Stool Characteristics Tarry Stool Color Black # Bowel Movements 0 1 Weight 92.4 kg - Exam Exam: wound vac on and functioning 125 mm Hg. no leak. - Lab Result Diagrams: 10/12/17 00:29 10/12/17 00:29 Labs: Abnormal lab results RBC 2.85 M/mcL (4.19-5.50) L 10/12/17 00:29 Hgb 9.0 g/dL (12.9-16.9) L 10/12/17 00:29 Hct 27.0 % (37.5-50.1) L 10/12/17 00:29 RDW 14.7 % (11.5-14.5) H 10/12/17 00:29 Plt Count 101 K/mcL (140-400) L 10/12/17 00:29 Nucleated RBCs/100 WBC 0.6 /100 WBC (0) H 10/06/17 03:57 Platelet Estimate Decreased (Normal) L 10/04/17 05:09 ESR 57 mm/hr (0-10) H 10/02/17 12:12 PT 17.5 Seconds (9.4-12.1) H 10/12/17 00:29 Creatinine 2.16 mg/dL (0.70-1.30) H 10/12/17 00:29 Est GFR ( Amer) 38 (> 60) L 10/12/17 00:29 Est GFR (Non-Af Amer) 31 (> 60) L 10/12/17 00:29 Calcium 8.0 mg/dL (8.6-10.3) L 10/12/17 00:29 % Saturation 63 % (20-55) H 10/05/17 03:56 Transferrin 113 mg/dL (203-362) L 10/05/17 03:56 AST 53 Units/L (13-39) H 10/10/17 06:12 Serum Total Protein 5.8 g/dL (6.4-8.9) L 10/10/17 06:12 Albumin 2.6 g/dL (3.5-5.7) L 10/10/17 06:12 Albumin (PEP) 2.77 g/dL (3.75-5.01) L 10/06/17 13:42 Albumin/Globulin Ratio 0.8 (1.1-2.2) L 10/10/17 06:12 Gamma Globulins 1.76 g/dL (0.62-1.51) H 10/06/17 13:42 Vitamin B12 243 pg/mL (250-1100) L 10/05/17 11:15 Urine Clarity Cloudy (Clear) A 10/06/17 16:00 Urine Protein 100 mg/dL (Neg-Trace) H 10/06/17 16:00 Urine Ketones 15 mg/dL (Negative) H 10/06/17 16:00 Urine Blood Large (Negative) H 10/06/17 16:00 Ur Leukocyte Esterase Trace (Negative) H 10/06/17 16:00 Urine Microscopic RBC TNTC per hpf (0-3) H 10/06/17 16:00 Urine Microscopic WBC 5-15 per hpf (0-3) H 10/06/17 16:00 Ur Eosinophil Smear 1 % (None Seen) H 10/06/17 16:00 Ur Squamous Epith Cells Many per lpf (None-Few) H 10/06/17 16:00 Ur Culture Indicated? NO. (NO) A 10/06/17 16:00 Protein/Creatinin Ratio 2.00 mg/mg (0.00-0.20) H 10/06/17 16:00 U Free [place] Light Ch 58.30 mg/dL (0.14-2.42) H 10/07/17 19:24 U Free Lambda Light Ch 17.20 mg/dL (0.02-0.67) H 10/07/17 19:24 Phenytoin 1.9 mcg/mL (10.0-20.0) L 10/03/17 06:07 Copper 65 ug/dL (70-140) L 10/05/17 11:15 IgG 1720 mg/dL (768-1632) H 10/06/17 13:42 FLORINDA Titer 1:1280 (<1:80) H 10/06/17 13:42 Complement C3 80 mg/dL (88-201) L 10/06/17 13:42 Free [place] LC, Quant 20.90 mg/dL (0.33-1.94) H 10/06/17 13:42 Free Lambda LC, Quant 13.90 mg/dL (0.57-2.63) H 10/06/17 13:42 - VTE Documentation of Mechanical Device: Intermittent pneumatic compression device Consult Discharge Plan - Plan Referrals: [facility] [Outside] - 10/22/17 8:30 am
[2017-10-12] MEDS: Levofloxacin 750 MG/150 ML 750 MG/150 ML BAG IVPB SCH (15:59)
[2017-10-12] MEDS: Mirtazapine 15 MG TABLET PO SCH (20:40)
[2017-10-13 03:45] LABS: Hematocrit 26.6 % (37.5-50.1); Hemoglobin 8.8 g/dL (12.9-16.9); Mean Corpuscular HGB Conc 33.1 g/dL (31.6-35.5); Mean Corpuscular Hemoglobin 30.9 pg (28.0-33.3); Mean Corpuscular Volume 93.3 fL (83.0-100.0); Mean Platelet Volume 10.1 fL (9.4-12.4); Platelet Count 110 K/mcL (140-400); Red Blood Count 2.85 M/mcL (4.19-5.50)
[2017-10-13 03:51] LABS: INR 1.4; Prothrombin Time 15.5 Seconds (9.4-12.1)
[2017-10-13 04:04] LABS: Calcium 8.1 mg/dL (8.6-10.3); Potassium 3.8 mEq/L (3.5-5.1)
[2017-10-13] MEDS: Cholestyramine 4 GM POWD.PACK PO SCH ×2 (07:56→16:20)
[2017-10-13] MEDS: amLODIPine 5 MG TABLET PO SCH (07:57)
[2017-10-13] MEDS: Gabapentin 300 MG CAPSULE PO SCH ×2 (07:57→21:37)
[2017-10-13] MEDS: Multivit/Ca/Min/Fe/FA 1 TAB TABLET PO SCH (07:57)
[2017-10-13] MEDS: Cyanocobalamin (B-12) 1,000 MCG TABLET PO SCH (07:57)
--- NOTE | 2017-10-13 08:21 | Internal Med Progress Note ---
Hospitalist Progress Note - Encounter Date of Encounter: 10/13/17 Time of Encounter: 10:15 - Subjective Interval History: Patient hospitalized initially following a syncopal episode along with acute kidney injury. Patient has not been on IV antibiotics for left foot wound infection which was being treated by podiatry and infectious disease has outpatient. Patient was on cefepime due to infection with pseudomonas aeruginosa. Levaquin and nephrology and urology were consulted. Patient's kidney function did not improve despite IV fluids and so patient has been started on hemodialysis through a temporary dialysis catheter. He is scheduled for renal biopsy today. She was evaluated by neurology due to him having jerking movements. Patient does have underlying seizure disorder. EEG was done which was within normal limits. Neurology recommends outpatient follow-up and eventually weaning off phenytoin if patient does not have any further episodes of seizures. These jerking movements and no stopped after patient was started on hemodialysis. Patient does have protein calorie malnutrition. Also has copper deficiency and vitamin B12 deficiency. Patient is on vitamin B12 supplements and multivitamins. He does not have a good appetite and taste states that nothing tastes good and so is not eating anything. He does have good swallow function and is not having any nausea or emesis. When he does eat anything he is able to keep the food down. He also has bicytopenia with anemia and thrombocytopenia. He is on DVT prophylaxis with SCDs. At this time nephrology is awaiting renal biopsy to make a decision on continued hemodialysis. Infectious disease consultation today to make recommendations for further antibiotics. Podiatry also following. QT interval being monitored as patient is on Levaquin. Patient is lying in bed. Continues to have poor taste sensation and lack of appetite. Underwent renal biopsy today. No new complaints postprocedure. No fever reported overnight. - Exam Vitals: Temp Pulse Resp BP Pulse Ox 97.9 F 66 14 147/85 96 10/13/17 06:31 10/13/17 06:31 10/13/17 06:31 10/13/17 06:31 10/13/17 06:31 Exam: General: Patient is alert, no acute distress, oriented x 3 Head: atraumatic, normocephalic, Eye: normal appearance, PERRL, no scleral icterus, no conjunctival injection Neck: normal inspection, trachea midline, full ROM, no carotid bruits Chest: normal inspection, symmetric chest rise Respiratory: Good respiratory effort. Normal breath sounds. No wheezing or crackles. Cardiovascular: Regular rate and rhythm. s1 and s2 No clicks, rubs, gallops, or murmurs. No pedal edema Abdomen: Abdomen is soft, nontender. Bowel sounds are present Musculoskeletal: Wound VAC to left foot. Skin: warm, dry, intact. Neuro: Alert oriented x 3 normal cranial nerves, no focal deficits Psych: Patient's affect is normal - Assessment and Plan (1) Acute renal failure Current Visit: Yes Status: Acute Assessment and Plan: Renal biopsy done today. Creatinine continues to rise and patient does not receive hemodialysis. He had about 1 L urine output yesterday. Nephrology following. Plan for dialysis tomorrow. Based on renal biopsy results, patient may need permacath placement. We will await nephrology recommendations. Moderate risk for complications (2) Wound of left lower extremity Current Visit: Yes Status: Acute Assessment and Plan: Infected wound of left lower extremity. Prior wound cultures positive for Pseudomonas aeruginosa and GCS. Patient was on cefepime after hospitalization. This has been stopped on account of acute kidney injury. Patient is now on Levaquin every 48 hours. Infectious disease consultation. We will follow recommendations (3) Hypertension Current Visit: Yes Status: Chronic Assessment and Plan: Blood pressure is better controlled today. Continue Coreg 25 mg twice daily and amlodipine 10 mg daily (4) Syncope Current Visit: Yes Status: Resolved (5) Seizure Current Visit: Yes Status: Chronic Assessment and Plan: On Dilantin. Plan to follow up with neurology as outpatient (6) Dehydration Current Visit: Yes Status: Resolved (7) Bicytopenia Current Visit: Yes Status: Chronic Assessment and Plan: stable. Platelet count improving. 110 today. Hemoglobin 8.8 (8) Metabolic acidosis Current Visit: Yes Status: Resolved Assessment and Plan: Being managed with hemodialysis. (9) Severe protein-calorie malnutrition Current Visit: Yes Status: Acute Assessment and Plan: Patient continues to have protein calorie malnutrition. Bruits the subject of possible feeding every patient continues to have poor appetite and poor nutrition. However patient is adamantly against this. Nutrition following. Encouraged to try anything he wants. Patient is on Remeron and Marinol to stimulate appetite. (10) Weight loss, non-intentional Current Visit: Yes Status: Acute DVT Prophylaxis: SCDs. Consider starting heparin/ lovenox if platelet counts continue to improve and patient remains hospitalized. - Time Spent with Patient Total time spent is greater than 50% in coordination of care (as documented) at patient's floor/unit and/or counseling patient: Plan of Care Discussed with: patient Internal Medicine: Result - Labs CBC & Chem 7: 10/13/17 03:31 10/13/17 03:31 Labs: Short CBC 10/13/17 Range/Units 03:31 WBC 4.3 (4.3-11.1) K/mcL Hgb 8.8 L (12.9-16.9) g/dL Hct 26.6 L (37.5-50.1) % Plt Count 110 L (140-400) K/mcL BMP 10/13/17 03:31 Sodium 138 Potassium 3.8 Chloride 102 Carbon Dioxide 25 BUN 19 Creatinine 2.88 H Glucose 75 Calcium 8.1 L - ABG Interpretation ABG results: PT/INR, D-dimer PT 15.5 Seconds (9.4-12.1) H 10/13/17 03:31 - VTE Documentation of Mechanical Device: Intermittent pneumatic compression device Consult Discharge Plan - Plan Referrals: [facility] [Outside] - 10/22/17 8:30 am (1) Acute renal failure Qualifiers: Acute renal failure type: with acute tubular necrosis Qualified Code(s): N17.0 - Acute kidney failure with tubular necrosis (2) Wound of left lower extremity Qualifiers: Encounter type: initial encounter Qualified Code(s): S81.802A - Unspecified open wound, left lower leg, initial encounter (3) Hypertension Qualifiers: Hypertension type: essential hypertension Qualified Code(s): I10 - Essential (primary) hypertension (4) Syncope Qualifiers: Syncope type: unspecified Qualified Code(s): R55 - Syncope and collapse
[2017-10-13] MEDS ORDERED: *HR* FentaNYL (PF) 100 MCG/2 ML VIAL IVP ONE (08:33)
[2017-10-13] MEDS ORDERED: *HR* Midazolam HCl 2 MG/2 ML VIAL IVP ONE (08:33)
[2017-10-13] MEDS ORDERED: 0.9 % Sodium Chloride 500 ML ONE (08:51)
--- NOTE | 2017-10-13 09:18 | IR Procedure Note ---
Date of procedure: 10/13/17 Consent Obtained: Verbal consent, Written consent Timeout: Correct patient and procedure verified, Correct site verified, Time out performed, Skin prep completed Local anesthetic: Lidocaine 1% Indications: Renal failure Procedure Performed: CT guided random kidney biopsy Was there an yard assistant present: No Site/Technique: CT guided random kidney biopsy Results/Findings: 5 18 gauge core needle biopsies obtained Estimated blood loss (cc): 5 Complications: None; Tolerated procedure well Post Procedure Treatment Plan: Bedrest x3 hours Specimen: 5 18 gauge core needle biopsies
--- NOTE | 2017-10-13 13:20 | Podiatry Progress Note ---
Date of Encounter: 10/13/17 Time of Encounter: 12:00 - Assessment and Plan (1) Nonhealing surgical wound Current Visit: No Status: Acute s/p excisional debridement of wounds through deep fascia/tendon, application of PRP, left lower extremity by Dr. Larkin on 09/25/17. S/p application of graft on 10/02/[address] Larkin. Wound vac changed at bedside. WBC: 4.3 Platelets: 110 Surgical biopsy from left foot on 09/10/17 isolated Pseudomonas Aeruginosa, Group C Strep. Plan: Wound vac changed today. Next wound vac changed due on . Patients wound vac schedule is ever Friday and . All surrounding skin prepped with Allkare, drape applied to protect skin, white sponge applied to anterior wound with black sponge, small black simplace wound vac sponge bridged to wound to lateral foot and posterior left heel. Connected to 150 mmhg continuous suction. Patient has own home wound vac. IV antibiotic management per Infectious Disease. Will continue to follow patient closely. 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 Larkin on 09/25/17. S/p placement of graft by Dr. Larkin on 10/02/17. Patient has a wound vac intact to the left ankle and foot. Patient is sleeping in bed with spouse at bedside. Patient just returned from a renal biopsy. Patient denies any pain, fever, chills, cp, sob. Objective - Vital Signs Vital Signs: Vital Signs Temp Pulse Resp BP Pulse Ox 10/13/17 09:56 98.5 F 61 16 112/74 100 10/13/17 09:35 97.5 F L 73 16 100/72 100 10/13/17 09:14 65 12 114/77 100 10/13/17 09:09 65 13 123/82 100 10/13/17 09:04 65 14 117/82 98 10/13/17 08:58 76 15 144/106 100 10/13/17 06:31 97.9 F 66 14 147/85 96 10/13/17 04:55 97.7 F 65 15 132/81 98 10/12/17 19:24 98.5 F 60 15 123/80 100 10/12/17 15:46 97.5 F L 67 15 139/96 98 Intake and Output 10/12/17 10/13/17 10/13/17 23:59 07:59 15:59 Intake Total 150 / 150 0 / 0 0 / 0 Output Total 515 / 515 0 / 0 Balance -365 / -365 0 / 0 -10 Intake: IV Fluids 150 / 150 Levaquin Premix 750mg/150 mL 150 / 150 750 mg In 150 ml @ 100 mls/hr IVPB Q[facility] Rx#:[id number] Oral 0 / 0 0 / 0 0 / 0 Output: Urine 500 / 500 0 / 0 0 / 0 Wound Drainage 15 / 15 0 / 0 Left Foot 15 / 15 0 / 0 0 / 0 Left Lower Foot Other: Meal Lunch Percent of Meal Consumed 0% # Bowel Movements 0 0 Weight 82.6 kg Blood Glucose* 73 Patient Weight 10/13/17 23:59 Weight 82.6 kg - Exam Exam: General appearance: alert awake oriented X 3. Calm and pleasant, no acute distress.. Vascular: No evidence of cyanosis, pallor or rubor, Edema graded at 1+/4, Skin Tempature warm, No calf pain with manual compression. capillary refill time is immediate to digits. Neurologic: Sensation intact with light touch to foot. . Postop Exam: S/P Surgical wound #1: anterior left ankle measuring 9 cm in length x 10 cm in width x 1 cm in depth, base of wound with fascia and tendon exposed, yellow fibrous tissue with red granulation tissue to wound bed, no pus, no odor, light periwound, no streaking, no fluctuance. Surgical wound #2: lateral aspect of left foot measuring 2 cm in length x 2 cm in width x 1 cm in depth, base of wound 90% red granulation tissue and 10 % yellow fibrous tissue, no pus, no odor, no periwound erythema, no streaking, no cellulitis, no flucutuance. Surgical wound #3: left posterior heel measuring 4.5 cm in length x 3.5 cm in width x 0.2 cm in depth, base of wound 80 % red granulation tissue and 20% yellow slough. no periwound erythema, no odor, no pus, fluctuance. - Lab Result Diagrams: 10/13/17 03:31 10/13/17 03:31 Labs: Abnormal lab results RBC 2.85 M/mcL (4.19-5.50) L 10/13/17 03:31 Hgb 8.8 g/dL (12.9-16.9) L 10/13/17 03:31 Hct 26.6 % (37.5-50.1) L 10/13/17 03:31 RDW 15.0 % (11.5-14.5) H 10/13/17 03:31 Plt Count 110 K/mcL (140-400) L 10/13/17 03:31 Nucleated RBCs/100 WBC 0.6 /100 WBC (0) H 10/06/17 03:57 Platelet Estimate Decreased (Normal) L 10/04/17 05:09 ESR 57 mm/hr (0-10) H 10/02/17 12:12 PT 15.5 Seconds (9.4-12.1) H 10/13/17 03:31 Creatinine 2.88 mg/dL (0.70-1.30) H 10/13/17 03:31 Est GFR ( Amer) 27 (> 60) L 10/13/17 03:31 Est GFR (Non-Af Amer) 22 (> 60) L 10/13/17 03:31 Calcium 8.1 mg/dL (8.6-10.3) L 10/13/17 03:31 % Saturation 63 % (20-55) H 10/05/17 03:56 Transferrin 113 mg/dL (203-362) L 10/05/17 03:56 AST 53 Units/L (13-39) H 10/10/17 06:12 Serum Total Protein 5.8 g/dL (6.4-8.9) L 10/10/17 06:12 Albumin 2.6 g/dL (3.5-5.7) L 10/10/17 06:12 Albumin (PEP) 2.77 g/dL (3.75-5.01) L 10/06/17 13:42 Albumin/Globulin Ratio 0.8 (1.1-2.2) L 10/10/17 06:12 Gamma Globulins 1.76 g/dL (0.62-1.51) H 10/06/17 13:42 Vitamin B12 243 pg/mL (250-1100) L 10/05/17 11:15 Urine Clarity Cloudy (Clear) A 10/06/17 16:00 Urine Protein 100 mg/dL (Neg-Trace) H 10/06/17 16:00 Urine Ketones 15 mg/dL (Negative) H 10/06/17 16:00 Urine Blood Large (Negative) H 10/06/17 16:00 Ur Leukocyte Esterase Trace (Negative) H 10/06/17 16:00 Urine Microscopic RBC TNTC per hpf (0-3) H 10/06/17 16:00 Urine Microscopic WBC 5-15 per hpf (0-3) H 10/06/17 16:00 Ur Eosinophil Smear 1 % (None Seen) H 10/06/17 16:00 Ur Squamous Epith Cells Many per lpf (None-Few) H 10/06/17 16:00 Ur Culture Indicated? NO. (NO) A 10/06/17 16:00 Protein/Creatinin Ratio 2.00 mg/mg (0.00-0.20) H 10/06/17 16:00 U Free Vanderbilt Light Ch 58.30 mg/dL (0.14-2.42) H 10/07/17 19:24 U Free Lambda Light Ch 17.20 mg/dL (0.02-0.67) H 10/07/17 19:24 Phenytoin 1.9 mcg/mL (10.0-20.0) L 10/03/17 06:07 Copper 65 ug/dL (70-140) L 10/05/17 11:15 IgG 1720 mg/dL (768-1632) H 10/06/17 13:42 FLORINDA Titer 1:1280 (<1:80) H 10/06/17 13:42 Complement C3 80 mg/dL (88-201) L 10/06/17 13:42 Free Vanderbilt LC, Quant 20.90 mg/dL (0.33-1.94) H 10/06/17 13:42 Free Lambda LC, Quant 13.90 mg/dL (0.57-2.63) H 10/06/17 13:42 - VTE Documentation of Mechanical Device: Intermittent pneumatic compression device Consult Discharge Plan - Plan Referrals: [facility] [Outside] - 10/22/17 8:30 am
--- NOTE | 2017-10-13 13:21 | Infectious Disease Consult ---
Date of Encounter: 10/13/17 Time of Encounter: 13:01 Assessment and Plan (1) Wound of left lower extremity Status: Acute Assessment and plan: Location: Left lateral ankle. Causative organism PSEA and GCS. Secondary to non-healing surgical wound. X-ray of the left foot/ankle and recent postsurgical change of arthrodesis in the foot with worsening soft tissue swelling and edema with suspected ulceration and perhaps subcutaneous gas over the dorsal and medial aspect of the foot. The pattern may represent cellulitis and ulceration, but underlying fasciitis cannot be excluded. Podiatry consulted and following. Status post excisional debridement of the left foot wounds anterior ankle, lateral foot, and posterior heel. Large amount of serous drainage noted intra-op. Cultures as above. Pathology negative for OM. Status post repeat washout and removal of hardware 09/13/[address] Larkin. No additional cultures were sent. Wound care and activity restrictions per the podiatry team. ESR remains elevated, but CRP normal. Originally discharged home to complete a 6 week course of IV Cefepime, but antibiotics switched to IV Levaquin per the primary team due to concern that Cefepime could be contributing to ARSH. Continue Levaquin 750mg IV Q48H for now. Duration of treatment depends on the clinical picture, but likely 6 weeks of IV antibiotics. Monitor renal function and dose-adjust antibiotics. Qualifiers: Encounter type: initial encounter Qualified Code(s): S81.802A - Unspecified open wound, left lower leg, initial encounter (2) Acute kidney injury Status: Acute Assessment and plan: Etiology unclear: Pre-renal vs. ATN vs. GN vs. other. Improved after initiation of HD. Discussed with Dr. Carter. Unlikely that Cefepime caused ARSH, but will await biopsy results. Urine output remains adequate. Status post renal biopsy 10/13/17. Await report. Nephrology consulted and following. (3) Syncope Status: Resolved Assessment and plan: Likely secondary to ARSH. Qualifiers: Syncope type: unspecified Qualified Code(s): R55 - Syncope and collapse (4) Thrombocytopenia Status: Acute Assessment and plan: Etiology unclear. Unlikely infectious etiology. Continue to trend. Hem/Onc consulted. (5) Metabolic acidosis, normal anion gap (NAG) Status: Acute (6) Hypocomplementemia Status: Acute (7) FLORINDA positive Status: Acute (8) Severe protein-calorie malnutrition Status: Acute Assessment and plan: Patient reports that nothing tastes good and he continues to have some intermittent nausea. 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 Larkin. (11) Diarrhea Status: Resolved Assessment and plan: Etiology unclear. Likely contributing to the patient's poor nutritional status. GI panel negative previously. Patient states diarrhea is unchanged. Recommend re-starting probiotics. Qualifiers: Diarrhea type: unspecified type Qualified Code(s): R19.7 - Diarrhea, unspecified Infectious Disease HPI - Data of Consult Patient: known to practice within the last 3 years Consult date: 10/13/17 Requesting Physician: Nella Pino MD Primary Care Provider[facility] - Consult Narrative Reason for consult: Antibiotic recommendations History of present illness: Mr. Dias is a 62 year old male with a past medical history of hypertension, kidney stones, seizure disorder, and chronic left ankle wound secondary to nonhealing surgical incision with subsequent infection. The patient was admitted to the hospital October 02 for acute kidney injury and dehydration. We are consulted October 13 for antibiotic recommendations in the setting of acute kidney injury. Briefly, the patient is a 62-year-old male with past medical history as stated above. The patient as well as infectious disease service as we were consulted on his case when he was admitted to the hospital back in August. At that time, the patient was noted to have an infection of the nonhealing surgical wound from a previous arthrodesis of the left ankle. At that time, he was seen in the wound clinic and subsequently was noted to have an infection. He was taken to the operating room September 10 and underwent Excisional debridement of the left foot wounds anterior ankle, lateral foot, posterior heel, and removal of hardware. There was a large amount of serous drainage intraoperative cultures grew out Pseudomonas and group C strep. He was taken back to the operating room on September 13 for repeat washout. He was discharged home to complete a six-week course of IV cefepime due to the extensive nature of the infection and the fact that there was some hardware left in the wound. Since discharge, the patient has continued to follow up in the wound care clinic. I saw him in the office on September 29. At that time, he was noted to feel generally tired and had some nausea with dry heaves, but was otherwise doing well. His labs revealed an acute kidney injury and I had originally recommended the patient go to the ER at that time, but he refused. He was agreeable to attempt to hydrate at home and repeat labs later that week, but the patient ended up coming to the ER after he had a syncopal episode on his way into the wound care clinic. Upon arrival, the patient was afebrile and hemodynamically stable. His white blood cell count was normal. Troponin was negative. ESR was 57 with a CRP of less than 5. His creatinine was elevated at 4.17. He had a chest x-ray, left foot x-ray, and CT of the head that were all negative for acute abnormality. He was admitted to the hospital for further evaluation. Since admission, the patient's white blood cell count has remained normal. He has remained afebrile. Nephrology has been consulted to assist with his acute kidney injury. His creatinine continued to be elevated with minimal to no improvement so hemodialysis was initiated on October 08. Since then, his creatinine has improved somewhat. The etiology of his ARSH is still unknown: ATN versus GN. The patient did have a renal biopsy today and those results are pending. His antibiotics were transitioned over to IV Levaquin which she is receiving every 48 hours. We have been asked to evaluate and make further recommendations. During my exam today, the patient is somewhat drowsy. He is resistant to the physical exam and review of systems. He does come back from his renal biopsy. He states he wants to go home and does not want to talk about it. His ex- is at the bedside and I did discuss case with her. The patient denies pain or shortness of breath or cough. He states that he has had little to no by mouth intake for the past 9 weeks. He reports a small bowel movement yesterday that was loose. He denies abdominal pain or urinary complaints. He denies pain at the biopsy site. He refuses to answer any other review of systems questions at this time. CC: Nella Pino MD Past Med Surg Social Fam HX - Past Medical History Attestation: Yes The following information was validated with the patient. Source: patient, old records reviewed, nursing notes reviewed Medical history: hypertension, kidney stones, seizures, syncope, other Additional medical history: Left Foot Drop, Polyp, Lumbar deforming dorsopathies , Psychiatric history: anxiety, depression - Past Surgical History Surgical History: other Additional surgical history: left foot surgery - Social History Smoking Status: Former smoker Smokeless Tobacco Status: No Alcohol use: none Drug use: none Occupational status: disabled Current living situation: Home, With Family Activity Level: Independent ambulation Recent Out of Country Travel Within the Last 8 Weeks: No Exposure or Possible Exposure to Illness During Travel: No - Family History Mother Adopted: No Hx Family Cardiac Disorders: Yes (Enlarged heart) Hx Family Respiratory Disorders: No Hx Family Cancer: No Hx Family GI Disorders: No Hx Family Endocrine Disorder: Yes (Dm) Hx Family Neuromuscular Disorders: No Hx Family Neurologic Disorders: No Hx Family HEENT Disorders: No Hx Family Autoimmune Disorders: No Father Adopted: No Family Member Ethnicity: Non- Living Status: Hx Family Cardiac Disorders: Yes Hx Family Respiratory Disorders: No Hx Family Cancer: No Hx Family GI Disorders: No Hx Family Endocrine Disorder: No Hx Family Neuromuscular Disorders: No Hx Family Neurologic Disorders: No Hx Family HEENT Disorders: No Hx Family Autoimmune Disorders: No Infectious Disease-CN:Meds Carvedilol 12.5 mg PO BID 07/03/17 [History] Gabapentin [Neurontin] 900 mg PO QID 07/03/17 [History] Phenytoin Sodium Extended [Phenytek] 200 mg PO TID 07/03/17 [History] Tamsulosin HCl [Flomax] 0.4 mg PO DAILY 07/03/17 [History] Cholestyramine 4 gm PO BIDAC #60 powd.pack 09/17/17 [Rx] Cefepime HCl/Dextrose, Iso-Osm [Cefepime 2 gm Injection] 2 gm IV Q12H 10/02/17 [ History] Chlorthalidone 25 mg PO DAILY 10/02/17 [History] Clopidogrel [Plavix] 75 mg PO DAILY 10/02/17 [History] Lisinopril [Zestril] 10 mg PO DAILY 10/02/17 [History] Potassium Chloride [K-Tab ER] 20 meq PO BID 10/02/17 [History] amLODIPine [Norvasc] 5 mg PO DAILY 10/02/17 [History] 3 Allergy/AdvReac Type Severity Reaction Status Date / Time No Known Allergies Allergy Verified 09/08/17 14:09 All systems: reviewed and no additional remarkable complaints except as stated Exam - Constitutional Vitals: Temp Pulse Resp BP Pulse Ox 98.5 F 61 16 112/74 100 10/13/17 09:56 10/13/17 09:56 10/13/17 09:56 10/13/17 09:56 10/13/17 09:56 General appearance: average body habitus, cooperative, no acute distress - Head Head exam: Present: atraumatic, normal inspection, normocephalic - Eye Eye exam: Present: EOMI, normal appearance, PERRL Pupils: Present: normal accommodation - ENT ENT exam: Present: mucous membranes moist - Neck Neck exam: Present: normal inspection - Respiratory Respiratory exam: Present: CTAB. Absent: rales, respiratory distress, rhonchi, wheezes - Cardiovascular Cardiovascular exam: Present: RRR, +S1, +S2 - GI/Abdominal GI/Abdominal exam: Present: normal bowel sounds, soft. Absent: distended, tenderness - Extremities Exam Extremities exam: Absent: joint swelling, pedal edema, tenderness Additional comments: Left foot dressing clean, dry, and intact. Wound VAC noted with no drainage in the canister. No evidence of leak. On 125 mmHg of continuous suction noted. - Back Exam Additional comments: Left renal biopsy site with Band-Aid intact. No tenderness, drainage, erythema , or warmth noted. - Neurological Exam Neurological exam: Present: alert, oriented X3, no focal deficits - Psychiatric Psychiatric exam: Present: normal affect, normal mood - Skin Skin exam: Present: dry, intact, normal color, warm Infectious Disease CN: Results - Labs CBC & Chem 7: 10/15/17 06:02 10/15/17 06:02 Serology: Serology 10/07/17 10/06/17 10/06/17 Range/Units 19:24 16:00 16:00 Urine Color (Yellow) Urine Clarity (Clear) Urine pH (5.0-8.0) pH Units Ur Specific [place] (1.010-1.025) Urine Protein (Neg-Trace) mg/dL Urine Glucose (UA) (Normal) mg/dL Urine Ketones (Negative) mg/dL Urine Blood (Negative) Urine Nitrite (Negative) Urine Bilirubin (Negative) Urine Urobilinogen (Normal) mg/dL Ur Leukocyte Esterase (Negative) Urine Microscopic RBC (0-3) per hpf Urine Microscopic WBC (0-3) per hpf Ur Eosinophil Smear 1 H (None Seen) % Ur Squamous Epith Cells (None-Few) per lpf Urine Bacteria (None-Few) per hpf Hyaline Casts (None-Few) per lpf Ur Culture Indicated? (NO) Urine Osmolality (300-1090) mOsm/kg Ur Collection Duration RANDOM hr Urine Total Volume RANDOM mL Urine Creatinine 80 mg/dL Protein/Creatinin Ratio 2.00 H (0.00-0.20) mg/mg Urine Sodium mEq/L Urine Potassium mEq/L Urine Chloride mEq/L Urine Total Protein SEE NOTE 160 H (1-14) mg/dL Urine Albumin (PEP) DETECTED (Detected) U Cbyrp-2-Thglpywr DETECTED (None Detected) U Zhirq-6-Fgoyvugp DETECTED (None Detected) U Beta Globulin DETECTED (None Detected) U Gamma Globulin DETECTED (None Detected) U Free [place] Ch 58.30 H (0.14-2.42) mg/dL U Free [place] 24h SEE NOTE mg/d U Free [place] Ch 17.20 H (0.02-0.67) mg/dL U Free [place] Chn 24h SEE NOTE mg/d U Free [place]/Lambda 3.39 (2.04-10.37) ratio Stool Occult Blood (Negative) Hepatitis A IgM Ab (Nonreactive) Hep Bs Antigen (Nonreactive) Hep Bs Antibody mIU/mL Hep B Core IgM Ab (Nonreactive) Hepatitis C Ab Screen (Nonreactive) 10/06/17 10/06/17 10/06/17 Range/Units 16:00 13:42 13:42 Urine Color Yellow (Yellow) Urine Clarity Cloudy A (Clear) Urine pH 6.0 (5.0-8.0) pH Units Ur Specific [place] 1.023 (1.010-1.025) Urine Protein 100 H (Neg-Trace) mg/dL Urine Glucose (UA) Normal (Normal) mg/dL Urine Ketones 15 H (Negative) mg/dL Urine Blood Large H (Negative) Urine Nitrite Negative (Negative) Urine Bilirubin Negative (Negative) Urine Urobilinogen Normal (Normal) mg/dL Ur Leukocyte Esterase Trace H (Negative) Urine Microscopic RBC TNTC H (0-3) per hpf Urine Microscopic WBC 5-15 H (0-3) per hpf Ur Eosinophil Smear (None Seen) % Ur Squamous Epith Cells Many H (None-Few) per lpf Urine Bacteria None Seen (None-Few) per hpf Hyaline Casts None Seen (None-Few) per lpf Ur Culture Indicated? NO. A (NO) Urine Osmolality (300-1090) mOsm/kg Ur Collection Duration hr Urine Total Volume mL Urine Creatinine mg/dL Protein/Creatinin Ratio (0.00-0.20) mg/mg Urine Sodium mEq/L Urine Potassium mEq/L Urine Chloride mEq/L Urine Total Protein (1-14) mg/dL Urine Albumin (PEP) (Detected) U Cplbe-8-Pmrxwvxe (None Detected) U Ryhny-4-Eirbojwn (None Detected) U Beta Globulin (None Detected) U Gamma Globulin (None Detected) U Free [place] Ch (0.14-2.42) mg/dL U Free [place] 24h mg/d U Free [place] Ch (0.02-0.67) mg/dL U Free [place] Chn 24h mg/d U Free [place]/Lambda (2.04-10.37) ratio Stool Occult Blood (Negative) Hepatitis A IgM Ab Nonreactive (Nonreactive) Hep Bs Antigen Nonreactive (Nonreactive) Hep Bs Antibody 2.37 mIU/mL Hep B Core IgM Ab Nonreactive (Nonreactive) Hepatitis C Ab Screen Nonreactive (Nonreactive) 10/06/17 10/05/17 10/05/17 Range/Units 08:10 12:57 12:57 Urine Color (Yellow) Urine Clarity (Clear) Urine pH (5.0-8.0) pH Units Ur Specific [place] (1.010-1.025) Urine Protein (Neg-Trace) mg/dL Urine Glucose (UA) (Normal) mg/dL Urine Ketones (Negative) mg/dL Urine Blood (Negative) Urine Nitrite (Negative) Urine Bilirubin (Negative) Urine Urobilinogen (Normal) mg/dL Ur Leukocyte Esterase (Negative) Urine Microscopic RBC (0-3) per hpf Urine Microscopic WBC (0-3) per hpf Ur Eosinophil Smear (None Seen) % Ur Squamous Epith Cells (None-Few) per lpf Urine Bacteria (None-Few) per hpf Hyaline Casts (None-Few) per lpf Ur Culture Indicated? (NO) Urine Osmolality 300 (300-1090) mOsm/kg Ur Collection Duration hr Urine Total Volume mL Urine Creatinine mg/dL Protein/Creatinin Ratio (0.00-0.20) mg/mg Urine Sodium 76.4 mEq/L Urine Potassium 13.7 mEq/L Urine Chloride 88 mEq/L Urine Total Protein (1-14) mg/dL Urine Albumin (PEP) (Detected) U Qtrfn-9-Zbibooji (None Detected) U Dhlpw-3-Xcycqcpj (None Detected) U Beta Globulin (None Detected) U Gamma Globulin (None Detected) U Free [place] Ch (0.14-2.42) mg/dL U Free [place] 24h mg/d U Free [place] Ch (0.02-0.67) mg/dL U Free [place] Chn 24h mg/d U Free [place]/Lambda (2.04-10.37) ratio Stool Occult Blood Negative (Negative) Hepatitis A IgM Ab (Nonreactive) Hep Bs Antigen (Nonreactive) Hep Bs Antibody mIU/mL Hep B Core IgM Ab (Nonreactive) Hepatitis C Ab Screen (Nonreactive) 10/05/17 10/04/17 Range/Units 06:30 08:21 Urine Color Yellow (Yellow) Urine Clarity Clear (Clear) Urine pH 5.5 (5.0-8.0) pH Units Ur Specific [place] 1.020 (1.010-1.025) Urine Protein 100 H (Neg-Trace) mg/dL Urine Glucose (UA) Normal (Normal) mg/dL Urine Ketones Trace H (Negative) mg/dL Urine Blood Large H (Negative) Urine Nitrite Negative (Negative) Urine Bilirubin Negative (Negative) Urine Urobilinogen Normal (Normal) mg/dL Ur Leukocyte Esterase Small H (Negative) Urine Microscopic RBC 0-3 (0-3) per hpf Urine Microscopic WBC 5-15 H (0-3) per hpf Ur Eosinophil Smear 0 (None Seen) % Ur Squamous Epith Cells Few (None-Few) per lpf Urine Bacteria Moderate H (None-Few) per hpf Hyaline Casts None Seen (None-Few) per lpf Ur Culture Indicated? (NO) Urine Osmolality (300-1090) mOsm/kg Ur Collection Duration hr Urine Total Volume mL Urine Creatinine mg/dL Protein/Creatinin Ratio (0.00-0.20) mg/mg Urine Sodium mEq/L Urine Potassium mEq/L Urine Chloride mEq/L Urine Total Protein (1-14) mg/dL Urine Albumin (PEP) (Detected) U Nhrhu-4-Nwfjfjxn (None Detected) U Pybmq-5-Bhdrhfpq (None Detected) U Beta Globulin (None Detected) U Gamma Globulin (None Detected) U Free [place] Ch (0.14-2.42) mg/dL U Free [place] 24h mg/d U Free [place] Ch (0.02-0.67) mg/dL U Free [place] Chn 24h mg/d U Free [place]/Lambda (2.04-10.37) ratio Stool Occult Blood (Negative) Hepatitis A IgM Ab (Nonreactive) Hep Bs Antigen (Nonreactive) Hep Bs Antibody mIU/mL Hep B Core IgM Ab (Nonreactive) Hepatitis C Ab Screen (Nonreactive) - VTE Documentation of Mechanical Device: Intermittent pneumatic compression device Consult Discharge Plan - Plan Referrals: [facility] [Outside] - 10/22/17 8:30 am - Attending Attestation I examined this patient and my medical decision-making was reviewed with the Resident Physician. I agree with the documented findings, disposition and treatment plan as described except to the extent set forth below. This is an addendum to original report dictated by Yisel Stevens CNP. Please refer to [facility] for full details. 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 Patient also had hardware that was removed. Patient has had almost 5 weeks worth of IV antibiotics. Patient apparently presented to the MRSA department with a syncopal episode and was severely dehydrated. Patient was noted to be in acute kidney injury. Exact cause of the acute kidney injury was not clear but they thought it was probably prerenal. Assessment and plan: Wound of the left lower extremity Acute kidney injury Syncope Thrombocytopenia Metabolic acidosis Recommendations: Renal workup per nephrology. I am not sure that cefepime really is the culprit for his acute kidney injury but was switched to levofloxacin. Dose adjust levofloxacin based on creatinine clearance. Patient is or the on week 6. We will give him 1 more week of IV antibiotics. Continue to monitor inflammatory markers.
--- NOTE | 2017-10-13 13:51 | Nephrology Progress Note ---
Date of Encounter: 10/13/17 Time of Encounter: 12:40 - Assessment and Plan (1) Acute kidney injury Current Visit: Yes Status: Acute SCr noted worse at 2.88, GFR 22 hence no signs of TIMBER MANAGEMENT ASSISTANT at this time. Await renal biopsy result from [facility] by tomorrow (prelim) Continue to avoid nephrotxins if possible Plan for HD tentatively tomorrow (2) Hypertension Current Visit: Yes Status: Chronic Qualifiers: Hypertension type: essential hypertension Qualified Code(s): I10 - Essential (primary) hypertension (3) Acute hypokalemia Current Visit: No Status: Acute (4) Hypocomplementemia Current Visit: Yes Status: Acute (5) FLORINDA positive Current Visit: Yes Status: Acute Subjective Principal diagnosis: ARSH Interval history: Interim events noted, pt seen and examined s/p renal biopsy feeling sleepy with at bedside. No new complaints. Objective - Vital Signs Vital signs: Vital Signs Temp Pulse Resp BP Pulse Ox 10/13/17 09:56 98.5 F 61 16 112/74 100 10/13/17 09:35 97.5 F L 73 16 100/72 100 10/13/17 09:14 65 12 114/77 100 10/13/17 09:09 65 13 123/82 100 10/13/17 09:04 65 14 117/82 98 10/13/17 08:58 76 15 144/106 100 10/13/17 06:31 97.9 F 66 14 147/85 96 10/13/17 04:55 97.7 F 65 15 132/81 98 10/12/17 19:24 98.5 F 60 15 123/80 100 10/12/17 15:46 97.5 F L 67 15 139/96 98 Intake and Output 10/12/17 10/13/17 10/13/17 23:59 07:59 15:59 Intake Total 150 / 150 0 / 0 0 / 0 Output Total 515 / 515 0 / 0 10 / 10 Balance -365 / -365 0 / 0 -10 / -10 Intake: IV Fluids 150 / 150 Levaquin Premix 750mg/150 mL 150 / 150 750 mg In 150 ml @ 100 mls/hr IVPB Q48H [facility] Rx#:[id number] Oral 0 / 0 0 / 0 0 / 0 Output: Urine 500 / 500 0 / 0 0 / 0 Wound Drainage 15 / 15 0 / 0 Left Foot 0 / 0 0 / 0 Left Lower Foot Other: Meal Lunch Percent of Meal Consumed 0% # Bowel Movements 0 0 Weight 82.6 kg Blood Glucose* 73 Patient Weight 10/13/17 23:59 Weight 82.6 kg - General Appearance General appearance: Present: well-developed, well-nourished (NAD) EENT: Present: ATNC, mucous membranes moist Neck: Present: no JVD, supple Respiratory: Present: clear (ant bilat) Cardiology: Present: no edema, normal S1, normal S2 Gastrointestinal: Present: no tenderness, no guarding Integumentary: Present: warm and dry Neurologic: Present: no focal deficit Musculoskeletal: Present: no deformities Psychiatric: Present: mood/affect appropriate, cooperative - Lab 10/13/17 03:31 10/13/17 03:31 Most recent lab results Calcium 8.1 mg/dL (8.6-10.3) L 10/13/17 03:31 Phosphorus 3.4 mg/dL (2.7-4.5) 10/07/17 07:51 Magnesium 1.7 mg/dL (1.6-2.6) 10/11/17 05:43 Urine Creatinine 80 mg/dL 10/06/17 16:00 Urine Sodium 76.4 mEq/L 10/05/17 12:57 Urine Total Protein SEE NOTE mg/d (10-140) 10/07/17 19:24 - VTE Documentation of Mechanical Device: Intermittent pneumatic compression device Consult Discharge Plan - Plan Referrals: [facility] [Outside] - 10/22/17 8:30 am
[2017-10-13] MEDS: Mirtazapine 15 MG TABLET PO SCH (21:37)
[2017-10-14 06:52] LABS: Basophils % 0.4 %; Eosinophils # 0.3 K/mcL (0.0-0.6); Eosinophils % 5.7 %; Hematocrit 26.2 % (37.5-50.1); Hemoglobin 8.7 g/dL (12.9-16.9); Immature Granulocytes % 0.7 % (0-4); Lymphocytes # 1.2 K/mcL (0.6-4.6); Lymphocytes % 25.7 %; Mean Corpuscular HGB Conc 33.2 g/dL (31.6-35.5); Mean Corpuscular Hemoglobin 30.4 pg (28.0-33.3); Mean Corpuscular Volume 91.6 fL (83.0-100.0); Monocytes # 0.4 K/mcL (0.0-1.3); Monocytes % 9.6 %; Neutrophils # 2.6 K/mcL (1.6-8.9); Platelet Count 121 K/mcL (140-400); Red Blood Count 2.86 M/mcL (4.19-5.50); Red Cell Distribution Width 15.2 % (11.5-14.5); Segmented Neutrophils % 57.9 %
[2017-10-14 07:17] LABS: Calcium 8.2 mg/dL (8.6-10.3); Potassium 3.7 mEq/L (3.5-5.1)
[2017-10-14] MEDS ORDERED: *HR* Heparin 10,000 UNIT/10 ML VIAL IV PRN (08:35)
[2017-10-14] MEDS ORDERED: 0.9 % Sodium Chloride 250 ML IVC PRN (08:35)
[2017-10-14] MEDS ORDERED: 0.9 % Sodium Chloride 1,000 ML PRIME SCH (08:45)
--- NOTE | 2017-10-14 10:45 | Internal Med Progress Note ---
Hospitalist Progress Note - Encounter Date of Encounter: 10/14/17 Time of Encounter: 10:45 - Subjective Interval History: Seen and examined during HD No new complains He has a flat affect and states to physician "it is none of your business" when asked about mood disorders Denies suicidal ideation - Exam Vitals: Temp Pulse Resp BP Pulse Ox 98.4 F 77 14 131/86 97 10/14/17 08:55 10/14/17 06:01 10/14/17 08:55 10/14/17 09:25 10/14/17 06:01 Exam: General: Patient is alert, no acute distress, oriented x 3 Head: atraumatic, normocephalic, Eye: normal appearance, PERRL, no scleral icterus, no conjunctival injection Neck: Right IJ Shiley, dressing clean and dry Chest: normal inspection, symmetric chest rise Respiratory: Good respiratory effort. Normal breath sounds. No wheezing or crackles. Cardiovascular: Regular rate and rhythm. s1 and s2 No clicks, rubs, gallops, or murmurs. No pedal edema Abdomen: Abdomen is soft, nontender. Bowel sounds are present Musculoskeletal: Wound VAC to left foot. Skin: warm, dry, intact. Neuro: Alert oriented x 3 normal cranial nerves, no focal deficits Psych: Flat affect - Assessment and Plan (1) Wound of left lower extremity Current Visit: Yes Status: Acute Assessment and Plan: Infected wound of left lower extremity. Prior wound cultures positive for Pseudomonas aeruginosa and GCS. Patient was on cefepime after hospitalization. This has been stopped on account of acute kidney injury. Patient is now on Levaquin every 48 hours. Infectious disease is following, agree with plan (2) Hypertension Current Visit: Yes Status: Chronic Assessment and Plan: Blood pressure is controlled today. Continue Coreg 25 mg twice daily and amlodipine 10 mg daily (3) Seizure Current Visit: Yes Status: Chronic Assessment and Plan: On Dilantin. Plan to follow up with neurology as outpatient (4) Dehydration Current Visit: Yes Status: Resolved Assessment and Plan: Patient has been receiving IV fluids per nephrology recommendations. (5) Syncope Current Visit: Yes Status: Resolved Assessment and Plan: From dehydration along with ATN. No new episodes. (6) Acute renal failure Current Visit: Yes Status: Acute Assessment and Plan: Renal biopsy done 10/13. Seen during HD today 8/14 Continue management per renal Patient is non-oliguric (7) Bicytopenia Current Visit: Yes Status: Chronic Assessment and Plan: stable. Platelet count improving. 121 today. Hemoglobin 8.7 Continue cyanocobalamin He is to be discharged on monthly IM cyanocobalamin when medically stable (8) Metabolic acidosis Current Visit: Yes Status: Resolved Assessment and Plan: Being managed with hemodialysis. (9) Weight loss, non-intentional Current Visit: Yes Status: Acute Assessment and Plan: Weight decreased over the past couple of days due to hemodialysis. (10) Severe protein-calorie malnutrition Current Visit: Yes Status: Acute Assessment and Plan: Patient continues to have protein calorie malnutrition. Prior physician had discussed the subject of possible feeding every patient continues to have poor appetite and poor nutrition. However patient is adamantly against this. Nutrition following. Encouraged to try anything he wants. Patient is on Remeron and Marinol to stimulate appetite. DVT Prophylaxis: SCDs. Consider starting heparin now that PLT is >100 - Time Spent with Patient Total time spent is greater than 50% in coordination of care (as documented) at patient's floor/unit and/or counseling patient: Plan of Care Discussed with: patient Internal Medicine: Result - Labs CBC & Chem 7: 10/14/17 06:35 10/14/17 06:35 Labs: Short CBC 10/14/17 Range/Units 06:35 WBC 4.6 (4.3-11.1) K/mcL Hgb 8.7 L (12.9-16.9) g/dL Hct 26.2 L (37.5-50.1) % Plt Count 121 L (140-400) K/mcL Neutrophils # 2.6 (1.6-8.9) K/mcL BMP 10/14/17 06:35 Sodium 139 Potassium 3.7 Chloride 102 Carbon Dioxide 22 L BUN 23 Creatinine 3.27 H Glucose 77 Calcium 8.2 L - ABG Interpretation ABG results: PT/INR, D-dimer PT 15.5 Seconds (9.4-12.1) H 10/13/17 03:31 - Impressions Impressions Renal Biopsy CT 10/13/17 00:00 IMPRESSION: Successful CT guided core needle random kidney biopsy. D/ / Wesley Healy MD / Wesley Healy MD Interpreting Provider: Wesley Healy MD - VTE Documentation of Mechanical Device: Intermittent pneumatic compression device Consult Discharge Plan - Plan Referrals: [facility] [Outside] - 10/22/17 8:30 am (1) Wound of left lower extremity Qualifiers: Encounter type: initial encounter Qualified Code(s): S81.802A - Unspecified open wound, left lower leg, initial encounter (2) Hypertension Qualifiers: Hypertension type: essential hypertension Qualified Code(s): I10 - Essential (primary) hypertension (5) Syncope Qualifiers: Syncope type: unspecified Qualified Code(s): R55 - Syncope and collapse (6) Acute renal failure Qualifiers: Acute renal failure type: with acute tubular necrosis Qualified Code(s): N17.0 - Acute kidney failure with tubular necrosis
--- NOTE | 2017-10-14 11:24 | Infectious Disease Progress No ---
Date of Encounter: 10/14/17 Time of Encounter: 11:22 - Assessment and Plan (1) Wound of left lower extremity Current Visit: Yes Status: Acute Location: Left lateral ankle. Causative organism PSEA and GCS. Secondary to non-healing surgical wound. X-ray of the left foot/ankle and recent postsurgical change of arthrodesis in the foot with worsening soft tissue swelling and edema with suspected ulceration and perhaps subcutaneous gas over the dorsal and medial aspect of the foot. The pattern may represent cellulitis and ulceration, but underlying fasciitis cannot be excluded. Podiatry consulted and following. Status post excisional debridement of the left foot wounds anterior ankle, lateral foot, and posterior heel. Large amount of serous drainage noted intra-op. Cultures as above. Pathology negative for OM. Status post repeat washout and removal of hardware 09/13/[address] Larkin. No additional cultures were sent. Wound care and activity restrictions per the podiatry team. ESR remains elevated, but CRP normal. Originally discharged home to complete a 6 week course of IV Cefepime, but antibiotics switched to IV Levaquin per the primary team due to concern that Cefepime could be contributing to ARSH. Continue Levaquin 750mg IV Q48H for now. Duration of treatment depends on the clinical picture, but likely 6 weeks of IV antibiotics. He has completed about 5 weeks at this point. Monitor renal function and dose-adjust antibiotics. Qualifiers: Encounter type: initial encounter Qualified Code(s): S81.802A - Unspecified open wound, left lower leg, initial encounter (2) Acute kidney injury Current Visit: Yes Status: Acute Etiology unclear: Pre-renal vs. ATN vs. GN vs. other. Improved after initiation of HD. Discussed with Dr. Carter. Unlikely that Cefepime caused ARSH, but will await biopsy results. Urine output remains adequate. Status post renal biopsy 10/13/17. Await report. Nephrology consulted and following. (3) Syncope Current Visit: Yes Status: Resolved Likely secondary to ARSH. Qualifiers: Syncope type: unspecified Qualified Code(s): R55 - Syncope and collapse (4) Thrombocytopenia Current Visit: Yes Status: Acute Etiology unclear. Unlikely infectious etiology. Improved. Continue to trend. Hem/Onc consulted. (5) Metabolic acidosis, normal anion gap (NAG) Current Visit: Yes Status: Acute (6) Hypocomplementemia Current Visit: Yes Status: Acute (7) FLORINDA positive Current Visit: Yes Status: Acute (8) Severe protein-calorie malnutrition Current Visit: Yes Status: Acute Patient reports that nothing tastes good and he continues to have some intermittent nausea. Recommend further intervention per nutrition team's recommendations. 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 Larkin. - Subjective Interval history: Patient seen and examined in the HD unit. States overall feels the same. Denies fevers, chills, or rigors. Denies chest pain, shortness of breath, or cough. Reports persistent poor appetite. Denies urinary complaints or diarrhea. Denies abdominal pain, nausea, or vomiting. Denies oral thrush or skin lesions. Reports chronic neuropathy pain that is at baseline. Infect Dis PN-Objective Data - Labs CBC & Chem 7: 10/15/17 06:02 10/15/17 06:02 Labs: Laboratory Results - last 24 hr 10/14/17 10/14/17 06:35 06:35 WBC 4.6 RBC 2.86 L Hgb 8.7 L Hct 26.2 L MCV 91.6 MCH 30.4 MCHC 33.2 RDW 15.2 H Plt Count 121 L MPV 10.0 Immature Gran % 0.7 Seg Neutrophils % 57.9 Lymphocytes % 25.7 Monocytes % 9.6 Eosinophils % 5.7 Basophils % 0.4 Neutrophils # 2.6 Lymphocytes # 1.2 Monocytes # 0.4 Eosinophils # 0.3 Basophils # 0.0 Sodium 139 Potassium 3.7 Chloride 102 Carbon Dioxide 22 L BUN 23 Creatinine 3.27 H Est GFR ( Amer) 23 L Est GFR (Non-Af Amer) 19 L BUN/Creatinine Ratio 7 Glucose 77 Calculated Osmolality 290 Calcium 8.2 L Cultures: Serology 10/07/17 10/06/17 10/06/17 Range/Units 19:24 16:00 16:00 Urine Color (Yellow) Urine Clarity (Clear) Urine pH (5.0-8.0) pH Units Ur Specific Russell (1.010-1.025) Urine Protein (Neg-Trace) mg/dL Urine Glucose (UA) (Normal) mg/dL Urine Ketones (Negative) mg/dL Urine Blood (Negative) Urine Nitrite (Negative) Urine Bilirubin (Negative) Urine Urobilinogen (Normal) mg/dL Ur Leukocyte Esterase (Negative) Urine Microscopic RBC (0-3) per hpf Urine Microscopic WBC (0-3) per hpf Ur Eosinophil Smear 1 H (None Seen) % Ur Squamous Epith Cells (None-Few) per lpf Urine Bacteria (None-Few) per hpf Hyaline Casts (None-Few) per lpf Ur Culture Indicated? (NO) Urine Osmolality (300-1090) mOsm/kg Ur Collection Duration RANDOM hr Urine Total Volume RANDOM mL Urine Creatinine 80 mg/dL Protein/Creatinin Ratio 2.00 H (0.00-0.20) mg/mg Urine Sodium mEq/L Urine Potassium mEq/L Urine Chloride mEq/L Urine Total Protein SEE NOTE 160 H (1-14) mg/dL Urine Albumin (PEP) DETECTED (Detected) U Rhame-0-Vbrahcou DETECTED (None Detected) U Zsiwe-1-Dxkovakg DETECTED (None Detected) U Beta Globulin DETECTED (None Detected) U Gamma Globulin DETECTED (None Detected) U Free [place]esar [place] Light Ch 58.30 H (0.14-2.42) mg/dL U Free [place] Chain 24h SEE NOTE mg/d U Free Lambda Light Ch 17.20 H (0.02-0.67) mg/dL U Free Lambda Chn 24h SEE NOTE mg/d U Free [place]esar [place]avez/Lambda 3.39 (2.04-10.37) ratio Stool Occult Blood (Negative) Hepatitis A IgM Ab (Nonreactive) Hep Bs Antigen (Nonreactive) Hep Bs Antibody mIU/mL Hep B Core IgM Ab (Nonreactive) Hepatitis C Ab Screen (Nonreactive) 10/06/17 10/06/17 10/06/17 Range/Units 16:00 13:42 13:42 Urine Color Yellow (Yellow) Urine Clarity Cloudy A (Clear) Urine pH 6.0 (5.0-8.0) pH Units Ur Specific Russell 1.023 (1.010-1.025) Urine Protein 100 H (Neg-Trace) mg/dL Urine Glucose (UA) Normal (Normal) mg/dL Urine Ketones 15 H (Negative) mg/dL Urine Blood Large H (Negative) Urine Nitrite Negative (Negative) Urine Bilirubin Negative (Negative) Urine Urobilinogen Normal (Normal) mg/dL Ur Leukocyte Esterase Trace H (Negative) Urine Microscopic RBC TNTC H (0-3) per hpf Urine Microscopic WBC 5-15 H (0-3) per hpf Ur Eosinophil Smear (None Seen) % Ur Squamous Epith Cells Many H (None-Few) per lpf Urine Bacteria None Seen (None-Few) per hpf Hyaline Casts None Seen (None-Few) per lpf Ur Culture Indicated? NO. A (NO) Urine Osmolality (300-1090) mOsm/kg Ur Collection Duration hr Urine Total Volume mL Urine Creatinine mg/dL Protein/Creatinin Ratio (0.00-0.20) mg/mg Urine Sodium mEq/L Urine Potassium mEq/L Urine Chloride mEq/L Urine Total Protein (1-14) mg/dL Urine Albumin (PEP) (Detected) U Penrq-5-Ymmqejxs (None Detected) U Dknyw-7-Lqzhpxnv (None Detected) U Beta Globulin (None Detected) U Gamma Globulin (None Detected) U Free [place] Light Ch (0.14-2.42) mg/dL U Free [place] Chain 24h mg/d U Free Lambda Light Ch (0.02-0.67) mg/dL U Free Lambda Chn 24h mg/d U Free Cesar [place]avez/Lambda (2.04-10.37) ratio Stool Occult Blood (Negative) Hepatitis A IgM Ab Nonreactive (Nonreactive) Hep Bs Antigen Nonreactive (Nonreactive) Hep Bs Antibody 2.37 mIU/mL Hep B Core IgM Ab Nonreactive (Nonreactive) Hepatitis C Ab Screen Nonreactive (Nonreactive) 10/06/17 10/05/17 10/05/17 Range/Units 08:10 12:57 12:57 Urine Color (Yellow) Urine Clarity (Clear) Urine pH (5.0-8.0) pH Units Ur Specific Russell (1.010-1.025) Urine Protein (Neg-Trace) mg/dL Urine Glucose (UA) (Normal) mg/dL Urine Ketones (Negative) mg/dL Urine Blood (Negative) Urine Nitrite (Negative) Urine Bilirubin (Negative) Urine Urobilinogen (Normal) mg/dL Ur Leukocyte Esterase (Negative) Urine Microscopic RBC (0-3) per hpf Urine Microscopic WBC (0-3) per hpf Ur Eosinophil Smear (None Seen) % Ur Squamous Epith Cells (None-Few) per lpf Urine Bacteria (None-Few) per hpf Hyaline Casts (None-Few) per lpf Ur Culture Indicated? (NO) Urine Osmolality 300 (300-1090) mOsm/kg Ur Collection Duration hr Urine Total Volume mL Urine Creatinine mg/dL Protein/Creatinin Ratio (0.00-0.20) mg/mg Urine Sodium 76.4 mEq/L Urine Potassium 13.7 mEq/L Urine Chloride 88 mEq/L Urine Total Protein (1-14) mg/dL Urine Albumin (PEP) (Detected) U Mvkgw-0-Urmpsxbb (None Detected) U Utihr-3-Eyucfhyf (None Detected) U Beta Globulin (None Detected) U Gamma Globulin (None Detected) U Free [place]esar [place] Light Ch (0.14-2.42) mg/dL U Free [place] Chain 24h mg/d U Free Lambda Light Ch (0.02-0.67) mg/dL U Free Lambda Chn 24h mg/d U Free Cesar Chavez/Lambda (2.04-10.37) ratio Stool Occult Blood Negative (Negative) Hepatitis A IgM Ab (Nonreactive) Hep Bs Antigen (Nonreactive) Hep Bs Antibody mIU/mL Hep B Core IgM Ab (Nonreactive) Hepatitis C Ab Screen (Nonreactive) 10/05/17 10/04/17 Range/Units 06:30 08:21 Urine Color Yellow (Yellow) Urine Clarity Clear (Clear) Urine pH 5.5 (5.0-8.0) pH Units Ur Specific Russell 1.020 (1.010-1.025) Urine Protein 100 H (Neg-Trace) mg/dL Urine Glucose (UA) Normal (Normal) mg/dL Urine Ketones Trace H (Negative) mg/dL Urine Blood Large H (Negative) Urine Nitrite Negative (Negative) Urine Bilirubin Negative (Negative) Urine Urobilinogen Normal (Normal) mg/dL Ur Leukocyte Esterase Small H (Negative) Urine Microscopic RBC 0-3 (0-3) per hpf Urine Microscopic WBC 5-15 H (0-3) per hpf Ur Eosinophil Smear 0 (None Seen) % Ur Squamous Epith Cells Few (None-Few) per lpf Urine Bacteria Moderate H (None-Few) per hpf Hyaline Casts None Seen (None-Few) per lpf Ur Culture Indicated? (NO) Urine Osmolality (300-1090) mOsm/kg Ur Collection Duration hr Urine Total Volume mL Urine Creatinine mg/dL Protein/Creatinin Ratio (0.00-0.20) mg/mg Urine Sodium mEq/L Urine Potassium mEq/L Urine Chloride mEq/L Urine Total Protein (1-14) mg/dL Urine Albumin (PEP) (Detected) U Hzuwz-7-Qayglsnv (None Detected) U Imhkq-9-Bmlktlzx (None Detected) U Beta Globulin (None Detected) U Gamma Globulin (None Detected) U Free [place]esar [place]avez Light Ch (0.14-2.42) mg/dL U Free [place] Chain 24h mg/d U Free Lambda Light Ch (0.02-0.67) mg/dL U Free Lambda Chn 24h mg/d U Free Cesar [place]avez/Lambda (2.04-10.37) ratio Stool Occult Blood (Negative) Hepatitis A IgM Ab (Nonreactive) Hep Bs Antigen (Nonreactive) Hep Bs Antibody mIU/mL Hep B Core IgM Ab (Nonreactive) Hepatitis C Ab Screen (Nonreactive) - Impressions Impressions Renal Biopsy CT 10/13/17 00:00 IMPRESSION: Successful CT guided core needle random kidney biopsy. D/ / Wesley Healy MD / Wesley Healy MD Interpreting Provider: Wesley Healy MD Exam - Constitutional Vitals: Temp Pulse Resp BP Pulse Ox 98.4 F 77 14 125/81 97 10/14/17 08:55 10/14/17 06:01 10/14/17 08:55 10/14/17 09:55 10/14/17 06:01 General appearance: average body habitus, cooperative, no acute distress - Head Head exam: Present: atraumatic, normal inspection, normocephalic - Eye Eye exam: Present: EOMI, normal appearance, PERRL Pupils: Present: normal accommodation - ENT ENT exam: Present: mucous membranes moist - Neck Neck exam: Present: normal inspection Additional comments: Temporary HD catheter noted to the right neck, currently accessed for HD. No erythema, warmth, or tenderness noted. - Respiratory Respiratory exam: Present: CTAB. Absent: rales, respiratory distress, rhonchi, wheezes - Cardiovascular Cardiovascular exam: Present: RRR, +S1, +S2 - GI/Abdominal GI/Abdominal exam: Present: normal bowel sounds, soft. Absent: distended, tenderness - Extremities Exam Extremities exam: Absent: joint swelling, pedal edema, tenderness Additional comments: Left foot/ankle dressing C/D/I with wound VAC noted. Small amount of dark brown drainage noted in the wound VAC canister. No leak. 125mm Hg continuous suction. - Neurological Exam Neurological exam: Present: alert, oriented X3, no focal deficits - Psychiatric Psychiatric exam: Present: normal affect, normal mood - Skin Skin exam: Present: dry, intact, normal color, warm - Additional findings Additional findings: Midline noted to the RUE with transparent dressing C/D/I. - VTE Documentation of Mechanical Device: Intermittent pneumatic compression device Consult Discharge Plan - Plan Referrals: [facility] [Outside] - 10/22/17 8:30 am - Attending Attestation I examined this patient and my medical decision-making was reviewed with the Resident Physician. I agree with the documented findings, disposition and treatment plan as described except to the extent set forth below.
[2017-10-14] MEDS: Cholestyramine 4 GM POWD.PACK PO SCH ×2 (14:03→17:28)
[2017-10-14] MEDS: Renal Vitamin 1 CAP CAPSULE PO SCH (14:03)
[2017-10-14] MEDS: amLODIPine 5 MG TABLET PO SCH (14:03)
[2017-10-14] MEDS: Gabapentin 300 MG CAPSULE PO SCH ×2 (14:03→21:01)
[2017-10-14] MEDS: Cyanocobalamin (B-12) 1,000 MCG TABLET PO SCH (14:04)
[2017-10-14] MEDS: Acetaminophen 325 MG TABLET PO PRN ×2 (14:55→21:01)
[2017-10-14] MEDS: Levofloxacin 750 MG/150 ML 750 MG/150 ML BAG IVPB SCH (14:56)
--- NOTE | 2017-10-14 14:58 | Nephrology Progress Note ---
<Dante Richmond - Last Filed: 10/14/17 15:19> Date of Encounter: 10/14/17 Time of Encounter: 14:30 - Assessment and Plan (1) Acute kidney injury Status: Acute Kidney function continues to worsen with creatine = 3.27/2.88/2.16. Patient to undergo HD today. Renal biopsy from yesterday still pending. He has +FLORINDA with low C3 and mildly elevated KL light chains. Continue to avoid nephrotoxins. Monitor kidney function with AM labs. (2) Hypertension Current Visit: Yes Status: Chronic Titrate medications as needed. Qualifiers: Hypertension type: essential hypertension Qualified Code(s): I10 - Essential (primary) hypertension (3) Hypocomplementemia Current Visit: Yes Status: Acute See above (4) FLORINDA positive Current Visit: Yes Status: Acute The FLORINDA results have finally returned and is very elevated. Hypocomplementemia is often seen with lupus nephritis, but sometimes false positive can be seen. (5) Acute hypokalemia Current Visit: No Status: Acute Continue KCl 20mEq po bid. Patient is refusing to take medication. He understands the risk for arrhythmias, but continues to refuse. Encouraged him to take night dose and he said he will consider it. Subjective Principal diagnosis: ARSH Interval history: Patient underwent temporary HD today. He reports improvement of n/v. Denies CP, SOB. He is able to tolerate some PO intake and voiding without difficulty. Does not have any acute concerns at this time. Objective - Vital Signs Vital signs: Vital Signs Temp Pulse Resp BP Pulse Ox 10/14/17 12:45 97.7 F 15 156/94 10/14/17 12:25 135/89 10/14/17 12:10 120/83 10/14/17 11:55 140/101 10/14/17 11:40 158/101 10/14/17 11:25 154/97 10/14/17 11:10 158/96 10/14/17 10:55 146/81 10/14/17 10:40 143/82 10/14/17 10:25 132/84 10/14/17 10:10 118/86 10/14/17 09:55 125/81 10/14/17 09:40 130/85 10/14/17 09:25 131/86 10/14/17 09:10 127/85 10/14/17 08:55 98.4 F 14 127/83 10/14/17 06:01 98.1 F 77 16 112/73 97 10/13/17 20:59 97.5 F L 62 16 122/79 100 Intake and Output 10/13/17 10/14/17 10/14/17 23:59 07:59 15:59 Intake Total 0 / 0 0 / 0 600 / 600 Output Total 675 / 675 550 / 550 1600 / 1600 Balance -675 / -675 -550 / -550 -1000 / -1000 Intake: Oral 0 / 0 0 / 0 0 / 0 Intake, Rinseback and Flushes 600 / 600 Output: Urine 675 / 675 500 / 500 0 / 0 Total Dialysis (HD) Output 1600 / 1600 Wound Drainage 50 / 50 Left Foot 50 / 50 Other: Meal Dinner Percent of Meal Consumed 0% Stool Size Small Stool Consistency loose soft Stool Color Green Black # Bowel Movements 1 Weight 82 kg Hemodialysis Net Fluid Removed 1000 (mL) Patient Weight 10/14/17 23:59 Weight 82 kg - General Appearance Exam: General appearance: Present: well-developed, well-nourished (NAD) EENT: Present: ATNC, mucous membranes moist Neck: Present: no JVD, supple Respiratory: Present: clear (ant bilat) Cardiology: Present: no edema, normal S1, normal S2 Gastrointestinal: Present: no tenderness, no guarding Integumentary: Present: warm and dry Neurologic: Present: no focal deficit Musculoskeletal: Present: no deformities Psychiatric: Present: mood/affect appropriate, cooperative - Lab 10/14/17 06:35 10/14/17 06:35 Most recent lab results Calcium 8.2 mg/dL (8.6-10.3) L 10/14/17 06:35 Phosphorus 3.4 mg/dL (2.7-4.5) 10/07/17 07:51 Magnesium 1.7 mg/dL (1.6-2.6) 10/11/17 05:43 Urine Creatinine 80 mg/dL 10/06/17 16:00 Urine Sodium 76.4 mEq/L 10/05/17 12:57 Urine Total Protein SEE NOTE mg/d (10-140) 10/07/17 19:24 - VTE Documentation of Mechanical Device: Intermittent pneumatic compression device Consult Discharge Plan - Plan Additional Instructions: Please follow-up with your many specialists providers. Please follow-up with neurology for management of your seizure medications. Please follow-up with cardiology in the next few weeks following your evaluation in the hospital. Please follow-up with wound care and podiatry for management of your left foot wound. Also follow-up with nephrology for management of hemodialysis. Please return to the emergency department should you develop any chest pain, shortness of breath, fever, confusion or any other worrisome symptoms. Referrals: [facility] [Other] (Located [facility] to [facility]) [facility] [Outside] - 10/28/17 11:30 am Naveed Larkin DPM [Partnered Physician] - 10/30/17 10:30 am (Appointment will be in the wound care center. The wound care center is located at the [place] [facility]. Thank you) Prescriptions: OxyCODONE/APAP 5/325 [Percocet 5/325 MG] 1 each PO Q6HR PRN 5 Days #15 tablet PRN Reason: Severe Pain Dronabinol [Marinol] 5 mg PO BIDLS 15 Days #30 capsule <Minerva Lopes - Last Filed: 10/24/17 12:30> Date of Encounter: 10/14/17 - Assessment and Plan (1) Hypertension Status: Chronic Qualifiers: Hypertension type: essential hypertension Qualified Code(s): I10 - Essential (primary) hypertension (2) Acute hypokalemia Status: Acute (3) Acute kidney injury Status: Acute Objective - Lab 10/23/17 06:52 10/23/17 06:52 Most recent lab results Calcium 8.4 mg/dL (8.6-10.3) L 10/23/17 06:52 Phosphorus 3.8 mg/dL (2.7-4.5) 10/22/17 10:26 Magnesium 1.6 mg/dL (1.6-2.6) 10/19/17 08:31 Urine Creatinine 80 mg/dL 10/06/17 16:00 Urine Sodium 76.4 mEq/L 10/05/17 12:57 Urine Total Protein SEE NOTE mg/d (10-140) 10/07/17 19:24 - Attending Attestation I examined this patient and my medical decision-making was reviewed with the Resident Physician. I agree with the documented findings, disposition and treatment plan as described except to the extent set forth below. Pt seen and examined still with no signs or renal recovery. SCr still elevates in between HD sessions, will continue to provide dialytic support and make arrangements for outpatient. Exam unremarkable.
[2017-10-14] MEDS: Mirtazapine 15 MG TABLET PO SCH (21:01)
[2017-10-14] MEDS: *HR* Promethazine 25 MG/ML VIAL IVP PRN (22:54)
[2017-10-15 06:43] LABS: Basophils % 0.5 %; Eosinophils # 0.2 K/mcL (0.0-0.6); Eosinophils % 5.1 %; Hematocrit 25.9 % (37.5-50.1); Hemoglobin 8.7 g/dL (12.9-16.9); Immature Granulocytes % 0.8 % (0-4); Lymphocytes # 0.9 K/mcL (0.6-4.6); Lymphocytes % 23.4 %; Mean Corpuscular HGB Conc 33.6 g/dL (31.6-35.5); Mean Corpuscular Volume 92.2 fL (83.0-100.0); Monocytes # 0.6 K/mcL (0.0-1.3); Monocytes % 15.2 %; Neutrophils # 2.2 K/mcL (1.6-8.9); Platelet Count 126 K/mcL (140-400); Red Blood Count 2.81 M/mcL (4.19-5.50)
[2017-10-15 07:02] LABS: Calcium 8.2 mg/dL (8.6-10.3); Magnesium 1.6 mg/dL (1.6-2.6); Potassium 3.6 mEq/L (3.5-5.1)
[2017-10-15] MEDS: Renal Vitamin 1 CAP CAPSULE PO SCH (08:34)
[2017-10-15] MEDS: amLODIPine 5 MG TABLET PO SCH (08:34)
[2017-10-15] MEDS: Cyanocobalamin (B-12) 1,000 MCG TABLET PO SCH (08:34)
[2017-10-15] MEDS: Gabapentin 300 MG CAPSULE PO SCH ×2 (08:34→20:37)
[2017-10-15] MEDS: Cholestyramine 4 GM POWD.PACK PO SCH ×2 (08:34→16:32)
--- NOTE | 2017-10-15 09:32 | Nephrology Progress Note ---
<Dante Richmond - Last Filed: 10/15/17 11:25> Date of Encounter: 10/15/17 Time of Encounter: 09:15 - Assessment and Plan (1) Acute kidney injury Status: Acute Kidney function improved with HD yesterday. Dr. Carter contacted [facility] and biopsy results suggest likely ATN secondary to nephrotoxins vs chronic infection; pending final results. He has +FLORINDA with low C3 and mildly elevated KL light chains. We will order Anti-ds DNA. Continue to avoid nephrotoxins. Monitor kidney function with AM labs. HD planned for tomorrow if kidney function does not continue improving. (2) Hypertension Current Visit: Yes Status: Chronic Patient reports carvedilol at home is 12.5mg BID daily. He is currently on 25mg PO BID and blood pressure is low. Recommend to decrease dose back to home dose. Qualifiers: Hypertension type: essential hypertension Qualified Code(s): I10 - Essential (primary) hypertension (3) Hypocomplementemia Current Visit: Yes Status: Acute See above (4) FLORINDA positive Current Visit: Yes Status: Acute FLORINDA very elevated. Hypocomplementemia is often seen with lupus nephritis, but sometimes false positive can be seen. We will order dsDNA antibody. Will likely require normalizer follow-up outpatient. (5) Acute hypokalemia Current Visit: No Status: Acute Patient is refusing to take medication. He understands the risk for arrhythmias , but continues to refuse. Risks of hypokalemia explained to him and he verbalizes understanding but continues to refuse. K+ = 3.6 today and stable, but recommend IV K+ as needed for K+<3.5 Subjective Principal diagnosis: ARSH Interval history: Patient is doing well today. Denies nausea/vomiting, CP, SOB. He is able to tolerate some PO intake and voiding without difficulty. Dr. Carter called [facility] and biopsy demonstrates ATN, likely secondary to sepsis vs nephrotoxins. Patient 's mood improved when told kidney function has improved today with HD. Does not have any acute concerns at this time. Objective - Vital Signs Vital signs: Vital Signs Temp Pulse Resp BP Pulse Ox 10/15/17 06:33 97.9 F 69 16 118/68 98 10/15/17 04:42 98.3 F 68 16 110/72 95 10/14/17 23:35 97.6 F 74 15 109/67 99 10/14/17 20:15 98/64 10/14/17 19:11 98.3 F 75 15 99 10/14/17 12:45 97.7 F 15 156/94 10/14/17 12:25 135/89 10/14/17 12:10 120/83 10/14/17 11:55 140/101 10/14/17 11:40 158/101 10/14/17 11:25 154/97 10/14/17 11:10 158/96 10/14/17 10:55 146/81 10/14/17 10:40 143/82 10/14/17 10:25 132/84 10/14/17 10:10 118/86 10/14/17 09:55 125/81 10/14/17 09:40 130/85 Intake and Output 10/14/17 10/15/17 10/15/17 23:59 07:59 15:59 Intake Total 0 / 0 0 / 0 0 / 0 Output Total 50 / 50 0 / 0 Balance -50 / -50 0 / 0 0 / 0 Intake: Oral 0 / 0 0 / 0 0 / 0 Output: Urine 0 / 0 0 / 0 Emesis 50 / 50 Other: Meal Breakfast Percent of Meal Consumed 0% # Bowel Movements 0 Weight 82.1 kg Patient Weight 10/15/17 23:59 Weight 82.1 kg - General Appearance Exam: Gen.: Nonacute distress, alert and oriented 3 ENT: Mucosal membranes moist Respiratory: Lungs are clear to auscultation bilaterally without any wheezing rhonchi or rales Cardiovascular: Normal S1 and S2 regular rate rhythm no murmurs rubs or gallops Abdomen: Soft, nontender and nondistended with positive bowel sounds Extremities: No lower extremity edema. Left foot wrapped w/o bleed through. Skin: Normal color - Lab 10/15/17 06:02 10/15/17 06:02 Most recent lab results Calcium 8.2 mg/dL (8.6-10.3) L 10/15/17 06:02 Phosphorus 3.4 mg/dL (2.7-4.5) 10/07/17 07:51 Magnesium 1.6 mg/dL (1.6-2.6) 10/15/17 06:02 Urine Creatinine 80 mg/dL 10/06/17 16:00 Urine Sodium 76.4 mEq/L 10/05/17 12:57 Urine Total Protein SEE NOTE mg/d (10-140) 10/07/17 19:24 - VTE Documentation of Mechanical Device: Intermittent pneumatic compression device Consult Discharge Plan - Plan Additional Instructions: Please follow-up with your many specialists providers. Please follow-up with neurology for management of your seizure medications. Please follow-up with cardiology in the next few weeks following your evaluation in the hospital. Please follow-up with wound care and podiatry for management of your left foot wound. Also follow-up with nephrology for management of hemodialysis. Please return to the emergency department should you develop any chest pain, shortness of breath, fever, confusion or any other worrisome symptoms. Referrals: [facility] [Other] (Located next to the [facility]) [facility] [Outside] - 10/28/17 11:30 am Naveed Larkin DPM [Partnered Physician] - 10/30/17 10:30 am (Appointment will be in the wound care center. The wound care center is located at the [place] entrance. Thank you) Prescriptions: OxyCODONE/APAP 5/325 [Percocet 5/325 MG] 1 each PO Q6HR PRN 5 Days #15 tablet PRN Reason: Severe Pain Dronabinol [Marinol] 5 mg PO BIDLS 15 Days #30 capsule <Mnierva Lopes - Last Filed: 11/02/17 11:30> Date of Encounter: 10/15/17 - Assessment and Plan (1) Hypertension Status: Chronic Qualifiers: Hypertension type: essential hypertension Qualified Code(s): I10 - Essential (primary) hypertension (2) Acute hypokalemia Status: Acute (3) Acute kidney injury Status: Acute Objective - Lab 10/23/17 06:52 10/23/17 06:52 Most recent lab results Calcium 8.4 mg/dL (8.6-10.3) L 10/23/17 06:52 Phosphorus 3.8 mg/dL (2.7-4.5) 10/22/17 10:26 Magnesium 1.6 mg/dL (1.6-2.6) 10/19/17 08:31 Urine Creatinine 80 mg/dL 10/06/17 16:00 Urine Sodium 76.4 mEq/L 10/05/17 12:57 Urine Total Protein SEE NOTE mg/d (10-140) 10/07/17 19:24 - Attending Attestation I examined this patient and my medical decision-making was reviewed with the Resident Physician. I agree with the documented findings, disposition and treatment plan as described except to the extent set forth below. Pt seen and examined with no new complaints. Appetite is still poor. Encouraged to eat regardless as a necessity. SCr improved after HD yesterday which is expected. Will monitor tomorrow's labs for signs of renal recovery and assess HD need. Renal biopsy prelim consistent with ATN. Will checked antiDsDNA gibe positive FLORINDA. Suggest decreasing coreg given hypotension. Exam unchanged.
--- NOTE | 2017-10-15 11:34 | Internal Med Progress Note ---
Hospitalist Progress Note - Encounter Date of Encounter: 10/15/17 Time of Encounter: 11:34 - Subjective Interval History: Seen and examined at the bedside with his family No new complains Continues to have flat affect and avoid direct answers to questions Clinically stable Renal is following - Exam Vitals: Temp Pulse Resp BP Pulse Ox 98.3 F 74 16 92/55 98 10/15/17 10:17 10/15/17 10:17 10/15/17 10:17 10/15/17 10:17 10/15/17 10:17 Exam: General: Patient is alert, no acute distress, oriented x 3 Head: atraumatic, normocephalic, Eye: normal appearance, PERRL, no scleral icterus, no conjunctival injection Neck: Right IJ Shiley, dressing clean and dry Chest: normal inspection, symmetric chest rise Respiratory: Good respiratory effort. Normal breath sounds. No wheezing or crackles. Cardiovascular: Regular rate and rhythm. s1 and s2 No clicks, rubs, gallops, or murmurs. No pedal edema Abdomen: Abdomen is soft, nontender. Bowel sounds are present Musculoskeletal: Wound VAC to left foot. Skin: warm, dry, intact. Neuro: Alert oriented x 3 normal cranial nerves, no focal deficits Psych: Flat affect - Assessment and Plan (1) Wound of left lower extremity Current Visit: Yes Status: Acute Assessment and Plan: Infected wound of left lower extremity. Prior wound cultures positive for Pseudomonas aeruginosa and GCS. Patient was on cefepime after hospitalization. This has been stopped on account of acute kidney injury. Patient is now on Levaquin every 48 hours. Infectious disease is following, according to ID, he has had 5 weeks of antibiotics, will follow their recommendations (2) Hypertension Current Visit: Yes Status: Chronic Assessment and Plan: Blood pressure is controlled today. Continue Coreg 25 mg twice daily and amlodipine 10 mg daily (3) Seizure Current Visit: Yes Status: Chronic Assessment and Plan: On Dilantin. Plan to follow up with neurology as outpatient (4) Dehydration Current Visit: Yes Status: Resolved Assessment and Plan: See ARSH (5) Syncope Current Visit: Yes Status: Resolved Assessment and Plan: From dehydration along with ATN. No new episodes. (6) Acute renal failure Current Visit: Yes Status: Acute Assessment and Plan: Renal biopsy done 10/13. -According to nephrology documentation preliminary results suggest likely ATN secondary to nephrotoxins versus chronic infection. Patient also have positive DNA and low C3 and elevated K-L light changes. Nephrology following ordered [id number]-[id number]-qprjoiss DNA, will follow Seen during HD today 10/14 Continue management per renal Patient is non-oliguric (7) Bicytopenia Current Visit: Yes Status: Chronic Assessment and Plan: stable. Platelet count improving. 126 today. Hemoglobin 8.7 Continue cyanocobalamin He is to be discharged on monthly IM cyanocobalamin when medically stable Plan to resume Plavix if no other intervention or procedures planned (8) Metabolic acidosis Current Visit: Yes Status: Resolved Assessment and Plan: Being managed with hemodialysis. (9) Weight loss, non-intentional Current Visit: Yes Status: Acute Assessment and Plan: Weight decreased over the past couple of days due to hemodialysis. (10) Severe protein-calorie malnutrition Current Visit: Yes Status: Acute Assessment and Plan: Patient continues to have protein calorie malnutrition. Prior physician had discussed the subject of possible feeding every patient continues to have poor appetite and poor nutrition. However patient is adamantly against this. Nutrition following. Encouraged to try anything he wants. Patient is on Remeron and Marinol to stimulate appetite. DVT Prophylaxis: SQ heparin - Time Spent with Patient Total time spent is greater than 50% in coordination of care (as documented) at patient's floor/unit and/or counseling patient: Plan of Care Discussed with: patient Internal Medicine: Result - Labs CBC & Chem 7: 10/15/17 06:02 10/15/17 06:02 Labs: Short CBC 10/15/17 Range/Units 06:02 WBC 3.9 L (4.3-11.1) K/mcL Hgb 8.7 L (12.9-16.9) g/dL Hct 25.9 L (37.5-50.1) % Plt Count 126 L (140-400) K/mcL Neutrophils # 2.2 (1.6-8.9) K/mcL BMP 10/15/17 06:02 Sodium 136 Potassium 3.6 Chloride 100 Carbon Dioxide 24 BUN 12 Creatinine 2.46 H Glucose 77 Calcium 8.2 L - ABG Interpretation ABG results: PT/INR, D-dimer PT 15.5 Seconds (9.4-12.1) H 10/13/17 03:31 - VTE Documentation of Mechanical Device: Intermittent pneumatic compression device Consult Discharge Plan - Plan Referrals: [facility] [Outside] - 10/22/17 8:30 am (1) Wound of left lower extremity Qualifiers: Encounter type: initial encounter Qualified Code(s): S81.802A - Unspecified open wound, left lower leg, initial encounter (2) Hypertension Qualifiers: Hypertension type: essential hypertension Qualified Code(s): I10 - Essential (primary) hypertension (5) Syncope Qualifiers: Syncope type: unspecified Qualified Code(s): R55 - Syncope and collapse (6) Acute renal failure Qualifiers: Acute renal failure type: with acute tubular necrosis Qualified Code(s): N17.0 - Acute kidney failure with tubular necrosis
--- NOTE | 2017-10-15 13:18 | Infectious Disease Progress No ---
Date of Encounter: 10/15/17 Time of Encounter: 13:16 - Assessment and Plan (1) Wound of left lower extremity Current Visit: Yes Status: Acute Location: Left lateral ankle. Causative organism PSEA and GCS. Secondary to non-healing surgical wound. X-ray of the left foot/ankle and recent postsurgical change of arthrodesis in the foot with worsening soft tissue swelling and edema with suspected ulceration and perhaps subcutaneous gas over the dorsal and medial aspect of the foot. The pattern may represent cellulitis and ulceration, but underlying fasciitis cannot be excluded. Podiatry consulted and following. Status post excisional debridement of the left foot wounds anterior ankle, lateral foot, and posterior heel. Large amount of serous drainage noted intra-op. Cultures as above. Pathology negative for OM. Status post repeat washout and removal of hardware 09/13/[address] Lakrin. No additional cultures were sent. Wound care and activity restrictions per the podiatry team. ESR remains elevated, but CRP normal. Originally discharged home to complete a 6 week course of IV Cefepime, but antibiotics switched to IV Levaquin per the primary team due to concern that Cefepime could be contributing to ARSH. Continue Levaquin 750mg IV Q48H (week 5, day 1). Duration of treatment depends on the clinical picture, but likely 6 weeks of IV antibiotics. He has completed about 5 weeks at this point. Treat through . Will plan to see the patient in the office next week. Will await to find out his HD schedule before we make his appt. Please have the patient call the office to schedule. Monitor renal function and dose-adjust antibiotics. No further recommendations from the ID team. Will sign off. Please re-consult if needed. Qualifiers: Encounter type: initial encounter Qualified Code(s): S81.802A - Unspecified open wound, left lower leg, initial encounter (2) Acute kidney injury Current Visit: Yes Status: Acute Etiology likely ATN per the renal biopsy. Improved after initiation of HD. Discussed with Dr. Carter. Unlikely that Cefepime caused ARSH. Renal biopsy indicative of ATN. Strict I's and O's. Nephrology consulted and following. (3) Syncope Current Visit: Yes Status: Resolved Likely secondary to ARSH. Qualifiers: Syncope type: unspecified Qualified Code(s): R55 - Syncope and collapse (4) Thrombocytopenia Current Visit: Yes Status: Acute Etiology unclear. Unlikely infectious etiology. Improved. Continue to trend. Hem/Onc consulted. (5) Metabolic acidosis, normal anion gap (NAG) Current Visit: Yes Status: Acute (6) Hypocomplementemia Current Visit: Yes Status: Acute (7) FLORINDA positive Current Visit: Yes Status: Acute (8) Severe protein-calorie malnutrition Current Visit: Yes Status: Acute Patient reports that nothing tastes good and he continues to have some intermittent nausea. Recommend further intervention per nutrition team's recommendations. 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 Larkin. - Subjective Interval history: Patient seen and examined with family at bedside. States overall feels the same. Denies fevers, chills, or rigors. Denies chest pain, shortness of breath, or cough. Reports persistent poor appetite. Denies urinary complaints, but states he isn't urinating much. Denies diarrhea/BMs due to low PO intake. Denies abdominal pain, nausea, or vomiting. Denies oral thrush or skin lesions. Reports chronic neuropathy pain that is at baseline. Infect Dis PN-Objective Data - Labs CBC & Chem 7: 10/16/17 04:43 10/16/17 04:43 Labs: Laboratory Results - last 24 hr 10/15/17 10/15/17 06:02 06:02 WBC 3.9 L RBC 2.81 L Hgb 8.7 L Hct 25.9 L MCV 92.2 MCH 31.0 MCHC 33.6 RDW 15.0 H Plt Count 126 L MPV 10.0 Immature Gran % 0.8 Seg Neutrophils % 55.0 Lymphocytes % 23.4 Monocytes % 15.2 Eosinophils % 5.1 Basophils % 0.5 Neutrophils # 2.2 Lymphocytes # 0.9 Monocytes # 0.6 Eosinophils # 0.2 Basophils # 0.0 Sodium 136 Potassium 3.6 Chloride 100 Carbon Dioxide 24 BUN 12 Creatinine 2.46 H Est GFR ( Amer) 32 L Est GFR (Non-Af Amer) 27 L BUN/Creatinine Ratio 5 L Glucose 77 Calculated Osmolality 281 Calcium 8.2 L Magnesium 1.6 Cultures: Serology 08/07/18 08/06/18 08/06/18 Range/Units 19:24 16:00 16:00 Urine Color (Yellow) Urine Clarity (Clear) Urine pH (5.0-8.0) pH Units Ur Specific [place] (1.010-1.025) Urine Protein (Neg-Trace) mg/dL Urine Glucose (UA) (Normal) mg/dL Urine Ketones (Negative) mg/dL Urine Blood (Negative) Urine Nitrite (Negative) Urine Bilirubin (Negative) Urine Urobilinogen (Normal) mg/dL Ur Leukocyte Esterase (Negative) Urine Microscopic RBC (0-3) per hpf Urine Microscopic WBC (0-3) per hpf Ur Eosinophil Smear 1 H (None Seen) % Ur Squamous Epith Cells (None-Few) per lpf Urine Bacteria (None-Few) per hpf Hyaline Casts (None-Few) per lpf Ur Culture Indicated? (NO) Urine Osmolality (300-1090) mOsm/kg Ur Collection Duration RANDOM hr Urine Total Volume RANDOM mL Urine Creatinine 80 mg/dL Protein/Creatinin Ratio 2.00 H (0.00-0.20) mg/mg Urine Sodium mEq/L Urine Potassium mEq/L Urine Chloride mEq/L Urine Total Protein SEE NOTE 160 H (1-14) mg/dL Urine Albumin (PEP) DETECTED (Detected) U Ciwlu-6-Fqiajwcz DETECTED (None Detected) U Rfslh-5-Azemmjml DETECTED (None Detected) U Beta Globulin DETECTED (None Detected) U Gamma Globulin DETECTED (None Detected) U Free [place] Light Ch 58.30 H (0.14-2.42) mg/dL U Free [place] Chain 24h SEE NOTE mg/d U Free [place] Light Ch 17.20 H (0.02-0.67) mg/dL U Free Lambda Chn 24h SEE NOTE mg/d U Free [place]/Lambda 3.39 (2.04-10.37) ratio Stool Occult Blood (Negative) Hepatitis A IgM Ab (Nonreactive) Hep Bs Antigen (Nonreactive) Hep Bs Antibody mIU/mL Hep B Core IgM Ab (Nonreactive) Hepatitis C Ab Screen (Nonreactive) 10/06/17 10/06/17 10/06/17 Range/Units 16:00 13:42 13:42 Urine Color Yellow (Yellow) Urine Clarity Cloudy A (Clear) Urine pH 6.0 (5.0-8.0) pH Units Ur Specific [place] 1.023 (1.010-1.025) Urine Protein 100 H (Neg-Trace) mg/dL Urine Glucose (UA) Normal (Normal) mg/dL Urine Ketones 15 H (Negative) mg/dL Urine Blood Large H (Negative) Urine Nitrite Negative (Negative) Urine Bilirubin Negative (Negative) Urine Urobilinogen Normal (Normal) mg/dL Ur Leukocyte Esterase Trace H (Negative) Urine Microscopic RBC TNTC H (0-3) per hpf Urine Microscopic WBC 5-15 H (0-3) per hpf Ur Eosinophil Smear (None Seen) % Ur Squamous Epith Cells Many H (None-Few) per lpf Urine Bacteria None Seen (None-Few) per hpf Hyaline Casts None Seen (None-Few) per lpf Ur Culture Indicated? NO. A (NO) Urine Osmolality (300-1090) mOsm/kg Ur Collection Duration hr Urine Total Volume mL Urine Creatinine mg/dL Protein/Creatinin Ratio (0.00-0.20) mg/mg Urine Sodium mEq/L Urine Potassium mEq/L Urine Chloride mEq/L Urine Total Protein (1-14) mg/dL Urine Albumin (PEP) (Detected) U Qebqe-1-Bjluufgw (None Detected) U Udstf-7-Weyvrpby (None Detected) U Beta Globulin (None Detected) U Gamma Globulin (None Detected) U Free [place] Light Ch (0.14-2.42) mg/dL U Free [place] Chain 24h mg/d U Free Lambda Light Ch (0.02-0.67) mg/dL U Free Lambda Chn 24h mg/d U Free [place]/Lambda (2.04-10.37) ratio Stool Occult Blood (Negative) Hepatitis A IgM Ab Nonreactive (Nonreactive) Hep Bs Antigen Nonreactive (Nonreactive) Hep Bs Antibody 2.37 mIU/mL Hep B Core IgM Ab Nonreactive (Nonreactive) Hepatitis C Ab Screen Nonreactive (Nonreactive) 10/06/17 10/05/17 10/05/17 Range/Units 08:10 12:57 12:57 Urine Color (Yellow) Urine Clarity (Clear) Urine pH (5.0-8.0) pH Units Ur Specific [place] (1.010-1.025) Urine Protein (Neg-Trace) mg/dL Urine Glucose (UA) (Normal) mg/dL Urine Ketones (Negative) mg/dL Urine Blood (Negative) Urine Nitrite (Negative) Urine Bilirubin (Negative) Urine Urobilinogen (Normal) mg/dL Ur Leukocyte Esterase (Negative) Urine Microscopic RBC (0-3) per hpf Urine Microscopic WBC (0-3) per hpf Ur Eosinophil Smear (None Seen) % Ur Squamous Epith Cells (None-Few) per lpf Urine Bacteria (None-Few) per hpf Hyaline Casts (None-Few) per lpf Ur Culture Indicated? (NO) Urine Osmolality 300 (300-1090) mOsm/kg Ur Collection Duration hr Urine Total Volume mL Urine Creatinine mg/dL Protein/Creatinin Ratio (0.00-0.20) mg/mg Urine Sodium 76.4 mEq/L Urine Potassium 13.7 mEq/L Urine Chloride 88 mEq/L Urine Total Protein (1-14) mg/dL Urine Albumin (PEP) (Detected) U Efzaj-2-Idrgevdh (None Detected) U Ifgxh-7-Zkosyozb (None Detected) U Beta Globulin (None Detected) U Gamma Globulin (None Detected) U Free [place] Light Ch (0.14-2.42) mg/dL U Free [place] Chain 24h mg/d U Free Lambda Light Ch (0.02-0.67) mg/dL U Free Lambda Chn 24h mg/d U Free [place]/Lambda (2.04-10.37) ratio Stool Occult Blood Negative (Negative) Hepatitis A IgM Ab (Nonreactive) Hep Bs Antigen (Nonreactive) Hep Bs Antibody mIU/mL Hep B Core IgM Ab (Nonreactive) Hepatitis C Ab Screen (Nonreactive) 10/05/17 10/04/17 Range/Units 06:30 08:21 Urine Color Yellow (Yellow) Urine Clarity Clear (Clear) Urine pH 5.5 (5.0-8.0) pH Units Ur Specific [place] 1.020 (1.010-1.025) Urine Protein 100 H (Neg-Trace) mg/dL Urine Glucose (UA) Normal (Normal) mg/dL Urine Ketones Trace H (Negative) mg/dL Urine Blood Large H (Negative) Urine Nitrite Negative (Negative) Urine Bilirubin Negative (Negative) Urine Urobilinogen Normal (Normal) mg/dL Ur Leukocyte Esterase Small H (Negative) Urine Microscopic RBC 0-3 (0-3) per hpf Urine Microscopic WBC 5-15 H (0-3) per hpf Ur Eosinophil Smear 0 (None Seen) % Ur Squamous Epith Cells Few (None-Few) per lpf Urine Bacteria Moderate H (None-Few) per hpf Hyaline Casts None Seen (None-Few) per lpf Ur Culture Indicated? (NO) Urine Osmolality (300-1090) mOsm/kg Ur Collection Duration hr Urine Total Volume mL Urine Creatinine mg/dL Protein/Creatinin Ratio (0.00-0.20) mg/mg Urine Sodium mEq/L Urine Potassium mEq/L Urine Chloride mEq/L Urine Total Protein (1-14) mg/dL Urine Albumin (PEP) (Detected) U Tehgl-3-Qyrdguop (None Detected) U Jdywh-3-Ccyddybe (None Detected) U Beta Globulin (None Detected) U Gamma Globulin (None Detected) U Free [place] Light Ch (0.14-2.42) mg/dL U Free [place] Chain 24h mg/d U Free Lambda Light Ch (0.02-0.67) mg/dL U Free Lambda Chn 24h mg/d U Free [place]/Lambda (2.04-10.37) ratio Stool Occult Blood (Negative) Hepatitis A IgM Ab (Nonreactive) Hep Bs Antigen (Nonreactive) Hep Bs Antibody mIU/mL Hep B Core IgM Ab (Nonreactive) Hepatitis C Ab Screen (Nonreactive) Exam - Constitutional Vitals: Temp Pulse Resp BP Pulse Ox 98.3 F 74 16 92/55 98 10/15/17 10:17 10/15/17 10:17 10/15/17 10:17 10/15/17 10:17 10/15/17 10:17 General appearance: average body habitus, cooperative, no acute distress - Head Head exam: Present: atraumatic, normal inspection, normocephalic - Eye Eye exam: Present: EOMI, normal appearance, PERRL Pupils: Present: normal accommodation - ENT ENT exam: Present: mucous membranes moist - Neck Neck exam: Present: normal inspection Additional comments: Temporary dialysis catheter noted to the right neck with transparent dressing C/ D/I. No erythema, warmth, drainage, or tenderness noted. - Respiratory Respiratory exam: Present: CTAB. Absent: rales, respiratory distress, rhonchi, wheezes - Cardiovascular Cardiovascular exam: Present: RRR, +S1, +S2 - GI/Abdominal GI/Abdominal exam: Present: normal bowel sounds, soft. Absent: distended, tenderness - Extremities Exam Extremities exam: Absent: joint swelling, pedal edema, tenderness Additional comments: Left ankle/foot wound VAC dressing intact without evidence of leak and 125mm Hg continuous suction noted. Scant drainage noted in the canister. - Neurological Exam Neurological exam: Present: alert, oriented X3, no focal deficits - Psychiatric Psychiatric exam: Present: normal affect, normal mood - Skin Skin exam: Present: dry, intact, normal color, warm - VTE Documentation of Mechanical Device: Intermittent pneumatic compression device Consult Discharge Plan - Plan Referrals: [facility] [Outside] - 10/22/17 8:30 am - Attending Attestation I examined this patient and my medical decision-making was reviewed with Yisel Stevens CNP. I agree with the documented findings, disposition and treatment plan as described except to the extent set forth below.
[2017-10-15] MEDS: Mirtazapine 15 MG TABLET PO SCH (20:37)
[2017-10-16 05:02] LABS: Basophils % 0.3 %; Eosinophils # 0.2 K/mcL (0.0-0.6); Eosinophils % 5.6 %; Hematocrit 25.1 % (37.5-50.1); Hemoglobin 8.4 g/dL (12.9-16.9); Immature Granulocytes % 0.8 % (0-4); Lymphocytes # 0.9 K/mcL (0.6-4.6); Lymphocytes % 25.4 %; Mean Corpuscular HGB Conc 33.5 g/dL (31.6-35.5); Mean Corpuscular Hemoglobin 30.8 pg (28.0-33.3); Mean Corpuscular Volume 91.9 fL (83.0-100.0); Mean Platelet Volume 9.8 fL (9.4-12.4); Monocytes # 0.5 K/mcL (0.0-1.3); Monocytes % 14.7 %; Neutrophils # 1.9 K/mcL (1.6-8.9); Platelet Count 104 K/mcL (140-400); Red Blood Count 2.73 M/mcL (4.19-5.50); Red Cell Distribution Width 15.1 % (11.5-14.5); Segmented Neutrophils % 53.2 %
[2017-10-16 05:22] LABS: Calcium 8.1 mg/dL (8.6-10.3); Magnesium 1.7 mg/dL (1.6-2.6); Potassium 3.3 mEq/L (3.5-5.1)
[2017-10-16] MEDS: Cholestyramine 4 GM POWD.PACK PO SCH ×3 (07:31→17:26)
[2017-10-16] MEDS: Gabapentin 300 MG CAPSULE PO SCH ×2 (07:32→20:02)
[2017-10-16] MEDS: amLODIPine 5 MG TABLET PO SCH (07:32)
[2017-10-16] MEDS: Cyanocobalamin (B-12) 1,000 MCG TABLET PO SCH (07:33)
[2017-10-16] MEDS: Renal Vitamin 1 CAP CAPSULE PO SCH (07:34)
[2017-10-16] MEDS ORDERED: 0.9 % Sodium Chloride 250 ML IVC PRN (08:01)
[2017-10-16] MEDS ORDERED: *HR* EPINEPHrine 1 MG/10 ML SYRINGE IVP ONE (09:19)
[2017-10-16] MEDS ORDERED: Albumin 25% 12.5gm/50mL 25.0 GM/100 ML IV.SOLN ONE (09:42)
[2017-10-16] MEDS ORDERED: 0.9 % Sodium Chloride 1,000 ML ONE (09:56)
[2017-10-16] MEDS ORDERED: Albumin 25% 25gram/100mL 25 GM/100 ML IV.SOLN IVPB ONE (10:31)
--- NOTE | 2017-10-16 11:01 | Internal Med Progress Note ---
Hospitalist Progress Note - Encounter Date of Encounter: 10/16/17 Time of Encounter: 11:01 - Subjective Interval History: Seen and examined at the bedside during hemodialysis He is very upbeat and cheerful this a.m No new complains Per renal, he is to have a perma-cath and establishment for out-patient HD ID following - Exam Vitals: Temp Pulse Resp BP Pulse Ox 97.6 F 72 15 105/64 99 10/16/17 08:00 10/16/17 08:00 10/16/17 08:00 10/16/17 08:00 10/16/17 08:00 Exam: General: Patient is alert, no acute distress, oriented x 3 Head: atraumatic, normocephalic, Eye: normal appearance, PERRL, no scleral icterus, no conjunctival injection Neck: Right IJ Shiley, dressing clean and dry Chest: normal inspection, symmetric chest rise Respiratory: Good respiratory effort. Normal breath sounds. No wheezing or crackles. Cardiovascular: Regular rate and rhythm. s1 and s2 No clicks, rubs, gallops, or murmurs. No pedal edema Abdomen: Abdomen is soft, nontender. Bowel sounds are present Musculoskeletal: Wound VAC to left foot. Skin: warm, dry, intact. Neuro: Alert oriented x 3 normal cranial nerves, no focal deficits Psych: Normal mood today - Assessment and Plan (1) Acute renal failure Current Visit: Yes Status: Acute Assessment and Plan: Renal biopsy done 10/13. -According to nephrology documentation preliminary results suggest likely ATN secondary to nephrotoxins versus chronic infection. Patient also have positive DNA and low C3 and elevated K-L light changes. Nephrology following ordered onlo-gwjyss-[id number] DNA, will follow, result pending Seen during HD today 10/16 Continue management per renal, he is meant to get a perma-cath for out-patient HD Encourage liberal fluid intake as patient is not taking much po Patient has no documented urine output in the past 48 hrs (2) Wound of left lower extremity Current Visit: Yes Status: Acute Assessment and Plan: Infected wound of left lower extremity. Prior wound cultures positive for Pseudomonas aeruginosa and GCS. Patient was on cefepime after hospitalization. This has been stopped on account of acute kidney injury. Patient is now on Levaquin every 48 hours. Infectious disease is following, according to ID, he has had 5 weeks of antibiotics, -day 2, continue same will follow their recommendations (3) Hypertension Current Visit: Yes Status: Chronic Assessment and Plan: Blood pressure borderline low Decrease coreg to 12.5mg BID Continue amlodipine Continue to monitor (4) Seizure Current Visit: Yes Status: Chronic Assessment and Plan: On Dilantin. Continue same. Plan to follow up with neurology as outpatient (5) Dehydration Current Visit: Yes Status: Resolved Assessment and Plan: See ARSH (6) Syncope Current Visit: Yes Status: Resolved Assessment and Plan: From dehydration along with ATN. No new episodes. (7) Bicytopenia Current Visit: Yes Status: Chronic Assessment and Plan: stable. Platelet count improving. 126 today. Hemoglobin 8.7 Continue cyanocobalamin He is to be discharged on monthly IM cyanocobalamin when medically stable Resume Plavix a.m, after permacath placement (8) Metabolic acidosis Current Visit: Yes Status: Resolved Assessment and Plan: Being managed with hemodialysis. (9) Weight loss, non-intentional Current Visit: Yes Status: Acute Assessment and Plan: Weight decreased over the past few days due to hemodialysis and malnutrition (10) Severe protein-calorie malnutrition Current Visit: Yes Status: Acute Assessment and Plan: Patient continues to have protein calorie malnutrition. Prior physician had discussed the subject of possible feeding because patient continues to have poor appetite and poor nutrition. However patient is adamantly against this. Nutrition following. Encouraged to try anything he wants. Patient is on Remeron and Marinol to stimulate appetite. - Time Spent with Patient Total time spent is greater than 50% in coordination of care (as documented) at patient's floor/unit and/or counseling patient: Plan of Care Discussed with: patient Internal Medicine: Result - Labs CBC & Chem 7: 10/16/17 04:43 10/16/17 04:43 Labs: Short CBC 10/16/17 Range/Units 04:43 WBC 3.5 L (4.3-11.1) K/mcL Hgb 8.4 L (12.9-16.9) g/dL Hct 25.1 L (37.5-50.1) % Plt Count 104 L (140-400) K/mcL Neutrophils # 1.9 (1.6-8.9) K/mcL BMP 10/16/17 04:43 Sodium 135 L Potassium 3.3 L Chloride 98 Carbon Dioxide 23 BUN 16 Creatinine 3.34 H Glucose 74 Calcium 8.1 L - ABG Interpretation ABG results: PT/INR, D-dimer PT 15.5 Seconds (9.4-12.1) H 10/13/17 03:31 - VTE Documentation of Mechanical Device: Intermittent pneumatic compression device Consult Discharge Plan - Plan Referrals: [facility] [Outside] - 10/22/17 8:30 am (1) Acute renal failure Qualifiers: Acute renal failure type: with acute tubular necrosis Qualified Code(s): N17.0 - Acute kidney failure with tubular necrosis (2) Wound of left lower extremity Qualifiers: Encounter type: initial encounter Qualified Code(s): S81.802A - Unspecified open wound, left lower leg, initial encounter (3) Hypertension Qualifiers: Hypertension type: essential hypertension Qualified Code(s): I10 - Essential (primary) hypertension (6) Syncope Qualifiers: Syncope type: unspecified Qualified Code(s): R55 - Syncope and collapse
--- NOTE | 2017-10-16 11:19 | Nephrology Progress Note ---
<Dante Richmond - Last Filed: 10/16/17 18:42> Date of Encounter: 10/16/17 Time of Encounter: 11:20 - Assessment and Plan (1) Acute kidney injury Status: Acute Last HD 2 days ago and kidney function worsened today as expected. Patient at HD this AM, will recheck AM labs tomorrow. Biopsy results suggest likely ATN secondary to nephrotoxins vs chronic infection. He has +FLORINDA with low C3 and mildly elevated KL light chains. now pending Anti-ds DNA. Continue to avoid nephrotoxins and monitor kidney function with AM labs. Patient is encouraged to increase PO intake and I explained to him that his condition is unlikely to improve unless he eats. He will likely require further HD. (2) Poor nutrition Status: Acute Decrease appetite supplement Rameron as it does not appear to be helping. 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 NGT is a possibility. Recommendations appreciated. Thank you (3) Hypertension Current Visit: Yes Status: Chronic Patient has been borderline hypotensive for the last 3 days. He also reports carvedilol at home is 12.5mg BID daily. He is currently on 25mg PO BID and HR 60s - 70s. Recommend to discontinue for now. Qualifiers: Hypertension type: essential hypertension Qualified Code(s): I10 - Essential (primary) hypertension (4) Hypocomplementemia Current Visit: Yes Status: Acute See above (5) FLORINDA positive Current Visit: Yes Status: Acute FLORINDA very elevated. Hypocomplementemia is often seen with lupus nephritis, but sometimes false positive can be seen. Pending dsDNA IgG Will likely require gas derrick operator follow-up outpatient. (6) Acute hypokalemia Current Visit: No Status: Acute Will correct via HD today. Subjective Principal diagnosis: ARSH Interval history: Patient not at bedside. At hemodialysis this AM. Objective - Vital Signs Vital signs: Vital Signs Temp Pulse Resp BP Pulse Ox 10/16/17 08:00 97.6 F 72 15 105/64 99 10/16/17 03:25 98.1 F 64 15 118/70 98 10/15/17 23:39 98.2 F 64 15 121/78 97 10/15/17 19:23 98.5 F 65 15 97/59 97 10/15/17 14:21 98.2 F 84 16 115/66 99 Intake and Output 10/15/17 10/16/17 10/16/17 23:59 07:59 15:59 Intake Total 0 / 0 0 / 0 0 / 0 Output Total 0 / 0 0 / 0 10 / 10 Balance 0 / 0 0 / 0 -10 / -10 Intake: Oral 0 / 0 0 / 0 0 / 0 Output: Urine 0 / 0 0 / 0 0 / 0 Wound Drainage 0 / 0 0 / 0 10 / 10 Left Foot 0 / 0 0 / 0 10 / 10 Other: Meal Dinner Percent of Meal Consumed 0% Weight 81.7 kg - General Appearance Exam: Not performed due to patient not at bedside. HD today. Will reaccess at a later time. - Lab 10/16/17 17:38 10/16/17 17:38 Most recent lab results Calcium 8.1 mg/dL (8.6-10.3) L 10/16/17 04:43 Phosphorus 3.4 mg/dL (2.7-4.5) 10/07/17 07:51 Magnesium 1.7 mg/dL (1.6-2.6) 10/16/17 04:43 Urine Creatinine 80 mg/dL 10/06/17 16:00 Urine Sodium 76.4 mEq/L 10/05/17 12:57 Urine Total Protein SEE NOTE mg/d (10-140) 10/07/17 19:24 - VTE Documentation of Mechanical Device: Intermittent pneumatic compression device Consult Discharge Plan - Plan Additional Instructions: Please follow-up with your many specialists providers. Please follow-up with neurology for management of your seizure medications. Please follow-up with cardiology in the next few weeks following your evaluation in the hospital. Please follow-up with wound care and podiatry for management of your left foot wound. Also follow-up with nephrology for management of hemodialysis. Please return to the emergency department should you develop any chest pain, shortness of breath, fever, confusion or any other worrisome symptoms. Referrals: [facility] [Other] ([facility]ated [facility] to [facility]) [facility] [Outside] - 10/28/17 11:30 am Naveed Larkin DPM [Partnered Physician] - 10/30/17 10:30 am (Appointment will be in the wound care center. The wound care center is located at the west entrance. Thank you) Prescriptions: OxyCODONE/APAP 5/325 [Percocet 5/325 MG] 1 each PO Q6HR PRN 5 Days #15 tablet PRN Reason: Severe Pain Dronabinol [Marinol] 5 mg PO BIDLS 15 Days #30 capsule <Minerva Lopes - Last Filed: 11/02/17 21:08> Date of Encounter: 10/16/17 - Assessment and Plan (1) Hypertension Status: Chronic Qualifiers: Hypertension type: essential hypertension Qualified Code(s): I10 - Essential (primary) hypertension (2) Acute hypokalemia Status: Acute (3) Acute kidney injury Status: Acute Objective - Lab 10/23/17 06:52 10/23/17 06:52 Most recent lab results Calcium 8.4 mg/dL (8.6-10.3) L 10/23/17 06:52 Phosphorus 3.8 mg/dL (2.7-4.5) 10/22/17 10:26 Magnesium 1.6 mg/dL (1.6-2.6) 10/19/17 08:31 Urine Creatinine 80 mg/dL 10/06/17 16:00 Urine Sodium 76.4 mEq/L 10/05/17 12:57 Urine Total Protein SEE NOTE mg/d (10-140) 10/07/17 19:24 - Attending Attestation I examined this patient and my medical decision-making was reviewed with the Resident Physician. I agree with the documented findings, disposition and treatment plan as described except to the extent set forth below. Pt seen and examined on HD doing fair. Still not eating much, encouraged to try. Still hypotensive, will hold coreg entirely/ Exam unchanged, chronic ill appearing NAD, Ext with no LE edema. SCr worse hence HD today and no renal recovery yet. ATN might take a while to recovery. Will paln for outpatient HD at this time. Dietitian to see and discuss nutritional supplements. Will continue HD with minimal to no UF given hypotension and no signs of volume overload.
[2017-10-16] MEDS ORDERED: *HR* Heparin 10,000 UNIT/10 ML VIAL IV PRN (11:47)
[2017-10-16] MEDS ORDERED: 0.9 % Sodium Chloride 1,000 ML PRIME SCH (12:00)
[2017-10-16] MEDS ORDERED: Heparin 1,000 UNITS/500 mL 500 ML ONE (13:54)
[2017-10-16] MEDS ORDERED: CeFAZolin Premix DUPLEX 2,000 MG/50 ML BAG IVPB ONE ×2 (15:31→16:00)
[2017-10-16] MEDS ORDERED: *HR* Midazolam HCl 2 MG/2 ML VIAL ONE ×2 (15:36→16:28)
[2017-10-16] MEDS ORDERED: *HR* FentaNYL (PF) 100 MCG/2 ML VIAL ONE ×2 (15:36→16:29)
[2017-10-16] MEDS ORDERED: 0.9 % Sodium Chloride 500 ML ONE (15:36)
[2017-10-16] MEDS ORDERED: *HR* Heparin 5,000 UNIT/ML VIAL ONE (15:51)
--- NOTE | 2017-10-16 15:55 | IR Procedure Note ---
Date of procedure: 10/16/17 Consent Obtained: Verbal consent, Written consent Timeout: Correct patient and procedure verified, Correct site verified, Time out performed, Skin prep completed Local anesthetic: Lidocaine 1% Indications: CKD Procedure Performed: Tunneled HD catheter placement Was there an print shop assistant present: No Site/Technique: Tunneled HD catheter placed in VIR Results/Findings: Tunneled HD catheter in good position Estimated blood loss (cc): 2 Complications: None; Tolerated procedure well Post Procedure Treatment Plan: May use HD catheter now Specimen: None
--- NOTE | 2017-10-16 16:49 | IR Progress Note ---
Narrative: Patient coded following HD catheter placement. Date of IR Procedure: 10/16/17 Vital Signs: Vital Signs/O2 Sat, Most Current Temp Pulse Resp BP Pulse Ox 98.6 F 66 18 106/71 99 10/16/17 14:13 10/16/17 14:13 10/16/17 14:13 10/16/17 14:13 10/16/17 14:13 Recent Labs: Lab Results 10/16/17 10/16/17 10/15/17 04:43 04:43 06:02 WBC 3.5 L RBC 2.73 L Hgb 8.4 L Hct 25.1 L MCV 91.9 MCH 30.8 MCHC 33.5 RDW 15.1 H Plt Count 104 L MPV 9.8 Neutrophils # 1.9 Lymphocytes # 0.9 Monocytes # 0.5 Eosinophils # 0.2 Basophils # 0.0 Sodium 135 L 136 Potassium 3.3 L 3.6 Chloride 98 100 Carbon Dioxide 23 24 BUN 16 12 Creatinine 3.34 H 2.46 H Est GFR ( Amer) 23 L 32 L Est GFR (Non-Af Amer) 19 L 27 L BUN/Creatinine Ratio 5 L 5 L Glucose 74 77 Calcium 8.1 L 8.2 L Magnesium 1.7 1.6 10/15/17 10/14/17 10/14/17 06:02 06:35 06:35 WBC 3.9 L 4.6 RBC 2.81 L 2.86 L Hgb 8.7 L 8.7 L Hct 25.9 L 26.2 L MCV 92.2 91.6 MCH 31.0 30.4 MCHC 33.6 33.2 RDW 15.0 H 15.2 H Plt Count 126 L 121 L MPV 10.0 10.0 Neutrophils # 2.2 2.6 Lymphocytes # 0.9 1.2 Monocytes # 0.6 0.4 Eosinophils # 0.2 0.3 Basophils # 0.0 0.0 Sodium 139 Potassium 3.7 Chloride 102 Carbon Dioxide 22 L BUN 23 Creatinine 3.27 H Est GFR ( Amer) 23 L Est GFR (Non-Af Amer) 19 L BUN/Creatinine Ratio 7 Glucose 77 Calcium 8.2 L Magnesium Assessment and Plan 62 y/o male who underwent tunneled HD catheter placement in [facility]. After the procedure was completed, the patient coded and had no pulse. This was witnessed by the IR technologist and nurse, who immediately began chest compressions and called a rapid response. The code team took over care of the patient upon arrival. The patient was ultimately intubated and a cardiac rhythm returned. Report of the IR procedure, which had been uneventful was given to the ICU team. The patient was transferred to CT for a head and chest ct. Wesley Healy MD
--- NOTE | 2017-10-16 17:16 | Anesthesia Procedures ---
Date of Encounter: 10/16/17 Time of Encounter: 16:10 Procedures: Anesthesia - Intubation Time out performed: No Sedative: none Laryngoscope: video scope Laryngoscope Size: 3 Assist device used: video scope ET Tube Size: 7.5 Tube secured depth (cm): 25 Tube secured location: lips Tube Placement Confirmation: visualized tube passing through cords, equal breath sounds bilaterally (Breath sounds diminished bilaterally. Dr. Razo present and notified, auscultated independently. I mentioned pt may have pneumothorax considering HD catheter placed immediately prior to Code.), no breath sounds over epigastrium, confirmation by colorimetric device Patient tolerated procedure: well, no complications Intubation complications: none Anes Supervising Prov Stmt: CTSP re CODE Blue in IR at approximately 1610. Upon arrival pt was undergoing chest compressions and Bag Masked on pt Cart. IR techs stated pt was fine, moments prior - awake & talking then immediately "coded" as evidenced by pt going limp and eyes rolling back in his head. C.Ball and self at head of bed with videoscope, Laryngoscopy x 1, ett thru well visualized VC. + colorimetric change and tube condensation. BS auscultated but with diminished BS Bilaterally and Dr. Razo notified. RT present and secured ett 25cm at lip. Pt regained consciousness, resumed spontaneous respirations and vigorously attempted to sit up on the cart. Pt was sedated with 3mg Versed IV after which he became calm again. Pt and code team en route to CT scanner for further imaging/determine etiology of Code Blue at time of Anesthesia departure. Josephine Castillo MD Impressions Chest CT 10/16/17 16:25 IMPRESSION: 1. Cardiac enlargement and coronary artery calcifications. 2. Ascending thoracic aorta aneurysm measuring 4.7 cm. Detail limited on this unenhanced exam. If there is concern for dissection a CT angiogram would be indicated. 3. Reticular densities at the lung bases suggestive of chronic interstitial changes. 4. Granulomatous disease manifested by calcified right upper lobe nodule and some calcified mediastinal nodes. D/ / Aaron Flores MD / Aaron Flores MD Interpreting Provider: Aaron Flores MD Head CT 10/16/17 16:25 IMPRESSION: No acute intracranial abnormality. D/ / Rm Urias MD / Rm Urias MD Interpreting Provider: Rm Urias MD
[2017-10-16] MEDS: Levofloxacin 750 MG/150 ML 750 MG/150 ML BAG IVPB SCH (17:17)
[2017-10-16] MEDS ORDERED: Ringers Solution, Lactated 1,000 ML ONE (17:28)
[2017-10-16] MEDS ORDERED: Ringers Solution, Lactated 500 ML IVC ONE (17:34)
--- NOTE | 2017-10-16 17:36 | Event Note ---
Date of Encounter: 10/16/17 Time of Encounter: 17:35 Patient coded immediately post-procedure, now being managed by the intensive care team
[2017-10-16 17:52] LABS: Basophils % 0.3 %; Eosinophils # 0.2 K/mcL (0.0-0.6); Eosinophils % 4.2 %; Hematocrit 29.3 % (37.5-50.1); Hemoglobin 9.7 g/dL (12.9-16.9); Immature Granulocytes % 1.4 % (0-4); Lymphocytes # 0.4 K/mcL (0.6-4.6); Mean Corpuscular HGB Conc 33.1 g/dL (31.6-35.5); Mean Corpuscular Hemoglobin 31.7 pg (28.0-33.3); Mean Corpuscular Volume 95.8 fL (83.0-100.0); Mean Platelet Volume 10.2 fL (9.4-12.4); Monocytes # 0.2 K/mcL (0.0-1.3); Monocytes % 6.4 %; Neutrophils # 2.7 K/mcL (1.6-8.9); Platelet Count 108 K/mcL (140-400); Red Blood Count 3.06 M/mcL (4.19-5.50); Red Cell Distribution Width 15.1 % (11.5-14.5); Segmented Neutrophils % 75.7 %
--- NOTE | 2017-10-16 17:57 | Pulmonology Consult Note ---
<Ronal Howard W - Last Filed: 10/16/17 18:20> Date of Encounter: 10/16/17 Medications and Allergies Carvedilol 12.5 mg PO BID 07/03/17 [History] Gabapentin [Neurontin] 900 mg PO QID 07/03/17 [History] Phenytoin Sodium Extended [Phenytek] 200 mg PO TID 07/03/17 [History] Tamsulosin HCl [Flomax] 0.4 mg PO DAILY 07/03/17 [History] Cholestyramine 4 gm PO BIDAC #60 powd.pack 09/17/17 [Rx] Cefepime HCl/Dextrose, Iso-Osm [Cefepime 2 gm Injection] 2 gm IV Q12H 10/02/17 [ History] Chlorthalidone 25 mg PO DAILY 10/02/17 [History] Clopidogrel [Plavix] 75 mg PO DAILY 10/02/17 [History] Lisinopril [Zestril] 10 mg PO DAILY 10/02/17 [History] Potassium Chloride [K-Tab ER] 20 meq PO BID 10/02/17 [History] amLODIPine [Norvasc] 5 mg PO DAILY 10/02/17 [History] 3 Allergy/AdvReac Type Severity Reaction Status Date / Time No Known Allergies Allergy Verified 09/08/17 14:09 All Systems: The remainder of the systems were reviewed and are negative Physical Examination Vital Signs: Vital Signs, Last 4 Hours Temp Pulse Resp BP Pulse Ox Pulse Ox 10/16/17 17:00 87 18 78/61 100 10/16/17 16:58 97 10/16/17 16:52 100 10/16/17 16:48 18 100 10/16/17 16:45 98.3 F 90 18 160/108 100 Ventilator Settings Ventilator Settings: Ventilator Settings, Last 8 Hours Ventilator Tidal Volume 500 Setting Ventilator Tidal Volume 500 Setting Ventilator Respiratory Rate 16 Setting Ventilator Respiratory Rate 16 Setting Actual Respiratory Rate 16 Actual Respiratory Rate 16 Positive End Expiratory 5 Pressure Positive End Expiratory 5 Pressure Peak Inspiratory Airway 32 Pressure Peak Inspiratory Airway 32 Pressure Results - Laboratory Findings CBC and BMP: 10/16/17 17:38 10/16/17 17:38 PT/INR, D-dimer PT 15.5 Seconds (9.4-12.1) H 10/13/17 03:31 Abnormal lab findings: Abnormal lab results WBC 3.6 K/mcL (4.3-11.1) L 10/16/17 17:38 RBC 3.06 M/mcL (4.19-5.50) L 10/16/17 17:38 Hgb 9.7 g/dL (12.9-16.9) L 10/16/17 17:38 Hct 29.3 % (37.5-50.1) L 10/16/17 17:38 RDW 15.1 % (11.5-14.5) H 10/16/17 17:38 Plt Count 108 K/mcL (140-400) L 10/16/17 17:38 Lymphocytes # 0.4 K/mcL (0.6-4.6) L 10/16/17 17:38 Nucleated RBCs/100 WBC 0.6 /100 WBC (0) H 10/06/17 03:57 Platelet Estimate Decreased (Normal) L 10/04/17 05:09 ESR 57 mm/hr (0-10) H 10/02/17 12:12 PT 15.5 Seconds (9.4-12.1) H 10/13/17 03:31 Carbon Dioxide 22 mEq/L (23-29) L 10/16/17 17:38 Creatinine 2.50 mg/dL (0.70-1.30) H 10/16/17 17:38 Est GFR ( Amer) 32 (> 60) L 10/16/17 17:38 Est GFR (Non-Af Amer) 26 (> 60) L 10/16/17 17:38 BUN/Creatinine Ratio 4 (6-26) L 10/16/17 17:38 Glucose 126 mg/dL (70-105) H 10/16/17 17:38 % Saturation 63 % (20-55) H 10/05/17 03:56 Transferrin 113 mg/dL (203-362) L 10/05/17 03:56 AST 51 Units/L (13-39) H 10/16/17 17:38 Troponin I 0.11 ng/mL (< 0.04) H* 10/16/17 17:38 Albumin 3.4 g/dL (3.5-5.7) L 10/16/17 17:38 Albumin (PEP) 2.77 g/dL (3.75-5.01) L 10/06/17 13:42 Globulin 3.8 g/dL (2.4-3.5) H 10/16/17 17:38 Albumin/Globulin Ratio 0.9 (1.1-2.2) L 10/16/17 17:38 Gamma Globulins 1.76 g/dL (0.62-1.51) H 10/06/17 13:42 Vitamin B12 243 pg/mL (250-1100) L 10/05/17 11:15 Urine Clarity Cloudy (Clear) A 10/06/17 16:00 Urine Protein 100 mg/dL (Neg-Trace) H 10/06/17 16:00 Urine Ketones 15 mg/dL (Negative) H 10/06/17 16:00 Urine Blood Large (Negative) H 10/06/17 16:00 Ur Leukocyte Esterase Trace (Negative) H 10/06/17 16:00 Urine Microscopic RBC TNTC per hpf (0-3) H 10/06/17 16:00 Urine Microscopic WBC 5-15 per hpf (0-3) H 10/06/17 16:00 Ur Eosinophil Smear 1 % (None Seen) H 10/06/17 16:00 Ur Squamous Epith Cells Many per lpf (None-Few) H 10/06/17 16:00 Ur Culture Indicated? NO. (NO) A 10/06/17 16:00 Protein/Creatinin Ratio 2.00 mg/mg (0.00-0.20) H 10/06/17 16:00 U Free [place] Ch 58.30 mg/dL (0.14-2.42) H 10/07/17 19:24 U Free Lambda Light Ch 17.20 mg/dL (0.02-0.67) H 10/07/17 19:24 Phenytoin 1.9 mcg/mL (10.0-20.0) L 10/03/17 06:07 Copper 65 ug/dL (70-140) L 10/05/17 11:15 IgG 1720 mg/dL (768-1632) H 10/06/17 13:42 FLORINDA Titer 1:1280 (<1:80) H 10/06/17 13:42 Complement C3 80 mg/dL (88-201) L 10/06/17 13:42 Free [place] LC, Quant 20.90 mg/dL (0.33-1.94) H 10/06/17 13:42 Free Lambda LC, Quant 13.90 mg/dL (0.57-2.63) H 10/06/17 13:42 - Microbiology Findings Microbiology Findings: Microbiology, Last 48 Hours 10/16/17 17:38 Blood Culture - Preliminary Peripheral Venipuncture Culture is incubating and being continuously monitored for growth. Final report to follow. - Clinical Findings Intake & Output: Intake & Output 10/16/17 10/16/17 10/16/17 07:59 15:59 23:59 Intake Total 0 / 0 700 / 700 Output Total 0 / 0 920 / 920 Balance 0 / 0 -220 / -220 Consult Discharge Plan - Plan Referrals: [facility] [Outside] - 10/22/17 8:30 am Naveed Larkin DPM [Partnered Physician] - 10/23/17 10:00 am (Appointment will be in the wound care center. The wound care center is located at the [facility]. Thank you) Yisel Stevens REAL ESTATE REPRESENTATIVE [Advanced Practice Nurse] - 10/23/17 9:00 am - Attending Attestation I examined this patient and my medical decision-making was reviewed with the Resident Physician. I agree with the documented findings, disposition and treatment plan as described except to the extent set forth below. We independently had [id number] contact with the patient I spent 33min of Critical Care time with this patient. It involved decision making of high complexity to assess, manipulate, and support vital organ system failure and/or to prevent further life threatening deterioration of the patient' s condition. The time involved in the performance of separately reportable procedures was not counted toward critical care time. Patient seen and examined at bedside Labs, radiology, chart personally reviewed. 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 There is no focal neurological deficit and head CT is without acute process Pulm: Acute respiratory failure which is secondary to cardiac arrest of unclear etiology patient temporarily had endotracheal tube in but this has since been extubated and he is doing well on nasal cannula O2 CT of the chest is without acute process there is no evidence of pneumothorax after the CPR we will continue to monitor this Cards: Jignesh echo rest of unclear etiology although I suspect this is a combination of hypovolemia and possible vagal episode in the context of the dialysis catheter placement in interventional radiology. The patient had been experiencing syncopal episodes of unclear etiology however had been evaluated by neurology who felt that this is most likely related to hypotension and I tend to agree with this based upon my initial observations patient's blood pressure was on the lower side after a cardiac arrest this may be in part due to stunned myocardium but may also be a reflection of hypotension which was noticed earlier today including in dialysis where fluid was not taken off in fact he was given albumin. We will send all blood markers for cardiac ischemia and we have requested an emergent echocardiogram. Although the CT of the chest was done without contrast there is a suggestive of aortic aneurysm I do not think that it this represents dissection and I suspect that the risk of giving him contrast with his of worsening AK I and factored needing temporary dialysis is favors monitoring this and I have instructed the cdl service technician to include his aortic arch if possible with the echocardiogram for further evaluation of this clinically this does not appear to be the case however. Given ongoing history of syncope and now cardiac arrest I think that formal evaluation by cardiology is warranted and we will request their evaluation of this case in the morning unless patient becomes more unstable which case we will contact him on an emergent basis given stability. A of and he will be monitored continuously on telemetry with frequent blood pressure checks per ICU protocol GI: Continue to monitor Nutrition: Nothing by mouth for now Renal: Worsening AK I nephrology following plan to initiate hemodialysis UOP Monitored, Cont to Trend sCr and monitor Electrolytes. ID: He is being treated for a lower extremity foot ulcer he is on antimicrobials and the infectious disease service has been consulted and will de -escalate based upon clinical course. No clear indication that today's events are precipitated by worsening infectious process Heme/Onc: DVT prophylaxis given Endo: Glucose Monitored Integ/MSK: Skin Care per routine ICU Nursing Protocol to prevent ulcers. Lines: All lines examined without evidence of infection : Dispo: Remain in ICU for monitoring CODE: Full <Rm Lopez - Last Filed: 10/16/17 19:02> Date of Encounter: 10/16/17 Time of Encounter: 17:57 Assessment and Plan (1) Cardiac arrest Current Visit: Yes Status: Acute Cause unknown. Likely due to hypotension, possibly complicated by vagal response that occurred when pressure was being held in the neck. Patient was initially intubated however he has been successfully intubated and has no complaints. CT of the head was unremarkable, metabolic workup so far is couple. We will give intermittent fluid boluses. Troponin is slightly elevated however this is likely due to chest compressions in cardiac arrest, we will trend. Echocardiogram has been ordered, cardiology consult in the morning. (2) Acute kidney injury Current Visit: Yes Status: Acute Appears to be related to ATN. Patient has been started on hemodialysis at this admission. Potassium is stable, no evidence that his cardiac arrest is secondary to his ARSH. Nephrology following (3) Osteomyelitis Current Visit: No Status: Acute ID following, plan is for long-term antibiotics with Levaquin. Given cardiac arrest as above plan for sepsis workup however the patient does not appear to be acutely septic. Qualifiers: Osteomyelitis type: unspecified type Osteomyelitis location: unspecified site Qualified Code(s): M86.9 - Osteomyelitis, unspecified (4) Orthostatic hypotension Current Visit: Yes Status: Acute Intermittent fluid boluses. Cardiac consulted the morning, admitted drinking be considered. (5) Severe protein-calorie malnutrition Current Visit: Yes Status: Acute Nutrition following (6) DVT prophylaxis Current Visit: Yes Status: Acute EPCDs History of Present Illness Consult date: 10/16/17 Requesting physician: Roby Flores Reason for consult: other (Cardiac Arrest) Chief complaint: Cardiac Arrest History of present illness: Patient is a 62-year-old male with history of hypertension who was admitted yesterday with cardiac arrest. Patient had been admitted to the hospital for syncopal episodes and found to have worsening a cataract eventually requiring dialysis which was initiated yesterday. Today the patient was undergoing a procedure to transition his temporary HD catheter to a tunneled dialysis catheter when after the procedure the patient experienced cardiac arrest. The procedure was probably completed and after holding pressure on the patient's right jugular vein for 5 minutes the patient's eyes rolled in the back of his head and he became pulseless. CPR was initiated and appears to have been undergone for several minutes. Endotracheal tube was placed by anesthesia emergently. Shortly after endotracheal tube placement the patient spontaneously woke and pulse was returned. Patient was moving all 4 extremities spontaneously and was agitated. He had stable hemodynamics and oxygenation and was successfully extubated shortly after cardiac arrest. Patient has no recollection of these events. Past Med Surg Social Fam HX - Past Medical History Medical history: hypertension, kidney stones, seizures, syncope, other Additional medical history: Left Foot Drop, Polyp, Lumbar deforming dorsopathies , Psychiatric history: anxiety, depression - Past Surgical History Surgical History: other Additional surgical history: left foot surgery - Social History Smoking Status: Former smoker Smokeless Tobacco Status: No Alcohol use: none Drug use: none - Family History Mother Adopted: No Hx Family Cardiac Disorders: Yes (Enlarged heart) Hx Family Respiratory Disorders: No Hx Family Cancer: No Hx Family GI Disorders: No Hx Family Endocrine Disorder: Yes (Dm) Hx Family Neuromuscular Disorders: No Hx Family Neurologic Disorders: No Hx Family HEENT Disorders: No Hx Family Autoimmune Disorders: No Father Adopted: No Family Member Ethnicity: Non- Living Status: Hx Family Cardiac Disorders: Yes Hx Family Respiratory Disorders: No Hx Family Cancer: No Hx Family GI Disorders: No Hx Family Endocrine Disorder: No Hx Family Neuromuscular Disorders: No Hx Family Neurologic Disorders: No Hx Family HEENT Disorders: No Hx Family Autoimmune Disorders: No ROS unobtainable: due to endotracheal tube All Systems: The remainder of the systems were reviewed and are negative Physical Examination Vital Signs: Vital Signs, Last 4 Hours Temp Pulse Resp BP Pulse Ox Pulse Ox 10/16/17 17:00 87 18 78/61 100 10/16/17 16:58 97 10/16/17 16:52 100 10/16/17 16:48 18 100 10/16/17 16:45 98.3 F 90 18 160/108 100 10/16/17 14:13 98.6 F 66 18 106/71 99 General appearance: no acute distress, alert ENT: oropharynx moist Effort: normal Auscultation: bilateral: diminished breath sounds Cardiovascular: regular rate and rhythm Gastrointestinal: normoactive bowel sounds, soft, non-tender Extremities: no cyanosis, edema (Trace lower extremity) normal mental status, non-focal exam Ventilator Settings Ventilator Settings: Ventilator Settings, Last 8 Hours Ventilator Tidal Volume 500 Setting Ventilator Tidal Volume 500 Setting Ventilator Respiratory Rate 16 Setting Ventilator Respiratory Rate 16 Setting Actual Respiratory Rate 16 Actual Respiratory Rate 16 Positive End Expiratory 5 Pressure Positive End Expiratory 5 Pressure Peak Inspiratory Airway 32 Pressure Peak Inspiratory Airway 32 Pressure Results - Laboratory Findings CBC and BMP: 10/16/17 17:38 10/16/17 17:38 PT/INR, D-dimer PT 15.5 Seconds (9.4-12.1) H 10/13/17 03:31 Abnormal lab findings: Abnormal lab results WBC 3.5 K/mcL (4.3-11.1) L 10/16/17 04:43 RBC 2.73 M/mcL (4.19-5.50) L 10/16/17 04:43 Hgb 8.4 g/dL (12.9-16.9) L 10/16/17 04:43 Hct 25.1 % (37.5-50.1) L 10/16/17 04:43 RDW 15.1 % (11.5-14.5) H 10/16/17 04:43 Plt Count 104 K/mcL (140-400) L 10/16/17 04:43 Nucleated RBCs/100 WBC 0.6 /100 WBC (0) H 10/06/17 03:57 Platelet Estimate Decreased (Normal) L 10/04/17 05:09 ESR 57 mm/hr (0-10) H 10/02/17 12:12 PT 15.5 Seconds (9.4-12.1) H 10/13/17 03:31 Sodium 135 mEq/L (136-145) L 10/16/17 04:43 Potassium 3.3 mEq/L (3.5-5.1) L 10/16/17 04:43 Creatinine 3.34 mg/dL (0.70-1.30) H 10/16/17 04:43 Est GFR ( Amer) 23 (> 60) L 10/16/17 04:43 Est GFR (Non-Af Amer) 19 (> 60) L 10/16/17 04:43 BUN/Creatinine Ratio 5 (6-26) L 10/16/17 04:43 Calcium 8.1 mg/dL (8.6-10.3) L 10/16/17 04:43 % Saturation 63 % (20-55) H 10/05/17 03:56 Transferrin 113 mg/dL (203-362) L 10/05/17 03:56 AST 53 Units/L (13-39) H 10/10/17 06:12 Serum Total Protein 5.8 g/dL (6.4-8.9) L 10/10/17 06:12 Albumin 2.6 g/dL (3.5-5.7) L 10/10/17 06:12 Albumin (PEP) 2.77 g/dL (3.75-5.01) L 10/06/17 13:42 Albumin/Globulin Ratio 0.8 (1.1-2.2) L 10/10/17 06:12 Gamma Globulins 1.76 g/dL (0.62-1.51) H 10/06/17 13:42 Vitamin B12 243 pg/mL (250-1100) L 10/05/17 11:15 Urine Clarity Cloudy (Clear) A 10/06/17 16:00 Urine Protein 100 mg/dL (Neg-Trace) H 10/06/17 16:00 Urine Ketones 15 mg/dL (Negative) H 10/06/17 16:00 Urine Blood Large (Negative) H 10/06/17 16:00 Ur Leukocyte Esterase Trace (Negative) H 10/06/17 16:00 Urine Microscopic RBC TNTC per hpf (0-3) H 10/06/17 16:00 Urine Microscopic WBC 5-15 per hpf (0-3) H 10/06/17 16:00 Ur Eosinophil Smear 1 % (None Seen) H 10/06/17 16:00 Ur Squamous Epith Cells Many per lpf (None-Few) H 10/06/17 16:00 Ur Culture Indicated? NO. (NO) A 10/06/17 16:00 Protein/Creatinin Ratio 2.00 mg/mg (0.00-0.20) H 10/06/17 16:00 U Free [place] Light Ch 58.30 mg/dL (0.14-2.42) H 10/07/17 19:24 U Free Lambda Light Ch 17.20 mg/dL (0.02-0.67) H 10/07/17 19:24 Phenytoin 1.9 mcg/mL (10.0-20.0) L 10/03/17 06:07 Copper 65 ug/dL (70-140) L 10/05/17 11:15 IgG 1720 mg/dL (768-1632) H 10/06/17 13:42 FLORINDA Titer 1:1280 (<1:80) H 10/06/17 13:42 Complement C3 80 mg/dL (88-201) L 10/06/17 13:42 Free [place] LC, Quant 20.90 mg/dL (0.33-1.94) H 10/06/17 13:42 Free Lambda LC, Quant 13.90 mg/dL (0.57-2.63) H 10/06/17 13:42 - Clinical Findings Intake & Output: Intake & Output 10/16/17 10/16/17 10/16/17 07:59 15:59 23:59 Intake Total 0 / 0 700 / 700 Output Total 0 / 0 920 / 920 Balance 0 / 0 -220 / -220
[2017-10-16 18:06] LABS: Albumin 3.4 g/dL (3.5-5.7); Albumin/Globulin Ratio 0.9 (1.1-2.2); Bilirubin,Direct 0.1 mg/dL (0.0-0.2); Bilirubin,Indirect 0.4 mg/dL (0.0-1.2); Bilirubin,Total 0.5 mg/dL (0.3-1.0); Calcium 8.8 mg/dL (8.6-10.3); Globulin 3.8 g/dL (2.4-3.5); Magnesium 1.7 mg/dL (1.6-2.6); Potassium 3.5 mEq/L (3.5-5.1); Total Protein 7.2 g/dL (6.4-8.9)
[2017-10-16 18:16] LABS: INR 1.1; Prothrombin Time 12.9 Seconds (9.4-12.1)
[2017-10-16 19:48] LABS: ABG Ionized Calcium 1.06 mmol/L (1.15-1.35)
[2017-10-16] MEDS: Mirtazapine 15 MG TABLET PO SCH (20:02)
[2017-10-17 01:12] LABS: Basophils % 0.2 %; Eosinophils # 0.1 K/mcL (0.0-0.6); Eosinophils % 2.5 %; Hematocrit 31.9 % (37.5-50.1); Hemoglobin 10.5 g/dL (12.9-16.9); Lymphocytes # 0.6 K/mcL (0.6-4.6); Lymphocytes % 11.1 %; Mean Corpuscular HGB Conc 32.9 g/dL (31.6-35.5); Mean Corpuscular Hemoglobin 31.1 pg (28.0-33.3); Mean Corpuscular Volume 94.4 fL (83.0-100.0); Mean Platelet Volume 10.2 fL (9.4-12.4); Monocytes # 0.5 K/mcL (0.0-1.3); Monocytes % 10.2 %; Neutrophils # 3.9 K/mcL (1.6-8.9); Platelet Count 134 K/mcL (140-400); Red Blood Count 3.38 M/mcL (4.19-5.50); Red Cell Distribution Width 15.1 % (11.5-14.5)
[2017-10-17 02:06] LABS: Calcium 8.6 mg/dL (8.6-10.3); Magnesium 1.6 mg/dL (1.6-2.6); Potassium 3.7 mEq/L (3.5-5.1)
[2017-10-17 02:07] LABS: Troponin I 0.37 ng/mL (< 0.04)
--- NOTE | 2017-10-17 07:09 | Pulmonology Progress Note ---
<JamesRm birmingham - Last Filed: 10/17/17 07:07> Date of Encounter: 10/17/17 Time of Encounter: 07:07 Assessment and Plan (1) Cardiac arrest Current Visit: Yes Status: Acute Cause unknown. Patient had slight elevation in troponins overnight without chest pain, are trending down. This is likely related to the chest compressions performed in the setting of the cardiac arrest self, no indication that obstructive coronary lesion as the cause of the patient's cardiac arrest. At this point the most likely etiology is hypotension with possible vagal response when pressure was being held on the neck. Echocardiogram and cardiology consult pending. (2) Acute kidney injury Current Visit: Yes Status: Acute Creatinine stable this time. Patient had HD yesterday, further HD plans nephrology. (3) Osteomyelitis Current Visit: No Status: Acute Plan for extended course of antibiotics, ID following. Continue Levaquin. Qualifiers: Osteomyelitis type: unspecified type Osteomyelitis location: unspecified site Qualified Code(s): M86.9 - Osteomyelitis, unspecified (4) Orthostatic hypotension Current Visit: Yes Status: Acute Encourage by mouth intake. (5) Severe protein-calorie malnutrition Current Visit: Yes Status: Acute Continue to encourage by mouth intake with protein supplementation. Nutrition following. (6) DVT prophylaxis Current Visit: Yes Status: Acute Continue EPCDs Subjective Principal diagnosis: ARSH Interval history: Patient seen and examined at bedside. Patient states that he feels pretty good this morning. No acute events overnight. He reports some mild pain in his chest and some irritation in his throat. Otherwise he feels good. He still reports decreased appetite but has been attempting to increase his fluid intake. Objective PUL Vital signs: Last Vital Signs Temp 97.5 F L 10/17/17 03:31 Pulse 73 10/17/17 06:00 Resp 13 10/17/17 06:00 BP 115/79 10/17/17 06:00 Pulse Ox 94 10/17/17 06:00 General appearance: no acute distress ENT: oropharynx moist Effort: normal Auscultation: bilateral: clear Cardiovascular: regular rate and rhythm Gastrointestinal: normoactive bowel sounds, soft, non-tender Extremities: no cyanosis, no edema, no clubbing normal mental status, non-focal exam Results - Laboratory Findings CBC and BMP: 10/17/17 00:25 08/17/18 00:08 PT/INR, D-dimer PT 12.9 Seconds (9.4-12.1) H 10/16/17 17:38 Abnormal lab findings: Abnormal lab results RBC 3.38 M/mcL (4.19-5.50) L 10/17/17 00:25 Hgb 10.5 g/dL (12.9-16.9) L 10/17/17 00:25 Hct 31.9 % (37.5-50.1) L 10/17/17 00:25 RDW 15.1 % (11.5-14.5) H 10/17/17 00:25 Plt Count 134 K/mcL (140-400) L 10/17/17 00:25 Nucleated RBCs/100 WBC 0.6 /100 WBC (0) H 10/06/17 03:57 Platelet Estimate Decreased (Normal) L 10/04/17 05:09 ESR 57 mm/hr (0-10) H 10/02/17 12:12 PT 12.9 Seconds (9.4-12.1) H 10/16/17 17:38 Sodium 135 mEq/L (136-145) L 10/17/17 00:08 Carbon Dioxide 20 mEq/L (23-29) L 10/17/17 00:08 Creatinine 2.54 mg/dL (0.70-1.30) H 10/17/17 00:08 Est GFR ( Amer) 31 (> 60) L 10/17/17 00:08 Est GFR (Non-Af Amer) 26 (> 60) L 10/17/17 00:08 BUN/Creatinine Ratio 5 (6-26) L 10/17/17 00:08 Calculated Osmolality 278 (280-300) L 10/17/17 00:08 % Saturation 63 % (20-55) H 10/05/17 03:56 Transferrin 113 mg/dL (203-362) L 10/05/17 03:56 AST 51 Units/L (13-39) H 10/16/17 17:38 Troponin I 0.26 ng/mL (< 0.04) H* 10/17/17 05:40 Albumin 3.4 g/dL (3.5-5.7) L 10/16/17 17:38 Albumin (PEP) 2.77 g/dL (3.75-5.01) L 10/06/17 13:42 Globulin 3.8 g/dL (2.4-3.5) H 10/16/17 17:38 Albumin/Globulin Ratio 0.9 (1.1-2.2) L 10/16/17 17:38 Gamma Globulins 1.76 g/dL (0.62-1.51) H 10/06/17 13:42 Vitamin B12 243 pg/mL (250-1100) L 10/05/17 11:15 Arterial Blood Ionized Calcium 1.06 mmol/L (1.15-1.35) L 10/16/17 19:45 Urine Clarity Cloudy (Clear) A 10/06/17 16:00 Urine Protein 100 mg/dL (Neg-Trace) H 10/06/17 16:00 Urine Ketones 15 mg/dL (Negative) H 10/06/17 16:00 Urine Blood Large (Negative) H 10/06/17 16:00 Ur Leukocyte Esterase Trace (Negative) H 10/06/17 16:00 Urine Microscopic RBC TNTC per hpf (0-3) H 10/06/17 16:00 Urine Microscopic WBC 5-15 per hpf (0-3) H 10/06/17 16:00 Ur Eosinophil Smear 1 % (None Seen) H 10/06/17 16:00 Ur Squamous Epith Cells Many per lpf (None-Few) H 10/06/17 16:00 Ur Culture Indicated? NO. (NO) A 10/06/17 16:00 Protein/Creatinin Ratio 2.00 mg/mg (0.00-0.20) H 10/06/17 16:00 U Free [place] Light Ch 58.30 mg/dL (0.14-2.42) H 10/07/17 19:24 U Free Lambda Light Ch 17.20 mg/dL (0.02-0.67) H 10/07/17 19:24 Phenytoin 1.9 mcg/mL (10.0-20.0) L 10/03/17 06:07 Copper 65 ug/dL (70-140) L 10/05/17 11:15 IgG 1720 mg/dL (768-1632) H 10/06/17 13:42 FLORINDA Titer 1:1280 (<1:80) H 10/06/17 13:42 Complement C3 80 mg/dL (88-201) L 10/06/17 13:42 Free [place] LC, Quant 20.90 mg/dL (0.33-1.94) H 10/06/17 13:42 Free Lambda LC, Quant 13.90 mg/dL (0.57-2.63) H 10/06/17 13:42 - Microbiology Findings Microbiology Findings: Microbiology, Last 48 Hours 10/16/17 17:49 Blood Culture - Preliminary Peripheral Venipuncture Culture is incubating and being continuously monitored for growth. Final report to follow. 10/16/17 17:38 Blood Culture - Preliminary Peripheral Venipuncture Culture is incubating and being continuously monitored for growth. Final report to follow. - Clinical Findings Intake & Output: Intake & Output 10/16/17 10/16/17 10/17/17 15:59 23:59 07:59 Intake Total 700 / 700 650 / 650 Output Total 920 / 920 100 / 100 0 / 0 Balance -220 / -220 550 / 550 0 / 0 Weight 86.9 kg - VTE Documentation of Mechanical Device: Intermittent pneumatic compression device Consult Discharge Plan - Plan Referrals: [facility] [Outside] - 10/22/17 8:30 am Naveed Larkin DPM [Partnered Physician] - 10/23/17 10:00 am (Appointment will be in the wound care center. The wound care center is located at the [facility]. Thank you) Yisel Stevens, P[employer] SHOVEL OPERATOR [Advanced Practice Nurse] - 10/23/17 9:00 am <Ronal Howard - Last Filed: 10/17/17 09:16> Date of Encounter: 10/17/17 Objective PUL Vital signs: Last Vital Signs Temp 99.3 F 10/17/17 07:32 Pulse 80 10/17/17 08:00 Resp 16 10/17/17 08:00 BP 114/76 10/17/17 08:00 Pulse Ox 99 10/17/17 08:00 Results - Laboratory Findings CBC and BMP: 10/17/17 00:25 10/17/17 00:08 PT/INR, D-dimer PT 12.9 Seconds (9.4-12.1) H 10/16/17 17:38 Abnormal lab findings: Abnormal lab results RBC 3.38 M/mcL (4.19-5.50) L 10/17/17 00:25 Hgb 10.5 g/dL (12.9-16.9) L 10/17/17 00:25 Hct 31.9 % (37.5-50.1) L 10/17/17 00:25 RDW 15.1 % (11.5-14.5) H 10/17/17 00:25 Plt Count 134 K/mcL (140-400) L 10/17/17 00:25 Nucleated RBCs/100 WBC 0.6 /100 WBC (0) H 10/06/17 03:57 Platelet Estimate Decreased (Normal) L 10/04/17 05:09 ESR 57 mm/hr (0-10) H 10/02/17 12:12 PT 12.9 Seconds (9.4-12.1) H 10/16/17 17:38 Sodium 135 mEq/L (136-145) L 10/17/17 00:08 Carbon Dioxide 20 mEq/L (23-29) L 10/17/17 00:08 Creatinine 2.54 mg/dL (0.70-1.30) H 10/17/17 00:08 Est GFR ( Amer) 31 (> 60) L 10/17/17 00:08 Est GFR (Non-Af Amer) 26 (> 60) L 10/17/17 00:08 BUN/Creatinine Ratio 5 (6-26) L 10/17/17 00:08 Calculated Osmolality 278 (280-300) L 10/17/17 00:08 % Saturation 63 % (20-55) H 10/05/17 03:56 Transferrin 113 mg/dL (203-362) L 10/05/17 03:56 AST 51 Units/L (13-39) H 10/16/17 17:38 Troponin I 0.26 ng/mL (< 0.04) H* 10/17/17 05:40 Albumin 3.4 g/dL (3.5-5.7) L 10/16/17 17:38 Albumin (PEP) 2.77 g/dL (3.75-5.01) L 10/06/17 13:42 Globulin 3.8 g/dL (2.4-3.5) H 10/16/17 17:38 Albumin/Globulin Ratio 0.9 (1.1-2.2) L 10/16/17 17:38 Gamma Globulins 1.76 g/dL (0.62-1.51) H 10/06/17 13:42 Vitamin B12 243 pg/mL (250-1100) L 10/05/17 11:15 Arterial Blood Ionized Calcium 1.06 mmol/L (1.15-1.35) L 10/16/17 19:45 Urine Clarity Cloudy (Clear) A 10/06/17 16:00 Urine Protein 100 mg/dL (Neg-Trace) H 10/06/17 16:00 Urine Ketones 15 mg/dL (Negative) H 10/06/17 16:00 Urine Blood Large (Negative) H 10/06/17 16:00 Ur Leukocyte Esterase Trace (Negative) H 10/06/17 16:00 Urine Microscopic RBC TNTC per hpf (0-3) H 10/06/17 16:00 Urine Microscopic WBC 5-15 per hpf (0-3) H 10/06/17 16:00 Ur Eosinophil Smear 1 % (None Seen) H 10/06/17 16:00 Ur Squamous Epith Cells Many per lpf (None-Few) H 10/06/17 16:00 Ur Culture Indicated? NO. (NO) A 10/06/17 16:00 Protein/Creatinin Ratio 2.00 mg/mg (0.00-0.20) H 10/06/17 16:00 U Free [place] Ch 58.30 mg/dL (0.14-2.42) H 10/07/17 19:24 U Free Lambda Light Ch 17.20 mg/dL (0.02-0.67) H 10/07/17 19:24 Phenytoin 1.9 mcg/mL (10.0-20.0) L 10/03/17 06:07 Copper 65 ug/dL (70-140) L 10/05/17 11:15 IgG 1720 mg/dL (768-1632) H 10/06/17 13:42 FLORINDA Titer 1:1280 (<1:80) H 10/06/17 13:42 Complement C3 80 mg/dL (88-201) L 10/06/17 13:42 Free [place] LC, Quant 20.90 mg/dL (0.33-1.94) H 10/06/17 13:42 Free Lambda LC, Quant 13.90 mg/dL (0.57-2.63) H 10/06/17 13:42 - Microbiology Findings Microbiology Findings: Microbiology, Last 48 Hours 10/16/17 17:49 Blood Culture - Preliminary Peripheral Venipuncture Culture is incubating and being continuously monitored for growth. Final report to follow. 10/16/17 17:38 Blood Culture - Preliminary Peripheral Venipuncture Culture is incubating and being continuously monitored for growth. Final report to follow. - Clinical Findings Intake & Output: Intake & Output 10/16/17 10/17/17 10/17/17 23:59 07:59 15:59 Intake Total 650 / 650 Output Total 100 / 100 0 / 0 0 / 0 Balance 550 / 550 0 / 0 0 / 0 Weight 86.9 kg - Attending Attestation I examined this patient and my medical decision-making was reviewed with the Resident Physician. I agree with the documented findings, disposition and treatment plan as described except to the extent set forth below. We independently had [id number] contact with the patient Patient seen and examined at bedside Labs, radiology, chart personally reviewed. SENIOR DIRECTOR: Does not appear to have neurological sequelae status post cardiac arrest no focal deficits he is awake and alert and fully oriented today Pulm: Afebrile oxygenation on room air Cards: Status post cardiac arrest of unclear etiology suspect this was combination of the vagal event and hypotension he had a slight elevation in troponin after undergoing CPR which I suspect is related to traumatic event as opposed to ACS echocardiogram was ordered yesterday cardiology has been consulted he is otherwise hemodynamically stable today GI: Continue to monitor Nutrition: Advance diet as tolerated Renal: Acute kidney injury nephrology following plan for hemodialysis UOP Monitored, Cont to Trend sCr and monitor Electrolytes. ID: Is being treated for prostate mellitus infectious disease following Heme/Onc: DVT prophylaxis given Endo: Glucose Monitored Integ/MSK: Skin Care per routine ICU Nursing Protocol to prevent ulcers. Lines: All lines examined without evidence of infection : Dispo: Stable for transfer to [facility] telemetry CODE: Full
--- NOTE | 2017-10-17 08:25 | Electrocardiograph Report ---
[place] [id number] Test Date: 2017-10-16 Pat Name: Ryan Dias Department: 109 Room: [facility] Gender: M [employer]: : [id number] Requested By: GHASSAN Pierce Order Number: [id number] Reading MD: Enoch Larson Measurements Intervals [place] Rate: 75 P: -81 KS: 344 QRS: 11 QRSD: 109 T: 25 QT: 441 QTc: 470 Interpretive Statements SINUS RHYTHM PROLONGED QT INTERVAL Electronically Signed On 10-17-2017 8:23:57 EDT by Enoch Larson
[2017-10-17] MEDS ORDERED: Naloxone 0.4 MG/ML INJ IVP PRN (08:49)
[2017-10-17] MEDS ORDERED: 0.9 % Sodium Chloride 250 ML IVC PRN (08:49)
[2017-10-17] MEDS ORDERED: *HR* Promethazine 25 MG/ML VIAL IVP PRN (08:49)
[2017-10-17] MEDS ORDERED: 0.9 % Sodium Chloride 1,000 ML PRIME SCH (08:49)
[2017-10-17] MEDS ORDERED: *HR* OxyCODONE/APAP 5/325 TABLET PO PRN (08:49)
--- NOTE | 2017-10-17 09:16 | Cardiology Progress Note ---
<Adán Gabriel - Last Filed: 10/17/17 11:38> Date of Encounter: 10/17/17 Time of Encounter: 09:20 Assessment and Plan (1) Cardiac arrest Current Visit: Yes Status: Acute Per Cardiology: Reported cardiac arrest. Patient underwent CPR and intubation. Appears to have occurred in setting of positional change after permanent dialysis catheter insertion and removal of temporary catheter. Patient with chronic history of syncope. Patient denied any chest pain symptoms. ECGs and rhythm strips reviewed, no significant events noted on patient chart. Troponins relatively flat and adynamic with peak of 0.37 -- suspect due to chest compressions; clinical presentation does not appear to be non-STEMI. No cardiac rehabilitation warranted at this time. On beta john. Echo showed preserved EF. Discussed and reviewed with Dr. Puga, we will proceed with nonexercise nuclear stress test for further evaluation. Patient and are agreeable. All questions answered. Discussion w patient/family: The assessment and plan as outlined above was discussed with the patient and/or family members who expressed understanding and agreement. All questions were answered. Thank you for involving us in the care of your patient. Please call with any questions. Subjective Principal diagnosis: ARSH Interval history: Cardiology Re-Consult Previous records reviewed: "62 y/o male who underwent tunneled HD catheter placement in [facility]. After the procedure was completed, the patient coded and had no pulse. This was witnessed by the IR technologist and nurse, who immediately began chest compressions and called a rapid response. The code team took over care of the patient upon arrival. The patient was ultimately intubated and a cardiac rhythm returned. Report of the IR procedure, which had been uneventful was given to the ICU team. The patient was transferred to CT for a head and chest ct". Patient reports once permanent dialysis catheter placed he was sat upright position for removal of temporary dialysis catheter and does not recall any other events. Patient apparently underwent compressions and intubation. He does report he vaguely remembers "fighting them because he was having trouble breathing". Prior to event he denied any chest pain. Denies any chest pain currently. Reports limited mobility. He does report he smoked about 3 packs per day for 30 years, quit 16 years ago. Denies any family history of CAD. Has never had ischemic evaluation. Reports chronic history of syncope for at least the past 6 years of episodes of passing out with positional changes. Objective Vital Signs, Last 4 Hours Temp Pulse Resp BP Pulse Ox 10/17/17 08:00 80 16 114/76 99 10/17/17 07:32 99.3 F 10/17/17 06:00 73 13 115/79 94 General: Conversant, No Apparent Distress HEENT: Atraumatic, Normocephaly, Mucus Membranes Moist Neck: No JVD, Normal carotid pulses Cardiac: Reg Rate and Rhythm, Normal S1 and S2, No Murmur Lungs: Normal Breath Sounds, No Wheeze, Rales, Rhonchi Neuro: Alert and responsive, No focal deficits noted Abdomen: Soft, Non-Tender Skin: No rashes noted on visualized skin Musculoskeletal: No Chest Wall Tenderness Extremities: No Clubbing, No Cyanosis, No Edema, Normal Pulses Results 10/17/17 00:25 10/17/17 00:08 Lab Results Laboratory Tests 10/02/17 10/02/17 10/16/17 12:12 12:12 17:38 Hgb 10.9 L Hct 33.0 L Plt Count 157 INR Creatinine 4.17 H Est GFR (Non-Af Amer) 15 L Magnesium AST 51 H ALT 23 Troponin I 0.03 10/16/17 10/16/17 10/17/17 17:38 17:38 00:08 Hgb Hct Plt Count INR 1.1 Creatinine 2.54 H Est GFR (Non-Af Amer) 26 L Magnesium 1.6 AST ALT Troponin I 0.11 H* 0.37 H* 10/17/17 10/17/17 00:25 05:40 Hgb 10.5 L Hct 31.9 L Plt Count 134 L INR Creatinine Est GFR (Non-Af Amer) Magnesium AST ALT Troponin I 0.26 H* ITS Impressions Chest X-Ray 10/02/17 12:03 IMPRESSION: No acute cardiopulmonary disease D/ / Wesley Healy MD / Wesley Healy MD Interpreting Provider: Wesley Healy MD Foot X-Ray 10/02/17 12:04 IMPRESSION: Soft tissue laceration of the tip of the 2nd digit. No evidence of radiopaque foreign body or soft tissue gas. No acute fracture or dislocation. Extensive postsurgical changes of the forefoot, midfoot, hindfoot and ankle as described above. Wound VAC along the dorsal soft tissues of the left foot. D/ / 10/02/2017 13:47:49 Oziel Gould MD / Mariza Hall Interpreting Provider: Oziel Gould MD Head CT 10/02/17 16:03 IMPRESSION: No acute intracranial abnormality. D/ / Juan Carlos Holly MD / Juan Carlos Holly MD Interpreting Provider: Juan Carlos Holly MD Echocardiogram 10/03/17 08:00 Impressions: LVEF 55-60%. Mild left ventricular diastolic dysfunction. Normal right ventricular structure and function. Mild aortic regurgitation. Mild tricuspid regurgitation. Mild pulmonary hypertension by TR gradient. IVC not well visualized. Left Ventricular Wall Motion: Rest Echo Findings All wall segments showed normal motion. Findings: Study Quality * Technically adequate exam. ECG Findings * Normal sinus rhythm. Left Ventricle * LVEF 55-60%. * Normal LV chamber size, wall thickness and function. * Mild left ventricular diastolic dysfunction. * No LVOTO. Right Ventricle * Normal right ventricular structure and function. Left Atrium * Normal left atrial size. Right Atrium * Normal right atrial size. Aortic Valve * Aortic valve not well visualized. * No aortic stenosis. * Mild aortic regurgitation. Mitral Valve * No mitral regurgitation. * Normal mitral valve structure. * No mitral stenosis. Tricuspid Valve * Normal tricuspid valve structure. * Mild tricuspid regurgitation. Pulmonic Valve * Pulmonic valve is not well visualized. * No pulmonic stenosis. * No pulmonic regurgitation. Pulmonary Artery * Pulmonary artery not well visualized. Aorta * Normally sized aortic root. Pericardium * There is no pericardial effusion present. Interatrial Septum * No evidence of PFO by color Doppler. IVC * The IVC is not well evaluated. Retroperitoneum Ultrasound 10/03/17 17:30 IMPRESSION: Suspected nonobstructing bilateral renal calculi. D/ / 10/03/2017 22:02:43 Armando Johnson MD / bcarter Interpreting Provider: Armando Johnson MD Abdomen CT 10/04/17 20:38 IMPRESSION: 1. No acute abnormality identified in the visualized GI tract. 2. Cholelithiasis without scan evidence for acute cholecystitis. 3. Bilateral nonobstructing renal calculi. D/ / Palmer Lomeli MD / Palmer Lomeli MD Interpreting Provider: Palmer Lomeli MD Guidance Ultrasound 10/08/17 07:00 IMPRESSION: Successful ultrasound and fluoroscopy guided non-tunneled 20 cm long 15.5 F hemodialysis catheter placement. D/ / Randy Kulkarni / Randy Kulkarni Interpreting Provider: Randy Kulkarni Insertion Non-Tunneled Catheter 10/08/17 07:00 IMPRESSION: Successful ultrasound and fluoroscopy guided non-tunneled 20 cm long 15.5 F hemodialysis catheter placement. D/ / Randy Kulkarni / Randy Kulkarni Interpreting Provider: Randy Kulkarni X-Ray 10/08/17 07:23 IMPRESSION: 1. Left lower pole calculi as described. The smaller bilateral renal stones are not well seen radiographically. 2. Unremarkable bowel gas pattern. D/ / 10/08/2017 08:45:19 Sneha Coombs MD / dash Interpreting Provider: Sneha Coombs MD Renal Biopsy CT 10/13/17 00:00 IMPRESSION: Successful CT guided core needle random kidney biopsy. D/ / Wesley Healy MD / Wesley Healy MD Interpreting Provider: Wesley Healy MD Insertion Tunneled Catheter 10/16/17 12:46 IMPRESSION: Successful ultrasound and fluoroscopy guided tunneled catheter placement. At the conclusion of the procedure, following removal of the temporary hemodialysis catheter, the patient coded. The rapid response team took over chest compressions, began medical therapy, and intubated the patient. A cardiac rhythm returned. A report of the procedure was given to the ICU staff, which had been uneventful up until the cardiac arrest. No sedation medication had been administered and the patient had been hemodynamically stable throughout the procedure. No unexpected complications occurred during the procedure. Ultimately, the patient was transferred to CT for evaluation of the head and chest. D/ / 10/16/2017 17:00:00 Wesley Healy MD / formerly [facility] Interpreting Provider: Wesley Healy MD Chest CT 10/16/17 16:25 IMPRESSION: 1. Cardiac enlargement and coronary artery calcifications. 2. Ascending thoracic aorta aneurysm measuring 4.7 cm. Detail limited on this unenhanced exam. If there is concern for dissection a CT angiogram would be indicated. 3. Reticular densities at the lung bases suggestive of chronic interstitial changes. 4. Granulomatous disease manifested by calcified right upper lobe nodule and some calcified mediastinal nodes. D/ / Aaron Flores MD / Aaron Flores MD Interpreting Provider: Aaron Flores MD Head CT 10/16/17 16:25 IMPRESSION: No acute intracranial abnormality. D/ / Rm Urias MD / Rm Urias MD Interpreting Provider: Rm Urias MD Echocardiogram Limited Views 10/16/17 17:22 Impressions: LVEF 60-65%. Normal LV chamber size and function. Mild concentric left ventricular hypertrophy. Left Ventricular Wall Motion: Rest Echo Findings All wall segments showed normal motion. Findings: Study Quality * Technically adequate exam. ECG Findings * Normal sinus rhythm. Left Ventricle * LVEF 60-65%. * Normal LV chamber size and function. * Mild concentric left ventricular hypertrophy. Right Ventricle * Normal right ventricular structure and function. Aorta * Normally sized aortic root. Pericardium * There is a trivial pericardial effusion present. Active Medications Acetaminophen (Tylenol) 650 mg PO Q6HR PRN PRN Reason: mild to moderate pain Stop: 04/07/18 21:55 Carvedilol (Coreg) 12.5 mg PO BIDWM MYLES PRN Reason: Protocol Stop: 04/17/18 17:01 Cholestyramine Resin (Cholestyramine) 4 gm PO BIDAC [facility] Stop: 04/04/18 07:31 Cyanocobalamin (Vitamin B12) 1,000 mcg PO DAILY [facility] Stop: 04/13/18 09:01 Dronabinol (Marinol) 2.5 mg PO BIDLS [facility] Stop: 04/11/18 17:01 Gabapentin (Neurontin) 300 mg PO BID [facility] Stop: 04/08/18 21:01 Sodium Chloride (0.9 % Sodium Chloride) 250 mls @ 937.5 mls/hr IVC .Q16M PRN PRN Reason: Hypotension Stop: 04/17/18 08:02 Sodium Chloride (0.9 % Sodium Chloride) 1,000 mls @ 0 mls/hr PRIME .Q0M MYLES PRN Reason: As Directed Stop: 04/17/18 12:01 Levofloxacin/Dextrose (Levaquin Premix 750mg/150 Ml) 750 mg in 150 mls @ 100 mls/hr IVPB Q48H MYLES PRN Reason: Protocol Stop: 04/11/18 16:01 Mirtazapine (Remeron) 15 mg PO HS [facility] Stop: 04/09/18 21:01 Naloxone HCl (Narcan) 0.4 mg IVP Q2MIN PRN PRN Reason: SEE COMMENTS Stop: 04/03/18 19:49 Oxycodone/Acetaminophen (Percocet 5/325) 1 each PO Q6HR PRN PRN Reason: Moderate Pain Stop: 04/13/18 11:22 Phenytoin (Dilantin Er) 200 mg PO TID [facility] Stop: 04/03/18 21:01 Potassium Chloride (Potassium Chloride) 20 meq PO BID [facility] Stop: 04/11/18 21:01 Promethazine HCl (Phenergan) 12.5 mg IVP Q6HR PRN PRN Reason: Nausea And Vomiting Stop: 04/05/18 21:03 Tamsulosin HCl (Flomax) 0.4 mg PO DAILY MYLES PRN Reason: Protocol Stop: 04/04/18 09:01 Vitamin B Complex/Vit C/Folic Acid (Renal Caps Softgel) 1 cap PO DAILY [facility] Stop: 04/15/18 09:01 - Imaging and Cardiology Echo: report reviewed - EKG Interpretation EKG results cardiology: personally reviewed, normal ECG, sinus rhythm, other ( No ECG strips or rhythm shortness available of concern regarding apparent code situation) - VTE Documentation of Mechanical Device: Intermittent pneumatic compression device Consult Discharge Plan - Plan Referrals: [facility] [Outside] - 10/22/17 8:30 am Naveed Larkin DPM [Partnered Physician] - 10/23/17 10:00 am (Appointment will be in the wound care center. The wound care center is located at the [facility]. Thank you) Yisel Stevens PICKLE SORTER [Advanced Practice Nurse] - 10/23/17 9:00 am <Aaron Puga - Last Filed: 10/19/17 18:50> Date of Encounter: 10/17/17 Time of Encounter: 16:00 Assessment and Plan Discussion w patient/family: The assessment and plan as outlined above was discussed with the patient and/or family members who expressed understanding and agreement. All questions were answered. Thank you for involving us in the care of your patient. Please call with any questions. Objective Vital Signs, Last 4 Hours Temp Pulse Resp BP Pulse Ox 10/19/17 16:31 98.4 F 86 19 119/72 100 Results 10/19/17 08:31 10/19/17 08:31 Lab Results 10/19/17 10/19/17 08:31 08:31 WBC 2.3 L Hgb 9.3 L Hct 28.2 L Plt Count 91 L Sodium 137 Potassium 4.0 Chloride 103 Carbon Dioxide 26 BUN 13 Creatinine 2.59 H Glucose 79 Calcium 8.3 L Magnesium 1.6 Attestation Statement - Attestation Attestation: I have personally performed a face to face evaluation on this patient. I have reviewed and agree with the care plan. History and Exam by me shows: CC: Syncope HPI: Pt had undergone tunneled catheter placement, was elevated to sitting positison post procedure and lost consciousness. He does not recall events, records show Code Blue was called, pt received chest compression and intubation , no cardioversion, arrhythmia identified. He remembers difficulty with intubation, and waking up in ICU. He denies chest pain, pressure, palpitations prior to the event. He has an extensive and prolonged history of orthostatic hypotension dating back approx 20 years. He is resting comfortably, only complaint is chest tenderness with deep inspiration, reproducible, following chest compressions. ROS: reviewed PMH: reviewed PE: pt seen and examined, agreed with findings as documented. IMP;Plan 1. Orthostatic hypotension following sedation for tunneled catheter placement, consistent with previous hx of same, has resolved. 2. Elevated troponin: minimal elevation most consistent with demand ischemia during chest compressions, however in light of risk factors, will order lexiscan cardiolyte stress test to rule out ischemic substrate.
--- NOTE | 2017-10-17 09:22 | Internal Med Progress Note ---
Hospitalist Progress Note - Encounter Date of Encounter: 10/17/17 Time of Encounter: 09:00 - Subjective Interval History: Seen and examined at the bedside with his partner, in the intensive care unit, and also on the floors. He is very upbeat and cheerful this a.m He suffered a cardiac arrest 10/16 p.m. following permacath placement, he was successfully resuscitated and transferred to the intensive care unit. He was intubated for acute respiratory failure. He was extubated the same day, and has been doing well since extubation. His only complaint this morning is of a sore throat. Cardiology was consulted and recommended a nonexercise stress test due to presence of elevated troponins which is also likely due to chest compressions. The patient is otherwise stable this morning - Exam Vitals: Temp Pulse Resp BP Pulse Ox 99.3 F 80 16 114/76 99 10/17/17 07:32 10/17/17 08:00 10/17/17 08:00 10/17/17 08:00 10/17/17 08:00 Exam: General: Patient is alert, no acute distress, oriented x 3 Head: atraumatic, normocephalic, Eye: normal appearance, PERRL, no scleral icterus, no conjunctival injection Neck: Right IJ Shiley, dressing clean and dry Chest: normal inspection, symmetric chest rise Respiratory: Good respiratory effort. Normal breath sounds. No wheezing or crackles. Cardiovascular: Regular rate and rhythm. s1 and s2 No clicks, rubs, gallops, or murmurs. No pedal edema Abdomen: Abdomen is soft, nontender. Bowel sounds are present Musculoskeletal: Wound VAC to left foot. Skin: warm, dry, intact. Neuro: Alert oriented x 3 normal cranial nerves, no focal deficits Psych: Normal mood today - Assessment and Plan (1) Acute renal failure Current Visit: Yes Status: Acute Assessment and Plan: Renal biopsy done 10/13. -According to nephrology documentation preliminary results suggest likely ATN secondary to nephrotoxins versus chronic infection. Patient also have positive DNA and low C3 and elevated K-L light changes. Nephrology following ordered [id number] DNA, will follow, result pending Seen during HD today 10/16 Continue management per renal, he is meant to get a perma-cath for out-patient HD Encourage liberal fluid intake as patient is not taking much po Patient has oligouria with documentation of only 200 mL of urine in the past 72 hours (2) Wound of left lower extremity Current Visit: Yes Status: Acute Assessment and Plan: Infected wound of left lower extremity. Prior wound cultures positive for Pseudomonas aeruginosa and GCS. Patient was on cefepime after hospitalization. This has been stopped on account of acute kidney injury. Patient is now on Levaquin every 48 hours. Infectious disease is following, according to ID, he has had 5 weeks of antibiotics, -day 3, continue same will follow their recommendations (3) Hypertension Current Visit: Yes Status: Chronic Assessment and Plan: Blood pressure borderline low Decrease coreg to 12.5mg BID Continue amlodipine Continue to monitor (4) Seizure Current Visit: Yes Status: Chronic Assessment and Plan: On Dilantin. Continue same. Plan to follow up with neurology as outpatient (5) Dehydration Current Visit: Yes Status: Resolved Assessment and Plan: See ARSH (6) Syncope Current Visit: Yes Status: Resolved Assessment and Plan: From dehydration along with ATN. No new episodes. (7) Bicytopenia Current Visit: Yes Status: Chronic Assessment and Plan: stable. Platelet count improving. 126 today. Hemoglobin 8.7 Continue cyanocobalamin He is to be discharged on monthly IM cyanocobalamin when medically stable Resume Plavix today (8) Metabolic acidosis Current Visit: Yes Status: Resolved Assessment and Plan: Being managed with hemodialysis. (9) Weight loss, non-intentional Current Visit: Yes Status: Acute Assessment and Plan: Weight decreased over the past few days due to hemodialysis and malnutrition (10) Severe protein-calorie malnutrition Current Visit: Yes Status: Acute Assessment and Plan: Patient continues to have protein calorie malnutrition. Prior physician had discussed the subject of possible feeding because patient continues to have poor appetite and poor nutrition. However patient is adamantly against this. Nutrition following. Encouraged to try anything he wants. Patient is on Remeron and Marinol to stimulate appetite. (11) Cardiac arrest Current Visit: Yes Status: Resolved Assessment and Plan: Patient troponin 0.37 Echocardiogram unremarkable For stress test per cardiology Continue Coreg, resume Plavix. - Time Spent with Patient Total time spent is greater than 50% in coordination of care (as documented) at patient's floor/unit and/or counseling patient: Plan of Care Discussed with: patient Internal Medicine: Result - Labs CBC & Chem 7: 10/17/17 00:25 10/17/17 00:08 Labs: Short CBC 10/16/17 10/17/17 Range/Units 17:38 00:25 WBC 3.6 L 5.2 (4.3-11.1) K/mcL Hgb 9.7 L 10.5 L (12.9-16.9) g/dL Hct 29.3 L 31.9 L (37.5-50.1) % Plt Count 108 L 134 L (140-400) K/mcL Neutrophils # 2.7 3.9 (1.6-8.9) K/mcL BMP 10/16/17 10/17/17 17:38 00:08 Sodium 137 135 L Potassium 3.5 3.7 Chloride 99 98 Carbon Dioxide 22 L 20 L BUN 10 12 Creatinine 2.50 H 2.54 H Glucose 126 H 71 Calcium 8.8 8.6 Cardiac Enzymes 10/16/17 10/17/17 10/17/17 Range/Units 17:38 00:08 05:40 Troponin I 0.11 H* 0.37 H* 0.26 H* (< 0.04) ng/mL Liver Function 10/16/17 Range/Units 17:38 Total Bilirubin 0.5 (0.3-1.0) mg/dL Direct Bilirubin 0.1 (0.0-0.2) mg/dL AST 51 H (13-39) Units/L ALT 23 (7-52) Units/L Alkaline Phosphatase 89 (34-104) Units/L Albumin 3.4 L (3.5-5.7) g/dL - ABG Interpretation ABG results: PT/INR, D-dimer PT 12.9 Seconds (9.4-12.1) H 10/16/17 17:38 - Impressions Impressions Insertion Tunneled Catheter 10/16/17 12:46 IMPRESSION: Successful ultrasound and fluoroscopy guided tunneled catheter placement. At the conclusion of the procedure, following removal of the temporary hemodialysis catheter, the patient coded. The rapid response team took over chest compressions, began medical therapy, and intubated the patient. A cardiac rhythm returned. A report of the procedure was given to the ICU staff, which had been uneventful up until the cardiac arrest. No sedation medication had been administered and the patient had been hemodynamically stable throughout the procedure. No unexpected complications occurred during the procedure. Ultimately, the patient was transferred to CT for evaluation of the head and chest. D/ / 10/16/2017 17:00:00 Wesley Healy MD / alexa Interpreting Provider: Wesley Healy MD Chest CT 10/16/17 16:25 IMPRESSION: 1. Cardiac enlargement and coronary artery calcifications. 2. Ascending thoracic aorta aneurysm measuring 4.7 cm. Detail limited on this unenhanced exam. If there is concern for dissection a CT angiogram would be indicated. 3. Reticular densities at the lung bases suggestive of chronic interstitial changes. 4. Granulomatous disease manifested by calcified right upper lobe nodule and some calcified mediastinal nodes. D/ / Aaron Flores MD / Aaron Flores MD Interpreting Provider: Aaron Flores MD Head CT 10/16/17 16:25 IMPRESSION: No acute intracranial abnormality. D/ / Rm Urias MD / Rm Urias MD Interpreting Provider: Rm Urias MD Echocardiogram Limited Views 10/16/17 17:22 Impressions: LVEF 60-65%. Normal LV chamber size and function. Mild concentric left ventricular hypertrophy. Left Ventricular Wall Motion: Rest Echo Findings All wall segments showed normal motion. Findings: Study Quality * Technically adequate exam. ECG Findings * Normal sinus rhythm. Left Ventricle * LVEF 60-65%. * Normal LV chamber size and function. * Mild concentric left ventricular hypertrophy. Right Ventricle * Normal right ventricular structure and function. Aorta * Normally sized aortic root. Pericardium * There is a trivial pericardial effusion present. - VTE Documentation of Mechanical Device: Intermittent pneumatic compression device Consult Discharge Plan - Plan Referrals: [facility] [Outside] - 10/22/17 8:30 am Naveed Larkin DPM [Partnered Physician] - 10/23/17 10:00 am (Appointment will be in the wound care center. The wound care center is located at the [place] [facility]. Thank you) Yisel Stevens, LAWN TECHNICIAN [Advanced Practice Nurse] - 10/23/17 9:00 am (1) Acute renal failure Qualifiers: Acute renal failure type: with acute tubular necrosis Qualified Code(s): N17.0 - Acute kidney failure with tubular necrosis (2) Wound of left lower extremity Qualifiers: Encounter type: initial encounter Qualified Code(s): S81.802A - Unspecified open wound, left lower leg, initial encounter (3) Hypertension Qualifiers: Hypertension type: essential hypertension Qualified Code(s): I10 - Essential (primary) hypertension (6) Syncope Qualifiers: Syncope type: unspecified Qualified Code(s): R55 - Syncope and collapse
--- NOTE | 2017-10-17 09:37 | Event Note ---
Date of Encounter: 10/17/17 Time of Encounter: 09:36 Patient remained stable in the ICU overnight. Patient is stable for transfer to the medical floor with telemetry. Case was discussed with the hospitalist, Dr. Flores, who was caring for the patient yesterday prior to his cardiac arrest who will assume care of the patient.
[2017-10-17] MEDS: Gabapentin 300 MG CAPSULE PO SCH ×2 (10:14→20:57)
[2017-10-17] MEDS: Renal Vitamin 1 CAP CAPSULE PO SCH (10:14)
[2017-10-17] MEDS: Cyanocobalamin (B-12) 1,000 MCG TABLET PO SCH (10:14)
--- NOTE | 2017-10-17 10:22 | Nephrology Progress Note ---
<Dante Richmond - Last Filed: 10/17/17 10:37> Date of Encounter: 10/17/17 Time of Encounter: 10:20 - Assessment and Plan (1) Acute kidney injury Status: Acute Patient had cardiac arrest yesterday after placement of tunneled HD catheter and was transferred to ICU. He is to be transferred to step down unit later today. kidney function stable with creatinine = 2.54 Biopsy results suggest likely ATN secondary to nephrotoxins vs chronic infection. He has +FLORINDA with low C3 and mildly elevated KL light chains. now pending Anti-ds DNA. Will require outpatient follow-up with rheumatology. Continue to avoid nephrotoxins and monitor kidney function with AM labs. Patient is encouraged to increase PO intake and I explained to him that his condition is unlikely to improve unless he eats. He will likely require further HD outpatient. Spoke with LIDA Mccain for cardiology, in regards to cardiac arrest. Stress test later today. NPO for now. (2) Poor nutrition Status: Acute Nutrition has seen him yesterday. Pending recommendations. He is NPO this morning due to pending stress test s/p cardiac arrest. Patient understands his condition will not improve if he does not increase his intake. We will continue planning his diet after stress test. (3) Hypertension Current Visit: Yes Status: Chronic Stable. Continue current management. Qualifiers: Hypertension type: essential hypertension Qualified Code(s): I10 - Essential (primary) hypertension (4) Hypocomplementemia Current Visit: Yes Status: Acute See above (5) FLORINDA positive Current Visit: Yes Status: Acute FLORINDA very elevated. Pending dsDNA IgG Will likely require transport technician follow-up outpatient. Subjective Principal diagnosis: ARSH Interval history: Patient had cardiac arrest yesterday after placement of tunneled HD catheter and was transferred to ICU. Chest compressions and intubation was required. He was extubated today. Patient is doing well today. He is in good mood. He reports mild chest soreness likely from the chest compressions yesterday. Still poor appetite but expresses that he will try to eat more. presents to me a protein shake and expresses that Dr. Carter was ok with him trying it. At this point, Adán from Cardiology comes into room and informs patient that he will require a stress test today and will be kept NPO this morning. Patient reports that he has been able to void without difficulty. Denies shortness of breath, mild dry cough and dry mouth. He is also asking in regards to rheumalogist follow up to determine any immune disease. Objective - Vital Signs Vital signs: Vital Signs Temp Pulse Resp BP Pulse Ox Pulse Ox 10/17/17 08:00 80 16 114/76 99 10/17/17 07:32 99.3 F 10/17/17 06:00 73 13 115/79 94 10/17/17 05:00 69 14 115/82 93 10/17/17 04:00 69 19 99/64 95 10/17/17 03:31 97.5 F L 10/17/17 03:00 72 16 107/71 95 10/17/17 02:00 79 25 102/71 96 10/17/17 01:00 73 12 105/67 95 10/17/17 00:00 73 19 93/64 96 10/16/17 23:48 98.8 F 10/16/17 23:00 68 16 109/79 95 10/16/17 22:00 84 17 108/78 98 10/16/17 21:00 69 16 96/62 95 10/16/17 20:00 61 19 107/66 98 10/16/17 19:23 97.7 F 10/16/17 19:00 80 17 112/85 100 10/16/17 18:00 82 18 74/57 100 10/16/17 17:00 87 18 78/61 100 10/16/17 16:58 97 10/16/17 16:52 100 10/16/17 16:48 18 100 10/16/17 16:45 98.3 F 90 18 160/108 100 10/16/17 14:13 98.6 F 66 18 106/71 99 10/16/17 12:20 99.0 F 18 116/71 10/16/17 12:00 99/60 10/16/17 11:45 105/64 10/16/17 11:30 107/64 10/16/17 11:15 111/66 10/16/17 11:00 110/60 10/16/17 10:45 110/67 10/16/17 10:30 115/67 Intake and Output 10/16/17 10/17/17 10/17/17 23:59 07:59 15:59 Intake Total 650 / 650 Output Total 100 / 100 0 / 0 0 / 0 Balance 550 / 550 0 / 0 0 / 0 Intake: IV Fluids 650 / 650 Lactated Ringers 1,000 ML @ 0 500 / 500 mls/hr .ROUTE .[facility] Rx#: [id number] Levaquin Premix 750mg/150 mL 150 / 150 750 mg In 150 ml @ 100 mls/hr IVPB Q48H [facility] Rx#:[id number] Output: Urine 0 / 0 0 / 0 Wound Drainage 100 / 100 0 / 0 Left Foot 100 / 100 Left Lower Foot 0 / 0 Other: Weight 86.9 kg - General Appearance Exam: Gen.: Nonacute distress, alert and oriented 3 ENT: Mucosal membranes dry Respiratory: Lungs are clear to auscultation bilaterally without any wheezing rhonchi or rales Cardiovascular: distant heart sounds. Normal S1 and S2 regular rate rhythm no murmurs rubs or gallops Abdomen: Soft, nontender and nondistended with positive bowel sounds Extremities: No lower extremity edema. Left foot wrapped w/o bleed through. Skin: Normal color - Lab 10/17/17 00:25 10/17/17 00:08 Most recent lab results Calcium 8.6 mg/dL (8.6-10.3) 10/17/17 00:08 Phosphorus 3.4 mg/dL (2.7-4.5) 10/07/17 07:51 Magnesium 1.6 mg/dL (1.6-2.6) 10/17/17 00:08 Urine Creatinine 80 mg/dL 10/06/17 16:00 Urine Sodium 76.4 mEq/L 10/05/17 12:57 Urine Total Protein SEE NOTE mg/d (10-140) 10/07/17 19:24 - VTE Documentation of Mechanical Device: Intermittent pneumatic compression device Consult Discharge Plan - Plan Additional Instructions: Please follow-up with your many specialists providers. Please follow-up with neurology for management of your seizure medications. Please follow-up with cardiology in the next few weeks following your evaluation in the hospital. Please follow-up with wound care and podiatry for management of your left foot wound. Also follow-up with nephrology for management of hemodialysis. Please return to the emergency department should you develop any chest pain, shortness of breath, fever, confusion or any other worrisome symptoms. Referrals: [facility] [Other] ([facility]ated [facility]) [facility] [Outside] - 10/28/17 11:30 am Naveed Larkin DPM [Partnered Physician] - 10/30/17 10:30 am (Appointment will be in the wound care center. The wound care center is located at the west entrance. Thank you) Prescriptions: OxyCODONE/APAP 5/325 [Percocet 5/325 MG] 1 each PO Q6HR PRN 5 Days #15 tablet PRN Reason: Severe Pain Dronabinol [Marinol] 5 mg PO BIDLS 15 Days #30 capsule <Minerva Lopes - Last Filed: 11/02/17 21:24> Date of Encounter: 10/17/17 - Assessment and Plan (1) Hypertension Status: Chronic Qualifiers: Hypertension type: essential hypertension Qualified Code(s): I10 - Essential (primary) hypertension (2) Acute hypokalemia Status: Acute (3) Acute kidney injury Status: Acute Objective - Lab 10/23/17 06:52 10/23/17 06:52 Most recent lab results Calcium 8.4 mg/dL (8.6-10.3) L 10/23/17 06:52 Phosphorus 3.8 mg/dL (2.7-4.5) 10/22/17 10:26 Magnesium 1.6 mg/dL (1.6-2.6) 10/19/17 08:31 Urine Creatinine 80 mg/dL 10/06/17 16:00 Urine Sodium 76.4 mEq/L 10/05/17 12:57 Urine Total Protein SEE NOTE mg/d (10-140) 10/07/17 19:24 - Attending Attestation I examined this patient and my medical decision-making was reviewed with the Resident Physician. I agree with the documented findings, disposition and treatment plan as described except to the extent set forth below. Pt seen and examined with interim events noted. s/p pemrcath placement with IR complicated by unresponsiveness afterwards requiring resuscitation and transient intubation with quick extubation and ICU stay overnight. Now transferred to with stress test underway. Will hold off today on any dialytic process though numbers are stable today after HD yesterday. Will reassess on day to day basis. Encouraged more nutrients once again. Discussed plans with as well.
[2017-10-17] MEDS ORDERED: Regadenoson 0.4 MG/5 ML SYRINGE IVP ONE (11:10)
--- NOTE | 2017-10-17 13:02 | Podiatry Progress Note ---
Date of Encounter: 10/17/17 Time of Encounter: 06:50 - Assessment and Plan (1) Osteomyelitis Current Visit: No Status: Acute wound vac next change Friday non-wb left lower extremity discussed condition of his left foot/ankle, understands he is still at risk for limb loss. all questions answered. with ARSH would avoid excision debridement in OR to avoid nephrotoxic drugs Qualifiers: Osteomyelitis type: unspecified type Osteomyelitis location: unspecified site Qualified Code(s): M86.9 - Osteomyelitis, unspecified Subjective Principal diagnosis: ARSH Interval history: patient in ICU AOx3. says he feels a lot better today than yesterday. Objective - Vital Signs Vital Signs: Vital Signs Temp Pulse Resp BP Pulse Ox Pulse Ox 10/17/17 11:06 98.1 F 81 18 91/64 99 10/17/17 08:00 80 16 114/76 99 10/17/17 07:32 99.3 F 10/17/17 06:00 73 13 115/79 94 10/17/17 05:00 69 14 115/82 93 10/17/17 04:00 69 19 99/64 95 10/17/17 03:31 97.5 F L 10/17/17 03:00 72 16 107/71 95 10/17/17 02:00 79 25 102/71 96 10/17/17 01:00 73 12 105/67 95 10/17/17 00:00 73 19 93/64 96 10/16/17 23:48 98.8 F 10/16/17 23:00 68 16 109/79 95 10/16/17 22:00 84 17 108/78 98 10/16/17 21:00 69 16 96/62 95 10/16/17 20:00 61 19 107/66 98 10/16/17 19:23 97.7 F 10/16/17 19:00 80 17 112/85 100 10/16/17 18:00 82 18 74/57 100 10/16/17 17:00 87 18 78/61 100 10/16/17 16:58 97 10/16/17 16:52 100 10/16/17 16:48 18 100 10/16/17 16:45 98.3 F 90 18 160/108 100 10/16/17 14:13 98.6 F 66 18 106/71 99 Intake and Output 10/16/17 10/17/17 10/17/17 23:59 07:59 15:59 Intake Total 650 / 650 Output Total 100 / 100 0 / 0 300 / 300 Balance 550 / 550 0 / 0 -300 / -300 Intake: IV Fluids 650 / 650 Lactated Ringers 1,000 ML @ 0 500 / 500 mls/hr .ROUTE .[facility] Rx#: [id number] Levaquin Premix 750mg/150 mL 150 / 150 750 mg In 150 ml @ 100 mls/hr IVPB Q48H [facility] Rx#:[id number] Output: Urine 0 / 0 0 / 0 300 / 300 Wound Drainage 100 / 100 0 / 0 Left Foot 100 / 100 Left Lower Foot 0 / 0 Other: Stool Size Moderate Stool Consistency liquid Stool Color Brown # Bowel Movements 1 Weight 86.9 kg - Exam Exam: wound has no purulence. no cellulitis. increased granular tissue medially. absent sensation. - Lab Result Diagrams: 10/17/17 00:25 10/17/17 00:08 Labs: Abnormal lab results RBC 3.38 M/mcL (4.19-5.50) L 10/17/17 00:25 Hgb 10.5 g/dL (12.9-16.9) L 10/17/17 00:25 Hct 31.9 % (37.5-50.1) L 10/17/17 00:25 RDW 15.1 % (11.5-14.5) H 10/17/17 00:25 Plt Count 134 K/mcL (140-400) L 10/17/17 00:25 Nucleated RBCs/100 WBC 0.6 /100 WBC (0) H 10/06/17 03:57 Platelet Estimate Decreased (Normal) L 10/04/17 05:09 ESR 57 mm/hr (0-10) H 10/02/17 12:12 PT 12.9 Seconds (9.4-12.1) H 10/16/17 17:38 Sodium 135 mEq/L (136-145) L 10/17/17 00:08 Carbon Dioxide 20 mEq/L (23-29) L 10/17/17 00:08 Creatinine 2.54 mg/dL (0.70-1.30) H 10/17/17 00:08 Est GFR ( Amer) 31 (> 60) L 10/17/17 00:08 Est GFR (Non-Af Amer) 26 (> 60) L 10/17/17 00:08 BUN/Creatinine Ratio 5 (6-26) L 10/17/17 00:08 Calculated Osmolality 278 (280-300) L 10/17/17 00:08 % Saturation 63 % (20-55) H 10/05/17 03:56 Transferrin 113 mg/dL (203-362) L 10/05/17 03:56 AST 51 Units/L (13-39) H 10/16/17 17:38 Troponin I 0.26 ng/mL (< 0.04) H* 10/17/17 05:40 Albumin 3.4 g/dL (3.5-5.7) L 10/16/17 17:38 Albumin (PEP) 2.77 g/dL (3.75-5.01) L 10/06/17 13:42 Globulin 3.8 g/dL (2.4-3.5) H 10/16/17 17:38 Albumin/Globulin Ratio 0.9 (1.1-2.2) L 10/16/17 17:38 Gamma Globulins 1.76 g/dL (0.62-1.51) H 10/06/17 13:42 Vitamin B12 243 pg/mL (250-1100) L 10/05/17 11:15 Arterial Blood Ionized Calcium 1.06 mmol/L (1.15-1.35) L 10/16/17 19:45 Urine Clarity Cloudy (Clear) A 10/06/17 16:00 Urine Protein 100 mg/dL (Neg-Trace) H 10/06/17 16:00 Urine Ketones 15 mg/dL (Negative) H 10/06/17 16:00 Urine Blood Large (Negative) H 10/06/17 16:00 Ur Leukocyte Esterase Trace (Negative) H 10/06/17 16:00 Urine Microscopic RBC TNTC per hpf (0-3) H 10/06/17 16:00 Urine Microscopic WBC 5-15 per hpf (0-3) H 10/06/17 16:00 Ur Eosinophil Smear 1 % (None Seen) H 10/06/17 16:00 Ur Squamous Epith Cells Many per lpf (None-Few) H 10/06/17 16:00 Ur Culture Indicated? NO. (NO) A 10/06/17 16:00 Protein/Creatinin Ratio 2.00 mg/mg (0.00-0.20) H 10/06/17 16:00 U Free [place] Light Ch 58.30 mg/dL (0.14-2.42) H 10/07/17 19:24 U Free Lambda Light Ch 17.20 mg/dL (0.02-0.67) H 10/07/17 19:24 Phenytoin 1.9 mcg/mL (10.0-20.0) L 10/03/17 06:07 Copper 65 ug/dL (70-140) L 10/05/17 11:15 IgG 1720 mg/dL (768-1632) H 10/06/17 13:42 FLORINDA Titer 1:1280 (<1:80) H 10/06/17 13:42 Complement C3 80 mg/dL (88-201) L 10/06/17 13:42 Free [place] LC, Quant 20.90 mg/dL (0.33-1.94) H 10/06/17 13:42 Free Lambda LC, Quant 13.90 mg/dL (0.57-2.63) H 10/06/17 13:42 Microbiology, Last 48 Hours 10/16/17 17:49 Blood Culture - Preliminary Peripheral Venipuncture Culture is incubating and being continuously monitored for growth. Final report to follow. 10/16/17 17:38 Blood Culture - Preliminary Peripheral Venipuncture Culture is incubating and being continuously monitored for growth. Final report to follow. - VTE Documentation of Mechanical Device: Intermittent pneumatic compression device Consult Discharge Plan - Plan Referrals: [facility] [Outside] - 10/22/17 8:30 am Naveed Larkin DPM [Partnered Physician] - 10/23/17 10:00 am (Appointment will be in the wound care center. The wound care center is located at the west entrance. Thank you) Yisel Stevens, [employer] [Advanced Practice Nurse] - 10/23/17 9:00 am
--- NOTE | 2017-10-17 14:28 | Event Note ---
Date of Encounter: 10/17/17 Time of Encounter: 14:30 - Cardiology Event Note Stress test negative for ischemia. ECG with QTc 470ms, baseline was 474ms.
[2017-10-17] MEDS: Acetaminophen 325 MG TABLET PO PRN (15:38)
[2017-10-17] MEDS: Cholestyramine 4 GM POWD.PACK PO SCH (16:35)
[2017-10-17] MEDS: *HR* Heparin 5,000 UNIT/ML VIAL SQ SCH (17:33)
[2017-10-17] MEDS: Mirtazapine 15 MG TABLET PO SCH (20:57)
[2017-10-18 06:09] LABS: Basophils % 0.3 %
[2017-10-18 06:11] LABS: Eosinophils # 0.2 K/mcL (0.0-0.6); Hematocrit 27.5 % (37.5-50.1); Hemoglobin 9.1 g/dL (12.9-16.9); Immature Granulocytes % 1.2 % (0-4); Immature Platelets 3.4 % (1.1-6.1); Lymphocytes # 0.8 K/mcL (0.6-4.6); Lymphocytes % 25.5 %; Mean Corpuscular HGB Conc 33.1 g/dL (31.6-35.5); Mean Corpuscular Hemoglobin 31.2 pg (28.0-33.3); Mean Corpuscular Volume 94.2 fL (83.0-100.0); Mean Platelet Volume 10.3 fL (9.4-12.4); Monocytes # 0.6 K/mcL (0.0-1.3); Monocytes % 17.6 %; Neutrophils # 1.6 K/mcL (1.6-8.9); Platelet Count 103 K/mcL (140-400); Red Blood Count 2.92 M/mcL (4.19-5.50); Red Cell Distribution Width 15.1 % (11.5-14.5); Segmented Neutrophils % 48.4 %
[2017-10-18 06:31] LABS: Calcium 8.4 mg/dL (8.6-10.3); Magnesium 1.6 mg/dL (1.6-2.6); Potassium 4.1 mEq/L (3.5-5.1)
[2017-10-18] MEDS: *HR* Heparin 5,000 UNIT/ML VIAL SQ SCH ×2 (06:35→18:05)
[2017-10-18] MEDS ORDERED: *HR* Heparin 10,000 UNIT/10 ML VIAL IV PRN (07:59)
[2017-10-18] MEDS ORDERED: 0.9 % Sodium Chloride 250 ML IVC PRN (07:59)
[2017-10-18] MEDS ORDERED: 0.9 % Sodium Chloride 1,000 ML PRIME SCH (08:00)
[2017-10-18] MEDS: Gabapentin 300 MG CAPSULE PO SCH ×2 (08:35→21:57)
[2017-10-18] MEDS: Cyanocobalamin (B-12) 1,000 MCG TABLET PO SCH (08:35)
[2017-10-18] MEDS: Renal Vitamin 1 CAP CAPSULE PO SCH (08:35)
[2017-10-18] MEDS: Cholestyramine 4 GM POWD.PACK PO SCH ×3 (08:35→17:03)
--- NOTE | 2017-10-18 09:43 | Internal Med Progress Note ---
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 following permacath placement, he was successfully resuscitated and transferred to the intensive care unit. He was intubated for acute respiratory failure. He was extubated the same day, and has been doing well since extubation Cardiology made no further recommendations , following an unremarkable ECHO and Nuclear stress test Seen and examined at the bedside with his partner No new complains PEr CSM, [facility] - Exam Vitals: Temp Pulse Resp BP Pulse Ox 99.1 F 82 18 118/80 95 10/18/17 07:21 10/18/17 07:21 10/18/17 07:21 10/18/17 07:21 10/18/17 07:21 Exam: General: Patient is alert, no acute distress, oriented x 3 Head: atraumatic, normocephalic, Eye: normal appearance, PERRL, no scleral icterus, no conjunctival injection Neck: Normal inspection, wound dressing is clean and dry Chest: R chest wall catheter noted, clean dressing, symmetric chest rise Respiratory: Good respiratory effort. Normal breath sounds. No wheezing or crackles. Cardiovascular: Regular rate and rhythm. s1 and s2 No clicks, rubs, gallops, or murmurs. No pedal edema Abdomen: Abdomen is soft, nontender. Bowel sounds are present Musculoskeletal: Wound VAC to left foot. Skin: warm, dry, intact. Neuro: Alert oriented x 3 normal cranial nerves, no focal deficits Psych: Normal mood today - Assessment and Plan (1) Acute renal failure Current Visit: Yes Status: Acute Assessment and Plan: Renal biopsy done 10/13. -According to nephrology documentation preliminary results suggest likely ATN secondary to nephrotoxins versus chronic infection. Patient also have positive DNA and low C3 and elevated K-L light changes. Nephrology following ordered [id number]-gwziwxev DNA, will follow, result pending Continue management per renal (2) Wound of left lower extremity Current Visit: Yes Status: Acute Assessment and Plan: Infected wound of left lower extremity. Prior wound cultures positive for Pseudomonas aeruginosa and GCS. Patient was on cefepime after hospitalization. This has been stopped on account of acute kidney injury. Patient is now on Levaquin every 48 hours. Infectious disease is following, according to ID, he has had 5 weeks of antibiotics, -day 4, continue same According to ID, treatment is through 10/21 Continue current therapy (3) Hypertension Current Visit: Yes Status: Chronic Assessment and Plan: Blood pressure borderline low Continue coreg to 12.5mg BID Discontinued amlodipine 10/16 Continue to monitor (4) Seizure Current Visit: Yes Status: Chronic Assessment and Plan: On Dilantin. Continue same. Plan to follow up with neurology as outpatient (5) Dehydration Current Visit: Yes Status: Resolved Assessment and Plan: See ARSH (6) Syncope Current Visit: Yes Status: Resolved Assessment and Plan: From dehydration along with ATN. No new episodes. Syncope work up Head CT/ECHO/Carotid Unremarkable No arrhythmias (7) Bicytopenia Current Visit: Yes Status: Chronic Assessment and Plan: stable. Platelet count improving. 103 today. Hemoglobin 9.1 Continue cyanocobalamin He is to be discharged on monthly IM cyanocobalamin when medically stable Continue Plavix (8) Metabolic acidosis Current Visit: Yes Status: Resolved Assessment and Plan: Being managed with hemodialysis. (9) Weight loss, non-intentional Current Visit: Yes Status: Acute Assessment and Plan: Weight decreased over the past few days due to hemodialysis and malnutrition (10) Severe protein-calorie malnutrition Current Visit: Yes Status: Acute Assessment and Plan: Patient continues to have protein calorie malnutrition. Prior physician had discussed the subject of possible feeding because patient continues to have poor appetite and poor nutrition. However patient is adamantly against this. Nutrition following. Encouraged to try anything he wants. Patient is on Remeron and Marinol to stimulate appetite. (11) Cardiac arrest Current Visit: Yes Status: Resolved Assessment and Plan: Patient peak troponin 0.37 Echocardiogram unremarkable Stress test unremarkable Cardiology eval appreciated Continue Coreg, Plavix. - Time Spent with Patient Total time spent is greater than 50% in coordination of care (as documented) at patient's floor/unit and/or counseling patient: Plan of Care Discussed with: patient Internal Medicine: Result - Labs CBC & Chem 7: 10/18/17 05:36 10/18/17 05:36 Labs: Short CBC 10/18/17 Range/Units 05:36 WBC 3.3 L (4.3-11.1) K/mcL Hgb 9.1 L (12.9-16.9) g/dL Hct 27.5 L (37.5-50.1) % Plt Count 103 L (140-400) K/mcL Neutrophils # 1.6 (1.6-8.9) K/mcL BMP 10/18/17 05:36 Sodium 137 Potassium 4.1 Chloride 103 Carbon Dioxide 22 L BUN 18 Creatinine 3.20 H Glucose 80 Calcium 8.4 L - ABG Interpretation ABG results: PT/INR, D-dimer PT 12.9 Seconds (9.4-12.1) H 10/16/17 17:38 - VTE Documentation of Mechanical Device: Intermittent pneumatic compression device Consult Discharge Plan - Plan Referrals: [facility] [Outside] - 10/22/17 8:30 am Naveed Larkin DPM [Partnered Physician] - 10/23/17 10:00 am (Appointment will be in the wound care center. The wound care center is located at the [place] entrance. Thank you) Yisel Stevens, [employer] [Advanced Practice Nurse] - 10/23/17 9:00 am (1) Acute renal failure Qualifiers: Acute renal failure type: with acute tubular necrosis Qualified Code(s): N17.0 - Acute kidney failure with tubular necrosis (2) Wound of left lower extremity Qualifiers: Encounter type: initial encounter Qualified Code(s): S81.802A - Unspecified open wound, left lower leg, initial encounter (3) Hypertension Qualifiers: Hypertension type: essential hypertension Qualified Code(s): I10 - Essential (primary) hypertension (6) Syncope Qualifiers: Syncope type: unspecified Qualified Code(s): R55 - Syncope and collapse
--- NOTE | 2017-10-18 15:11 | Nephrology Progress Note ---
Date of Encounter: 10/18/17 Time of Encounter: 12:00 - Assessment and Plan (1) Acute kidney injury Status: Acute No signs of renal recovery so far, continue HD with no UF today Await outpatient HD placement Continue to avoid nephrotoxins if possible (2) Hypertension Status: Chronic Titrate medications as needed. Qualifiers: Hypertension type: essential hypertension Qualified Code(s): I10 - Essential (primary) hypertension (3) Acute hypokalemia Status: Acute Normalized on supplements, will monitor and replete as needed (4) Hypocomplementemia Status: Acute (5) FLORINDA positive Status: Acute The FLORINDA results have finally returned and is very elevated. Hypocomplementemia is often seen with lupus nephritis, but sometimes false positive can be seen. Renal biopsy showed ATN. Subjective Principal diagnosis: ARSH Interval history: Pt seen and examined on HD with no new complaints. He reports eating more which his confirmed Objective - Vital Signs Vital signs: Vital Signs Temp Pulse Pulse Pulse Resp BP BP 10/18/17 14:54 97.9 F 84 24 122/76 10/18/17 13:57 97.7 F 18 122/76 10/18/17 13:20 115/79 10/18/17 13:05 113/82 10/18/17 12:50 119/79 10/18/17 12:35 102/74 10/18/17 12:20 102/74 10/18/17 12:05 94/65 10/18/17 11:50 101/76 10/18/17 11:35 112/73 10/18/17 11:20 102/76 10/18/17 11:05 111/78 10/18/17 10:50 117/71 10/18/17 10:35 122/84 10/18/17 10:20 97.7 F 18 110/73 10/18/17 07:21 99.1 F 82 18 118/80 10/18/17 04:47 98.1 F 80 16 122/76 10/18/17 00:40 98.3 F 95 16 116/77 10/17/17 18:48 98.6 F 85 16 115/75 10/17/17 17:25 91 88 93/63 10/17/17 17:09 98.2 F 87 18 95/68 BP Pulse Ox 10/18/17 14:54 95 10/18/17 13:57 10/18/17 13:20 10/18/17 13:05 10/18/17 12:50 10/18/17 12:35 10/18/17 12:20 10/18/17 12:05 10/18/17 11:50 10/18/17 11:35 10/18/17 11:20 10/18/17 11:05 10/18/17 10:50 10/18/17 10:35 10/18/17 10:20 10/18/17 07:21 95 10/18/17 04:47 97 10/18/17 00:40 98 10/17/17 18:48 98 10/17/17 17:25 95/63 10/17/17 17:09 94 Intake and Output 10/17/17 10/18/17 10/18/17 23:59 07:59 15:59 Intake Total 600 / 600 Output Total 2049 / 2049 Balance -1450 / -1450 Intake: Oral 0 / 0 Intake, Rinseback and Flushes 600 / 600 Output: Urine 0 / 0 Total Dialysis (HD) Output 1600 / 1600 Wound Drainage 450 / 450 Left Foot 200 / 200 Left Lower Foot 250 / 250 Other: Meal Dinner Lunch Percent of Meal Consumed 0% 100% Weight 86.8 kg Hemodialysis Net Fluid Removed 1000 (mL) Patient Weight 10/18/17 23:59 Weight 86.8 kg - General Appearance General appearance: Present: chronically ill EENT: Present: ATNC, mucous membranes moist Neck: Present: no JVD, supple Respiratory: Present: clear Cardiology: Present: no edema, normal S1, normal S2 Dialysis Vascular Access: Venous Catheter Gastrointestinal: Present: no tenderness, no guarding Integumentary: Present: warm and dry Neurologic: Present: no focal deficit Musculoskeletal: Present: no deformities Psychiatric: Present: mood/affect appropriate, cooperative - Lab 10/23/17 06:52 10/23/17 06:52 Most recent lab results Calcium 8.4 mg/dL (8.6-10.3) L 10/18/17 05:36 Phosphorus 3.4 mg/dL (2.7-4.5) 10/07/17 07:51 Magnesium 1.6 mg/dL (1.6-2.6) 10/18/17 05:36 Urine Creatinine 80 mg/dL 10/06/17 16:00 Urine Sodium 76.4 mEq/L 10/05/17 12:57 Urine Total Protein SEE NOTE mg/d (10-140) 10/07/17 19:24 - VTE Documentation of Mechanical Device: Intermittent pneumatic compression device Consult Discharge Plan - Plan Additional Instructions: Please follow-up with your many specialists providers. Please follow-up with neurology for management of your seizure medications. Please follow-up with cardiology in the next few weeks following your evaluation in the hospital. Please follow-up with wound care and podiatry for management of your left foot wound. Also follow-up with nephrology for management of hemodialysis. Please return to the emergency department should you develop any chest pain, shortness of breath, fever, confusion or any other worrisome symptoms. Referrals: [facility] [Other[facility] ([facility]) [facility] [Outside] - 10/28/17 11:30 am Naveed Larkin DPM [Partnered Physician] - 10/30/17 10:30 am (Appointment will be in the wound care center. The wound care center is located at the [place] entrance. Thank you) Prescriptions: OxyCODONE/APAP 5/325 [Percocet 5/325 MG] 1 each PO Q6HR PRN 5 Days #15 tablet PRN Reason: Severe Pain Dronabinol [Marinol] 5 mg PO BIDLS 15 Days #30 capsule
[2017-10-18] MEDS ORDERED: Levofloxacin 750 MG/150 ML 750 MG/150 ML BAG IVPB SCH (16:00)
[2017-10-18] MEDS: Mirtazapine 15 MG TABLET PO SCH (21:57)
[2017-10-18] MEDS: *HR* OxyCODONE/APAP 5/325 TABLET PO PRN (21:57)
[2017-10-19] MEDS: *HR* Heparin 5,000 UNIT/ML VIAL SQ SCH ×2 (05:09→16:41)
[2017-10-19] MEDS: Cholestyramine 4 GM POWD.PACK PO SCH ×3 (07:35→16:42)
[2017-10-19] MEDS: Gabapentin 300 MG CAPSULE PO SCH ×2 (08:03→21:52)
[2017-10-19] MEDS: Renal Vitamin 1 CAP CAPSULE PO SCH (08:03)
[2017-10-19] MEDS: Cyanocobalamin (B-12) 1,000 MCG TABLET PO SCH (08:03)
--- NOTE | 2017-10-19 08:53 | Internal Med Progress Note ---
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 following permacath placement, he was successfully resuscitated and transferred to the intensive care unit. He was intubated for acute respiratory failure. He was extubated the same day, and has been doing well since extubation Cardiology made no further recommendations , following an unremarkable ECHO and Nuclear stress test Podiatry is following and patient has his wound vac changes Friday/, there does not seem to be a plan for surgery at this time Infectious disease is following and recommends trt with antibiotics through 10/21 Nephrology is follwing for oliguric ARSH and patient is on HD Seen and examined at the bedside with his partner No new complains Per RN , he had vasovagal syncope during defeacation last formerly [facility] Patient's partner at the bedside states "it happens once in a while at home" There is no arrythmia and patient has been stable Discharge planning: -Set up for out-patient HD, Follow ups with Infectious disease, Podiatry, Wound changes at home, home infusion if still indicated, scripts for levaquin already written - Exam Vitals: Temp Pulse Resp BP Pulse Ox 97.7 F 69 19 113/72 98 10/19/17 07:36 10/19/17 07:36 10/19/17 07:36 10/19/17 07:36 10/19/17 07:36 Exam: General: Patient is alert, no acute distress, Sleeping but easily rousable Head: atraumatic, normocephalic, Eye: normal appearance, PERRL, no scleral icterus, no conjunctival injection Neck: Normal inspection, wound dressing is clean and dry Chest: R chest wall catheter noted, clean dressing, symmetric chest rise Respiratory: Good respiratory effort. Normal breath sounds. No wheezing or crackles. Cardiovascular: Regular rate and rhythm. s1 and s2 No clicks, rubs, gallops, or murmurs. No pedal edema Abdomen: Abdomen is soft, nontender. Bowel sounds are present Musculoskeletal: Wound VAC to left foot. Skin: warm, dry, intact. Neuro: Alert oriented x 3 normal cranial nerves, no focal deficits Psych: Normal mood today - Assessment and Plan (1) Acute renal failure Current Visit: Yes Status: Acute Assessment and Plan: Renal biopsy done 10/13. -According to nephrology documentation preliminary results suggest likely ATN secondary to nephrotoxins versus chronic infection. Patient also had positive DNA and low C3 and elevated K-L light changes. Nephrology following ordered [id number] DNA, will follow, result pending Continue management per renal SW?case technician working on setting up out-patient HD by the [place] Await confirmation of set up prior to discharge (2) Wound of left lower extremity Current Visit: Yes Status: Acute Assessment and Plan: Infected wound of left lower extremity. Prior wound cultures positive for Pseudomonas aeruginosa and GCS. Patient was on cefepime after hospitalization. This has been stopped on account of acute kidney injury. Patient is now on Levaquin every 48 hours. Infectious disease is following, according to ID, he has had 5 weeks of antibiotics, -day 4, continue same According to ID, treatment is through 10/21 Podiatry is following For wound Vac change Thursday 10/19 Continue current therapy (3) Hypertension Current Visit: Yes Status: Chronic Assessment and Plan: Blood pressure borderline low Continue coreg to 12.5mg BID Discontinued amlodipine 10/16 Continue to monitor (4) Seizure Current Visit: Yes Status: Chronic Assessment and Plan: On Dilantin. Continue same. Plan to follow up with neurology as outpatient (5) Dehydration Current Visit: Yes Status: Resolved Assessment and Plan: See ARSH (6) Syncope Current Visit: Yes Status: Resolved Assessment and Plan: From dehydration along with ATN. No new episodes. Syncope work up Head CT/ECHO/Carotid Unremarkable No arrhythmias (7) Bicytopenia Current Visit: Yes Status: Chronic Assessment and Plan: stable. Platelet count improving. 103 today. Hemoglobin 9.1 Continue cyanocobalamin He is to be discharged on monthly IM cyanocobalamin when medically stable Continue Plavix (8) Metabolic acidosis Current Visit: Yes Status: Resolved Assessment and Plan: Being managed with hemodialysis. (9) Weight loss, non-intentional Current Visit: Yes Status: Acute Assessment and Plan: Weight decreased over the past few days due to hemodialysis and malnutrition (10) Severe protein-calorie malnutrition Current Visit: Yes Status: Acute Assessment and Plan: Patient continues to have protein calorie malnutrition. Prior physician had discussed the subject of possible feeding because patient continues to have poor appetite and poor nutrition. However patient is adamantly against this. Nutrition following. Encouraged to try anything he wants. Patient is on Remeron and Marinol to stimulate appetite. (11) Cardiac arrest Current Visit: Yes Status: Resolved Assessment and Plan: Patient peak troponin 0.37 Echocardiogram unremarkable Stress test unremarkable Cardiology eval appreciated Continue Coreg, Plavix. - Time Spent with Patient Total time spent is greater than 50% in coordination of care (as documented) at patient's floor/unit and/or counseling patient: Plan of Care Discussed with: patient Internal Medicine: Result - Labs CBC & Chem 7: 10/19/17 08:31 10/19/17 08:31 - ABG Interpretation ABG results: PT/INR, D-dimer PT 12.9 Seconds (9.4-12.1) H 10/16/17 17:38 - Impressions Impressions Guidance Ultrasound 10/16/17 00:00 IMPRESSION: Successful ultrasound and fluoroscopy guided tunneled catheter placement. At the conclusion of the procedure, following removal of the temporary hemodialysis catheter, the patient coded. The rapid response team took over chest compressions, began medical therapy, and intubated the patient. A cardiac rhythm returned. A report of the procedure was given to the ICU staff, which had been uneventful up until the cardiac arrest. No sedation medication had been administered and the patient had been hemodynamically stable throughout the procedure. No unexpected complications occurred during the procedure. Ultimately, the patient was transferred to CT for evaluation of the head and chest. D/ / 10/16/2017 17:00:00 Wesley Healy MD / bcarter Interpreting Provider: Wesley Healy MD Insertion Tunneled Catheter 10/16/17 12:46 IMPRESSION: Successful ultrasound and fluoroscopy guided tunneled catheter placement. At the conclusion of the procedure, following removal of the temporary hemodialysis catheter, the patient coded. The rapid response team took over chest compressions, began medical therapy, and intubated the patient. A cardiac rhythm returned. A report of the procedure was given to the ICU staff, which had been uneventful up until the cardiac arrest. No sedation medication had been administered and the patient had been hemodynamically stable throughout the procedure. No unexpected complications occurred during the procedure. Ultimately, the patient was transferred to CT for evaluation of the head and chest. D/ / 10/16/2017 17:00:00 Wesley Healy MD / alexa Interpreting Provider: Wesley Healy MD - VTE Documentation of Mechanical Device: Intermittent pneumatic compression device Consult Discharge Plan - Plan Referrals: [facility] [Outside] - 10/22/17 8:30 am Naveed Larkin DPM [Partnered Physician] - 10/23/17 10:00 am (Appointment will be in the wound care center. The wound care center is located at the [address] entrance. Thank you) Yisel Stevens, TAPE KELLER OPERATOR [Advanced Practice Nurse] - 10/23/17 9:00 am (1) Acute renal failure Qualifiers: Acute renal failure type: with acute tubular necrosis Qualified Code(s): N17.0 - Acute kidney failure with tubular necrosis (2) Wound of left lower extremity Qualifiers: Encounter type: initial encounter Qualified Code(s): S81.802A - Unspecified open wound, left lower leg, initial encounter (3) Hypertension Qualifiers: Hypertension type: essential hypertension Qualified Code(s): I10 - Essential (primary) hypertension (6) Syncope Qualifiers: Syncope type: unspecified Qualified Code(s): R55 - Syncope and collapse
[2017-10-19 09:00] LABS: Immature Granulocytes % 1.3 % (0-4); Red Cell Distribution Width 15.3 % (11.5-14.5)
[2017-10-19 09:01] LABS: Eosinophils # 0.2 K/mcL (0.0-0.6); Eosinophils % 8.3 %; Hematocrit 28.2 % (37.5-50.1); Hemoglobin 9.3 g/dL (12.9-16.9); Immature Platelets 2.5 % (1.1-6.1); Lymphocytes # 0.6 K/mcL (0.6-4.6); Lymphocytes % 26.8 %; Mean Corpuscular Hemoglobin 31.5 pg (28.0-33.3); Mean Corpuscular Volume 95.6 fL (83.0-100.0); Mean Platelet Volume 10.1 fL (9.4-12.4); Monocytes # 0.4 K/mcL (0.0-1.3); Monocytes % 17.5 %; Neutrophils # 1.1 K/mcL (1.6-8.9); Red Blood Count 2.95 M/mcL (4.19-5.50); Segmented Neutrophils % 46.1 %
[2017-10-19 09:02] LABS: Platelet Count 91 K/mcL (140-400)
[2017-10-19 09:22] LABS: Calcium 8.3 mg/dL (8.6-10.3); Magnesium 1.6 mg/dL (1.6-2.6)
--- NOTE | 2017-10-19 12:00 | Nephrology Progress Note ---
Date of Encounter: 10/19/17 Time of Encounter: 12:00 - Assessment and Plan (1) Acute kidney injury Current Visit: Yes Status: Acute SCr noted at 2.5 after HD yesterday, will check tomorrow for any signs of renal recovery Awaiting placement in outpatient HD, pt wants to go to [place] for HD Next HD tentatively planned for friday if still hospitalized with no renal recovery Continue to avoid nephrotoxins if possible (2) Hypertension Current Visit: Yes Status: Chronic Titrate medications as needed. Qualifiers: Hypertension type: essential hypertension Qualified Code(s): I10 - Essential (primary) hypertension (3) Acute hypokalemia Current Visit: No Status: Acute Normalized on supplements (4) Hypocomplementemia Current Visit: Yes Status: Acute (5) FLORINDA positive Current Visit: Yes Status: Acute Subjective Principal diagnosis: ARSH Interval history: Pt seen and examined with at bedside. Pt now trying to eat a little more than previous but still gets lightheaded on standing Objective - Vital Signs Vital signs: Vital Signs Temp Pulse Resp BP Pulse Ox 10/19/17 11:28 97.7 F 65 19 125/79 97 10/19/17 07:36 97.7 F 69 19 113/72 98 10/19/17 04:30 98.3 F 65 16 108/70 97 10/18/17 23:55 98.2 F 78 16 117/73 100 10/18/17 19:02 97.6 F 76 16 102/67 98 10/18/17 16:50 96 16 120/80 93 10/18/17 14:54 97.9 F 84 24 122/76 95 10/18/17 13:57 97.7 F 18 122/76 10/18/17 13:20 115/79 10/18/17 13:05 113/82 10/18/17 12:50 119/79 10/18/17 12:35 102/74 10/18/17 12:20 102/74 10/18/17 12:05 94/65 Intake and Output 10/18/17 10/19/17 10/19/17 23:59 07:59 15:59 Intake Total 120 / 120 Output Total 450 / 450 540 / 540 Balance -450 / -450 -420 / -420 Intake: Oral 120 / 120 Output: Urine 200 / 200 0 / 0 Wound Drainage 250 / 250 540 / 540 Left Foot 270 / 270 Left Lower Foot 250 / 250 270 / 270 Other: Stool Size Moderate Stool Consistency loose soft Stool Color Brown # Bowel Movements 1 Weight 86 kg - General Appearance General appearance: Present: chronically ill EENT: Present: ATNC, mucous membranes moist Neck: Present: no JVD, supple Respiratory: Present: clear Cardiology: Present: no edema (L foot with dressing), normal S1, normal S2 Dialysis Vascular Access: Venous Catheter (permcath in place) Gastrointestinal: Present: no tenderness, no guarding Integumentary: Present: warm and dry Neurologic: Present: no focal deficit Musculoskeletal: Present: no deformities Psychiatric: Present: mood/affect appropriate, cooperative - Lab 10/19/17 08:31 10/19/17 08:31 Most recent lab results Calcium 8.3 mg/dL (8.6-10.3) L 10/19/17 08:31 Phosphorus 3.4 mg/dL (2.7-4.5) 10/07/17 07:51 Magnesium 1.6 mg/dL (1.6-2.6) 10/19/17 08:31 Urine Creatinine 80 mg/dL 10/06/17 16:00 Urine Sodium 76.4 mEq/L 10/05/17 12:57 Urine Total Protein SEE NOTE mg/d (10-140) 10/07/17 19:24 - VTE Documentation of Mechanical Device: Intermittent pneumatic compression device Consult Discharge Plan - Plan Referrals: [facility] [Outside] - 10/22/17 8:30 am Naveed Larkin DPM [Partnered Physician] - 10/23/17 10:00 am (Appointment will be in the wound care center. The wound care center is located at the [place] entrance. Thank you) Yisel Stevens, SPECIAL EDUCATION RESOURCE ROOM TEACHER [Advanced Practice Nurse] - 10/23/17 9:00 am
[2017-10-19] MEDS: Mirtazapine 15 MG TABLET PO SCH (21:52)
[2017-10-19] MEDS: *HR* OxyCODONE/APAP 5/325 TABLET PO PRN (21:52)
[2017-10-20 05:55] LABS: Basophils % 0.4 %; Eosinophils # 0.2 K/mcL (0.0-0.6); Eosinophils % 6.8 %; Hematocrit 26.4 % (37.5-50.1); Hemoglobin 8.1 g/dL (12.9-16.9); Immature Granulocytes % 1.1 % (0-4); Lymphocytes % 36.4 %; Mean Corpuscular HGB Conc 30.7 g/dL (31.6-35.5); Mean Corpuscular Volume 101.1 fL (83.0-100.0); Mean Platelet Volume 10.6 fL (9.4-12.4); Monocytes # 0.5 K/mcL (0.0-1.3); Monocytes % 18.2 %; Red Blood Count 2.61 M/mcL (4.19-5.50); Red Cell Distribution Width 15.5 % (11.5-14.5); Segmented Neutrophils % 37.1 %
[2017-10-20 05:56] LABS: Platelet Count 90 K/mcL (140-400)
[2017-10-20] MEDS: *HR* Heparin 5,000 UNIT/ML VIAL SQ SCH ×2 (06:08→17:59)
[2017-10-20 06:09] LABS: Platelet Estimate Decreased (Normal)
[2017-10-20 06:16] LABS: Calcium 8.4 mg/dL (8.6-10.3); Potassium 4.7 mEq/L (3.5-5.1)
[2017-10-20] MEDS: Gabapentin 300 MG CAPSULE PO SCH (08:32)
[2017-10-20] MEDS: Cyanocobalamin (B-12) 1,000 MCG TABLET PO SCH (08:32)
[2017-10-20] MEDS: Cholestyramine 4 GM POWD.PACK PO SCH ×2 (08:32→14:45)
[2017-10-20] MEDS: Renal Vitamin 1 CAP CAPSULE PO SCH (08:32)
[2017-10-20] MEDS: Levofloxacin 500 MG/100 ML 500 MG/100 ML BAG IVPB SCH (14:45)
[2017-10-20] MEDS: Gabapentin 100 MG CAPSULE PO SCH ×2 (14:45→20:32)
--- NOTE | 2017-10-20 16:06 | Nephrology Progress Note ---
Date of Encounter: 10/20/17 Time of Encounter: 11:00 - Assessment and Plan (1) Acute kidney injury Current Visit: Yes Status: Acute Last HD 2 days ago with output of 1600ml, Creatinine stable for the last 2 days. Currently 2.98 Awaiting placement in outpatient HD at [facility] tomorrow if Kidney function worsens. Continue to avoid nephrotoxins if possible. Strict I/Os. (2) Hypertension Current Visit: Yes Status: Chronic Titrate medications as needed. Qualifiers: Hypertension type: essential hypertension Qualified Code(s): I10 - Essential (primary) hypertension (3) Acute hypokalemia Current Visit: No Status: Acute Normalized on supplements (4) Hypocomplementemia Current Visit: Yes Status: Acute (5) FLORINDA positive Current Visit: Yes Status: Acute Subjective Principal diagnosis: ARSH Interval history: Patient is doing well today. He is in good mood. Still poor appetite. Voiding without difficulty. Denies CP, SOB, abdominal pain. He is pending placement to [facility] for prosthetic assistant HD. Objective - Vital Signs Vital signs: Vital Signs Temp Pulse Resp BP Pulse Ox 10/20/17 15:31 97.3 F L 60 16 98/65 100 10/20/17 11:29 97.4 F L 65 17 107/68 100 10/20/17 07:01 97.5 F L 61 16 110/75 100 10/20/17 03:44 98.7 F 63 16 138/83 100 10/19/17 23:30 98.7 F 65 16 105/68 110 10/19/17 18:55 97.7 F 71 16 101/68 96 10/19/17 16:31 98.4 F 86 19 119/72 100 Intake and Output 10/20/17 10/20/17 10/20/17 07:59 15:59 23:59 Intake Total 0 / 0 100 / 100 Output Total 500 / 500 Balance -500 / -500 100 / 100 Intake: IV Fluids 100 / 100 Levaquin Premix 500mg/100mL 500 100 / 100 mg In 100 ml @ 100 mls/hr IVPB Q48H MYLES Rx#:[id number] Oral 0 / 0 Output: Urine 500 / 500 Other: Meal Lunch Percent of Meal Consumed 5% # Voids 1 - General Appearance Exam: General appearance: Present: chronically ill EENT: Present: ATNC, mucous membranes moist Neck: Present: no JVD, supple Respiratory: Present: clear Cardiology: Present: no edema (L foot with dressing), normal S1, normal S2 Dialysis Vascular Access: Venous Catheter (permcath in place) Gastrointestinal: Present: no tenderness, no guarding Integumentary: Present: warm and dry Neurologic: Present: no focal deficit Musculoskeletal: Present: no deformities Psychiatric: Present: mood/affect appropriate, cooperative - Lab 10/20/17 05:43 10/20/17 05:43 Most recent lab results Calcium 8.4 mg/dL (8.6-10.3) L 10/20/17 05:43 Phosphorus 3.4 mg/dL (2.7-4.5) 10/07/17 07:51 Magnesium 1.6 mg/dL (1.6-2.6) 10/19/17 08:31 Urine Creatinine 80 mg/dL 10/06/17 16:00 Urine Sodium 76.4 mEq/L 10/05/17 12:57 Urine Total Protein SEE NOTE mg/d (10-140) 10/07/17 19:24 - VTE Documentation of Mechanical Device: Intermittent pneumatic compression device Consult Discharge Plan - Plan Referrals: [facility] [Outside] - 10/22/17 8:30 am Naveed Larkin DPM [Partnered Physician] - 10/23/17 10:00 am (Appointment will be in the wound care center. The wound care center is located at the [place] entrance. Thank you) Yisel Stevens, ENGINE TESTING SUPERVISOR [Advanced Practice Nurse] - 10/23/17 9:00 am
--- NOTE | 2017-10-20 16:52 | Podiatry Progress Note ---
Date of Encounter: 10/21/17 Time of Encounter: 12:00 - Assessment and Plan (1) Nonhealing surgical wound Current Visit: No Status: Acute s/p excisional debridement of wounds through deep fascia/tendon, application of PRP, left lower extremity by Dr. Larkin on 09/25/17. S/p application of graft on 10/02/[address] Larkin. Wound vac changed at bedside. WBC: 2.6 Platelets: 90 Surgical biopsy from left foot on 09/10/17 isolated Pseudomonas Aeruginosa, Group C Strep. Plan: Wound vac changed today. Next wound vac change due on . Patients wound vac schedule is ever Friday and . All surrounding skin prepped with Allkare, drape applied to protect skin, white sponge applied to anterior wound with black sponge, small black simplace wound vac sponge bridged to wound to lateral foot and posterior left heel. Connected to 150 mmhg continuous suction. Patient has own home wound vac. IV antibiotic management per Infectious Disease. Will continue to follow patient closely. 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 Larkin on 09/25/17. S/p placement of graft by Dr. Larkin on 10/02/17. Patient has a wound vac intact to the left ankle and foot. Patient is sleeping in bed. Patient denies any pain, fever, chills, cp, sob. Objective - Vital Signs Vital Signs: Vital Signs Temp Pulse Resp BP Pulse Ox 10/20/17 15:31 97.3 F L 60 16 98/65 100 10/20/17 11:29 97.4 F L 65 17 107/68 100 10/20/17 07:01 97.5 F L 61 16 110/75 100 10/20/17 03:44 98.7 F 63 16 138/83 100 10/19/17 23:30 98.7 F 65 16 105/68 110 10/19/17 18:55 97.7 F 71 16 101/68 96 Intake and Output 10/20/17 10/20/17 10/20/17 07:59 15:59 23:59 Intake Total 0 / 0 100 / 100 Output Total 500 / 500 Balance -500 / -500 100 / 100 Intake: IV Fluids 100 / 100 Levaquin Premix 500mg/100mL 500 100 / 100 mg In 100 ml @ 100 mls/hr IVPB Q48H MYLES Rx#:[id number] Oral 0 / 0 Output: Urine 500 / 500 Other: Meal Lunch Percent of Meal Consumed 5% # Voids 1 - Exam Exam: General appearance: alert awake oriented X 3. Calm and pleasant, no acute distress.. Vascular: No evidence of cyanosis, pallor or rubor, Edema graded at 1+/4, Skin Tempature warm, No calf pain with manual compression. capillary refill time is immediate to digits. Neurologic: Sensation intact with light touch to foot. . Postop Exam: S/P Surgical wound #1: anterior left ankle measuring 9 cm in length x 10 cm in width x 1 cm in depth, base of wound with fascia and tendon exposed, yellow fibrous tissue with red granulation tissue to wound bed, no pus, no odor, light periwound, no streaking, no fluctuance. Surgical wound #2: lateral aspect of left foot measuring 2 cm in length x 2 cm in width x 1 cm in depth, base of wound 90% red granulation tissue and 10 % yellow fibrous tissue, no pus, no odor, no periwound erythema, no streaking, no cellulitis, no flucutuance. Surgical wound #3: left posterior heel measuring 4.5 cm in length x 3.5 cm in width x 0.2 cm in depth, base of wound 80 % red granulation tissue and 20% yellow slough. no periwound erythema, no odor, no pus, no fluctuance. 300 ml of serous drainage observed to canister. - Lab Result Diagrams: 10/21/17 07:34 10/21/17 07:34 Labs: Abnormal lab results WBC 2.6 K/mcL (4.3-11.1) L 10/20/17 05:43 RBC 2.61 M/mcL (4.19-5.50) L 10/20/17 05:43 Hgb 8.1 g/dL (12.9-16.9) L 10/20/17 05:43 Hct 26.4 % (37.5-50.1) L 10/20/17 05:43 MCV 101.1 fL (83.0-100.0) H 10/20/17 05:43 MCHC 30.7 g/dL (31.6-35.5) L 10/20/17 05:43 RDW 15.5 % (11.5-14.5) H 10/20/17 05:43 Plt Count 90 K/mcL (140-400) L 10/20/17 05:43 Neutrophils # 1.0 K/mcL (1.6-8.9) L 10/20/17 05:43 Nucleated RBCs/100 WBC 0.6 /100 WBC (0) H 10/06/17 03:57 Platelet Estimate Decreased (Normal) L 10/20/17 05:43 ESR 57 mm/hr (0-10) H 10/02/17 12:12 PT 12.9 Seconds (9.4-12.1) H 10/16/17 17:38 Carbon Dioxide 22 mEq/L (23-29) L 10/20/17 05:43 Creatinine 2.98 mg/dL (0.70-1.30) H 10/20/17 05:43 Est GFR ( Amer) 26 (> 60) L 10/20/17 05:43 Est GFR (Non-Af Amer) 21 (> 60) L 10/20/17 05:43 BUN/Creatinine Ratio 5 (6-26) L 10/20/17 05:43 Calcium 8.4 mg/dL (8.6-10.3) L 10/20/17 05:43 % Saturation 63 % (20-55) H 10/05/17 03:56 Transferrin 113 mg/dL (203-362) L 10/05/17 03:56 AST 51 Units/L (13-39) H 10/16/17 17:38 Troponin I 0.26 ng/mL (< 0.04) H* 10/17/17 05:40 Albumin 3.4 g/dL (3.5-5.7) L 10/16/17 17:38 Albumin (PEP) 2.77 g/dL (3.75-5.01) L 10/06/17 13:42 Globulin 3.8 g/dL (2.4-3.5) H 10/16/17 17:38 Albumin/Globulin Ratio 0.9 (1.1-2.2) L 10/16/17 17:38 Gamma Globulins 1.76 g/dL (0.62-1.51) H 10/06/17 13:42 Vitamin B12 243 pg/mL (250-1100) L 10/05/17 11:15 Arterial Blood Ionized Calcium 1.06 mmol/L (1.15-1.35) L 10/16/17 19:45 Urine Clarity Cloudy (Clear) A 10/06/17 16:00 Urine Protein 100 mg/dL (Neg-Trace) H 10/06/17 16:00 Urine Ketones 15 mg/dL (Negative) H 10/06/17 16:00 Urine Blood Large (Negative) H 10/06/17 16:00 Ur Leukocyte Esterase Trace (Negative) H 10/06/17 16:00 Urine Microscopic RBC TNTC per hpf (0-3) H 10/06/17 16:00 Urine Microscopic WBC 5-15 per hpf (0-3) H 10/06/17 16:00 Ur Eosinophil Smear 1 % (None Seen) H 10/06/17 16:00 Ur Squamous Epith Cells Many per lpf (None-Few) H 10/06/17 16:00 Ur Culture Indicated? NO. (NO) A 10/06/17 16:00 Protein/Creatinin Ratio 2.00 mg/mg (0.00-0.20) H 10/06/17 16:00 U Free [place] Light Ch 58.30 mg/dL (0.14-2.42) H 10/07/17 19:24 U Free Lambda Light Ch 17.20 mg/dL (0.02-0.67) H 10/07/17 19:24 Phenytoin 1.9 mcg/mL (10.0-20.0) L 10/03/17 06:07 Copper 65 ug/dL (70-140) L 10/05/17 11:15 IgG 1720 mg/dL (768-1632) H 10/06/17 13:42 FLORINDA Titer 1:1280 (<1:80) H 10/06/17 13:42 Complement C3 80 mg/dL (88-201) L 10/06/17 13:42 Free [place] LC, Quant 20.90 mg/dL (0.33-1.94) H 10/06/17 13:42 Free Lambda LC, Quant 13.90 mg/dL (0.57-2.63) H 10/06/17 13:42 - VTE Documentation of Mechanical Device: Intermittent pneumatic compression device Consult Discharge Plan - Plan Referrals: [facility] [Outside] - 10/22/17 8:30 am Naveed Larkin DPM [Partnered Physician] - 10/23/17 10:00 am (Appointment will be in the wound care center. The wound care center is located at the [place] entrance. Thank you) Yisel Stevens, ELECTRONICS PARTS SALES REPRESENTATIVE [Advanced Practice Nurse] - 10/23/17 9:00 am
[2017-10-20] MEDS: Mirtazapine 15 MG TABLET PO SCH (20:32)
[2017-10-21] MEDS: *HR* Heparin 5,000 UNIT/ML VIAL SQ SCH ×2 (05:47→18:01)
[2017-10-21 07:49] LABS: Mean Corpuscular Hemoglobin 31.7 pg (28.0-33.3)
[2017-10-21 07:51] LABS: Hematocrit 27.6 % (37.5-50.1); Hemoglobin 9.1 g/dL (12.9-16.9); Immature Platelets 2.2 % (1.1-6.1); Mean Corpuscular Volume 96.2 fL (83.0-100.0); Red Blood Count 2.87 M/mcL (4.19-5.50); Red Cell Distribution Width 15.3 % (11.5-14.5)
[2017-10-21 08:04] LABS: Calcium 8.4 mg/dL (8.6-10.3); Potassium 4.8 mEq/L (3.5-5.1)
[2017-10-21] MEDS ORDERED: *HR* Midazolam HCl 5 MG/5 ML VIAL IVP ONE (08:36)
[2017-10-21] MEDS ORDERED: *HR* Midazolam HCl 2 MG/2 ML VIAL IV ONE (08:36)
[2017-10-21] MEDS: Cholestyramine 4 GM POWD.PACK PO SCH ×2 (09:16→17:48)
[2017-10-21] MEDS: Renal Vitamin 1 CAP CAPSULE PO SCH (09:16)
[2017-10-21] MEDS: Cyanocobalamin (B-12) 1,000 MCG TABLET PO SCH (09:17)
[2017-10-21] MEDS: Gabapentin 100 MG CAPSULE PO SCH ×3 (09:17→21:33)
--- NOTE | 2017-10-21 18:00 | Internal Med Progress Note ---
Hospitalist Progress Note - Encounter Date of Encounter: 10/21/17 Time of Encounter: 11:00 - Subjective Interval History: Patient is irritable due to prolonged hospitalization; denies chest pain, shortness of breath, nausea, vomiting, abdominal pain at this time; has been receiving intermittent as needed HD sessions; - Exam Vitals: Temp Pulse Resp BP Pulse Ox 97.9 F 63 16 99/66 100 10/21/17 15:41 10/21/17 15:41 10/21/17 15:41 10/21/17 15:41 10/21/17 15:41 Exam: General: Patient is alert, no acute distress Respiratory: clear to auscultation B/L, No wheezing or crackles. Cardiovascular: Regular rate and rhythm. s1 and s2 Abdomen: Abdomen is soft, nontender. Bowel sounds are present Musculoskeletal: Wound VAC to left foot. Left foot in dry surgical dressing; Neuro: Alert oriented x 3 normal cranial nerves, no focal deficits - Assessment and Plan (1) Acute renal failure Current Visit: Yes Status: Acute Assessment and Plan: likely due to ATN; Normal serum creatinine at baseline; admitted with 4.17, currently improving to 2.88; Nephrology on board, started on intermittent HD as needed; d/w Nephrology today- to trend labs in am and if renal function continues to improve, he may not need HD, plan to d/c PermCath; avoid nephrotoxins; (2) Cardiac arrest Current Visit: Yes Status: Resolved (3) Wound of left lower extremity Current Visit: Yes Status: Chronic Assessment and Plan: admitted last month and underwent excisional debridement of wounds through deep fascia/tendon, application of PRP, left lower extremity by Dr. Larkin on . S/p application of graft on 10/02/[address] Larkin. Wound culture from 09/10 grew Pseudomonas and GCS; ID has been on board at the time and patient was discharged with 6 weeks IV antibiotics that he has been receiving at home with Cefepime; currently on IV Levaquin, to be completed today ; continue local wound care and wound vac changes per Podiatry; (4) Hypertension Current Visit: Yes Status: Chronic (5) Seizure Current Visit: Yes Status: Chronic (6) Syncope Current Visit: Yes Status: Acute Assessment and Plan: likely orthostatic from hypotension and hypovolemia; Cardiology was consulted due to mild bradycardia and QT prolongation, recommend to monitor Telemetry and serial EKGs, and to hold Levaquin if needed; TTE showed LVEF 55-60% Mild left ventricular diastolic dysfunction. Mild aortic regurgitation. Mild tricuspid regurgitation.Mild pulmonary hypertension. No further cardiac testing/ intervention; (7) Bicytopenia Current Visit: Yes Status: Chronic Assessment and Plan: has pancytopenia, now stable; (8) Metabolic acidosis Current Visit: Yes Status: Resolved (9) Severe protein-calorie malnutrition Current Visit: Yes Status: Chronic (10) Acute respiratory failure Current Visit: Yes Status: Acute DVT Prophylaxis: on s.c Heparin; - Time Spent with Patient Total time spent is greater than 50% in coordination of care (as documented) at patient's floor/unit and/or counseling patient: Plan of Care Discussed with: patient Internal Medicine: Result - Labs CBC & Chem 7: 10/21/17 07:34 10/21/17 07:34 Labs: Short CBC 10/21/17 Range/Units 07:34 WBC 2.5 L (4.3-11.1) K/mcL Hgb 9.1 L (12.9-16.9) g/dL Hct 27.6 L (37.5-50.1) % Plt Count 97 L (140-400) K/mcL BMP 10/21/17 07:34 Sodium 133 L Potassium 4.8 Chloride 107 Carbon Dioxide 25 BUN 20 Creatinine 2.88 H Glucose 75 Calcium 8.4 L - ABG Interpretation ABG results: PT/INR, D-dimer PT 12.9 Seconds (9.4-12.1) H 10/16/17 17:38 - VTE Documentation of Mechanical Device: Intermittent pneumatic compression device Consult Discharge Plan - Plan Referrals: [facility] [Outside] - 10/28/17 11:30 am Naveed Larkin DPM [Partnered Physician] - 10/23/17 10:00 am (Appointment will be in the wound care center. The wound care center is located at the west entrance. Thank you) (1) Acute renal failure Qualifiers: Acute renal failure type: with acute tubular necrosis Qualified Code(s): N17.0 - Acute kidney failure with tubular necrosis (3) Wound of left lower extremity Qualifiers: Encounter type: initial encounter Qualified Code(s): S81.802A - Unspecified open wound, left lower leg, initial encounter (4) Hypertension Qualifiers: Hypertension type: essential hypertension Qualified Code(s): I10 - Essential (primary) hypertension (6) Syncope Qualifiers: Syncope type: unspecified Qualified Code(s): R55 - Syncope and collapse (10) Acute respiratory failure Qualifiers: Respiratory failure complication: hypoxia Qualified Code(s): J96.01 - Acute respiratory failure with hypoxia
--- NOTE | 2017-10-21 21:07 | Nephrology Progress Note ---
Date of Encounter: 10/21/17 Time of Encounter: 15:00 - Assessment and Plan (1) Acute kidney injury Current Visit: Yes Status: Acute Last HD 2 days ago with output of 1600ml, Creatinine stable for the last 3 days. Currently 2.88 No acute need for HD Awaiting placement in outpatient HD at [facility]. Continue to avoid nephrotoxins if possible. Strict I/Os. (2) Hypertension Current Visit: Yes Status: Chronic Titrate medications as needed. Qualifiers: Hypertension type: essential hypertension Qualified Code(s): I10 - Essential (primary) hypertension (3) Acute hypokalemia Current Visit: No Status: Acute Normalized on supplements (4) Hypocomplementemia Current Visit: Yes Status: Acute (5) FLORINDA positive Current Visit: Yes Status: Acute Subjective Principal diagnosis: ARSH Interval history: Patient is doing well today. He is in good mood. Still poor appetite. Voiding without difficulty. Denies CP, SOB, abdominal pain. He is pending placement to [facility] for residential HD. Pending placement to [facility] for HD. Objective - Vital Signs Vital signs: Vital Signs Temp Pulse Resp BP Pulse Ox 10/21/17 19:23 97.6 F 64 16 101/70 99 10/21/17 15:41 97.9 F 63 16 99/66 100 10/21/17 10:52 97.4 F L 68 18 101/65 100 10/21/17 07:15 97.5 F L 64 18 106/74 100 10/21/17 04:43 97.6 F 63 17 116/74 96 10/21/17 02:25 97.7 F 64 17 113/71 100 10/20/17 21:56 97.6 F 59 18 106/75 100 Intake and Output 10/21/17 10/21/17 10/21/17 07:59 15:59 23:59 Output Total 450 / 450 Balance -450 / -450 Output: Urine 450 / 450 Other: # Voids 1 Weight 87.2 kg Patient Weight 10/21/17 23:59 Weight 87.2 kg - General Appearance Exam: General appearance: Present: chronically ill EENT: Present: ATNC, mucous membranes moist Neck: Present: no JVD, supple Respiratory: Present: clear Cardiology: Present: no edema (L foot with dressing), normal S1, normal S2 Dialysis Vascular Access: Venous Catheter (permcath in place) Gastrointestinal: Present: no tenderness, no guarding Integumentary: Present: warm and dry Neurologic: Present: no focal deficit Musculoskeletal: Present: no deformities Psychiatric: Present: mood/affect appropriate, cooperative - Lab 10/21/17 07:34 10/21/17 07:34 Most recent lab results Calcium 8.4 mg/dL (8.6-10.3) L 10/21/17 07:34 Phosphorus 3.4 mg/dL (2.7-4.5) 10/07/17 07:51 Magnesium 1.6 mg/dL (1.6-2.6) 10/19/17 08:31 Urine Creatinine 80 mg/dL 10/06/17 16:00 Urine Sodium 76.4 mEq/L 10/05/17 12:57 Urine Total Protein SEE NOTE mg/d (10-140) 10/07/17 19:24 - VTE Documentation of Mechanical Device: Intermittent pneumatic compression device Consult Discharge Plan - Plan Referrals: [facility] [Outside] - 10/28/17 11:30 am Naveed Larkin DPM [Partnered Physician] - 10/23/17 10:00 am (Appointment will be in the wound care center. The wound care center is located at the west entrance. Thank you)
[2017-10-21] MEDS: Mirtazapine 15 MG TABLET PO SCH (21:33)
--- NOTE | 2017-10-22 05:11 | Internal Med Progress Note ---
Hospitalist Progress Note - Encounter Date of Encounter: 10/20/17 Time of Encounter: 19:00 - Exam Vitals: Temp Pulse Resp BP Pulse Ox 97.8 F 66 16 107/65 96 10/22/17 03:35 10/22/17 03:35 10/22/17 03:35 10/22/17 03:35 10/22/17 03:35 Exam: xxx - Assessment and Plan (1) Acute kidney injury Current Visit: Yes Status: Acute (2) Cardiac arrest Current Visit: Yes Status: Resolved (3) Wound of left lower extremity Current Visit: Yes Status: Chronic (4) Hypertension Current Visit: Yes Status: Chronic (5) Seizure Current Visit: Yes Status: Chronic (6) Severe protein-calorie malnutrition Current Visit: Yes Status: Chronic - Summary of Assessment and Plan Summary of Assessment and Plan: SUBJECTIVE: The patient feels good. He had a stress test done today. He has not developed any chest pain recently. He had a syncopal episode before this admission. It was preceded by a period of diarrhea/decreased intake of calories and fluids. We found him to have acute kidney injury, secondary to volume contraction. Nephrology was consulted. The patient had a cardiac arrest shortly after the admission. This is why he had the stress test today. He has not experienced any episodes of dizziness/lightheadedness recently. He ambulates on his own. OBJECTIVE: Skin: Free of rash and discoloration. ENMT: Oral/pharyngeal mucosa is normal in appearance. Eyes: Sclera is white. There is no discharge from eyes. Respiratory: Normal breath sounds; no crackles or wheezes. CV: Heart is regular; no gallop or murmur. GI: Abdomen is soft and not tender. There is no palpable mass or visceromegaly. Neuro: There is no focal deficits. ASSESSMENT AND PLAN: Acute kidney injury. See notes from nephrology. He had a normal creatinine in August. He had a creatinine of 4.17 at admission; 2.98 today. He gets IV fluids. He needs extra time to recover. Cardiac arrest. See notes from cardiology. He underwent stress testing today. The results are pending. Wound of left lower extremity. We will continue daily dressings. See previous notes from medical service. Severe protein calorie malnutrition. We will continue oral supplementation. See notes from dietary service. - Time Spent with Patient Total time spent is greater than 50% in coordination of care (as documented) at patient's floor/unit and/or counseling patient: 25 - 35 minutes Plan of Care Discussed with: patient Internal Medicine: Result - Labs CBC & Chem 7: 10/21/17 07:34 10/21/17 07:34 Labs: Short CBC 10/21/17 Range/Units 07:34 WBC 2.5 L (4.3-11.1) K/mcL Hgb 9.1 L (12.9-16.9) g/dL Hct 27.6 L (37.5-50.1) % Plt Count 97 L (140-400) K/mcL BMP 10/21/17 07:34 Sodium 133 L Potassium 4.8 Chloride 107 Carbon Dioxide 25 BUN 20 Creatinine 2.88 H Glucose 75 Calcium 8.4 L - ABG Interpretation ABG results: PT/INR, D-dimer PT 12.9 Seconds (9.4-12.1) H 10/16/17 17:38 - VTE Documentation of Mechanical Device: Intermittent pneumatic compression device Consult Discharge Plan - Plan Referrals: [facility] [Outside] - 10/28/17 11:30 am Naveed Larkin DPM [Partnered Physician] - 10/23/17 10:00 am (Appointment will be in the wound care center. The wound care center is located at the west entrance. Thank you) (3) Wound of left lower extremity Qualifiers: Encounter type: initial encounter Qualified Code(s): S81.802A - Unspecified open wound, left lower leg, initial encounter (4) Hypertension Qualifiers: Hypertension type: essential hypertension Qualified Code(s): I10 - Essential (primary) hypertension
[2017-10-22 05:18] LABS: Mean Corpuscular Hemoglobin 31.3 pg (28.0-33.3)
[2017-10-22 05:20] LABS: Hematocrit 27.9 % (37.5-50.1); Hemoglobin 9.1 g/dL (12.9-16.9); Immature Platelets 2.3 % (1.1-6.1); Mean Corpuscular HGB Conc 32.6 g/dL (31.6-35.5); Mean Corpuscular Volume 95.9 fL (83.0-100.0); Red Blood Count 2.91 M/mcL (4.19-5.50); Red Cell Distribution Width 15.2 % (11.5-14.5)
[2017-10-22] MEDS: *HR* Heparin 5,000 UNIT/ML VIAL SQ SCH ×2 (05:26→17:11)
[2017-10-22 05:29] LABS: Calcium 8.4 mg/dL (8.6-10.3); Potassium 5.6 mEq/L (3.5-5.1)
[2017-10-22] MEDS: Cholestyramine 4 GM POWD.PACK PO SCH ×2 (07:41→17:00)
[2017-10-22] MEDS: Cyanocobalamin (B-12) 1,000 MCG TABLET PO SCH (08:44)
[2017-10-22] MEDS: Renal Vitamin 1 CAP CAPSULE PO SCH (08:44)
[2017-10-22] MEDS: Gabapentin 100 MG CAPSULE PO SCH ×3 (08:44→21:53)
[2017-10-22 09:32] LABS: Albumin 2.9 g/dL (3.5-5.7); Phosphorous 3.8 mg/dL (2.7-4.5)
[2017-10-22 10:49] LABS: Albumin 2.8 g/dL (3.5-5.7); Calcium 8.4 mg/dL (8.6-10.3); Phosphorous 3.8 mg/dL (2.7-4.5); Potassium 5.7 mEq/L (3.5-5.1)
[2017-10-22] MEDS ORDERED: 0.9 % Sodium Chloride 250 ML IVC PRN (14:56)
[2017-10-22] MEDS ORDERED: *HR* Heparin 10,000 UNIT/10 ML VIAL IV PRN (14:56)
--- NOTE | 2017-10-22 15:56 | Internal Med Progress Note ---
Hospitalist Progress Note - Encounter Date of Encounter: 10/22/17 Time of Encounter: 11:15 - Subjective Interval History: Patient continues to be irritable due to prolonged hospitalization; c/o- inability to have bowel movement as rn staffing would not let him out of bed, onto bedside commode; denies chest pain, shortness of breath, nausea, vomiting, abdominal pain at this time; scheduled for HD today; - Exam Vitals: Temp Pulse Resp BP Pulse Ox 97.5 F L 68 17 119/71 100 10/22/17 14:57 10/22/17 14:57 10/22/17 14:57 10/22/17 14:57 10/22/17 14:57 Exam: General: Patient is alert, no acute distress Respiratory: clear to auscultation B/L, No wheezing or crackles. Cardiovascular: Regular rate and rhythm. s1 and s2 Abdomen: Abdomen is soft, nontender. Bowel sounds are present Musculoskeletal: Wound VAC to left foot. Left foot in dry surgical dressing; Neuro: Alert oriented x 3 normal cranial nerves, no focal deficits - Assessment and Plan (1) Wound of left lower extremity Current Visit: Yes Status: Chronic Assessment and Plan: admitted last month and underwent excisional debridement of wounds through deep fascia/tendon, application of PRP, left lower extremity by Dr. Larkin on . S/p application of graft on 10/02/[address] Larkin. Wound culture from 09/10 grew Pseudomonas and GCS; ID has been on board at the time and patient was discharged with 6 weeks IV antibiotics that he has been receiving at home with Cefepime; currently on IV Levaquin, completed today; off antibiotics from tomorrow; continue local wound care and wound vac changes per Podiatry; (2) Hypertension Current Visit: Yes Status: Chronic (3) Seizure Current Visit: Yes Status: Chronic (4) Acute kidney injury Current Visit: Yes Status: Acute Assessment and Plan: likely due to ATN; Normal serum creatinine at baseline; admitted with 4.17, currently at 2.99; Nephrology on board, started on intermittent HD as needed; d/ w Nephrology today- he has worsening hyperkalemia and serum creatinine, decided to dialyze him today; avoid nephrotoxins; CM working on outpatient HD chair time approval; anticipate discharge once this is completed; (5) Severe protein-calorie malnutrition Current Visit: Yes Status: Chronic (6) Cardiac arrest Current Visit: Yes Status: Resolved (7) Orthostatic hypotension Current Visit: Yes Status: Acute (8) Syncope Current Visit: Yes Status: Acute Assessment and Plan: likely orthostatic from hypotension and hypovolemia; Cardiology was consulted due to mild bradycardia and QT prolongation, recommend to monitor Telemetry and serial EKGs, and to hold Levaquin if needed; TTE showed LVEF 55-60% Mild left ventricular diastolic dysfunction. Mild aortic regurgitation. Mild tricuspid regurgitation. Mild pulmonary hypertension. NST showed no acute ischemia/ infarct. No further cardiac testing/intervention; patient also had a couple of vasovagal episodes after bowel movements, which family stated have happened at home; - Time Spent with Patient Total time spent is greater than 50% in coordination of care (as documented) at patient's floor/unit and/or counseling patient: Plan of Care Discussed with: patient Internal Medicine: Result - Labs CBC & Chem 7: 10/23/17 06:52 10/23/17 06:52 Labs: Short CBC 10/22/17 Range/Units 04:51 WBC 2.1 L (4.3-11.1) K/mcL Hgb 9.1 L (12.9-16.9) g/dL Hct 27.9 L (37.5-50.1) % Plt Count 98 L (140-400) K/mcL BMP 10/22/17 10/22/17 04:51 10:26 Sodium 138 137 Potassium 5.6 H 5.7 H Chloride 106 105 Carbon Dioxide 21 L 22 L BUN 24 H 25 H Creatinine 2.88 H 2.94 H Glucose 66 L 69 L Calcium 8.4 L 8.4 L Liver Function 10/22/17 10/22/17 Range/Units 04:51 10:26 Albumin 2.9 L 2.8 L (3.5-5.7) g/dL - ABG Interpretation ABG results: PT/INR, D-dimer PT 12.9 Seconds (9.4-12.1) H 10/16/17 17:38 - VTE Documentation of Mechanical Device: Intermittent pneumatic compression device Consult Discharge Plan - Plan Referrals: [facility] [Outside] - 10/28/17 11:30 am Naveed Larkin DPM [Partnered Physician] - 10/23/17 10:00 am (Appointment will be in the wound care center. The wound care center is located at the west entrance. Thank you) (1) Wound of left lower extremity Qualifiers: Encounter type: initial encounter Qualified Code(s): S81.802A - Unspecified open wound, left lower leg, initial encounter (2) Hypertension Qualifiers: Hypertension type: essential hypertension Qualified Code(s): I10 - Essential (primary) hypertension (8) Syncope Qualifiers: Syncope type: unspecified Qualified Code(s): R55 - Syncope and collapse
[2017-10-22] MEDS: Acetaminophen 325 MG TABLET PO PRN (17:11)
[2017-10-22] MEDS: Levofloxacin 500 MG/100 ML 500 MG/100 ML BAG IVPB SCH (18:56)
--- NOTE | 2017-10-22 20:21 | Nephrology Progress Note ---
Date of Encounter: 10/22/17 Time of Encounter: 20:17 - Assessment and Plan (1) Hypertension Current Visit: Yes Status: Chronic Titrate medications as needed. Qualifiers: Hypertension type: essential hypertension Qualified Code(s): I10 - Essential (primary) hypertension (2) Acute hypokalemia Current Visit: No Status: Acute Normalized on supplements We will discontinue potassium supplements secondary to hyperkalemia. (3) Acute kidney injury Current Visit: Yes Status: Acute Remains dialysis dependent. Patient seen on dialysis today. Awaiting placement in outpatient HD, pt wants to go to [place] for HD Continue to avoid nephrotoxins if possible biopsy revealed ATN. Subjective Principal diagnosis: ARSH Interval history: Hemodialysis. He has no new complaints. He just wants to leave. Objective - Vital Signs Vital signs: Vital Signs Temp Pulse Resp BP Pulse Ox 10/22/17 19:35 97.6 F 76 14 96/68 98 10/22/17 18:20 97.1 F L 14 119/76 10/22/17 18:10 105/67 10/22/17 17:55 118/82 10/22/17 17:40 110/61 10/22/17 17:25 103/54 10/22/17 17:10 107/65 10/22/17 16:55 112/94 10/22/17 16:40 100/59 10/22/17 16:25 94/68 10/22/17 16:10 112/71 10/22/17 15:55 98/63 10/22/17 15:40 104/63 10/22/17 15:25 121/79 10/22/17 15:10 98.0 F 16 124/79 10/22/17 14:57 97.5 F L 68 17 119/71 100 10/22/17 10:57 97.7 F 62 18 102/67 100 10/22/17 07:54 97.9 F 68 17 113/67 100 10/22/17 03:35 97.8 F 66 16 107/65 96 10/21/17 23:39 97.5 F L 67 16 111/73 100 Intake and Output 10/22/17 10/22/17 10/22/17 07:59 15:59 23:59 Intake Total 600 / 600 0 / 0 Output Total 1600 / 1600 Balance 600 / 600 -1600 / -1600 Intake: Oral 0 / 0 0 / 0 Intake, Rinseback and Flushes 600 / 600 Output: Urine 0 / 0 Total Dialysis (HD) Output 1600 / 1600 Other: # Bowel Movements 0 Hemodialysis Net Fluid Removed 404 1000 (mL) - General Appearance General appearance: Present: well-developed, well-nourished EENT: Present: ATNC Neck: Present: supple Cardiology: Present: regular rate Neurologic: Present: alert and oriented x3 Psychiatric: Present: mood/affect appropriate - Lab 10/22/17 04:51 10/22/17 10:26 Most recent lab results Calcium 8.4 mg/dL (8.6-10.3) L 10/22/17 10:26 Phosphorus 3.8 mg/dL (2.7-4.5) 10/22/17 10:26 Magnesium 1.6 mg/dL (1.6-2.6) 10/19/17 08:31 Urine Creatinine 80 mg/dL 10/06/17 16:00 Urine Sodium 76.4 mEq/L 10/05/17 12:57 Urine Total Protein SEE NOTE mg/d (10-140) 10/07/17 19:24 - VTE Documentation of Mechanical Device: Intermittent pneumatic compression device Consult Discharge Plan - Plan Referrals: [facility] [Outside] - 10/28/17 11:30 am Naveed Larkin DPM [Partnered Physician] - 10/23/17 10:00 am (Appointment will be in the wound care center. The wound care center is located at [address]. Thank you)
[2017-10-22] MEDS: Mirtazapine 15 MG TABLET PO SCH (21:53)
[2017-10-23] MEDS: *HR* Heparin 5,000 UNIT/ML VIAL SQ SCH (05:37)
[2017-10-23 07:28] LABS: Hemoglobin 9.3 g/dL (12.9-16.9); Mean Platelet Volume 10.2 fL (9.4-12.4)
[2017-10-23 07:30] LABS: Hematocrit 28.4 % (37.5-50.1); Immature Platelets 3.1 % (1.1-6.1); Mean Corpuscular HGB Conc 32.7 g/dL (31.6-35.5); Mean Corpuscular Hemoglobin 31.7 pg (28.0-33.3); Mean Corpuscular Volume 96.9 fL (83.0-100.0); Red Blood Count 2.93 M/mcL (4.19-5.50); Red Cell Distribution Width 15.4 % (11.5-14.5)
[2017-10-23 07:45] LABS: Calcium 8.4 mg/dL (8.6-10.3); Potassium 4.5 mEq/L (3.5-5.1)
[2017-10-23] MEDS: Cholestyramine 4 GM POWD.PACK PO SCH (08:11)
[2017-10-23] MEDS ORDERED: Cholestyramine 4 GM POWD.PACK PO SCH (10:00)
[2017-10-23] MEDS: Gabapentin 100 MG CAPSULE PO SCH ×2 (10:27→14:54)
[2017-10-23] MEDS: Renal Vitamin 1 CAP CAPSULE PO SCH (10:27)
[2017-10-23] MEDS: Cyanocobalamin (B-12) 1,000 MCG TABLET PO SCH (10:28)
[2017-10-23 10:39] VITALS: BP 101/68
--- NOTE | 2017-10-23 12:09 | Discharge Summary ---
<Cinda Domingo M - Last Filed: 10/23/17 15:00> - NOTES TO OUTPATIENT PROVIDER Notes to Outpatient Provider: extensive hospitalization from 10/02/17-10/23/17. Now on M/W/F hemodialysis. To f/u with neurology, nephrology, wound care, and cardiology if warranted. Orders not resulted at time of discharge: Pending orders 10/17/17 10:46 NM ortiz perf SPECT multi [NM] Routine 10/24/17 04:00 Basic Metabolic Panel AM 0400 CBC no Diff [Complete Blood Count w/o Diff] [HEME] AM 04010/25/17 04:00 Basic Metabolic Panel AM 0400 CBC no Diff [Complete Blood Count w/o Diff] [HEME] AM 04010/26/17 04:00 Basic Metabolic Panel AM 0400 CBC no Diff [Complete Blood Count w/o Diff] [HEME] AM 0400 10/27/17 04:00 Basic Metabolic Panel AM 0400 CBC no Diff [Complete Blood Count w/o Diff] [HEME] AM 0400 Date of Encounter: 10/23/17 Time of Encounter: 12:09 - Discharge Diagnosis (1) Acute renal failure Priority: Primary Status: Acute Qualifiers: Acute renal failure type: with acute tubular necrosis Qualified Code(s): N17.0 - Acute kidney failure with tubular necrosis (2) Bradycardia Priority: Secondary Status: Acute (3) Hypocomplementemia Priority: Secondary Status: Acute (4) Hypokalemia Priority: Secondary Status: Acute (5) Syncope Priority: Secondary Status: Acute Qualifiers: Syncope type: unspecified Qualified Code(s): R55 - Syncope and collapse (6) Thrombocytopenia Priority: Secondary Status: Acute (7) Hypertension Priority: Secondary Status: Chronic Qualifiers: Hypertension type: essential hypertension Qualified Code(s): I10 - Essential (primary) hypertension (8) Seizure Priority: Secondary Status: Chronic (9) Severe protein-calorie malnutrition Priority: Secondary Status: Chronic (10) Wound of left lower extremity Priority: Secondary Status: Chronic Qualifiers: Encounter type: initial encounter Qualified Code(s): S81.802A - Unspecified open wound, left lower leg, initial encounter (11) Cardiac arrest Priority: Secondary Status: Resolved (12) Hypokalemia Priority: Secondary Status: Acute Hospital course: Mr. Dias is a 62 year old male who was admitted from the emergency department on 10/02/17 due to a near syncopal episode. He was also found to have a creatinine of 4.17 with a GFR of 15 and a BUN of 69. He was also found to have questionable seizure-like activity and was evaluated by neurology who interpreted his CT head which was unremarkable as well as EEG. Neurology recommended follow-up as an outpatient for possible discontinuing of phenytoin. He was also found to be thrombocytopenic which oncology to determine to be secondary to his ongoing medical conditions. On EKG the patient was also found to be bradycardic with a prolonged QT of 471 therefore cardiology was consulted. Echocardiogram from 10/03/17 revealed an EF of 55-60 with mild aortic and tricuspid regurgitation with mild pulmonary hypertension. 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 He had positives FLORINDA with low C3 and elevated KL light chains. Under nephrology's care the patient was determined to be candidate for hemodialysis. On 10/16/17 the patient underwent IR guided placement of a hemodialysis catheter. Immediately following, the patient coded and underwent chest compressions and intubation. Cardiology was called consulted and what he was moved to the ICU where he was successfully extubated. CT chest and head were remarkable for thoracic aortic aneurysm measuring 4.7 cm and coronary artery calcifications. The patient then underwent nuclear stress test which revealed no evidence of ischemia. Cardiology determine the source of cardiac arrest to be orthostatic hypotension as he has experienced this multiple times in the past. Otherwise the patient has a history of a left lower extremity wound and underwent excisional debridement on 09/25/17 and skin graft on 10/02/[address] Larkin. This has been managed by wound care and podiatry with wound VAC twice a week. He completed a 6 week course of cefepime/Levaquin on 10/21/17. Since admission the patient's renal function has not significantly improved thus he will require hemodialysis as an outpatient. The patient will follow-up with nephrology, podiatry, cardiology and neurology. He has been set up for hemodialysis as an outpatient which will be coordinated with his wound care management. Encouraged the patient to follow-up with his many specialists over the next couple of weeks. The patient agrees with and understands the course of treatment plan including plan for discharge and follow-up. All questions answered. - Time Spent with Patient Total time spent providing and/or coordinating discharge services: Greater than 30 minutes - Discharge Medications Prescriptions: OxyCODONE/APAP 5/325 [Percocet 5/325 MG] 1 each PO Q6HR PRN 5 Days #15 tablet PRN Reason: Severe Pain Dronabinol [Marinol] 5 mg PO BIDLS 15 Days #30 capsule Home Medications: Carvedilol 12.5 mg PO BID 07/03/17 [History] Gabapentin [Neurontin] 900 mg PO QID 07/03/17 [History] Phenytoin Sodium Extended [Phenytek] 200 mg PO TID 07/03/17 [History] Tamsulosin HCl [Flomax] 0.4 mg PO DAILY 07/03/17 [History] Cholestyramine 4 gm PO BIDAC #60 powd.pack 09/17/17 [Rx] Clopidogrel [Plavix] 75 mg PO DAILY 10/02/17 [History] Cyanocobalamin (B-12) [Vitamin B12] 1,000 mcg PO DAILY tablet 10/23/17 [Rx] Dronabinol [Marinol] 5 mg PO BIDLS 15 Days #30 capsule 10/23/17 [Rx] Mirtazapine [Remeron] 15 mg PO HS tablet 10/23/17 [Rx] OxyCODONE/APAP 5/325 [Percocet 5/325 MG] 1 each PO Q6HR PRN 5 Days #15 tablet [Rx] Renal Vitamin [Renal Caps Softgel] 1 cap PO DAILY capsule 10/23/17 [Rx] Allergies/Adverse Reactions: 3 Allergy/AdvReac Type Severity Reaction Status Date / Time No Known Allergies Allergy Verified 09/08/17 14:09 Date of admission: 10/02/17 22:24 [facility] physician: [facility] Consults: 10/03/17 08:46 Consult to Speech Therapy [CONS] Routine Comment: Evaluate, develop and implement POC Reason for Consult: dysphagia, needs swallow study Call Completed: No 10/03/17 12:07 Consult to Interpret Exam [CONS] Routine Consulting Provider: Trent Copeland I Consult to Interpret Exam: Interpret EEG 10/04/17 13:57 Consult to Oncology Hematology [CONS] Stat Consulting Provider: Ke Roberson Reason for Consult: ?TTP Call Completed: Yes 10/05/17 10:19 Consult to Cardiology [CONS] Routine Comment: Consulting Provider: Cardiology Donna Reason for Consult: bradycardia, syncope Call Completed: No 10/05/17 10:37 Consult to Wound Care [CONS] Routine Reason for Consult: LLE Call Completed: No 10/07/17 10:57 Consult to Interventional Radiology [CONS] Routine Consulting Provider: Radiology Interventional [facility] Reason for Consult: Please eval for placement of a temporary HD catheter ( his AM Creatinine just posted, which is why this request was placed at this hour). Thank you. Call Completed: Yes 10/07/17 11:00 Consult to Dialysis [CONS] ONCE 10/08/17 07:30 Consult to Dialysis [CONS] ONCE 10/09/17 07:45 Consult to Dialysis [CONS] ONCE 10/11/17 08:45 Consult to Dialysis [CONS] ONCE 10/11/17 11:20 Consult to Interventional Radiology [CONS] Routine Consulting Provider: Radiology Interventional [facility] Reason for Consult: Please evaluate for inpatient Renal biopsy on Friday, re : concern for GN (+FLORINDA, low complements, ARSH). Call Completed: No 10/13/17 08:14 Consult to Infectious Diseases [CONS] Routine Consulting Provider: [facility] [place] Reason for Consult: Left foot wound infection/ Abx recs Time Notified: 08:15 Call Completed: Yes 10/14/17 08:45 Consult to Dialysis [CONS] ONCE 10/14/17 13:52 Consult to Physical Therapy [CONS] Routine Comment: Evaluate, develop and implement POC Reason for Consult: re-evaluate for D/C needs. Weakness related to stay in hospital Does patient have active BEDREST order?: No Is patient medically & hemodynamically stable?: Yes 10/16/17 08:15 Consult to Dialysis [CONS] ONCE 10/16/17 12:46 Consult to Interventional Radiology [CONS] Stat Consulting Provider: Radiology Interventional [facility] Reason for Consult: Permacath for dialysis Time Notified: 12:45 Call Completed: Yes 10/16/17 18:49 Consult to Cardiology [CONS] Routine Comment: Consulting Provider: Julius Thompson Reason for Consult: S/P cardiac arrest Call Completed: No 10/18/17 08:00 Consult to Dialysis [CONS] ONCE 10/20/17 10:12 Consult to Dough Cutter [CONS] Routine Reason for SW Consult: needs chair time 10/22/17 15:00 Consult to Dialysis [CONS] ONCE Discharging clinician: Cinda Domingo Anticipated date of discharge: 10/23/17 - Constitutional Vitals: Temp Pulse Resp BP Pulse Ox 98.4 F 78 18 101/68 100 10/23/17 10:38 10/23/17 10:38 10/23/17 10:38 10/23/17 10:38 10/23/17 10:38 General appearance: Present: A&O X 3, no acute distress Exam: General: Patient is awake and alert, no acute distress Respiratory: clear to auscultation B/L, No wheezing or crackles. Cardiovascular: Regular rate and rhythm. s1 and s2 Abdomen: Abdomen is soft, nontender. Bowel sounds are present Musculoskeletal: Wound VAC to left foot. Left foot in dry surgical dressing. Neuro: Alert oriented x 3 normal cranial nerves, no focal deficits - Patient Status Disposition: Home, Self-Care Condition: Good Overall status at discharge: patient is progressing back to baseline - Discharge Instructions Follow Up With: [facility] [Other[facility] (Located next to the [facility]) [facility] [Outside] - 10/28/17 11:30 am Naveed Larkin DPM [Partnered Physician] - 10/30/17 10:30 am (Appointment will be in the wound care center. The wound care center is located at [address]. Thank you) Additional Instructions: Please follow-up with your many specialists providers. Please follow-up with neurology for management of your seizure medications. Please follow-up with cardiology in the next few weeks following your evaluation in the hospital. Please follow-up with wound care and podiatry for management of your left foot wound. Also follow-up with nephrology for management of hemodialysis. Please return to the emergency department should you develop any chest pain, shortness of breath, fever, confusion or any other worrisome symptoms. - Diet and Activity Activity: increase activity as tolerated Diet: advance to your usual diet - VTE Documentation of Mechanical Device: Intermittent pneumatic compression device <Valerie Astorga - Last Filed: 10/23/17 17:29> Orders not resulted at time of discharge: Pending orders 10/17/17 10:46 NM ortiz perf SPECT multi [NM] Routine Date of Encounter: 10/23/17 - Discharge Diagnosis (1) Wound of left lower extremity Status: Chronic Qualifiers: Encounter type: initial encounter Qualified Code(s): S81.802A - Unspecified open wound, left lower leg, initial encounter (2) Hypertension Status: Chronic Qualifiers: Hypertension type: essential hypertension Qualified Code(s): I10 - Essential (primary) hypertension (3) Seizure Status: Chronic (4) Acute kidney injury Status: Acute (5) Syncope Status: Acute Qualifiers: Syncope type: unspecified Qualified Code(s): R55 - Syncope and collapse (6) Orthostatic hypotension Status: Acute (7) Severe protein-calorie malnutrition Status: Chronic (8) Cardiac arrest Status: Resolved Hospital course: Mr. Dias is a 62 year old male - Time Spent with Patient Total time spent providing and/or coordinating discharge services: Date of admission: 10/02/17 22:24 Primary care physician: [facility] Consults: 10/03/17 08:46 Consult to Speech Therapy [CONS] Routine Comment: Evaluate, develop and implement POC Reason for Consult: dysphagia, needs swallow study Call Completed: No 10/03/17 12:07 Consult to Interpret Exam [CONS] Routine Consulting Provider: Trent Copeland I Consult to Interpret Exam: Interpret EEG 10/04/17 13:57 Consult to Oncology Hematology [CONS] Stat Consulting Provider: Ke Roberson Reason for Consult: ?TTP Call Completed: Yes 10/05/17 10:19 Consult to Cardiology [CONS] Routine Comment: Consulting Provider: Cardiology Donna Reason for Consult: bradycardia, syncope Call Completed: No 10/05/17 10:37 Consult to Wound Care [CONS] Routine Reason for Consult: LLE Call Completed: No 10/07/17 10:57 Consult to Interventional Radiology [CONS] Routine Consulting Provider: Radiology Interventional Cols Reason for Consult: Please eval for placement of a temporary HD catheter ( his AM Creatinine just posted, which is why this request was placed at this hour). Thank you. Call Completed: Yes 10/07/17 11:00 Consult to Dialysis [CONS] ONCE 10/08/17 07:30 Consult to Dialysis [CONS] ONCE 10/09/17 07:45 Consult to Dialysis [CONS] ONCE 10/11/17 08:45 Consult to Dialysis [CONS] ONCE 10/11/17 11:20 Consult to Interventional Radiology [CONS] Routine Consulting Provider: Radiology Interventional Cols Reason for Consult: Please evaluate for inpatient Renal biopsy on Friday, re : concern for GN (+FLORINDA, low complements, ARSH). Call Completed: No 10/13/17 08:14 Consult to Infectious Diseases [CONS] Routine Consulting Provider: Infectious Disease Donna Reason for Consult: Left foot wound infection/ Abx recs Time Notified: 08:15 Call Completed: Yes 10/14/17 08:45 Consult to Dialysis [CONS] ONCE 10/14/17 13:52 Consult to Physical Therapy [CONS] Routine Comment: Evaluate, develop and implement POC Reason for Consult: re-evaluate for D/C needs. Weakness related to stay in hospital Does patient have active BEDREST order?: No Is patient medically & hemodynamically stable?: Yes 10/16/17 08:15 Consult to Dialysis [CONS] ONCE 10/16/17 12:46 Consult to Interventional Radiology [CONS] Stat Consulting Provider: Radiology Interventional Cols Reason for Consult: Permacath for dialysis Time Notified: 12:45 Call Completed: Yes 10/16/17 18:49 Consult to Cardiology [CONS] Routine Comment: Consulting Provider: [facility] [place] Reason for Consult: S/P cardiac arrest Call Completed: No 10/18/17 08:00 Consult to Dialysis [CONS] ONCE 10/20/17 10:12 Consult to Dough Cutter [CONS] Routine Reason for SW Consult: needs chair time 10/22/17 15:00 Consult to Dialysis [CONS] ONCE - Constitutional Vitals: Temp Pulse Resp BP Pulse Ox 98.4 F 78 18 101/68 100 10/23/17 10:38 10/23/17 10:38 10/23/17 10:38 10/23/17 10:38 10/23/17 10:38 - Attending Attestation I examined this patient and my medical decision-making was reviewed with the Resident Physician Dr. Domingo. I agree with the documented findings, disposition and treatment plan as described except to the extent set forth below. Mr. Dias is a 62 year old male who was admitted from the emergency department on 10/02/17 due to a near syncopal episode. He was also found to have a creatinine of 4.17 with a GFR of 15 and a BUN of 69. Pt was started on aggressive IV hydration , however his Kidney function have not improved. 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 Nephrology started him on HD. On 10/16/17 the patient underwent IR guided placement of a hemodialysis catheter. Immediately following, the patient coded and underwent chest compressions and intubation. Eventually pt got extubated and transferred to regular floor. He also had Left lower extremity wound for which he underwent excisional debridement of wounds through deep fascia/tendon, application of PRP , left lower extremity by Dr. Larkin on 09/25/17. S/p application of graft on 10/[address] Larkin. Wound culture from 09/10 grew Pseudomonas and GCS. He was placed on Cefepime IV abx during last hospitalization which he finished now. Pt is medically [facility]. Gen: A, A, O x 3 Chest: Diminished B S b/l Heart: S1S2+ RRR No murmurs
--- NOTE | 2017-10-23 15:35 | Podiatry Progress Note ---
Date of Encounter: 10/23/17 Time of Encounter: 12:00 - Assessment and Plan (1) Nonhealing surgical wound Current Visit: No Status: Acute s/p excisional debridement of wounds through deep fascia/tendon, application of PRP, left lower extremity by Dr. Larkin on 09/25/17. S/p application of graft on 10/02/[address] Larkin. Wound vac changed at bedside today. WBC: 2.3 Platelets: 104 Surgical biopsy from left foot on 09/10/17 isolated Pseudomonas Aeruginosa, Group C Strep. Plan: Wound vac changed today. Next wound vac change due on Friday. Patients wound vac schedule is ever Friday and . All surrounding skin prepped with Allkare, drape applied to protect skin, white sponge applied to anterior wound with black sponge, small black simplace wound vac sponge bridged to wound to lateral foot and posterior left heel. Connected to 150 mmhg continuous suction. Patient will require a posterior splint to the LLE prior to discharge. Order placed. Patient has own home wound vac. IV antibiotic management per Infectious Disease. Will continue to follow patient closely. Follow up in wound care on Friday for wound vac dressing change on 10/27/17. Follow up with Dr. Larkin in wound care on 10/30/17. 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 Larkin on 09/25/17. S/p placement of graft by Dr. Larkin on 10/02/17. Patient has a wound vac intact to the left ankle and foot. Patient is lying in bed with spouse at bedside. Patient denies any pain, fever, chills, cp, sob. Objective - Vital Signs Vital Signs: Vital Signs Temp Pulse Resp BP Pulse Ox 10/23/17 10:38 98.4 F 78 18 101/68 100 10/23/17 06:42 98.1 F 75 16 121/80 100 10/23/17 04:05 98.2 F 73 13 114/77 99 10/22/17 22:25 97.7 F 79 14 114/75 98 10/22/17 19:35 97.6 F 76 14 96/68 98 10/22/17 18:20 97.1 F L 14 119/76 10/22/17 18:10 105/67 10/22/17 17:55 118/82 10/22/17 17:40 110/61 10/22/17 17:25 103/54 10/22/17 17:10 107/65 10/22/17 16:55 112/94 10/22/17 16:40 100/59 10/22/17 16:25 94/68 10/22/17 16:10 112/71 10/22/17 15:55 98/63 10/22/17 15:40 104/63 Intake and Output 10/22/17 10/23/17 10/23/17 23:59 07:59 15:59 Intake Total 100 / 100 0 / 0 30 / 30 Output Total 1770 / 1770 100 / 100 180 / 180 Balance -1670 / -1670 -100 / -100 -150 / -150 Intake: Oral 100 / 100 0 / 0 30 / 30 Output: Urine 0 / 0 0 / 0 0 / 0 Total Dialysis (HD) Output 1600 / 1600 Wound Drainage 170 / 170 100 / 100 180 / 180 Left Foot 90 / 90 100 / 100 100 / 100 Left Lower Foot 80 / 80 80 / 80 Other: Meal Breakfast Percent of Meal Consumed 0% # Voids 0 # Bowel Movements 0 0 Weight 87.1 kg Hemodialysis Net Fluid Removed 1000 (mL) - Exam Exam: General appearance: alert awake oriented X 3. Calm and pleasant, no acute distress.. Vascular: No evidence of cyanosis, pallor or rubor, Edema graded at 1+/4, Skin Tempature warm, No calf pain with manual compression. capillary refill time is immediate to digits. Neurologic: Sensation intact with light touch to foot. . Postop Exam: S/P Surgical wound #1: anterior left ankle measuring 9 cm in length x 10 cm in width x 1 cm in depth, base of wound with fascia and tendon exposed, yellow fibrous tissue with red granulation tissue to wound bed, no pus, no odor, light periwound, no streaking, no fluctuance. Surgical wound #2: lateral aspect of left foot measuring 2 cm in length x 2 cm in width x 1 cm in depth, base of wound 90% red granulation tissue and 10 % yellow fibrous tissue, no pus, no odor, no periwound erythema, no streaking, no cellulitis, no fluctuance. Surgical wound #3: left posterior heel measuring 4.5 cm in length x 3.5 cm in width x 0.2 cm in depth, base of wound 80 % red granulation tissue and 20% yellow slough. no periwound erythema, no odor, no pus, no fluctuance. 150 ml of serous drainage observed to canister. - Lab Result Diagrams: 10/23/17 06:52 10/23/17 06:52 Labs: Abnormal lab results WBC 2.3 K/mcL (4.3-11.1) L 10/23/17 06:52 RBC 2.93 M/mcL (4.19-5.50) L 10/23/17 06:52 Hgb 9.3 g/dL (12.9-16.9) L 10/23/17 06:52 Hct 28.4 % (37.5-50.1) L 10/23/17 06:52 RDW 15.4 % (11.5-14.5) H 10/23/17 06:52 Plt Count 104 K/mcL (140-400) L 10/23/17 06:52 Neutrophils # 1.0 K/mcL (1.6-8.9) L 10/20/17 05:43 Nucleated RBCs/100 WBC 0.6 /100 WBC (0) H 10/06/17 03:57 Platelet Estimate Decreased (Normal) L 10/20/17 05:43 ESR 57 mm/hr (0-10) H 10/02/17 12:12 PT 12.9 Seconds (9.4-12.1) H 10/16/17 17:38 Sodium 135 mEq/L (136-145) L 10/23/17 06:52 Carbon Dioxide 21 mEq/L (23-29) L 10/23/17 06:52 Creatinine 2.19 mg/dL (0.70-1.30) H 10/23/17 06:52 Est GFR ( Amer) 37 (> 60) L 10/23/17 06:52 Est GFR (Non-Af Amer) 31 (> 60) L 10/23/17 06:52 Calculated Osmolality 279 (280-300) L 10/23/17 06:52 Calcium 8.4 mg/dL (8.6-10.3) L 10/23/17 06:52 % Saturation 63 % (20-55) H 10/05/17 03:56 Transferrin 113 mg/dL (203-362) L 10/05/17 03:56 AST 51 Units/L (13-39) H 10/16/17 17:38 Troponin I 0.26 ng/mL (< 0.04) H* 10/17/17 05:40 Albumin 2.8 g/dL (3.5-5.7) L 10/22/17 10:26 Albumin (PEP) 2.77 g/dL (3.75-5.01) L 10/06/17 13:42 Globulin 3.8 g/dL (2.4-3.5) H 10/16/17 17:38 Albumin/Globulin Ratio 0.9 (1.1-2.2) L 10/16/17 17:38 Gamma Globulins 1.76 g/dL (0.62-1.51) H 10/06/17 13:42 Vitamin B12 243 pg/mL (250-1100) L 10/05/17 11:15 Arterial Blood Ionized Calcium 1.06 mmol/L (1.15-1.35) L 10/16/17 19:45 Urine Clarity Cloudy (Clear) A 10/06/17 16:00 Urine Protein 100 mg/dL (Neg-Trace) H 10/06/17 16:00 Urine Ketones 15 mg/dL (Negative) H 10/06/17 16:00 Urine Blood Large (Negative) H 10/06/17 16:00 Ur Leukocyte Esterase Trace (Negative) H 10/06/17 16:00 Urine Microscopic RBC TNTC per hpf (0-3) H 10/06/17 16:00 Urine Microscopic WBC 5-15 per hpf (0-3) H 10/06/17 16:00 Ur Eosinophil Smear 1 % (None Seen) H 10/06/17 16:00 Ur Squamous Epith Cells Many per lpf (None-Few) H 10/06/17 16:00 Ur Culture Indicated? NO. (NO) A 10/06/17 16:00 Protein/Creatinin Ratio 2.00 mg/mg (0.00-0.20) H 10/06/17 16:00 U Free Alvo Light Ch 58.30 mg/dL (0.14-2.42) H 10/07/17 19:24 U Free Lambda Light Ch 17.20 mg/dL (0.02-0.67) H 10/07/17 19:24 Phenytoin 1.9 mcg/mL (10.0-20.0) L 10/03/17 06:07 Copper 65 ug/dL (70-140) L 10/05/17 11:15 IgG 1720 mg/dL (768-1632) H 10/06/17 13:42 FLORINDA Titer 1:1280 (<1:80) H 10/06/17 13:42 Complement C3 80 mg/dL (88-201) L 10/06/17 13:42 Free Alvo LC, Quant 20.90 mg/dL (0.33-1.94) H 10/06/17 13:42 Free Lambda LC, Quant 13.90 mg/dL (0.57-2.63) H 10/06/17 13:42 Microbiology, Last 48 Hours 10/16/17 17:49 Blood Culture - Final Peripheral Venipuncture No growth. Final report. 10/16/17 17:38 Blood Culture - Final Peripheral Venipuncture No growth. Final report. - VTE Documentation of Mechanical Device: Intermittent pneumatic compression device Consult Discharge Plan - Plan Additional Instructions: Please follow-up with your many specialists providers. Please follow-up with neurology for management of your seizure medications. Please follow-up with cardiology in the next few weeks following your evaluation in the hospital. Please follow-up with wound care and podiatry for management of your left foot wound. Also follow-up with nephrology for management of hemodialysis. Please return to the emergency department should you develop any chest pain, shortness of breath, fever, confusion or any other worrisome symptoms. Referrals: [facility] [Other] (Located next to the [facility]) [facility] [Outside] - 10/28/17 11:30 am Naveed Larkin DPM [Partnered Physician] - 10/30/17 10:30 am (Appointment will be in the wound care center. The wound care center is located at the [address] entrance. Thank you) Prescriptions: OxyCODONE/APAP 5/325 [Percocet 5/325 MG] 1 each PO Q6HR PRN 5 Days #15 tablet PRN Reason: Severe Pain Dronabinol [Marinol] 5 mg PO BIDLS 15 Days #30 capsule
== END 2017-10-23 16:23 | disposition home or self-care (01) | DRG 673 ==
LOC: 3ANU 11:45 → EMEROO 11:45 → 3ANU 14:27 → SUATTDRO 22:24 → ICNU 10-16 16:20 → 2ANU 10-17 08:45 → UNDODISIN 10-23 15:06
PROVIDERS: ADMIT Hospitalist; ATTEND Internal Medicine
PROC: IRPERMA (2017-10-16 14:00)